=== PATIENT | male | born 1945 | race Caucasian/White ===

== ENCOUNTER 2016-11-24 20:13 | Observation (INO) | payer OTHER, MEDICARE ==
[~2016-11-24] VITALS: Ht 177.8 cm; Wt 91.5 kg
[~2016-11-24 20:13] MED LIST: ASPCH81X PO; ATOR-24 PO; DILT60TA PO; FINA5TAB4 PO; FLAX12003 PO; FOLI400T41 PO; METO50TA16 PO; MULT-506 PO; TERA5CAP PO
[2016-11-24] MEDS ORDERED: METO100T14 PO (20:26)
[2016-11-24] MEDS ORDERED: SERT-234 PO (20:27)
[2016-11-24] MEDS ORDERED: FAMO20TA11 PO (20:27)
[2016-11-24] MEDS ORDERED: MELO15TA4 PO (20:28)
[2016-11-24] MEDS ORDERED: LISI-787 PO (20:29)
[2016-11-24] MEDS ORDERED: SIMV20TA2 PO (20:30)
[2016-11-24 20:49] LABS: BASO % 0.3 %; BASO ABS # 0.02 K/uL (0-0.2); COMPLETE YES; EOS % 2.2 %; HEMATOCRIT 42.4 % (42-52); IG% 0.2 %; LYMPH % 27.9 %; LYMPH ABS # 1.78 K/uL (1.2-3.4); MEAN CELL VOLUME 92.8 fL (80-100); MEAN CORPUSCULAR HEMOGLOBIN 31.9 pg (25-34); MEAN CORPUSCULAR HGB CONC 34.4 g/dl (32-36); MEAN PLATELET VOLUME 9.2 fL (7.4-10.4); MONO % 10.3 %; NEUT % 59.1 %; PLATELET COUNT 206 K/uL (130-400); RED BLOOD COUNT 4.57 M/uL (4.7-6.1); WHITE BLOOD COUNT 6.39 K/uL (4.8-10.8)
--- NOTE | 2016-11-24 20:51 | DIAGNOSTIC IMAGING REPORT ---
CHEST ONE VIEW PORTABLE CLINICAL HISTORY: Atypical chest pain COMPARISON STUDY: 12/17/2015 FINDINGS: The heart is enlarged. There is no focal pulmonary consolidation. There is no overt failure. There are no pleural effusions. There is mild chronic interstitial thickening towards the lung bases.[ IMPRESSION: Cardiomegaly. No acute findings. Electronically signed by: George Hooker M.D. 11/24/2016 8:50 PM Dictated Date/Time: 11/24/2016 8:49 PM
[2016-11-24 21:02] LABS: INR 2.7 (0.9-1.1); PARTIAL THROMBOPLASTIN RATIO 1.5; PROTHROMBIN TIME (PATIENT) 30.2 SECONDS (9.0-12.0)
[2016-11-24 21:07] LABS: BUN/CREATININE RATIO 18.4 (10-20); CALCIUM 8.9 mg/dl (8.5-10.1); POTASSIUM 4.2 mmol/L (3.5-5.1)
[2016-11-24] MEDS ORDERED: CALC600T9 PO (21:25)
[2016-11-24] MEDS ORDERED: WARF2.5T8 PO (21:25)
--- NOTE | 2016-11-24 21:54 | History and Physical ---
History & Physical Date & Time of Service: Nov 24, 2016 at 21:35 Chief Complaint: Chest Pain Primary Care Physician: Ami Woodson D.O. History of Present Illness Source: patient, family 71yo male with history of paroxysmal a. fib on chronic coumadin, HTN, hyperlipidemia, and carotid stenosis s/p left-sided CEA who presents with chest pain. He had 3 discrete episodes throughout the day. First episode was at about 2pm earlier today. He was standing in his garage when it occurred. Described it as "sharp" and went across the whole chest. Lasted a few seconds then self-resolved. States it "stunned me" and he had to sit down. He denies discrete shortness of breath, but he then states "it took my breath away." was present and states "he didn't look well" during the episode. Denied any presyncope. Pain did not radiate to either arm or jaw or back. Denies nausea or vomiting. Denies any palpitations. He states it did not feel like heartburn (had heartburn in 2014 prompting GI work-up including EGD). He went back into his house after this first episode. He states "I didn't feel well." He checked his BP and the systolic was in the 180s. He then describes another episode of sharp chest pain while walking around the house; again self-resolved. A 3rd episode of chest pain occurred while he was laying on his cough. Again only lasted a few seconds then resolved. After the 3rd episode he decided to come to the hospital. Over the last few months he denies any limitation in activity or other cardiopulmonary symptoms. Denies any recent heavy lifting. Denies daily, severe heartburn symptoms. Has not had any chest pain since coming to the ER. Past Medical/Surgical History PMH: 1. paroxysmal a. fib 2. HTN 3. hyperlipidemia 4. BPH 5. b/l foot pain - chronic - etiology? 6. GERD 7. carotid stenosis b/l - last carotid duplex 2015 with 70% stenosis on right, <50% on left 8. prior heavy tobacco consumption no h/o MA or stroke last stress test (stress echo) - 09/2015 - negative for ischemia, but only achieved 66% of MPHR PSH: 1. CEA, left 2. left hip fracture s/p ORIF 3. inguinal hernia repair b/l 4. colonoscopy - 2015 - normal 5. 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) Immunizations History of Influenza Vaccine: Yes History of Tetanus Vaccine?: Yes History of Pneumococcal: Yes History of Hepatitis B Vaccine: No Multi-Drug Resistant Organisms History of MDRO: No Allergies Coded Allergies: Niacin (Unverified Allergy, Mild, RASH, 11/24/16) Cerivastatin (Verified Allergy, Unknown, muscle pain, 11/24/16) Piroxicam (Verified Allergy, Unknown, Rash, 11/24/16) Prednisone (Verified Allergy, Unknown, Swelling, 11/24/16) Home Medications Scheduled Aspirin (Aspirin Chewable), 81 MG PO DAILY Atorvastatin (Lipitor), 20 MG PO DAILY Calcium Carbonate-Vitamin D (Calcium + D), 1 TAB PO DAILY Diltiazem Hcl (Diltiazem Hcl), 30 MG PO BID Finasteride (Proscar), 5 MG PO DAILY Flaxseed (Linseed) (Flaxseed Oil), 1 CAP PO BID Folic Acid (Folvite), 400 MCG PO DAILY Metoprolol Tartrate (Lopressor) (Lopressor), 50 MG PO BID Multivitamin (Multivitamin), 1 TAB PO DAILY Terazosin Hcl (Hytrin), 5 MG PO HS Warfarin Sod (Jantoven), 2.5 MG PO DAILY Review of Systems Constitutional: No chills, No fatigue, No fever, No weakness, No weight loss Eyes: No worsening of vision ENT: No nasal symptoms, No sore throat, No trouble swallowing Respiratory: No cough, No dyspnea at rest Cardiovascular: + palpitations, No PND, No chest pain, No edema, No orthopnea Abdomen: No diarrhea, No nausea, No pain, No vomiting Musculoskeletal: + joint pain (chronic - knees, etc), No muscle pain Genitourinary - Male: No dysuria Neurologic: No numbness/tingling Psychiatric: No anxiety, No depression symptoms Endocrine: No fatigue Hematologic / Lymphatic: No abnormal bleeding/bruising Integumentary: No rash Physical Exam Vital Signs Date Time Temp Pulse Resp B/P Pulse Ox O2 Delivery O2 Flow Rate FiO2 11/24/16 20:34 57 11/24/16 20:20 36.7 50 18 157/76 94 Room Air General Appearance: WD/WN, no apparent distress Head: normocephalic, atraumatic Eyes: PERRL, EOMI ENT: normal ENT inspection, hearing grossly normal, TMs normal, pharynx normal Neck: supple, no adenopathy, no JVD, no carotid bruits, + thyroid abnormalities (nodule, right, about 1-2cm in size ) Respiratory/Chest: lungs clear, no respiratory distress, no accessory muscle use Cardiovascular: no gallop, normal peripheral pulses (radials 2+ bilaterally), + bradycardia, + systolic murmur (1/6 LLSB) Abdomen/GI: normal bowel sounds, non tender, soft, no organomegaly Back: normal inspection Extremities/Musculoskelatal: no pedal edema Neurologic/Psych: no motor/sensory deficits, alert, normal mood/affect, normal reflexes, oriented x 3 Skin: no rash Lymphatic: no adenopathy b/l feet, plantar aspect -- tender over multiple metatarsal heads b/l, no pain over plantar fascial insertion on heel b/l Diagnostics Laboratory Results Results Past 24 Hours Test 11/24/16 20:35 11/24/16 20:40 Range/Units White Blood Count 6.39 4.8-10.8 K/uL Red Blood Count 4.57 4.7-6.1 M/uL Hemoglobin 14.6 14.0-18.0 g/dL Hematocrit 42.4 42-52 % Mean Corpuscular Volume 92.8 80-100 fL Mean Corpuscular Hemoglobin 31.9 25-34 pg Mean Corpuscular Hemoglobin Concent 34.4 32-36 g/dl Platelet Count 206 130-400 K/uL Mean Platelet Volume 9.2 7.4-10.4 fL Neutrophils (%) (Auto) 59.1 % Lymphocytes (%) (Auto) 27.9 % Monocytes (%) (Auto) 10.3 % Eosinophils (%) (Auto) 2.2 % Basophils (%) (Auto) 0.3 % Neutrophils # (Auto) 3.78 1.4-6.5 K/uL Lymphocytes # (Auto) 1.78 1.2-3.4 K/uL Monocytes # (Auto) 0.66 0.11-0.59 K/uL Eosinophils # (Auto) 0.14 0-0.5 K/uL Basophils # (Auto) 0.02 0-0.2 K/uL RDW Standard Deviation 43.9 36.4-46.3 fL RDW Coefficient of Variation 12.9 11.5-14.5 % Immature Granulocyte % (Auto) 0.2 % Immature Granulocyte # (Auto) 0.01 0.00-0.02 K/uL Prothrombin Time 30.2 9.0-12.0 SECONDS Prothromb Time International Ratio 2.7 0.9-1.1 Activated Partial Thromboplast Time 39.7 21.0-31.0 SECONDS Partial Thromboplastin Ratio 1.5 Sodium Level 144 136-145 mmol/L Potassium Level 4.2 3.5-5.1 mmol/L Chloride Level 109 98-107 mmol/L Carbon Dioxide Level 29 21-32 mmol/L Anion Gap 6.0 3-11 mmol/L Blood Urea Nitrogen 18 7-18 mg/dl Creatinine 1.00 0.60-1.40 mg/dl Est Creatinine Clear Calc Drug Dose 74.6 ml/min Estimated GFR () 86.8 Estimated GFR (Non- 74.9 BUN/Creatinine Ratio 18.4 10-20 Random Glucose 75 70-99 mg/dl Calcium Level 8.9 8.5-10.1 mg/dl Bedside Troponin I 0.000 0-0.045 ng/ml Diagnostic Radiology chest x-ray- FINDINGS: The heart is enlarged. There is no focal pulmonary consolidation. There is no overt failure. There are no pleural effusions. There is mild chronic interstitial thickening towards the lung bases.[ IMPRESSION: Cardiomegaly. No acute findings. EKG EKG - my reading - sinus bradycardia with first degree AV block, no acute ST changes; no change from prior EKG; minor J point elevation in I, V2, V3 - unchanged from prior EKG Impression Assessment and Plan 71yo male with history of HTN, hyperlipidemia, paroxysmal a. fib, carotid stenosis s/p CEA on left, and heavy tobacco use in the past presenting with three short episodes of chest pain earlier today. All episodes were <10-20 seconds in duration and self-resolved. He has multiple CAD risk factors as noted above. 1. chest pain - * serial cardiac enzymes q6h * telemetry * CTA dissection protocol now as this could be an atypical presentation for aortic dissection * echo in AM * strongly consider stress test on Saturday (if w/u above is negative) given his numerous CAD risk factors and the fact he did not reach MPHR during his previous stress test in 2014 * check lipids in AM * continue beta susan, aspirin, statin, etc 2. a. fib, paroxysmal - symptoms today were NOT similar to past episodes of PAF. He is in sinus bradycardia at presentation today. Doubt arrhythmia as cause of presenting symptoms. Cont coumadin, BB, CCB. Telemetry. Daily INR. 3. HTN - continue BB. 4. hyperlipidemia - lipids in AM, cont statin. 5. h/o carotid stenosis, s/p CEA on left - no symptoms today to suggest TIA. Last carotid duplex with 70% stenosis on right. This needs to be followed carefully. Cont asa, statin, etc. 6. b/l plantar foot pain - metatarsalgia? plantar fascitis? Has seen podiatry in past; should return there after discharge. 7. h/o GERD - does not take PPI. In the event these episodes were GI in origin will start PPI. However, I am more suspicious about cardiac causes as noted above. 8. BPH - continue outpatient meds. 9. sinus bradycardia - follow his HRs carefully. He is on 2 AV viktoria agents. Adjust these meds if he has extreme bradycardia or symptoms referable to such. See discussion in #1 above. Level of Care Telemetry Resuscitation Status FULL RESUSCITATION VTE Prophylaxis Risk Level: Very Low Given or contraindicated: Warfarin (Coumadin) Social Service Consult None Apply Note total visit time 60 minutes patient to be placed on observation status Additional Copies To Abdon Berry M.D.; Ami Woodson D.O.
--- NOTE | 2016-11-24 22:07 | EMERGENCY ROOM VISIT NOTE ---
History Report prepared by Cm: Alisha Alvarez Under the Supervision of: Dr. Terence Dodge M.D. First contact with patient: 20:24 Chief Complaint: CHEST PAIN Stated Complaint: CHEST PAIN History of Present Illness The patient is a 71 year old male who presents to the Emergency Room with complaints of intermittent chest pain beginning 6 hours ago. The patient states that the pain was sharp and in his entire chest when it started. 2 hours later the patient reports that he felt it again but it was more of a pressure. He notes that his last chest pressure was 1 hour ago while he was laying down. The patient stats that he is on Coumadin for A-Fib and takes a baby aspirin. He notes that he has hypertension and is a former smoker. He denies any swelling or pain in the legs, immobilization or recent travel, shortness of breath, fever , and cough. Source of History: patient Onset: 6 hours ago Position: chest Quality: pressure, sharp Timing: intermittent Associated Symptoms: No SOB, No cough, No fevers Note: He denies any swelling or pain in the legs, immobilization or recent travel. Review of Systems See HPI for pertinent positives & negatives. A total of 10 systems reviewed and were otherwise negative. Past Medical & Surgical Medical Problems: (1) Benign prostatic hyperplasia (2) Hyperlipidemia (3) Hypertension Nos Family History Heart disease Hypertension Social History Smoking Status: Former Smoker Drug Use: none Marital Status: Housing Status: lives with family Occupation Status: retired Current/Historical Medications Scheduled Aspirin (Aspirin Chewable), 81 MG PO DAILY Atorvastatin (Lipitor), 20 MG PO DAILY Calcium Carbonate-Vitamin D (Calcium + D), 1 TAB PO DAILY Diltiazem Hcl (Diltiazem Hcl), 30 MG PO BID Finasteride (Proscar), 5 MG PO DAILY Flaxseed (Linseed) (Flaxseed Oil), 1 CAP PO BID Folic Acid (Folvite), 400 MCG PO DAILY Metoprolol Tartrate (Lopressor) (Lopressor), 50 MG PO BID Multivitamin (Multivitamin), 1 TAB PO DAILY Terazosin Hcl (Hytrin), 5 MG PO HS Warfarin Sod (Jantoven), 2.5 MG PO DAILY Allergies Coded Allergies: Niacin (Unverified Allergy, Mild, RASH, 11/24/16) Cerivastatin (Verified Allergy, Unknown, muscle pain, 11/24/16) Piroxicam (Verified Allergy, Unknown, Rash, 11/24/16) Prednisone (Verified Allergy, Unknown, Swelling, 11/24/16) Physical Exam Vital Signs Date Time Temp Pulse Resp B/P Pulse Ox O2 Delivery O2 Flow Rate FiO2 11/24/16 20:34 57 11/24/16 20:20 36.7 50 18 157/76 94 Room Air Physical Exam Constitutional: Vital signs reviewed. Eyes: Pupils are equal round reactive to light. Conjunctiva are noninjected. ENT: Pharynx is clear without erythema or exudate. Mucous membranes are moist. Neck supple without meningeal signs. Respiratory: Clear to auscultation bilaterally. Breath sounds are equal bilaterally. Cardiovascular: Bradycardic rate at 55 with regular rhythm. No rubs or gallops. GI: Soft, nondistended and nontender. Bowel sounds are present. Musculoskeletal: No peripheral edema. No lower extremity tenderness. Integumentary: No cyanosis. Neurological: The patient is awake and alert. No focal deficits. Psychiatric: Normal affect. Medical Decision & Procedures ER Provider Diagnostic Interpretation: X-ray results as stated below per interpretation by me and the radiologist: CHEST ONE VIEW PORTABLE FINDINGS: The heart is enlarged. There is no focal pulmonary consolidation. There is no overt failure. There are no pleural effusions. There is mild chronic interstitial thickening towards the lung bases.[ IMPRESSION: Cardiomegaly. No acute findings. Electronically signed by: George Hooker M.D. 11/24/2016 8:50 PM Dictated Date/Time: 11/24/2016 8:49 PM Laboratory Results 11/24/16 20:35 Red Blood Count 4.57, Mean Corpuscular Volume 92.8, Mean Corpuscular Hemoglobin 31.9, Mean Corpuscular Hemoglobin Concent 34.4, Mean Platelet Volume 9.2, Neutrophils (%) (Auto) 59.1, Lymphocytes (%) (Auto) 27.9, Monocytes (%) (Auto) 10.3, Eosinophils (%) (Auto) 2.2, Basophils (%) (Auto) 0.3, Neutrophils # (Auto ) 3.78, Lymphocytes # (Auto) 1.78, Monocytes # (Auto) 0.66, Eosinophils # (Auto ) 0.14, Basophils # (Auto) 0.02 11/24/16 20:35 Test 11/24/16 20:35 11/24/16 20:40 White Blood Count 6.39 K/uL (4.8-10.8) Red Blood Count 4.57 M/uL (4.7-6.1) Hemoglobin 14.6 g/dL (14.0-18.0) Hematocrit 42.4 % (42-52) Mean Corpuscular Volume 92.8 fL (80-100) Mean Corpuscular Hemoglobin 31.9 pg (25-34) Mean Corpuscular Hemoglobin Concent 34.4 g/dl (32-36) Platelet Count 206 K/uL (130-400) Mean Platelet Volume 9.2 fL (7.4-10.4) Neutrophils (%) (Auto) 59.1 % Lymphocytes (%) (Auto) 27.9 % Monocytes (%) (Auto) 10.3 % Eosinophils (%) (Auto) 2.2 % Basophils (%) (Auto) 0.3 % Neutrophils # (Auto) 3.78 K/uL (1.4-6.5) Lymphocytes # (Auto) 1.78 K/uL (1.2-3.4) Monocytes # (Auto) 0.66 K/uL (0.11-0.59) Eosinophils # (Auto) 0.14 K/uL (0-0.5) Basophils # (Auto) 0.02 K/uL (0-0.2) RDW Standard Deviation 43.9 fL (36.4-46.3) RDW Coefficient of Variation 12.9 % (11.5-14.5) Immature Granulocyte % (Auto) 0.2 % Immature Granulocyte # (Auto) 0.01 K/uL (0.00-0.02) Prothrombin Time 30.2 SECONDS (9.0-12.0) Prothromb Time International Ratio 2.7 (0.9-1.1) Activated Partial Thromboplast Time 39.7 SECONDS (21.0-31.0) Partial Thromboplastin Ratio 1.5 Anion Gap 6.0 mmol/L (3-11) Est Creatinine Clear Calc Drug Dose 74.6 ml/min Estimated GFR () 86.8 Estimated GFR (Non- 74.9 BUN/Creatinine Ratio 18.4 (10-20) Calcium Level 8.9 mg/dl (8.5-10.1) Bedside Troponin I 0.000 ng/ml (0-0.045) See HPI for pertinent positives & negatives. A total of 10 systems reviewed and were otherwise negative. ECG Indication: chest pain Rate (beats per minute): 50 Rhythm: sinus bradycardia Findings: 1st degree AV block Comparison ECG Date: november 2015 Change: no significant change ED Course 2023: The patient was evaluated in room B11B. A complete history and physical exam was performed. 2110: I reevaluated the patient and he is not having any chest discomfort. I recommended hospitalization. 2199: I spoke with Dr. Jones of [facility]. We discussed the patient and his results. The patient will be further evaluated by Dr. Jones. Medical Decision This is a 71-year-old male who presents with chest pain. Differential diagnosis includes unstable angina, OR, pulmonary embolism, pleurisy, GERD, anxiety. I did perform a limited focused review of portions of the patient's old chart on the electronic medical record. The patient has had no recent pertinent visits to this hospital. I did evaluate the patient as noted above. IV access was established. The patient was placed on a continuous property assessment monitor. I did order and personally review the patient's 12-lead EKG and chest x-ray as described above. I did order and review the patient's blood work as noted in the electronic medical record. The patient's INR is therapeutic. Troponin is negative. I did reassess the patient. He is feeling no chest pain at this time. I did discuss the test results with him. I did recommend hospitalization for repeat cardiac enzymes and further evaluation of his symptoms. I did discuss the case with the hospitalist and watch caser. Consults Time Called: 2115 Consulting Physician: Dr. Jones - [facility] Returned Call: [address] Jones of [facility]. We discussed the patient and his results. The patient will be further evaluated by Dr. Jones. Impression Primary Impression: Precordial chest pain Scribe Attestation The scribe's documentation has been prepared under my direct and personally reviewed by me in its entirety. I confirm that the note above accurately reflects all work, treatment, procedures, and medical decision making performed by me. Departure Information Dispostion Being Evaluated By Hospitalist Referrals Ami Woodson D.O. (PCP) Patient Instructions My [facility]
[2016-11-24] MEDS ORDERED: ACETAMINOPHEN 325 MG TAB PO PRN (22:15)
[2016-11-24] MEDS ORDERED: ONDANSETRON INJ 2 MG/ML 2 ML VIAL IV PRN (22:15)
[2016-11-24] MEDS ORDERED: SODIUM CHLORIDE 0.9% 1000ML 1,000 ML IV SCH (22:15)
[2016-11-24] MEDS ORDERED: OPTIRAY 320 IV PRN (22:15)
[2016-11-24] MEDS ORDERED: ALUMINUM/MAGNESIUM/SIMETH (MAALOX MAX) 30 ML UDC PO PRN (22:15)
[2016-11-24] MEDS ORDERED: NITROGLYCERIN 0.4 MG SL PER TAB CHARGE SL PRN (22:15)
[2016-11-24] MEDS ORDERED: MAGNESIUM HYDROXIDE SUSP 30 ML UDC PO PRN (22:15)
[2016-11-24] MEDS ORDERED: IV FLUIDS COMPLETED PRN (22:45)
[2016-11-24 23:10] VITALS: BP 149/67; PULSE 51; TEMP 36.5; O2SAT 94
[2016-11-25 00:23] VITALS: O2SAT 94; Ht 177.8 cm; Wt 91.5 kg
[2016-11-25 03:22] LABS: CHOLESTEROL 146 mg/dl (0-200); CHOLESTEROL/HDL RATIO 3.2; CKMB/CK RATIO 2.4 (0-3.0); HDL CHOLESTEROL 46 mg/dl; LDL CHOLESTEROL CALCULATED 80 mg/dl; TRIGLYCERIDES 98 mg/dl (0-150); VERY LOW DENSITY LIPOPROT CALC 20 mg/dl
[2016-11-25 04:14] VITALS: BP 163/85; PULSE 55; TEMP 36.5; O2SAT 96
[2016-11-25 07:26] VITALS: BP 118/58; PULSE 58; TEMP 36.9; O2SAT 95
--- NOTE | 2016-11-25 07:33 | DIAGNOSTIC IMAGING REPORT ---
CHEST CTA for AORTIC DISSECTION CT DOSE: 972.22 mGy.cm HISTORY: TECHNIQUE: Multiaxial CT images of the chest were performed both before and after the intravenous administration of contrast to evaluate the aorta. Maximal intensity projection images were also obtained. COMPARISON STUDY: Chest 11/24/2016. FINDINGS: Normal caliber thoracic aorta with no evidence for dissection. The central pulmonary arteries are patent. 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 Multinodular thyroid gland with the dominant nodule measuring 1.7 cm. A few prominent mediastinal and hilar lymph nodes. Mild thickening of the distal esophagus. The visualized liver and spleen are unremarkable. Calcifications within the left adrenal gland. No pleural or pericardial effusions. No pneumothorax. The central airways are patent. A 3 mm nodule within the left upper lobe on image 97. Calcified granuloma along the left major fissure. A 7 mm nodule within the left lower lobe abutting the major fissure on image 142. Mild bibasilar subsegmental atelectasis. A 5 mm nodule within the right upper lobe on image 146. A few additional subpleural nodules within the right lower lobe abutting the major fissure with the largest measuring 6 mm on image 170. A 4 mm nodule within the right lower lobe on image 245. IMPRESSION: 1. No evidence for an aortic dissection. 2. The central pulmonary arteries are patent. 3. A few scattered subcentimeter bilateral pulmonary nodules with the largest measuring 7 mm. Please refer to the chart below for recommended follow-up. 4. Additional findings as described above. Please refer to below summary of Fleischner criteria recommendations for follow-up of incidental CT nodules (Osvaldo Phillips, Guidelines for management of small pulmonary nodules detected on CT scans: A statement from the Fleischner Society, Radiology 237: [phone].) Low Risk Patient: Minimal or no smoking or other known risk factors for malignancy <=4 mm: No follow-up needed. >4-6 mm: Initial follow-up CT at 12 months; if unchanged, no further follow-up. >6-8 mm: Initial follow-up CT at 6-12 months then at 18-24 months if no change. >8 mm: Follow-up CT at \R\3, 9, 24 months, or PET and/or biopsy. High Risk Patient: History of smoking or other known risk factors <=4 mm: Follow-up at 12 months; if unchanged, no further follow-up. >4-6 mm: Initial follow-up CT at 6-12 months then at 18-24 months if no change. >6-8 mm: Initial follow-up CT at 3-6 months then at 9-12 and 24 months if no change. >8 mm: Same as low risk patient. Note: Nodule size measured as average of length and width. Ground glass or partly solid nodules may require longer follow-up to exclude indolent adenocarcinoma. Electronically signed by: Som Multani M.D. 11/25/2016 7:32 AM Dictated Date/Time: 11/25/2016 7:24 AM
[2016-11-25 08:00] VITALS: O2SAT 95
[2016-11-25 08:01] VITALS: PULSE 67
[2016-11-25] MEDS: ATORVASTATIN 20 MG TAB PO SCH ×2 (08:06→08:09)
--- NOTE | 2016-11-25 08:27 | Discharge Instructions ---
Discharge Instructions Admission Reason for Admission: Precordial Chest Pain Discharge Discharge Diagnosis / Problem: atypical chest pain Discharge Goals Goal(s): Increase independence, Improve disease control, Diagnostic testing, Therapeutic intervention Activity Recommendations Activity Limitations: resume your previous activity . Instructions / Follow-Up Instructions / Follow-Up follow up PCP 2 weeks, needs repeat CT chest in 6 months (pulmonary nodule 0.7 cm) Current Hospital Diet Patient's current hospital diet: AHA Diet (Heart Healthy) Discharge Diet Recommended Diet: Regular Diet Pending Studies Studies pending at discharge: no Laboratory Results Lipid Panel Test 11/25/16 02:55 Range/Units Triglycerides Level 98 0-150 mg/dl Cholesterol Level 146 0-200 mg/dl HDL Cholesterol 46 mg/dl Cholesterol/HDL Ratio 3.2 LDL Cholesterol, Calculated 80 mg/dl Medical Emergencies . Who to Call and When: Medical Emergencies: If at any time you feel your situation is an emergency, please call 911 immediately. . Non-Emergent Contact Non-Emergency issues call your: Primary Care Provider Call Non-Emergent contact if: you have a fever, your pain is not controlled . Past History Medical & Surgical History: (1) Precordial chest pain . "Provider Documentation" section prepared by Jelani Black. VTE Core Measure Inpt VTE Proph given/why not?: Warfarin (Coumadin)
--- NOTE | 2016-11-25 08:31 | Discharge Summary ---
Discharge Summary Admission Date: Nov 24, 2016 at 22:15 Discharge Date: Nov 25, 2016 Discharge Disposition: Home Principal Diagnosis: atypical chest pain, pulm nodule Immunizations: Have You Had Influenza Vaccine: Yes History of Tetanus Vaccine?: Yes History of Pneumococcal: Yes History of Hepatitis B Vaccine: No Medication Reconciliation Continued Medications: Aspirin (Aspirin Chewable) 81 Mg Chew 81 MG PO DAILY, TAB Atorvastatin (Lipitor) 40 Mg Tab 20 MG PO DAILY, TAB Calcium Carbonate-Vitamin D (Calcium + D) 1 Tab Tab 1 TAB PO DAILY Diltiazem Hcl (Diltiazem Hcl) 60 Mg Tab 30 MG PO BID Finasteride (Proscar) 5 Mg Tab 5 MG PO DAILY, TAB Flaxseed (Linseed) (Flaxseed Oil) 1 Cap Cap 1 CAP PO BID Folic Acid (Folvite) 400 Mcg Tab 400 MCG PO DAILY, TAB Metoprolol Tartrate (Lopressor) (Lopressor) 50 Mg Tab 50 MG PO BID, TAB Multivitamin (Multivitamin) Tab 1 TAB PO DAILY, TAB Terazosin Hcl (Hytrin) 5 Mg Cap 5 MG PO HS, CAP Warfarin Sod (Jantoven) 2.5 Mg Tab 2.5 MG PO DAILY, TAB Referrals At Discharge Follow up Referrals: Physician Referral - Within 2 Weeks with Juan Pablo Woodson D.O. Discharge Exam Review of Systems: Constitutional: No chills ENT: No unusual epistaxis Respiratory: No sputum Cardiovascular: No orthopnea Abdomen: No nausea Musculoskeletal: No joint pain Genitourinary - Male: No hematuria Neurologic: No memory loss, No weakness Psychiatric: No depression symptoms Endocrine: No fatigue Integumentary: No rash Physical Exam: General Appearance: WD/WN, no apparent distress Eyes: normal inspection, EOMI ENT: hearing grossly normal, pharynx normal Neck: supple, no JVD Respiratory/Chest: lungs clear, normal breath sounds Cardiovascular: no edema, no JVD Abdomen / GI: soft, no organomegaly Extremities: no calf tenderness, normal capillary refill Neurologic/Psychiatric: alert, normal mood/affect Skin: normal color, no rash Hospital Course A 71 yo male comes with sharp pain while fixing things in garage. Likely MSK vs esophageal spasm. His CP resolved now. EKG, CE are normal, he takes coumadin for afib, INR therapeutic. CT chest showed a pulm nodule follow up PCP 2 weeks, needs repeat CT chest in 6 months (pulmonary nodule 0.7 cm) Total Time Spent: Greater than 30 minutes This includes examination of the patient, discharge planning, medication reconciliation, and communication with other providers. Discharge Instructions Please refer to the electronic Patient Visit Report (Discharge Instructions) for additional information. Additional Copies To Juan Pablo Woodson D.O.
[2016-11-25 08:49] VITALS: BP 118/58; PULSE 67; TEMP 36.9; O2SAT 95
[2016-11-25] MEDS ORDERED: DILTIAZEM HCL 30 MG TAB PO SCH (09:00)
[2016-11-25] MEDS ORDERED: FoLIC ACID TAB 400 MCG TAB PO SCH (09:00)
[2016-11-25] MEDS ORDERED: MULTIVITAMIN TAB PO SCH (09:00)
[2016-11-25] MEDS ORDERED: FINASTERIDE 5 MG TAB PO SCH (09:00)
[2016-11-25] MEDS ORDERED: METOPROLOL TARTRATE 50 MG TAB PO SCH (09:00)
[2016-11-25] MEDS ORDERED: ASPIRIN 81 MG ECTAB PO SCH (09:00)
[2016-11-25] MEDS ORDERED: WARFARIN SOD 2.5 MG TAB PO SCH (16:00)
== END 2016-11-25 10:52 | disposition home or self-care (01) ==
LOC: ENRESERVDT → ENRESERVTM → C.EDB 20:14 → C.MED 22:15
PROVIDERS: ADMIT Internal Medicine; ATTEND Hospitalist
DX: R07.89 Other chest pain (principal); E78.5 Hyperlipidemia, unspecified; I10 Essential (primary) hypertension; N40.0 Benign prostatic hyperplasia without lower urinary tract symptoms; K21.9 Gastro-esophageal reflux disease without esophagitis; I48.0 Paroxysmal atrial fibrillation; I44.0 Atrioventricular block, first degree; Z79.01 Long term (current) use of anticoagulants; Z87.891 Personal history of nicotine dependence; Z82.49 Family history of ischemic heart disease and other diseases of the circulatory system; Z82.3 Family history of stroke

== ENCOUNTER → 2017-02-12 | Outpatient (CLI) | payer OTHER, MEDICARE ==
[~2017-02-12] MED LIST changes: +CALC600T9 PO; +OPTIRAY 320 IV PRN; +WARF2.5T8 PO
--- NOTE | 2017-02-12 11:42 | DIAGNOSTIC IMAGING REPORT ---
CHEST CT WITH CONTRAST CT DOSE: 488.02 mGy.cm HISTORY: Pulmonary nodule. Follow-up. TECHNIQUE: Multiaxial CT images of the chest were performed following the intravenous administration of contrast. COMPARISON: Chest CTA 11/24/2016. FINDINGS: The central airways are patent. No pleural effusions. No pneumothorax. A 3 mm nodule within the left upper lobe on image 97. Nodular thickening along the left major fissure on image 133 with the dominant nodule measuring 7 mm. This remains unchanged. Groundglass densities at the lung bases favor mild dependent change. Stable subpleural nodules along the right major fissure on images 155 and 156. The largest nodule measures 6 mm. Stable 5 mm nodule within the right upper lobe on image 142. No new bony nodules identified. The visualized liver, spleen, right adrenal gland are unremarkable. Calcifications within the left adrenal gland. Stable thyroid nodules with the largest measuring 17 mm. Mildly prominent mediastinal and hilar lymph nodes remain unchanged. The heart is mildly enlarged. Small hiatus hernia. Normal caliber thoracic aorta. The central pulmonary arteries are patent. IMPRESSION: 1. No change compared to the prior study. 2. A few scattered bilateral subcentimeter indeterminate pulmonary nodules remain stable. Dominant nodule at the left major fissure measures 7 mm. Please refer to the chart below for recommended follow-up. 3. Stable thyroid nodules measuring up to 17 mm. Please refer to below summary of Fleischner criteria recommendations for follow-up of incidental CT nodules (Osvaldo Phillips, Guidelines for management of small pulmonary nodules detected on CT scans: A statement from the Fleischner Society, Radiology 237: [phone].) SOLID NODULES Solitary nodule size: <6 mm * Low risk patients: no follow-up needed * high risk patients: optional CT at 12 months Solitary nodule size: 6-8 mm * Low risk patients: follow-up at 6-12 months, then consider further follow-up at 18-24 months * high risk patients: initial follow-up CT at 6-12 months and then at 18-24 months if no change Solitary nodule size: >8 mm * either low or high risk patients - consider follow-up CT at 3 months, and/or CT-PET, and/or biopsy Multiple nodules size: <6 mm * Low risk patients: no routine follow-up * high risk patients: optional CT at 12 months Multiple nodules size: 6-8 mm * Low risk patients: follow-up at 3-6 months, then consider further follow-up at 18-24 months * high risk patients: follow-up at 3-6 months, then at 18-24 months if no change Multiple nodules size: >8 mm * Low risk patients: follow-up at 3-6 months, then consider further follow-up at 18-24 months * high risk patients: follow-up at 3-6 months, then at 18-24 months if no change Note: newly detected indeterminate nodule in persons 35 years of age or older. * Low risk patients: minimal or absent history of smoking and/or other known risk factors * high risk patients: history of smoking or of other known risk factors (e.g. first degree relative with lung cancer, or exposure to asbestos, radon, uranium) * if a nodule up to 8 mm is partly solid or is ground glass further follow-up is required after 24 months to exclude possible slow growing adenocarcinoma (SALLIE) SUBSOLID NODULES Solitary pure ground-glass nodule * nodule size <6 mm - no CT follow-up required * nodule size >=6 mm - follow-up CT at 6-12 months, then every 2 years until 5 years Solitary part-solid nodule * nodule size <6 mm - no CT follow-up required * nodule size >=6 mm - follow-up CT at 3-6 months. If unchanged, and solid component remains <6 mm, then annual follow-up for 5 years Multiple subsolid nodules * nodule size <6 mm - follow-up CT at 3-6 months, consider further follow-up at 2 and 4 years if stable * nodule size >=6 mm - follow-up CT at 3-6 months, subsequent management based on the most suspicious nodule(s) Electronically signed by: Som Multani M.D. 02/12/2017 11:40 AM Dictated Date/Time: 02/12/2017 11:31 AM
== END | disposition home or self-care (01) ==
LOC: C.CTS 11:12
PROVIDERS: ATTEND Family Medicine
DX: R91.8 Other nonspecific abnormal finding of lung field (principal); E04.2 Nontoxic multinodular goiter

== ENCOUNTER → 2017-09-16 | Outpatient (CLI) | payer OTHER, MEDICARE ==
[~2017-09-16] MED LIST changes: -OPTIRAY 320 IV PRN
[2017-09-16 10:20] LABS: CHOLESTEROL/HDL RATIO 3.1
== END | disposition home or self-care (01) ==
LOC: C.LAB1850 08:19
PROVIDERS: ATTEND Internal Medicine Cardiovascular Disease
DX: I10 Essential (primary) hypertension (principal); E78.00 Pure hypercholesterolemia, unspecified

== ENCOUNTER 2017-10-19 09:16 | Emergency (ER) | payer OTHER, MEDICARE ==
[~2017-10-19] VITALS: Ht 177.8 cm; Wt 91.2 kg
[2017-10-19 09:18] VITALS: Ht 177.8 cm; Wt 91.2 kg
--- NOTE | 2017-10-19 09:42 | EMERGENCY ROOM VISIT NOTE ---
History Report prepared by Yanivibfernanda: Claire Green Under the Supervision of: Dr. Shraddha Serrano D.O. First contact with patient: 09:24 Chief Complaint: FLU LIKE SX Stated Complaint: FLU History of Present Illness The patient is a 72 year old male who presents to the Emergency Room with complaints of worsening flu-like symptoms since yesterday. He is accompanied by his . He complains of a sore throat and a productive cough with clear colored sputum. He has had the chills but denies any fevers. Last night he had difficulty breathing and had to sleep "sitting up". He states he "gets sick like this once a year", but was unable to get in with his doctor. He has not been taking over the counter medications as he is unsure what he can take with his history of hypertension and atrial fibrillation, for which he takes a daily blood thinner. His last INR checked at home 2 weeks ago was 2.4. The patient notes his and grandson have been sick with similar symptoms, but they have been improving, and he seems to be getting worse. He denies any recent diarrhea , pain or swelling in his legs or urinary symptoms. He admits he has had pneumonia in the past and did receive a flu shot this year. He denies any personal history of CHF. He is a former smoker, stating he smoked for 40 years, but "quit a long time ago". He does not believe he's needed treatment with steroids or inhalers in the past when he's been sick with similar symptoms. Source of History: patient Onset: yesterday Position: other (global) Timing: worsening Associated Symptoms: + chills, + sorethroat, + cough, + SOB, No fevers, No diarrhea, No urinary symptoms Review of Systems See HPI for pertinent positives & negatives. A total of 10 systems reviewed and were otherwise negative. Past Medical & Surgical Medical Problems: (1) Benign prostatic hyperplasia (2) Hyperlipidemia (3) Hypertension Nos (4) Pulmonary nodule Family History Heart disease Hypertension Social History Smoking Status: Former Smoker Alcohol Use: none Drug Use: none Marital Status: Housing Status: lives with family Occupation Status: retired Current/Historical Medications Scheduled Aspirin (Aspirin Chewable), 81 MG PO DAILY Atorvastatin (Lipitor), 20 MG PO DAILY Benzonatate (Tessalon Perles), 100 MG PO Q8 Calcium Carbonate-Vitamin D (Calcium + D), 1 TAB PO DAILY Diltiazem Hcl (Diltiazem Hcl), 30 MG PO BID Finasteride (Proscar), 5 MG PO DAILY Flaxseed (Linseed) (Flaxseed Oil), 1 CAP PO BID Folic Acid (Folvite), 400 MCG PO DAILY Levofloxacin (Levaquin), 750 MG PO DAILY Methylprednisolone (Medrol Dosepak), 1 PKT PO UD Metoprolol Tartrate (Lopressor) (Lopressor), 50 MG PO BID Multivitamin (Multivitamin), 1 TAB PO DAILY Terazosin Hcl (Hytrin), 5 MG PO HS Warfarin Sod (Jantoven), 2.5 MG PO DAILY Allergies Coded Allergies: Niacin (Unverified Allergy, Mild, RASH, 10/19/17) Cerivastatin (Verified Allergy, Unknown, muscle pain, 10/19/17) Piroxicam (Verified Allergy, Unknown, Rash, 10/19/17) Prednisone (Verified Allergy, Unknown, Swelling, 10/19/17) Physical Exam Vital Signs Date Time Temp Pulse Resp B/P (MAP) Pulse Ox O2 Delivery O2 Flow Rate FiO2 10/19/17 12:48 82 18 134/68 96 10/19/17 12:21 37.1 82 18 134/68 96 Room Air 10/19/17 10:44 86 18 155/75 92 Room Air 10/19/17 09:18 36.6 92 20 147/68 98 Room Air Physical Exam GENERAL: alert, well appearing, well nourished, no distress, non-toxic EYE EXAM: normal conjunctiva, PERRL and EOM's grossly intact OROPHARYNX: no exudate, no erythema, lips, buccal mucosa, and tongue normal and mucous membranes are moist NECK: supple, no nuchal rigidity, no adenopathy, non-tender LUNGS: Clear to auscultation. Normal chest wall mechanics HEART: no murmurs, S1 normal and S2 normal ABDOMEN: abdomen soft, non-tender, normo-active bowel sounds, no masses, no rebound or guarding. BACK: Back is symmetrical on inspection and there is no deformity, no midline tenderness, no CVA tenderness. SKIN: no rashes and no bruising UPPER EXTREMITIES: upper extremities are grossly normal. LOWER EXTREMITIES: No pitting edema. NEURO EXAM: Normal sensorium, cranial nerves II-XII grossly intact, normal speech, no gross weakness of arms, no gross weakness of legs. Medical Decision & Procedures ER Provider Diagnostic Interpretation: Radiology results have been interpreted by the radiologist and reviewed by me. CHEST 2 VIEWS ROUTINE HISTORY: Cough. Short of breath. COMPARISON: Chest CT 02/12/2017. FINDINGS: The heart is normal in size. The lungs are clear. No pleural effusions. No pneumothorax. The lungs are mildly hyperexpanded. IMPRESSION: No acute process. Electronically signed by: Som Multani M.D. 10/19/2017 9:59 AM Laboratory Results 10/19/17 10:30 Red Blood Count 4.55, Mean Corpuscular Volume 93.4, Mean Corpuscular Hemoglobin 32.5, Mean Corpuscular Hemoglobin Concent 34.8, Mean Platelet Volume 9.2, Neutrophils (%) (Auto) 81.4, Lymphocytes (%) (Auto) 11.4, Monocytes (%) (Auto) 6.4, Eosinophils (%) (Auto) 0.6, Basophils (%) (Auto) 0.1, Neutrophils # (Auto) 8.50, Lymphocytes # (Auto) 1.19, Monocytes # (Auto) 0.67, Eosinophils # (Auto) 0.06, Basophils # (Auto) 0.01 10/19/17 10:30 Test 10/19/17 09:50 10/19/17 10:30 Influenza Type A Antigen Neg for Influ A (NEG) Influenza Type B Antigen Neg for Influ B (NEG) White Blood Count 10.44 K/uL (4.8-10.8) Red Blood Count 4.55 M/uL (4.7-6.1) Hemoglobin 14.8 g/dL (14.0-18.0) Hematocrit 42.5 % (42-52) Mean Corpuscular Volume 93.4 fL (80-100) Mean Corpuscular Hemoglobin 32.5 pg (25-34) Mean Corpuscular Hemoglobin Concent 34.8 g/dl (32-36) Platelet Count 189 K/uL (130-400) Mean Platelet Volume 9.2 fL (7.4-10.4) Neutrophils (%) (Auto) 81.4 % Lymphocytes (%) (Auto) 11.4 % Monocytes (%) (Auto) 6.4 % Eosinophils (%) (Auto) 0.6 % Basophils (%) (Auto) 0.1 % Neutrophils # (Auto) 8.50 K/uL (1.4-6.5) Lymphocytes # (Auto) 1.19 K/uL (1.2-3.4) Monocytes # (Auto) 0.67 K/uL (0.11-0.59) Eosinophils # (Auto) 0.06 K/uL (0-0.5) Basophils # (Auto) 0.01 K/uL (0-0.2) RDW Standard Deviation 43.2 fL (36.4-46.3) RDW Coefficient of Variation 12.7 % (11.5-14.5) Immature Granulocyte % (Auto) 0.1 % Immature Granulocyte # (Auto) 0.01 K/uL (0.00-0.02) Prothrombin Time 24.8 SECONDS (9.0-12.0) Prothromb Time International Ratio 2.4 (0.9-1.1) Anion Gap 4.0 mmol/L (3-11) Est Creatinine Clear Calc Drug Dose 77.0 ml/min Estimated GFR () 89.4 Estimated GFR (Non- 77.1 BUN/Creatinine Ratio 15.0 (10-20) Calcium Level 8.5 mg/dl (8.5-10.1) Total Bilirubin 0.7 mg/dl (0.2-1) Aspartate Amino Transf (AST/SGOT) 15 U/L (15-37) Alanine Aminotransferase (ALT/SGPT) 33 U/L (12-78) Alkaline Phosphatase 71 U/L (45-117) Troponin I < 0.015 ng/ml (0-0.045) Pro-B-Type Natriuretic Peptide 285 pg/ml (0-900) Total Protein 7.2 gm/dl (6.4-8.2) Albumin 3.6 gm/dl (3.4-5.0) Globulin 3.6 gm/dl (2.5-4.0) Albumin/Globulin Ratio 1.0 (0.9-2) Laboratory results per my review. Medications Administered Medications (Trade) Dose Ordered Sig/Max Route Start Time Stop Time Status Last Admin Dose Admin Albuterol (Ventolin Hfa Inhaler) 2 puffs NOW ONCE INH 10/19/17 09:45 10/19/17 09:46 DC 10/19/17 09:48 2 PUFFS Benzonatate (Tessalon Perles Cap) 100 mg NOW ONCE PO 10/19/17 09:45 10/19/17 09:46 DC 10/19/17 09:48 100 MG Methylprednisolone Sodium Succinate 60 mg/Syringe 0.96 ml @ 1.5 mls/min NOW STAT IV 10/19/17 11:10 10/19/17 11:11 DC 10/19/17 11:44 1.5 MLS/MIN ED Course 0927: The patient was evaluated in room B2. A complete history and physical exam was performed. 0945: Tessalon Perles Cap 100 mg PO, Albuterol 2 puffs INH. 1025: I reevaluated the patient. I updated him on his chest X-ray results. He complains of the chills, so we will recheck blood work. 1105: I reevaluated the patient. He is asleep and his vital signs are stable. 1110: Methylprednisolone Sodium Succinate 60 mg/Syringe 0.96 ml @ 1.5 mls/min IV. 1130: I reevaluated the patient. He is still asleep. 1140: I reevaluated the patient. He is feeling well and is ready to go home. I discussed his results and discharge instructions and he verbalized complete understanding and agreement. Medical Decision Differential diagnoses includes but is not limited to pneumonia, bronchitis, COPD/Asthma exacerbation, pneumothorax, pulmonary embolism, congestive heart failure, acute coronary syndrome On initial interview pt very insistent he needed antibiotics bc that's what his PCP always gives him. We discussed at length his med hx, prior similar episodes , tobacco hx, exposures, and risks. Pt with stable VS here, negative evaluation. Doubt pe given therapeutic INR. Discussed MDI's and steroids which pt doesn't have and hasn't used, discussed appropriate use of antibiotics. DIscussed f/u with PCP next week, sx to watch/return for, he and verbalized understanding and were agreeable with plan. All questions answered at bedside and pt well appearing at dc. Doubt vascular etiology, doubt bacteremia/sepsis, doubt chf or acs. Doubt deep space infection or meningitis. Medication Reconcilliation Current Medication List: was personally reviewed by me Blood Pressure Screening Patient's blood pressure: Elevated blood pressure Blood pressure disposition: Elevated BP felt to be situational Impression Primary Impression: Upper respiratory infection Additional Impressions: Acute bronchitis COPD (chronic obstructive pulmonary disease) Scribe Attestation The scribe's documentation has been prepared under my direction and personally reviewed by me in its entirety. I confirm that the note above accurately reflects all work, treatment, procedures, and medical decision making performed by me. Departure Information Dispostion Home / Self-Care Prescriptions Benzonatate (Tessalon Perles) 100 Mg Cap 100 MG PO Q8 for Cough, #30 CAP Prov: Shraddha Serrano, DO 10/19/17 Methylprednisolone (MEDROL DOSEPAK) 4 Mg Cali 1 PKT PO UD for 6 Days, #1 PKT Prov: Shraddha Serrano, DO 10/19/17 Levofloxacin (Levaquin) 500 Mg Tab 750 MG PO DAILY for 5 Days, #8 TAB Prov: Shraddha Serrano, DO 10/19/17 Referrals Ami Woodson D.O. (PCP) Patient Instructions My [facility] Additional Instructions You may use the inhaler and spacer up to every 4 hours as needed for chest tightness or wheezing. You may use the cough medication as directed. If your symptoms do not improve in 24 hours, you may then start the antibiotic. If you develop worsening cough or trouble breathing, noticed blood in your sputum, develop fevers or worsening chills, chest pain, vomiting, rash or sores, leg swelling, or you've any other new concerns, please return the emergency room. Your INR today was 2.4. You may use coricidin HBP and over the counter cough syrup as directed on the bottle. Do not take sudafed. You may use tylenol for fevers/pain. Problem Qualifiers Primary Impression: Upper respiratory infection URI type: unspecified URI Qualified Codes: J06.9 - Acute upper respiratory infection, unspecified Additional Impressions: Acute bronchitis Bronchitis organism: unspecified organism Qualified Codes: J20.9 - Acute bronchitis, unspecified COPD (chronic obstructive pulmonary disease) COPD type: unspecified COPD Qualified Codes: J44.9 - Chronic obstructive pulmonary disease, unspecified
[2017-10-19] MEDS ORDERED: BENZONATATE 100MG CAP PO ONE (09:45)
[2017-10-19] MEDS ORDERED: ALBUTEROL HFA 8 GM INHALER INH ONE (09:45)
--- NOTE | 2017-10-19 10:00 | DIAGNOSTIC IMAGING REPORT ---
CHEST 2 VIEWS ROUTINE HISTORY: Cough. Short of breath. COMPARISON: Chest CT 02/12/2017. FINDINGS: The heart is normal in size. The lungs are clear. No pleural effusions. No pneumothorax. The lungs are mildly hyperexpanded. IMPRESSION: No acute process. Electronically signed by: Som Multani M.D. 10/19/2017 9:59 AM Dictated Date/Time: 10/19/2017 9:58 AM
[2017-10-19 10:41] LABS: BASO % 0.1 %; BASO ABS # 0.01 K/uL (0-0.2); COMPLETE YES; EOS % 0.6 %; HEMATOCRIT 42.5 % (42-52); IG% 0.1 %; LYMPH % 11.4 %; LYMPH ABS # 1.19 K/uL (1.2-3.4); MEAN CELL VOLUME 93.4 fL (80-100); MEAN CORPUSCULAR HEMOGLOBIN 32.5 pg (25-34); MEAN CORPUSCULAR HGB CONC 34.8 g/dl (32-36); MEAN PLATELET VOLUME 9.2 fL (7.4-10.4); MONO % 6.4 %; NEUT % 81.4 %; PLATELET COUNT 189 K/uL (130-400); RED BLOOD COUNT 4.55 M/uL (4.7-6.1); WHITE BLOOD COUNT 10.44 K/uL (4.8-10.8)
[2017-10-19 10:53] LABS: INR 2.4 (0.9-1.1); PROTHROMBIN TIME (PATIENT) 24.8 SECONDS (9.0-12.0)
[2017-10-19 10:54] LABS: ALT/SGPT 33 U/L (12-78); AST/SGOT 15 U/L (15-37); BLOOD UREA NITROGEN 15 mg/dl (7-18); CALCIUM 8.5 mg/dl (8.5-10.1); CARBON DIOXIDE 28 mmol/L (21-32); CHLORIDE 107 mmol/L (98-107); CREATININE 0.97 mg/dl (0.60-1.40); GLUCOSE 95 mg/dl (70-99); POTASSIUM 3.9 mmol/L (3.5-5.1); SODIUM 139 mmol/L (136-145)
[2017-10-19 10:59] LABS: ALKALINE PHOSPHATASE 71 U/L (45-117)
[2017-10-19] MEDS ORDERED: METHYLPREDNISOLONE IV 60 MG in SYRINGE 0 ML IV STA (11:10)
[2017-10-19 12:21] VITALS: TEMP 37.1
[2017-10-19] MEDS ORDERED: BENZ100C84 PO (12:33)
[2017-10-19] MEDS ORDERED: METH4PAK PO (12:33)
[2017-10-19] MEDS ORDERED: LEVO-366 PO (12:33)
[2017-10-19 12:48] VITALS: BP 134/68; PULSE 82; O2SAT 96
== END 2017-10-19 12:49 | disposition home or self-care (01) ==
LOC: C.EDB 09:18
DX: J06.9 Acute upper respiratory infection, unspecified (principal); J20.9 Acute bronchitis, unspecified; J44.0 Chronic obstructive pulmonary disease with (acute) lower respiratory infection; I10 Essential (primary) hypertension; E78.5 Hyperlipidemia, unspecified; N40.0 Benign prostatic hyperplasia without lower urinary tract symptoms; Z87.891 Personal history of nicotine dependence; Z79.82 Long term (current) use of aspirin; Z79.01 Long term (current) use of anticoagulants; Z79.899 Other long term (current) drug therapy; Z82.49 Family history of ischemic heart disease and other diseases of the circulatory system; Z88.8 Allergy status to other drugs, medicaments and biological substances

== ENCOUNTER 2017-12-19 10:39 | Emergency (ER) | payer OTHER, MEDICARE ==
[~2017-12-19] VITALS: Ht 177.8 cm; Wt 91.2 kg
[~2017-12-19 10:39] MED LIST changes: +BENZ100C84 PO
[2017-12-19 10:56] VITALS: TEMP 36.9; Ht 177.8 cm; Wt 91.2 kg
[2017-12-19] MEDS ORDERED: ALBUT/IPRATROP 3MG/0.5MG NEB 3 ML VIAL INH STA (11:18)
[2017-12-19] MEDS ORDERED: OSEL75CA23 PO (11:20)
[2017-12-19 11:49] LABS: BASO % 0.2 %; BASO ABS # 0.01 K/uL (0-0.2); EOS % 1.8 %; HEMATOCRIT 39.9 % (42-52); HEMOGLOBIN 13.6 g/dL (14.0-18.0); LYMPH % 18.1 %; LYMPH ABS # 1.03 K/uL (1.2-3.4); MEAN CELL VOLUME 93.4 fL (80-100); MEAN CORPUSCULAR HEMOGLOBIN 31.9 pg (25-34); MEAN CORPUSCULAR HGB CONC 34.1 g/dl (32-36); MEAN PLATELET VOLUME 9.1 fL (7.4-10.4); MONO % 12.1 %; MONO ABS # 0.69 K/uL (0.11-0.59); NEUT % 67.8 %; NEUT ABS # 3.87 K/uL (1.4-6.5); PLATELET COUNT 174 K/uL (130-400)
--- NOTE | 2017-12-19 11:51 | DIAGNOSTIC IMAGING REPORT ---
SINGLE VIEW CHEST CLINICAL HISTORY: Cough and wheezing. FINDINGS: An AP, portable, upright chest radiograph is compared to study dated 10/19/2017 and correlated with chest CT dated 02/12/2017. The examination is degraded by portable technique and patient rotation. The heart is enlarged and there is atherosclerotic calcification of the thoracic aorta. The pulmonary vasculature is noncongested. Chronic interstitial thickening is similar to previous. Patchy airspace opacities are suggested in the right midlung. There is mild left basilar atelectasis. No large pleural effusion or pneumothorax is seen. The skeletal structures are osteopenic. Degenerative change is seen throughout the thoracic spine. IMPRESSION: 1. Cardiomegaly without radiographic evidence of congestive failure. 2. Patchy airspace opacities are identified in the right midlung. This likely represents an infectious/inflammatory pneumonitis. Radiographic follow-up to resolution is recommended. Electronically signed by: Blaze Monroy M.D. 12/19/2017 11:50 AM Dictated Date/Time: 12/19/2017 11:36 AM
[2017-12-19 12:07] LABS: ALBUMIN 3.3 gm/dl (3.4-5.0); ALT/SGPT 26 U/L (12-78); BLOOD UREA NITROGEN 13 mg/dl (7-18); CALCIUM 8.6 mg/dl (8.5-10.1); CARBON DIOXIDE 27 mmol/L (21-32); CREATININE 1.09 mg/dl (0.60-1.40); GLUCOSE 88 mg/dl (70-99); SODIUM 139 mmol/L (136-145)
[2017-12-19 12:11] LABS: ALKALINE PHOSPHATASE 61 U/L (45-117); AST/SGOT 16 U/L (15-37)
[2017-12-19 12:48] LABS: INR 1.4 (0.9-1.1)
[2017-12-19 13:00] LABS: INFLUENZA B ANTIGEN Neg for Influ B (NEG)
[2017-12-19] MEDS ORDERED: LEVOFLOXACIN 750 MG TAB PO STA (13:43)
--- NOTE | 2017-12-19 13:44 | EMERGENCY ROOM VISIT NOTE ---
ED Visit Note First contact with patient: 11:03 Staff note: I have reviewed the Patients chart and have discussed this case with my PA. I generally agree with the ED note and findings.
[2017-12-19] MEDS ORDERED: LEVO750T23 PO ×2 (13:47→13:49)
[2017-12-19] MEDS ORDERED: BENZ1CAP90 PO (13:47)
[2017-12-19] MEDS ORDERED: HYDR5SYP11 PO ×2 (13:47→20:47)
--- NOTE | 2017-12-19 13:52 | EMERGENCY ROOM VISIT NOTE ---
History First contact with patient: 11:03 Chief Complaint: FLU LIKE SX Stated Complaint: FLU History of Present Illness The patient is a 72 year old male who presents to the Emergency Room with complaints of flulike symptoms. The patient reports that he has had symptoms for the past 5 days. He saw his primary care provider Saturday and was prescribed Tamiflu but states that his symptoms have not been improving. He reports body aches, cough, and wheezing. His cough has been worse at night. He reports that he has been eating okay and has tried to increase his fluid intake. He has been taking Robitussin without relief. He denies shortness of breath or chest pain. He rates his discomfort an 8/10. Review of Systems A complete 10 point review of systems was reviewed with the patient with pertinent positives and negatives as per history of present illness. All else were negative. Past Medical/Surgical History Medical Problems: (1) Benign prostatic hyperplasia (2) Hyperlipidemia (3) Hypertension Nos (4) Pulmonary nodule Family History Heart disease Hypertension Social History Smoking Status: Never Smoker Alcohol Use: none Drug Use: none Marital Status: Housing Status: lives with family Occupation Status: retired Current/Historical Medications Scheduled Aspirin (Aspirin Chewable), 81 MG PO DAILY Atorvastatin (Lipitor), 20 MG PO DAILY Calcium Carbonate-Vitamin D (Calcium + D), 1 TAB PO DAILY Diltiazem Hcl (Diltiazem Hcl), 30 MG PO BID Finasteride (Proscar), 5 MG PO DAILY Flaxseed (Linseed) (Flaxseed Oil), 1 CAP PO BID Folic Acid (Folvite), 400 MCG PO DAILY Hydrocodone W/ Homatropine (Hycodan 5/1.5MG 5 Ml), 5 ML PO Q4H Levofloxacin (Levaquin), 1 TAB PO DAILY Metoprolol Tartrate (Lopressor) (Lopressor), 50 MG PO BID Multivitamin (Multivitamin), 1 TAB PO DAILY Oseltamivir Phosphate (Tamiflu), 75 MG PO BID Terazosin Hcl (Hytrin), 5 MG PO HS Warfarin Sod (Jantoven), 2.5 MG PO DAILY Scheduled PRN Benzonatate (Tessalon Perles), 200 MG PO TID PRN for Cough Hydrocodone W/ Homatropine (Hycodan 5/1.5MG 5 Ml), 5 ML PO Q4H PRN for Cough Physical Exam Vital Signs Date Time Temp Pulse Resp B/P (MAP) Pulse Ox O2 Delivery O2 Flow Rate FiO2 12/19/17 14:16 71 18 121/78 92 12/19/17 13:31 128/68 12/19/17 13:30 73 20 91 Room Air 12/19/17 13:01 135/71 12/19/17 13:00 72 17 91 Room Air 12/19/17 12:31 106/55 12/19/17 12:30 66 25 98 12/19/17 12:24 63 26 131/66 97 Room Air 12/19/17 12:01 65 12/19/17 10:56 36.9 71 20 98/60 96 Room Air Physical Exam VITALS: Vitals are noted on the nurse's note and reviewed by myself. Vital signs stable. GENERAL: This is a 72-year-old male, in no acute distress, nondiaphoretic, well- developed well-nourished. SKIN: The skin was without rashes. EARS: External auditory canals clear, tympanic membranes pearly michelle without erythema or effusion bilaterally. EYES: Pupils equal round and reactive to light and accommodation. MOUTH: Mucous membranes moist. Tonsils are not enlarged. Pharynx without erythema or exudate. NECK: Supple without nuchal rigidity. No lymphadenopathy. HEART: Regular rate and rhythm without murmurs gallops or rubs. LUNGS: End expiratory wheezes heard throughout. No retractions or accessory muscle use. ABDOMEN: Soft, nontender to palpation. NEURO: Patient was alert and oriented to person place and time. Medical Decision & Procedures ER Provider Diagnostic Interpretation: SINGLE VIEW CHEST CLINICAL HISTORY: Cough and wheezing. FINDINGS: An AP, portable, upright chest radiograph is compared to study dated 10/19/2017 and correlated with chest CT dated 02/12/2017. The examination is degraded by portable technique and patient rotation. The heart is enlarged and there is atherosclerotic calcification of the thoracic aorta. The pulmonary vasculature is noncongested. Chronic interstitial thickening is similar to previous. Patchy airspace opacities are suggested in the right midlung. There is mild left basilar atelectasis. No large pleural effusion or pneumothorax is seen. The skeletal structures are osteopenic. Degenerative change is seen throughout the thoracic spine. IMPRESSION: 1. Cardiomegaly without radiographic evidence of congestive failure. 2. Patchy airspace opacities are identified in the right midlung. This likely represents an infectious/inflammatory pneumonitis. Radiographic follow-up to resolution is recommended. Laboratory Results 12/19/17 11:31 Red Blood Count 4.27, Mean Corpuscular Volume 93.4, Mean Corpuscular Hemoglobin 31.9, Mean Corpuscular Hemoglobin Concent 34.1, Mean Platelet Volume 9.1, Neutrophils (%) (Auto) 67.8, Lymphocytes (%) (Auto) 18.1, Monocytes (%) (Auto) 12.1, Eosinophils (%) (Auto) 1.8, Basophils (%) (Auto) 0.2, Neutrophils # (Auto ) 3.87, Lymphocytes # (Auto) 1.03, Monocytes # (Auto) 0.69, Eosinophils # (Auto ) 0.10, Basophils # (Auto) 0.01 12/19/17 11:31 Test 12/19/17 11:31 12/19/17 12:21 White Blood Count 5.70 K/uL (4.8-10.8) Red Blood Count 4.27 M/uL (4.7-6.1) Hemoglobin 13.6 g/dL (14.0-18.0) Hematocrit 39.9 % (42-52) Mean Corpuscular Volume 93.4 fL (80-100) Mean Corpuscular Hemoglobin 31.9 pg (25-34) Mean Corpuscular Hemoglobin Concent 34.1 g/dl (32-36) Platelet Count 174 K/uL (130-400) Mean Platelet Volume 9.1 fL (7.4-10.4) Neutrophils (%) (Auto) 67.8 % Lymphocytes (%) (Auto) 18.1 % Monocytes (%) (Auto) 12.1 % Eosinophils (%) (Auto) 1.8 % Basophils (%) (Auto) 0.2 % Neutrophils # (Auto) 3.87 K/uL (1.4-6.5) Lymphocytes # (Auto) 1.03 K/uL (1.2-3.4) Monocytes # (Auto) 0.69 K/uL (0.11-0.59) Eosinophils # (Auto) 0.10 K/uL (0-0.5) Basophils # (Auto) 0.01 K/uL (0-0.2) RDW Standard Deviation 44.0 fL (36.4-46.3) RDW Coefficient of Variation 13.0 % (11.5-14.5) Immature Granulocyte % (Auto) 0.0 % Immature Granulocyte # (Auto) 0.00 K/uL (0.00-0.02) Prothrombin Time 14.9 SECONDS (9.0-12.0) Prothromb Time International Ratio 1.4 (0.9-1.1) Anion Gap 8.0 mmol/L (3-11) Est Creatinine Clear Calc Drug Dose 68.5 ml/min Estimated GFR () 77.6 Estimated GFR (Non- 67.0 BUN/Creatinine Ratio 12.0 (10-20) Calcium Level 8.6 mg/dl (8.5-10.1) Total Bilirubin 0.4 mg/dl (0.2-1) Aspartate Amino Transf (AST/SGOT) 16 U/L (15-37) Alanine Aminotransferase (ALT/SGPT) 26 U/L (12-78) Alkaline Phosphatase 61 U/L (45-117) Troponin I < 0.015 ng/ml (0-0.045) Total Protein 7.0 gm/dl (6.4-8.2) Albumin 3.3 gm/dl (3.4-5.0) Globulin 3.7 gm/dl (2.5-4.0) Albumin/Globulin Ratio 0.9 (0.9-2) Influenza Type A Antigen Neg for Influ A (NEG) Influenza Type B Antigen Neg for Influ B (NEG) Medications Administered Medications (Trade) Dose Ordered Sig/Max Route Start Time Stop Time Status Last Admin Dose Admin Albuterol/ Ipratropium (Duoneb) 3 ml NOW STAT INH 12/19/17 11:18 12/19/17 11:22 DC 12/19/17 12:24 3 ML Levofloxacin (Levaquin Tab) 750 mg NOW STAT PO 12/19/17 13:43 12/19/17 13:44 DC 12/19/17 14:02 750 MG Albuterol (Ventolin Hfa Inhaler) 2 puffs NOW ONCE INH 12/19/17 14:00 12/19/17 14:01 DC 12/19/17 14:03 2 PUFFS ECG Per My Interpretation Rate (beats per minute): 62 Rhythm: normal sinus Findings: 1st degree AV block, no acute ischemic change, no ectopy Change: no significant change Medical Decision Differential diagnosis includes influenza, pneumonia, upper respiratory infection, among others. The patient is a 72-year-old male who presents today complaining of cough. Chest x-ray shows infectious pneumonitis of the right mid lung. Labs revealed no leukocytosis, anemia or concerning electrolyte abnormalities. Troponin was not elevated. INR slightly subtherapeutic. EKG was interpreted by myself as above, unchanged from previous. He was treated with a DuoNeb and Hycodan cough syrup. He felt better after this treatment and vital signs were within normal limits. I do not feel he will require inpatient treatment at this time. He will be placed on Levaquin and was given a prescription for this cough syrup. He will follow-up with his primary care provider for recheck. The patient was independently evaluated by Dr. Corona, ED attending physician, who agreed with my assessment and treatment plan. Based on the patient's presentation and work up, I feel the patient is stable for outpatient treatment. The patient was educated to return to the emergency department for any worsening of their current condition or new/concerning symptoms. He will follow up with his PCP. Medication Reconcilliation Current Medication List: was personally reviewed by me Blood Pressure Screening Patient's blood pressure: Normal blood pressure Impression Primary Impression: Pneumonitis Departure Information Dispostion Home / Self-Care Condition GOOD Prescriptions Hydrocodone W/ Homatropine (HYCODAN 5/1.5MG 5 ML) 1 Syp Syp 5 ML PO Q4H, #100 ML Prov: Yesenia Hernandez PA-C 12/19/17 Levofloxacin (LEVAQUIN) 750 Mg Tab 1 TAB PO DAILY for 6 Days, #6 TAB Prov: Yesenia Hernandez PA-C 12/19/17 Benzonatate (Tessalon Perles) 200 Mg Cap 200 MG PO TID Y for Cough, #30 CAP Prov: Yesenia Hernandez PA-C 12/19/17 Hydrocodone W/ Homatropine (HYCODAN 5/1.5MG 5 ML) 1 Syp Syp 5 ML PO Q4H Y for Cough, #100 ML Prov: Yesenia Hernandez PA-C 12/19/17 Referrals Ami Woodson D.O. (PCP) Patient Instructions My [facility] Additional Instructions You were prescribed Levaquin to be taken daily as prescribed. This is an antibiotic. All antibiotics have the potential to cause diarrhea. Stop this medication and contact a medical provider if you were to develop any significant adverse side effects including: wheezing, shortness of breath, passing out, vomiting, or a diffuse rash. Always take antibiotics as directed and COMPLETE the ENTIRE course regardless of the improvement of your symptoms. For pain/fever control, you can use the following [id number] medicines ( if >12 yo): - Regular strength (325mg/tab) Tylenol (acetaminophen) 2 tabs every 4-6 hours as needed. Do not exceed 12 tablets in a 24 hour period. Avoid taking more than 4 grams (4000 mg) of Tylenol per day. This includes any other sources of acetaminophen you may take on a regular basis. - Regular strength (200 mg/tab) Advil (ibuprofen) 2-3 tabs every 4-6 hours as needed. Do not exceed a dose of 3200 mg per day. Rest and drink plenty of fluids. Use the Ventolin inhaler every 6 hours for the next 3-4 days until your cough has improved. You may take the Hycodan cough syrup as needed for severe cough. This is a narcotic medication and will make you drowsy. Make sure not to drink alcohol or drive while taking this medication. Follow-up with your primary care provider within 1 week for a recheck. Return to the ED with worsening symptoms, shortness of breath, or any other new/ concerning symptoms.
[2017-12-19] MEDS ORDERED: ALBUTEROL HFA 8 GM INHALER INH ONE (14:00)
[2017-12-19 14:16] VITALS: BP 121/78; PULSE 71; O2SAT 92
== END 2017-12-19 14:08 | disposition home or self-care (01) ==
LOC: C.EDB 10:40 → C.EDC 14:08
DX: J18.9 Pneumonia, unspecified organism (principal); R79.1 Abnormal coagulation profile; I10 Essential (primary) hypertension; R91.1 Solitary pulmonary nodule; E78.5 Hyperlipidemia, unspecified; Z79.82 Long term (current) use of aspirin; Z79.01 Long term (current) use of anticoagulants

== ENCOUNTER 2017-12-21 09:40 | Inpatient (IN) | payer OTHER, MEDICARE ==
[~2017-12-21] VITALS: Ht 177.8 cm; Wt 63.6 kg
[~2017-12-21 09:40] MED LIST changes: -BENZ100C84 PO; +BENZ1CAP90 PO; +HYDR5SYP11 PO; +LEVO750T23 PO; +OSEL75CA23 PO
--- NOTE | 2017-12-21 10:09 | EMERGENCY ROOM VISIT NOTE ---
History Report prepared by Cm: Gigi Younger Under the Supervision of: Dr. Abdon Pearson D.O. First contact with patient: 09:52 Chief Complaint: HYPOTENSION Stated Complaint: BLOW BLOOD PRESSURE, PNEUMONIA History of Present Illness The patient is a 72 year old male who presents to the Emergency Room with complaints of worsening shortness of breath that began six days ago. He has a past medical history of hypertension, hyperlipidemia, prostate disease, and atrial fibrillation. At this time, the patient began exhibiting influenza-like symptoms including fever, cough, some shortness of breath, and congestion. He went to his PCP the next day and was diagnosed with a viral infection and was started on Tamiflu. His symptoms then worsened, so he presented to the ER two days ago. He was diagnosed with pneumonia and was started on Levaquin. However, his symptoms have seemed to worsen over these past two days, especially his shortness of breath and chest congestion. He is now exhibiting some generalized weakness. He denies any chest pain, nausea, or vomiting. He denies any history of heart attacks or heart catheterizations. Source of History: patient Onset: six days ago Position: other (Respiratory System) Symptom Intensity: moderate Quality: other (Shortness of breath) Timing: worsening Associated Symptoms: + fevers, + cough, + weakness, No chest pain, No nausea , No vomiting Note: He is experiencing congestion. Review of Systems See HPI for pertinent positives & negatives. A total of 10 systems reviewed and were otherwise negative. Past Medical & Surgical Medical Problems: (1) Benign prostatic hyperplasia (2) Hyperlipidemia (3) Hypertension Nos (4) Pulmonary nodule Family History Heart disease Hypertension Social History Smoking Status: Former Smoker Alcohol Use: none Drug Use: none Marital Status: Housing Status: lives with family Occupation Status: retired Current/Historical Medications Scheduled Aspirin (Aspirin Chewable), 81 MG PO DAILY Atorvastatin (Lipitor), 20 MG PO HS Calcium Carbonate-Vitamin D (Calcium + D), 1 TAB PO BID Diltiazem Hcl (Cardizem), 30 MG PO BID Finasteride (Proscar), 5 MG PO DAILY Flaxseed (Linseed) (Flaxseed Oil), 1 CAP PO BID Folic Acid (Folvite), 400 MCG PO DAILY Levofloxacin (Levaquin), 1 TAB PO DAILY Metoprolol Tartrate (Lopressor) (Lopressor), 50 MG PO BID Multivitamin (Multivitamin), 1 TAB PO DAILY Terazosin Hcl (Hytrin), 5 MG PO HS Warfarin Sod (Jantoven), 2.5 MG PO DAILY Allergies Coded Allergies: Niacin (Unverified Allergy, Mild, RASH, 12/21/17) Cerivastatin (Verified Allergy, Unknown, muscle pain, 12/21/17) Piroxicam (Verified Allergy, Unknown, Rash, 12/21/17) Prednisone (Verified Allergy, Unknown, Swelling, 12/21/17) Methylprednisolone (Unverified Adverse Reaction, Intermediate, RAPID HEARTBEAT, 12/21/17) Physical Exam Vital Signs Date Time Temp Pulse Resp B/P (MAP) Pulse Ox O2 Delivery O2 Flow Rate FiO2 12/21/17 14:03 68 12/21/17 12:45 36.6 76 22 119/94 96 Room Air 12/21/17 12:01 67 23 168/87 94 Nasal Cannula 2.0 12/21/17 11:05 68 18 113/57 95 Nasal Cannula 3.0 12/21/17 10:29 67 12/21/17 10:10 95 Nasal Cannula 3.0 12/21/17 10:10 99 Nasal Cannula 3.0 12/21/17 10:04 67 18 149/78 91 Room Air 12/21/17 09:49 36.3 78 18 111/72 91 Room Air Physical Exam GENERAL: Patient is awake, listless, and in no acute distress. Patient is resting comfortably and showing no signs of anxiety. Does not appear to be in pain. EYES: The conjunctivae are clear. The pupils are round and reactive. EARS, NOSE, MOUTH AND THROAT: The nose is without any evidence of any deformity. Mucous membranes are moist tongue is midline NECK: The neck is nontender and supple. RESPIRATORY: Lung sounds are diminished to the right lung field. There are rales noted to both bases. Shallow respirations. CARDIOVASCULAR: Regular rate and rhythm noted there no murmurs rubs or gallops normal S1 normal S2 GASTROINTESTINAL: The abdomen is soft. Bowel sounds are present in all quadrants. Abdomen is nontender MUSCULOSKELETAL/EXTREMITIES: There is no evidence of gross deformity full range of motion is noted in the hips and shoulders SKIN: There is no obvious evidence of any rash. There are no petechiae, pallor or cyanosis noted. NEUROLOGIC: Patient is oriented x3. Gait was slow but steady. Medical Decision & Procedures ER Provider Diagnostic Interpretation: Radiology results as stated below per my review and radiologist interpretation: CHEST ONE VIEW PORTABLE CLINICAL HISTORY: Sepsis. COMPARISON STUDY: Chest CT November 24, 2017 and chest radiograph December 19, 2017. FINDINGS: Lung volumes are mildly diminished. There is no pneumothorax or pleural effusion. Suspected right midlung opacity has slightly increased. There is pulmonary vascular congestion without overt pulmonary edema. Mild cardiomegaly is unchanged. IMPRESSION: 1. Slight increase in suspected right midlung opacity which favors pneumonia. 2. Pulmonary vascular congestion without overt pulmonary edema. Electronically signed by: Jarek Kennedy M.D. 12/21/2017 10:44 AM Dictated Date/Time: 12/21/2017 10:42 AM Laboratory Results Test 12/21/17 10:15 12/21/17 10:31 12/21/17 10:35 12/21/17 12:10 Immature Granulocyte % (Auto) 0.2 % White Blood Count 5.93 K/uL (4.8-10.8) Red Blood Count 4.56 M/uL (4.7-6.1) Hemoglobin 14.3 g/dL (14.0-18.0) Hematocrit 42.0 % (42-52) Mean Corpuscular Volume 92.1 fL (80-100) Mean Corpuscular Hemoglobin 31.4 pg (25-34) Mean Corpuscular Hemoglobin Concent 34.0 g/dl (32-36) Platelet Count 201 K/uL (130-400) Mean Platelet Volume 9.1 fL (7.4-10.4) Neutrophils (%) (Auto) 65.5 % Lymphocytes (%) (Auto) 20.6 % Monocytes (%) (Auto) 11.6 % Eosinophils (%) (Auto) 1.9 % Basophils (%) (Auto) 0.2 % Neutrophils # (Auto) 3.89 K/uL (1.4-6.5) Lymphocytes # (Auto) 1.22 K/uL (1.2-3.4) Monocytes # (Auto) 0.69 K/uL (0.11-0.59) Eosinophils # (Auto) 0.11 K/uL (0-0.5) Basophils # (Auto) 0.01 K/uL (0-0.2) Immature Granulocyte # (Auto) 0.01 K/uL (0.00-0.02) Erythrocyte Sedimentation Rate 45 mm/hr (0-14) Activated Partial Thromboplast Time 37.8 SECONDS (21.0-31.0) Partial Thromboplastin Ratio 1.5 D-Dimer 220 ug/L FEU (0-500) Magnesium Level 2.1 mg/dl (1.8-2.4) Total Bilirubin 0.6 mg/dl (0.2-1) Aspartate Amino Transf (AST/SGOT) 17 U/L (15-37) Alanine Aminotransferase (ALT/SGPT) 24 U/L (12-78) Alkaline Phosphatase 62 U/L (45-117) Total Creatine Kinase 111 U/L (39-308) Creatine Kinase MB 2.7 ng/ml (0.5-3.6) Creatine Kinase MB Ratio 2.4 (0-3.0) Troponin I < 0.015 ng/ml (0-0.045) C-Reactive Protein 1.51 mg/dl (0-0.29) Pro-B-Type Natriuretic Peptide 201 pg/ml (0-900) Total Protein 7.4 gm/dl (6.4-8.2) Albumin 3.5 gm/dl (3.4-5.0) Globulin 3.9 gm/dl (2.5-4.0) Albumin/Globulin Ratio 0.9 (0.9-2) Lipase 141 U/L (73-393) Venous Blood pH 7.50 (7.36-7.41) Venous Blood Partial Pressure CO2 31 mmHg (38.0-50.0) Venous Blood Partial Pressure O2 34 mmHg Venous Blood HCO3 24 mmol/L Venous Blood Oxygen Saturation 67.4 % Venous Blood Base Excess 1.1 mEq/L Bedside Lactic Acid Venous 1.24 mmol/L (0.90-1.70) Urine Color YELLOW Urine Appearance CLEAR (CLEAR) Urine pH 5.0 (4.5-7.5) Urine Specific [place] 1.013 (1.000-1.030) Urine Protein NEG (NEG) Urine Glucose (UA) NEG (NEG) Urine Ketones NEG (NEG) Urine Occult Blood NEG (NEG) Urine Nitrite NEG (NEG) Urine Bilirubin NEG (NEG) Urine Urobilinogen NEG (NEG) Urine Leukocyte Esterase NEG (NEG) Urine WBC (Auto) 1-5 /hpf (0-5) Urine RBC (Auto) 0-4 /hpf (0-4) Urine Hyaline Casts (Auto) 1-5 /lpf (0-5) Urine Epithelial Cells (Auto) 0-5 /lpf (0-5) Urine Bacteria (Auto) NEG (NEG) Laboratory results per my review. Medications Administered Medications (Trade) Dose Ordered Sig/Max Route Start Time Stop Time Status Last Admin Dose Admin Levofloxacin (Levaquin / D5W) 750 mg NOW STAT IV 12/21/17 11:29 12/21/17 11:30 DC 12/21/17 12:02 750 MG Sodium Chloride 1,000 ml @ 999 mls/hr Q1H1M STAT IV 12/21/17 11:29 12/21/17 12:29 DC 12/21/17 12:02 999 MLS/HR Ceftriaxone Sodium (Rocephin Inj) 1 gm NOW STAT IV 12/21/17 13:41 12/21/17 13:42 DC 12/21/17 14:45 1 GM ECG Per My Interpretation Indication: SOB/dyspnea Rate (beats per minute): 68 Rhythm: normal sinus Findings: other (No PVC, no ST segments) Comparison ECG Date: 12/19/17 Change: no significant change ED Course 0952: The patient was evaluated in room B3B. A complete history and physical examination were performed. 1129: Ordered NSS 1,000 ml @ 999 mls/hr IV, Levofloxacin 750 mg IV 1341: Ordered Rocephin Inj 1 gm IV 1344: Upon reevaluation, the patient is resting. I discussed results and treatment plan with him. He verbalizes agreement and understanding. [place] [facility] [place] The patient will be evaluated for further management and care. Medical Decision Differential diagnosis: Etiologies such as infections, reactive airway disease, pneumonia, pneumothorax , COPD, CHF, cardiac ischemia, pulmonary embolism, musculoskeletal, gastrointestinal, as well as others were entertained. Nursing notes reviewed. Patient's previous electronic medical records were reviewed. The patient is a 72-year-old male who was seen recently and started on Levaquin for a pneumonia. The patient has increasing symptoms such as dizziness and his blood pressure was noted to be low by his family member today. He also had a mild drop in his blood pressure in the emergency department. He was treated with IV fluids and IV antibiotics. I discussed patient's laboratory and radiographic studies with him. Overall he appears as though he is managing this pneumonia quite well with his episodes of hypotension he had a second antibiotic added. I discussed this case with the on-call [facility] hospitalist group. They have agreed to evaluate the patient in the emergency department for further management and disposition. Medication Reconcilliation Current Medication List: was personally reviewed by me Blood Pressure Screening Patient's blood pressure: Normal blood pressure Blood pressure disposition: Did not require urgent referral Consults Time Called: 1340 Consulting Physician: Dr. Cisco BROWN Returned Call: 1342 I discussed the patient's case with her. The patient will be evaluated for further management. Impression Primary Impression: PNA (pneumonia) Additional Impressions: SOB (shortness of breath) Failure of outpatient treatment Scribe Attestation The scribe's documentation has been prepared under my direction and personally reviewed by me in its entirety. I confirm that the note above accurately reflects all work, treatment, procedures, and medical decision making performed by me. Departure Information Dispostion Being Evaluated By Hospitalist Referrals Ami Woodson D.O. (PCP) Patient Instructions My [facility] Health Problem Qualifiers Primary Impression: PNA (pneumonia) Pneumonia type: due to unspecified organism Laterality: right Lung location : unspecified part of lung Qualified Codes: J18.9 - Pneumonia, unspecified organism
[2017-12-21 10:34] LABS: BASO % 0.2 %; BASO ABS # 0.01 K/uL (0-0.2); EOS % 1.9 %; EOS ABS # 0.11 K/uL (0-0.5); HEMOGLOBIN 14.3 g/dL (14.0-18.0); IG# 0.01 K/uL (0.00-0.02); LYMPH % 20.6 %; LYMPH ABS # 1.22 K/uL (1.2-3.4); MEAN CELL VOLUME 92.1 fL (80-100); MEAN CORPUSCULAR HEMOGLOBIN 31.4 pg (25-34); MEAN PLATELET VOLUME 9.1 fL (7.4-10.4); MONO % 11.6 %; MONO ABS # 0.69 K/uL (0.11-0.59); NEUT % 65.5 %; NEUT ABS # 3.89 K/uL (1.4-6.5); PLATELET COUNT 201 K/uL (130-400); RED CELL DISTRIBUTION WIDTH CV 12.8 % (11.5-14.5); WHITE BLOOD COUNT 5.93 K/uL (4.8-10.8)
--- NOTE | 2017-12-21 10:45 | DIAGNOSTIC IMAGING REPORT ---
CHEST ONE VIEW PORTABLE CLINICAL HISTORY: Sepsis. COMPARISON STUDY: Chest CT November 24, 2017 and chest radiograph December 19, 2017. FINDINGS: Lung volumes are mildly diminished. There is no pneumothorax or pleural effusion. Suspected right midlung opacity has slightly increased. There is pulmonary vascular congestion without overt pulmonary edema. Mild cardiomegaly is unchanged. IMPRESSION: 1. Slight increase in suspected right midlung opacity which favors pneumonia. 2. Pulmonary vascular congestion without overt pulmonary edema. Electronically signed by: Jarek Kennedy M.D. 12/21/2017 10:44 AM Dictated Date/Time: 12/21/2017 10:42 AM
[2017-12-21 10:51] LABS: INR 1.6 (0.9-1.1); PTT PATIENT 37.8 SECONDS (21.0-31.0)
[2017-12-21 10:53] LABS: ALBUMIN 3.5 gm/dl (3.4-5.0); ALT/SGPT 24 U/L (12-78); BLOOD UREA NITROGEN 18 mg/dl (7-18); CALCIUM 8.9 mg/dl (8.5-10.1); CARBON DIOXIDE 26 mmol/L (21-32); CREATININE 1.16 mg/dl (0.60-1.40); GLUCOSE 90 mg/dl (70-99); LIPASE 141 U/L (73-393); POTASSIUM 4.1 mmol/L (3.5-5.1); SODIUM 137 mmol/L (136-145)
[2017-12-21] MEDS ORDERED: DILT30TA PO (10:53)
[2017-12-21 10:57] LABS: ALKALINE PHOSPHATASE 62 U/L (45-117); AST/SGOT 17 U/L (15-37); CKMB 2.7 ng/ml (0.5-3.6); PHOSPHORUS 1.9 mg/dl (2.5-4.9); TOTAL PROTEIN 7.4 gm/dl (6.4-8.2)
[2017-12-21] MEDS ORDERED: SODIUM CHLORIDE 0.9% 1000ML 1,000 ML IV STA (11:29)
[2017-12-21] MEDS ORDERED: LEVAQUIN 750MG / 150ML D5W IV STA (11:29)
[2017-12-21] MEDS ORDERED: CEFTRIAXONE SOD INJ 1 GM ADDVIAL IV STA (13:41)
[2017-12-21] MEDS ORDERED: ACETAMINOPHEN 325 MG TAB PO PRN (14:30)
[2017-12-21] MEDS ORDERED: POLYETHYLENE (MIRALAX) 17 GM PACK PO PRN (14:30)
[2017-12-21] MEDS ORDERED: MAGNESIUM HYDROXIDE SUSP 30 ML UDC PO PRN (14:30)
[2017-12-21] MEDS ORDERED: ONDANSETRON INJ 2 MG/ML 2 ML VIAL IV PRN (14:30)
[2017-12-21] MEDS ORDERED: ALUMINUM/MAGNESIUM/SIMETH (MAALOX MAX) 30 ML UDC PO PRN (14:30)
--- NOTE | 2017-12-21 14:40 | History and Physical ---
History & Physical Date & Time of Service: Dec 21, 2017 at 14:27 Chief Complaint: Blow Blood Pressure, Pneumonia Primary Care Physician: Ami Woodson D.O. History of Present Illness Source: patient, spouse, clinic records, hospital records Patient is a pleasant 72 y/o male, with PMHx of paroxysmal a.fib, HTN, HLD, BPH , and carotid stenosis s/p L CEA, who presented to the ED because of continued PNA symptoms. Patient was seen in [facility] ED on 12/19- diagnosed with PNA and discharged on Levaquin (today is day #3). Patient notes he continues to feel extremely congested and is unable to cough anything up. He notes SOB- currently on RA w/ sats at 96%. +body aches, fever, chills, and decreased appetite. He was flu negative on 12/19. CXR today shows R mid lobe PNA- slightly increased. + wheezing. Patient denies any sweats, lightheadedness, dizziness, vision changes , CP, palpitations, edema, abdominal pain, nausea, vomiting, diarrhea, urinary symptoms, melena, numbness/tingling, weakness, anxiety/depression, active bleeding, or new skin discoloration/changes. Past Medical/Surgical History paroxysmal a.fib HTN HLD BPH carotid stenosis s/p L CEA and 50-69% stenosis of R Family History Heart disease Hypertension Social History Smoking Status: Former Smoker Drug Use: none Marital Status: Housing status: lives with family Occupational Status: retired Immunizations History of Influenza Vaccine: Yes History of Tetanus Vaccine?: Yes History of Pneumococcal: Yes History of Hepatitis B Vaccine: No Multi-Drug Resistant Organisms History of MDRO: No Allergies Coded Allergies: Niacin (Unverified Allergy, Mild, RASH, 12/21/17) Cerivastatin (Verified Allergy, Unknown, muscle pain, 12/21/17) Piroxicam (Verified Allergy, Unknown, Rash, 12/21/17) Prednisone (Verified Allergy, Unknown, Swelling, 12/21/17) Methylprednisolone (Unverified Adverse Reaction, Intermediate, RAPID HEARTBEAT, 12/21/17) Home Medications Scheduled Aspirin (Aspirin Chewable), 81 MG PO DAILY Atorvastatin (Lipitor), 20 MG PO HS Calcium Carbonate-Vitamin D (Calcium + D), 1 TAB PO BID Diltiazem Hcl (Cardizem), 30 MG PO BID Finasteride (Proscar), 5 MG PO DAILY Flaxseed (Linseed) (Flaxseed Oil), 1 CAP PO BID Folic Acid (Folvite), 400 MCG PO DAILY Levofloxacin (Levaquin), 1 TAB PO DAILY Metoprolol Tartrate (Lopressor) (Lopressor), 50 MG PO BID Multivitamin (Multivitamin), 1 TAB PO DAILY Terazosin Hcl (Hytrin), 5 MG PO HS Warfarin Sod (Jantoven), 2.5 MG PO DAILY Physical Exam Vital Signs Date Time Temp Pulse Resp B/P (MAP) Pulse Ox O2 Delivery O2 Flow Rate FiO2 12/21/17 14:03 68 12/21/17 12:45 36.6 76 22 119/94 96 Room Air 12/21/17 12:01 67 23 168/87 94 Nasal Cannula 2.0 12/21/17 11:05 68 18 113/57 95 Nasal Cannula 3.0 12/21/17 10:29 67 12/21/17 10:10 95 Nasal Cannula 3.0 12/21/17 10:10 99 Nasal Cannula 3.0 12/21/17 10:04 67 18 149/78 91 Room Air 12/21/17 09:49 36.3 78 18 111/72 91 Room Air General Appearance: no apparent distress Head: normocephalic, atraumatic Eyes: normal inspection, PERRL ENT: hearing grossly normal Neck: supple Respiratory/Chest: no respiratory distress, no accessory muscle use, + pertinent finding (coarse breath sounds throughout ) Cardiovascular: regular rate, rhythm Abdomen/GI: normal bowel sounds, non tender, soft Back: normal inspection Extremities/Musculoskelatal: no calf tenderness, no pedal edema Neurologic/Psych: alert, normal mood/affect, oriented x 3 Skin: normal color, warm/dry, no rash Diagnostics Laboratory Results Results Past 24 Hours Test 12/21/17 10:15 12/21/17 10:31 12/21/17 10:35 12/21/17 12:10 Range/Units White Blood Count 5.93 4.8-10.8 K/uL Red Blood Count 4.56 4.7-6.1 M/uL Hemoglobin 14.3 14.0-18.0 g/dL Hematocrit 42.0 42-52 % Mean Corpuscular Volume 92.1 80-100 fL Mean Corpuscular Hemoglobin 31.4 25-34 pg Mean Corpuscular Hemoglobin Concent 34.0 32-36 g/dl Platelet Count 201 130-400 K/uL Mean Platelet Volume 9.1 7.4-10.4 fL Neutrophils (%) (Auto) 65.5 % Lymphocytes (%) (Auto) 20.6 % Monocytes (%) (Auto) 11.6 % Eosinophils (%) (Auto) 1.9 % Basophils (%) (Auto) 0.2 % Neutrophils # (Auto) 3.89 1.4-6.5 K/uL Lymphocytes # (Auto) 1.22 1.2-3.4 K/uL Monocytes # (Auto) 0.69 0.11-0.59 K/uL Eosinophils # (Auto) 0.11 0-0.5 K/uL Basophils # (Auto) 0.01 0-0.2 K/uL RDW Standard Deviation 43.0 36.4-46.3 fL RDW Coefficient of Variation 12.8 11.5-14.5 % Immature Granulocyte % (Auto) 0.2 % Immature Granulocyte # (Auto) 0.01 0.00-0.02 K/uL Erythrocyte Sedimentation Rate 45 0-14 mm/hr Prothrombin Time 16.2 9.0-12.0 SECONDS Prothromb Time International Ratio 1.6 0.9-1.1 Activated Partial Thromboplast Time 37.8 21.0-31.0 SECONDS Partial Thromboplastin Ratio 1.5 D-Dimer 220 0-500 ug/L FEU Sodium Level 137 136-145 mmol/L Potassium Level 4.1 3.5-5.1 mmol/L Chloride Level 105 98-107 mmol/L Carbon Dioxide Level 26 21-32 mmol/L Anion Gap 7.0 3-11 mmol/L Blood Urea Nitrogen 18 7-18 mg/dl Creatinine 1.16 0.60-1.40 mg/dl Estimated GFR () 72.0 Estimated GFR (Non- 62.1 BUN/Creatinine Ratio 15.2 10-20 Random Glucose 90 70-99 mg/dl Calcium Level 8.9 8.5-10.1 mg/dl Phosphorus Level 1.9 2.5-4.9 mg/dl Magnesium Level 2.1 1.8-2.4 mg/dl Total Bilirubin 0.6 0.2-1 mg/dl Aspartate Amino Transf (AST/SGOT) 17 15-37 U/L Alanine Aminotransferase (ALT/SGPT) 24 12-78 U/L Alkaline Phosphatase 62 45-117 U/L Total Creatine Kinase 111 39-308 U/L Creatine Kinase MB 2.7 0.5-3.6 ng/ml Creatine Kinase MB Ratio 2.4 0-3.0 Troponin I < 0.015 0-0.045 ng/ml C-Reactive Protein 1.51 0-0.29 mg/dl Pro-B-Type Natriuretic Peptide 201 0-900 pg/ml Total Protein 7.4 6.4-8.2 gm/dl Albumin 3.5 3.4-5.0 gm/dl Globulin 3.9 2.5-4.0 gm/dl Albumin/Globulin Ratio 0.9 0.9-2 Lipase 141 73-393 U/L Venous Blood pH 7.50 7.36-7.41 Venous Blood Partial Pressure CO2 31 38.0-50.0 mmHg Venous Blood Partial Pressure O2 34 mmHg Venous Blood HCO3 24 mmol/L Venous Blood Oxygen Saturation 67.4 % Venous Blood Base Excess 1.1 mEq/L Bedside Lactic Acid Venous 1.24 0.90-1.70 mmol/L Urine Color YELLOW Urine Appearance CLEAR CLEAR Urine pH 5.0 4.5-7.5 Urine Specific [place] 1.013 1.000-1.030 Urine Protein NEG NEG Urine Glucose (UA) NEG NEG Urine Ketones NEG NEG Urine Occult Blood NEG NEG Urine Nitrite NEG NEG Urine Bilirubin NEG NEG Urine Urobilinogen NEG NEG Urine Leukocyte Esterase NEG NEG Urine WBC (Auto) 1-5 0-5 /hpf Urine RBC (Auto) 0-4 0-4 /hpf Urine Hyaline Casts (Auto) 1-5 0-5 /lpf Urine Epithelial Cells (Auto) 0-5 0-5 /lpf Urine Bacteria (Auto) NEG NEG Microbiology Results 12/21/17 Blood Culture, Received Pending 12/21/17 Blood Culture, Received Pending Diagnostic Radiology CHEST ONE VIEW PORTABLE CLINICAL HISTORY: Sepsis. COMPARISON STUDY: Chest CT November 24, 2017 and chest radiograph December 19, 2017. FINDINGS: Lung volumes are mildly diminished. There is no pneumothorax or pleural effusion. Suspected right midlung opacity has slightly increased. There is pulmonary vascular congestion without overt pulmonary edema. Mild cardiomegaly is unchanged. IMPRESSION: 1. Slight increase in suspected right midlung opacity which favors pneumonia. 2. Pulmonary vascular congestion without overt pulmonary edema. Electronically signed by: Jarek Kennedy M.D. 12/21/2017 10:44 AM Dictated Date/Time: 12/21/2017 10:42 AM The status of this report is Signed. Draft = Not yet reviewed or approved by Radiologist. Signed = Reviewed and approved by Radiologist. EKG KEVIN GANDARA ID:[id number] 21-DEC-2017 10:16:31 [facility] Normal sinus rhythm Normal ECG When compared with ECG of 19-DEC-2017 11:55, No significant change was found 25mm/s 10mm/mV 150Hz 8.0 SP2 12SL 241 VANIA: 10 Referred by: Referred Self Unconfirmed Vent. rate 68 BPM HI interval 200 ms QRS duration 80 ms QT/QTc 422/448 ms P-R-T axes 54 -6 36 1945 (72 yr) Male 1lb Room:B Loc:15 Sewer Hand:Leeroy Spann Test ind: Impression Assessment and Plan Patient is a pleasant 72 y/o male, with PMHx of paroxysmal a.fib, HTN, HLD, BPH , and carotid stenosis s/p L CEA, who presented to the ED because of continued PNA symptoms. R mid lung PNA: - Admit to med/surg - O2 protocol, wean as tolerated - DuoNebs QID and PRN for SOB/wheezing - Incentive spirometer and flutter valve - IV NSS 1L in ED; appears euvolemic, kidney function is stable, no hypotension - will hold on additional IVF at this time - IV Levaquin + Rocephin x1 dose in ED; continue IV Levaquin 750 mg daily - Mucinex 600 mg BID - Sputum culture and BCx pending; UA negative - Influenza swab negative on 12/19 - D-dimer negative Hypophosphatemia: Replace w/ PO phosphate supplement, follow phosphorus level Paroxysmal a.fib, HTN: - Continue Cardizem 30 mg BID. Lopressor 50 mg BID - Coumadin 2.5 mg daily- follow PT/INR and adjust dose PRN for INR goal 2-3 -- Subtherapeutic at 1.6 today- give additional 2 mg to total 4.5 mg HLD, carotid stenosis: Continue ASA, Lipitor 20 mg HS BPH: Continue Hytrin and Proscar DVT prophylaxis: Coumadin Code status: LEVEL I, FULL Dispo: From home, lives w/ - PT/OT and CM consulted Level of Care Med/Surg Resuscitation Status FULL RESUSCITATION VTE Prophylaxis VTE Risk Assessment Done? Y/N: Yes Risk Level: Moderate Given or contraindicated: Warfarin (Coumadin) Reviewed: Pt Seen/Exam by Me History Pt states it is not so much that he feels worse, he is just not getting any better. Ongoing cough and congestion. No chest pain. Had been tolerating PO the last few days, but had not eaten yet today due to being in the ED. He did not take his morning meds either. Agree with HPI/ROS as noted. General Appearance: WD/WN, no apparent distress Eye Exam: bilateral eye normal inspection, bilateral eye other (normal sclera) Respiratory: no respiratory distress, decreased breath sounds Cardiovascular: normal peripheral pulses, regular rate, rhythm Gastrointestinal: non tender, soft Extremities: non-tender, no pedal edema Neurologic/Psychiatric: alert, oriented x 3 Skin Characteristics: normal color, warm/dry Assessment/Plan Agree with plan as outlined above PNA noted on CXR, worse from prior CXR Change PO to IV, IVF Blood cx
[2017-12-21 15:40] VITALS: BP 136/77; PULSE 72; TEMP 36.5; O2SAT 92; Ht 177.8 cm; Wt 63.6 kg
[2017-12-21] MEDS: ALBUT/IPRATROP 3MG/0.5MG NEB 3 ML VIAL INH SCH ×2 (16:00→20:06)
[2017-12-21] MEDS ORDERED: WARFARIN TAB 4 MG, WARFARIN TAB 0.5 MG PO SCH ×2 (16:00)
[2017-12-21] MEDS ORDERED: WARFARIN SOD 2 MG TAB PO ONE (16:00)
[2017-12-21] MEDS: POT PHOSPHATE MONOBASIC W/ SOD TAB PO SCH ×2 (17:56→20:00)
[2017-12-21] MEDS: GUAIFENESIN 600 MG TABCR PO SCH (19:58)
[2017-12-21] MEDS: METOPROLOL TARTRATE 50 MG TAB PO SCH (19:59)
[2017-12-21] MEDS: ATORVASTATIN 20 MG TAB PO SCH (19:59)
[2017-12-21] MEDS: DILTIAZEM HCL 30 MG TAB PO SCH (20:00)
[2017-12-21 20:01] VITALS: BP 168/77; PULSE 87; O2SAT 97
[2017-12-21 20:06] VITALS: PULSE 72; O2SAT 93
[2017-12-22] VITALS (9 sets, daily range): BP systolic 103–153; BP diastolic 61–76; PULSE 55–83; TEMP 36.3–36.8; O2SAT 91–95
[2017-12-22 06:11] LABS: HEMATOCRIT 40.2 % (42-52); HEMOGLOBIN 13.9 g/dL (14.0-18.0); MEAN CELL VOLUME 92.2 fL (80-100); MEAN CORPUSCULAR HEMOGLOBIN 31.9 pg (25-34); MEAN CORPUSCULAR HGB CONC 34.6 g/dl (32-36); MEAN PLATELET VOLUME 8.9 fL (7.4-10.4); PLATELET COUNT 208 K/uL (130-400); RED CELL DISTRIBUTION WIDTH CV 12.7 % (11.5-14.5); RED CELL DISTRIBUTION WIDTH SD 43.3 fL (36.4-46.3); WHITE BLOOD COUNT 5.84 K/uL (4.8-10.8)
[2017-12-22 06:33] LABS: INR 1.9 (0.9-1.1)
[2017-12-22 06:48] LABS: CALCIUM 8.3 mg/dl (8.5-10.1); CREATININE 1.16 mg/dl (0.60-1.40); POTASSIUM 3.7 mmol/L (3.5-5.1)
[2017-12-22] MEDS: ALBUT/IPRATROP 3MG/0.5MG NEB 3 ML VIAL INH SCH (07:04)
[2017-12-22] MEDS: METOPROLOL TARTRATE 50 MG TAB PO SCH ×2 (07:52→20:18)
[2017-12-22] MEDS: GUAIFENESIN 600 MG TABCR PO SCH ×2 (07:52→20:20)
[2017-12-22] MEDS: FINASTERIDE 5 MG TAB PO SCH (07:53)
[2017-12-22] MEDS: DILTIAZEM HCL 30 MG TAB PO SCH ×2 (07:53→20:20)
[2017-12-22] MEDS: ASPIRIN 81 MG CHEW PO SCH (07:53)
[2017-12-22] MEDS: FoLIC ACID TAB 400 MCG TAB PO SCH (07:54)
[2017-12-22] MEDS: POT PHOSPHATE MONOBASIC W/ SOD TAB PO SCH (07:54)
[2017-12-22] MEDS ORDERED: LEVALBUTEROL 1.25MG/3ML NEB INH PRN (10:15)
--- NOTE | 2017-12-22 10:20 | Hospitalist Progress Note ---
Hospitalist Progress Note Date of Service Dec 22, 2017. (Susie Lomas ., PA-C) Subjective Pt evaluation today including: conversation w/ patient, conversation w/ family ( at bedside ), physical exam, lab review, review of inpatient medication list Voiding: no voiding problems Patient sitting at edge of bed. Feeling improved since admission. Biggest complaint is congestion.+Cough, feels he needs to cough up stuff but cannot. Eating and drinking OK. +palpitations after nebulizer treatments- will change to Xopenex. Patient denies any fever, chills, sweats, lightheadedness, dizziness, vision changes, CP, edema, SOB, wheezing, abdominal pain, nausea, vomiting, diarrhea, urinary symptoms, melena, numbness/tingling, weakness, muscle/joint pain, anxiety/depression, active bleeding, or new skin discoloration/changes. (Susie Lomas ., LEE-C) Medications Current Inpatient Medications Medications (Trade) Dose Ordered Sig/Max Route Start Time Stop Time Status Last Admin Dose Admin Acetaminophen (Tylenol Tab) 650 mg Q4H PRN PO 12/21/17 14:30 01/20/18 14:29 Al Hydrox/Mg Hydrox/Simethicone (Maalox Max Susp) 15 ml Q4H PRN PO 12/21/17 14:30 01/20/18 14:29 Magnesium Hydroxide (Milk Of Magnesia Susp) 30 ml Q6H PRN PO 12/21/17 14:30 01/20/18 14:29 Polyethylene (Miralax Powder Packet) 17 gm DAILY PRN PO 12/21/17 14:30 01/20/18 14:29 Ondansetron HCl (Zofran Inj) 4 mg Q6H PRN IV 12/21/17 14:30 01/20/18 14:29 Potassium/ Phosphorus/Sodium (Phospha 250 Neutral 155-852-130 Mg) 1 tab QID PO 12/21/17 17:00 01/20/18 16:59 12/22/17 07:54 1 TAB Albuterol/ Ipratropium (Duoneb) 3 ml QIDR INH 12/21/17 16:00 01/20/18 15:59 12/22/17 07:04 3 ML Levofloxacin 750 mg/Prmx 150 ml @ 100 mls/hr Q24H IV 12/22/17 12:00 12/28/17 11:59 Aspirin (Aspirin Chew) 81 mg DAILY PO 12/22/17 09:00 01/21/18 08:59 12/22/17 07:53 81 MG Atorvastatin Calcium (Lipitor Tab) 20 mg HS PO 12/21/17 21:00 01/20/18 20:59 12/21/17 19:59 20 MG Diltiazem HCl (Cardizem Tab) 30 mg BID PO 12/21/17 21:00 01/20/18 20:59 12/22/17 07:53 30 MG Finasteride (Proscar Tab) 5 mg DAILY PO 12/22/17 09:00 01/21/18 08:59 12/22/17 07:53 5 MG Folic Acid (Folvite Tab) 400 mcg DAILY PO 12/22/17 09:00 01/21/18 08:59 12/22/17 07:54 400 MCG Metoprolol Tartrate (Lopressor Tab) 50 mg BID PO 12/21/17 21:00 01/20/18 20:59 12/22/17 07:52 50 MG Terazosin HCl (Hytrin Cap) 5 mg HS PO 12/21/17 21:00 01/20/18 20:59 12/21/17 19:59 5 MG Warfarin Sodium (Coumadin Tab) 2.5 mg DAILY@1600 PO 12/22/17 16:00 01/21/18 15:59 Guaifenesin (Mucinex Contr Rel Tab) 600 mg Q12 PO 12/21/17 21:00 01/20/18 20:59 12/22/17 07:52 600 MG (Susie Lomas, PA-C) Objective Vital Signs Date Time Temp Pulse Resp B/P (MAP) Pulse Ox O2 Delivery O2 Flow Rate FiO2 12/22/17 08:00 Room Air 12/22/17 07:45 36.7 63 16 126/68 (87) 91 12/22/17 07:06 78 18 93 Room Air 12/22/17 00:06 36.8 55 16 148/65 (92) 95 Room Air 12/22/17 00:01 Room Air 12/21/17 20:06 72 18 93 Room Air 12/21/17 20:01 87 20 168/77 (107) 97 Room Air 12/21/17 20:01 Room Air 12/21/17 15:40 36.5 72 18 136/77 92 Room Air 12/21/17 14:40 67 22 166/88 92 Room Air 12/21/17 14:03 68 12/21/17 12:45 36.6 76 22 119/94 96 Room Air 12/21/17 12:01 67 23 168/87 94 Nasal Cannula 2.0 12/21/17 11:05 68 18 113/57 95 Nasal Cannula 3.0 12/21/17 10:29 67 12/21/17 10:10 95 Nasal Cannula 3.0 12/21/17 10:10 99 Nasal Cannula 3.0 (Susie Lomas, PA-C) Physical Exam General Appearance: no apparent distress Eyes: normal inspection, PERRL ENT: hearing grossly normal Neck: supple Respiratory/Chest: no respiratory distress, no accessory muscle use, + pertinent finding (coarse breath sounds throughout ) Cardiovascular: regular rate, rhythm Abdomen: normal bowel sounds, non tender, soft Extremities: no pedal edema, no calf tenderness Neurologic/Psychiatric: alert, normal mood/affect, oriented x 3 Skin: normal color, warm/dry, no rash (Susie Lomas ., PA-C) Laboratory Results Last 24 Hours Test 12/21/17 10:15 12/21/17 10:31 12/21/17 10:35 12/21/17 12:10 White Blood Count 5.93 K/uL Red Blood Count 4.56 M/uL Hemoglobin 14.3 g/dL Hematocrit 42.0 % Mean Corpuscular Volume 92.1 fL Mean Corpuscular Hemoglobin 31.4 pg Mean Corpuscular Hemoglobin Concent 34.0 g/dl Platelet Count 201 K/uL Mean Platelet Volume 9.1 fL Neutrophils (%) (Auto) 65.5 % Lymphocytes (%) (Auto) 20.6 % Monocytes (%) (Auto) 11.6 % Eosinophils (%) (Auto) 1.9 % Basophils (%) (Auto) 0.2 % Neutrophils # (Auto) 3.89 K/uL Lymphocytes # (Auto) 1.22 K/uL Monocytes # (Auto) 0.69 K/uL Eosinophils # (Auto) 0.11 K/uL Basophils # (Auto) 0.01 K/uL RDW Standard Deviation 43.0 fL RDW Coefficient of Variation 12.8 % Immature Granulocyte % (Auto) 0.2 % Immature Granulocyte # (Auto) 0.01 K/uL Erythrocyte Sedimentation Rate 45 mm/hr Prothrombin Time 16.2 SECONDS Prothromb Time International Ratio 1.6 Activated Partial Thromboplast Time 37.8 SECONDS Partial Thromboplastin Ratio 1.5 D-Dimer 220 ug/L FEU Sodium Level 137 mmol/L Potassium Level 4.1 mmol/L Chloride Level 105 mmol/L Carbon Dioxide Level 26 mmol/L Anion Gap 7.0 mmol/L Blood Urea Nitrogen 18 mg/dl Creatinine 1.16 mg/dl Estimated GFR () 72.0 Estimated GFR (Non- 62.1 BUN/Creatinine Ratio 15.2 Random Glucose 90 mg/dl Calcium Level 8.9 mg/dl Phosphorus Level 1.9 mg/dl Magnesium Level 2.1 mg/dl Total Bilirubin 0.6 mg/dl Aspartate Amino Transf (AST/SGOT) 17 U/L Alanine Aminotransferase (ALT/SGPT) 24 U/L Alkaline Phosphatase 62 U/L Total Creatine Kinase 111 U/L Creatine Kinase MB 2.7 ng/ml Creatine Kinase MB Ratio 2.4 Troponin I < 0.015 ng/ml C-Reactive Protein 1.51 mg/dl Pro-B-Type Natriuretic Peptide 201 pg/ml Total Protein 7.4 gm/dl Albumin 3.5 gm/dl Globulin 3.9 gm/dl Albumin/Globulin Ratio 0.9 Lipase 141 U/L Venous Blood pH 7.50 Venous Blood Partial Pressure CO2 31 mmHg Venous Blood Partial Pressure O2 34 mmHg Venous Blood HCO3 24 mmol/L Venous Blood Oxygen Saturation 67.4 % Venous Blood Base Excess 1.1 mEq/L Bedside Lactic Acid Venous 1.24 mmol/L Urine Color YELLOW Urine Appearance CLEAR Urine pH 5.0 Urine Specific [place] 1.013 Urine Protein NEG Urine Glucose (UA) NEG Urine Ketones NEG Urine Occult Blood NEG Urine Nitrite NEG Urine Bilirubin NEG Urine Urobilinogen NEG Urine Leukocyte Esterase NEG Urine WBC (Auto) 1-5 /hpf Urine RBC (Auto) 0-4 /hpf Urine Hyaline Casts (Auto) 1-5 /lpf Urine Epithelial Cells (Auto) 0-5 /lpf Urine Bacteria (Auto) NEG Test 12/22/17 06:00 White Blood Count 5.84 K/uL Red Blood Count 4.36 M/uL Hemoglobin 13.9 g/dL Hematocrit 40.2 % Mean Corpuscular Volume 92.2 fL Mean Corpuscular Hemoglobin 31.9 pg Mean Corpuscular Hemoglobin Concent 34.6 g/dl RDW Standard Deviation 43.3 fL RDW Coefficient of Variation 12.7 % Platelet Count 208 K/uL Mean Platelet Volume 8.9 fL Prothrombin Time 19.6 SECONDS Prothromb Time International Ratio 1.9 Sodium Level 139 mmol/L Potassium Level 3.7 mmol/L Chloride Level 107 mmol/L Carbon Dioxide Level 27 mmol/L Anion Gap 5.0 mmol/L Blood Urea Nitrogen 16 mg/dl Creatinine 1.16 mg/dl Est Creatinine Clear Calc Drug Dose 63.4 ml/min Estimated GFR () 72.0 Estimated GFR (Non- 62.1 BUN/Creatinine Ratio 13.8 Random Glucose 93 mg/dl Calcium Level 8.3 mg/dl Phosphorus Level 3.0 mg/dl (Susie Lomas, PA-C) Assessment and Plan Patient is a pleasant 72 y/o male, with PMHx of paroxysmal a.fib, HTN, HLD, BPH , and carotid stenosis s/p L CEA, who presented to the ED because of continued PNA symptoms. R mid lung PNA: - Admit to med/surg - O2 protocol, wean as tolerated - DuoNebs QID and PRN for SOB/wheezing- change nebs to Xopenex due to palpitations w/ treatment - Incentive spirometer and flutter valve - IV NSS 1L in ED; appears euvolemic, kidney function is stable, no hypotension - will hold on additional IVF at this time - IV Levaquin + Rocephin x1 dose in ED; continue IV Levaquin 750 mg daily - Mucinex 600 mg BID - Sputum culture and BCx pending; UA negative - Influenza swab negative on 12/19 - D-dimer negative Hypophosphatemia- RESOLVED: Replaced w/ PO phosphate supplement Paroxysmal a.fib, HTN- STABLE: - Continue Cardizem 30 mg BID. Lopressor 50 mg BID - Coumadin 2.5 mg daily- follow PT/INR and adjust dose PRN for INR goal 2-3 -- Subtherapeutic at 1.9 today- give additional 0.5 mg to total 3 mg tonight HLD, carotid stenosis: Continue ASA, Lipitor 20 mg HS BPH: Continue Hytrin and Proscar DVT prophylaxis: Coumadin Code status: LEVEL I, FULL Dispo: From home, lives w/ - PT/OT and CM consulted- hopeful discharge to home tomorrow (Susie Lomas ., PA-C) PA Physician Supervision Note: I interviewed and examined the patient. Discussed with Susie Lomas PAC and agree with findings and plan as documented in the note. Any exceptions or clarifications are listed here: None Patient is slightly concerned over still having some difficulty breathing and coughing told him this is par for the course of his pneumonia is using a flutter valve at the bedside otherwise has no complaints or problems Vital signs are stable Cardiac exam is regular lungs especially on the right has rhonchi and some end expiratory wheezes Patient is right middle lobe pneumonia is on pulmonary dose levofloxacin he is encouraged to expectorated sputum with flutter valve and Mucinex Documented By: Terence Ryan (Terence Ryan M.D.)
[2017-12-22] MEDS ORDERED: LEVOFLOXACIN / D5W 750 MG in PREMIXED IN D5W 150 ML IV SCH (12:00)
[2017-12-22] MEDS: LEVALBUTEROL 1.25MG/3ML NEB INH SCH ×2 (13:53→19:35)
[2017-12-22] MEDS ORDERED: WARFARIN SOD 3 MG TAB PO ONE (16:00)
[2017-12-22] MEDS ORDERED: WARFARIN SOD 2.5 MG TAB PO SCH (16:00)
[2017-12-22] MEDS: ATORVASTATIN 20 MG TAB PO SCH (20:19)
[2017-12-23] MEDS: LEVALBUTEROL 1.25MG/3ML NEB INH SCH ×4 (02:10→14:12)
[2017-12-23 06:38] LABS: HEMATOCRIT 37.4 % (42-52); HEMOGLOBIN 12.8 g/dL (14.0-18.0); MEAN CELL VOLUME 91.2 fL (80-100); MEAN CORPUSCULAR HEMOGLOBIN 31.2 pg (25-34); MEAN CORPUSCULAR HGB CONC 34.2 g/dl (32-36); MEAN PLATELET VOLUME 9.2 fL (7.4-10.4); PLATELET COUNT 209 K/uL (130-400); RED CELL DISTRIBUTION WIDTH CV 12.7 % (11.5-14.5); RED CELL DISTRIBUTION WIDTH SD 42.2 fL (36.4-46.3); WHITE BLOOD COUNT 5.03 K/uL (4.8-10.8)
[2017-12-23 06:47] LABS: INR 2.2 (0.9-1.1)
[2017-12-23 07:09] LABS: CALCIUM 8.2 mg/dl (8.5-10.1); CREATININE 1.03 mg/dl (0.60-1.40); POTASSIUM 3.3 mmol/L (3.5-5.1)
[2017-12-23 07:22] VITALS: BP 162/76; PULSE 69; TEMP 36.4; O2SAT 91
[2017-12-23] MEDS: METOPROLOL TARTRATE 50 MG TAB PO SCH ×2 (07:30→20:41)
[2017-12-23] MEDS: FoLIC ACID TAB 400 MCG TAB PO SCH (07:31)
[2017-12-23] MEDS: DILTIAZEM HCL 30 MG TAB PO SCH ×2 (07:31→20:41)
[2017-12-23] MEDS: FINASTERIDE 5 MG TAB PO SCH (07:32)
[2017-12-23] MEDS ORDERED: POTASSIUM CHLORIDE 20 MEQ TABCR PO ONE (08:15)
[2017-12-23] MEDS: GUAIFENESIN 600 MG TABCR PO SCH ×2 (08:38→20:42)
[2017-12-23] MEDS: ASPIRIN 81 MG CHEW PO SCH (08:38)
--- NOTE | 2017-12-23 11:15 | Hospitalist Progress Note ---
Hospitalist Progress Note Date of Service Dec 23, 2017. Subjective Pt evaluation today including: conversation w/ patient, physical exam, lab review, review of inpatient medication list Voiding: no voiding problems Patient sitting in bedside chair. Continues to feel improved, but not well enough to go home today. +non-productive cough. +wheezing this AM- improved after Neb treatment. Notes still feels palpitations w/ Nebulizer treatment despite changing to Xopenex. Eating and drinking OK. Patient denies any fever, chills, sweats, lightheadedness, dizziness, vision changes, CP, edema, SOB, abdominal pain, nausea, vomiting, diarrhea, urinary symptoms, melena, numbness/tingling, weakness, muscle/joint pain, anxiety/ depression, active bleeding, or new skin discoloration/changes. Medications Current Inpatient Medications Medications (Trade) Dose Ordered Sig/Max Route Start Time Stop Time Status Last Admin Dose Admin Acetaminophen (Tylenol Tab) 650 mg Q4H PRN PO 12/21/17 14:30 01/20/18 14:29 Al Hydrox/Mg Hydrox/Simethicone (Maalox Max Susp) 15 ml Q4H PRN PO 12/21/17 14:30 01/20/18 14:29 Magnesium Hydroxide (Milk Of Magnesia Susp) 30 ml Q6H PRN PO 12/21/17 14:30 01/20/18 14:29 Polyethylene (Miralax Powder Packet) 17 gm DAILY PRN PO 12/21/17 14:30 01/20/18 14:29 12/22/17 20:31 17 GM Ondansetron HCl (Zofran Inj) 4 mg Q6H PRN IV 12/21/17 14:30 01/20/18 14:29 Levofloxacin 750 mg/Prmx 150 ml @ 100 mls/hr Q24H IV 12/22/17 12:00 12/28/17 11:59 12/22/17 11:32 100 MLS/HR Aspirin (Aspirin Chew) 81 mg DAILY PO 12/22/17 09:00 01/21/18 08:59 12/23/17 08:38 81 MG Atorvastatin Calcium (Lipitor Tab) 20 mg HS PO 12/21/17 21:00 01/20/18 20:59 12/22/17 20:19 20 MG Diltiazem HCl (Cardizem Tab) 30 mg BID PO 12/21/17 21:00 01/20/18 20:59 12/23/17 07:31 30 MG Finasteride (Proscar Tab) 5 mg DAILY PO 12/22/17 09:00 01/21/18 08:59 12/23/17 07:32 5 MG Folic Acid (Folvite Tab) 400 mcg DAILY PO 12/22/17 09:00 01/21/18 08:59 12/23/17 07:31 400 MCG Metoprolol Tartrate (Lopressor Tab) 50 mg BID PO 12/21/17 21:00 01/20/18 20:59 12/23/17 07:30 50 MG Terazosin HCl (Hytrin Cap) 5 mg HS PO 12/21/17 21:00 01/20/18 20:59 12/22/17 20:20 5 MG Warfarin Sodium (Coumadin Tab) 2.5 mg DAILY@1600 PO 12/23/17 16:00 01/21/18 15:59 Levalbuterol (Xopenex 1.25MG/ 3ML Neb) 1.25 mg Q6R INH 12/22/17 15:00 01/21/18 14:59 12/22/17 19:35 1.25 MG Levalbuterol (Xopenex 1.25MG/ 3ML Neb) 1.25 mg Q2H PRN INH 12/22/17 10:15 01/21/18 10:14 Guaifenesin (Mucinex Contr Rel Tab) 1,200 mg Q12 PO 12/22/17 21:00 01/20/18 20:59 12/23/17 08:38 1,200 MG Objective Vital Signs Date Time Temp Pulse Resp B/P (MAP) Pulse Ox O2 Delivery O2 Flow Rate FiO2 12/23/17 08:00 Room Air 12/23/17 07:22 36.4 69 18 162/76 (104) 91 Room Air 12/22/17 23:30 Room Air 12/22/17 22:56 36.3 64 18 144/76 (98) 95 Room Air 12/22/17 20:22 77 18 95 Room Air 12/22/17 20:16 83 153/74 (100) 94 Room Air 12/22/17 16:00 91 Room Air 12/22/17 15:29 36.7 78 16 103/61 (75) 91 Room Air 12/22/17 13:55 70 18 94 Room Air Physical Exam General Appearance: no apparent distress Eyes: normal inspection, PERRL ENT: hearing grossly normal Neck: supple Respiratory/Chest: no respiratory distress, no accessory muscle use, + wheezing (mild expiratory wheeze in lower lung treviño ), + pertinent finding (coarse breath sounds throughout ) Cardiovascular: regular rate, rhythm Abdomen: normal bowel sounds, non tender, soft Extremities: no pedal edema, no calf tenderness Neurologic/Psychiatric: alert, normal mood/affect, oriented x 3 Skin: normal color, warm/dry, no rash Laboratory Results Last 24 Hours Test 12/23/17 05:53 White Blood Count 5.03 K/uL Red Blood Count 4.10 M/uL Hemoglobin 12.8 g/dL Hematocrit 37.4 % Mean Corpuscular Volume 91.2 fL Mean Corpuscular Hemoglobin 31.2 pg Mean Corpuscular Hemoglobin Concent 34.2 g/dl RDW Standard Deviation 42.2 fL RDW Coefficient of Variation 12.7 % Platelet Count 209 K/uL Mean Platelet Volume 9.2 fL Prothrombin Time 23.0 SECONDS Prothromb Time International Ratio 2.2 Sodium Level 141 mmol/L Potassium Level 3.3 mmol/L Chloride Level 108 mmol/L Carbon Dioxide Level 27 mmol/L Anion Gap 6.0 mmol/L Blood Urea Nitrogen 13 mg/dl Creatinine 1.03 mg/dl Est Creatinine Clear Calc Drug Dose 71.4 ml/min Estimated GFR () 83.1 Estimated GFR (Non- 71.7 BUN/Creatinine Ratio 12.6 Random Glucose 85 mg/dl Calcium Level 8.2 mg/dl Assessment and Plan Patient is a pleasant 72 y/o male, with PMHx of paroxysmal a.fib, HTN, HLD, BPH , and carotid stenosis s/p L CEA, who presented to the ED because of continued PNA symptoms. R mid lung PNA- IMPROVING: - Admit to med/surg - O2 protocol, wean as tolerated- currently on RA - DuoNebs QID and PRN for SOB/wheezing- change nebs to Xopenex due to palpitations w/ Albuterol treatment - Incentive spirometer and flutter valve - IV NSS 1L in ED - IV Levaquin + Rocephin x1 dose in ED; continue IV Levaquin 750 mg daily- treatment started on 12/19 - Mucinex 1200 mg BID - Sputum culture w/ normal gilberto; BCx NGTD; UA negative - Influenza swab negative on 12/19 - D-dimer negative Hypophosphatemia- RESOLVED: Replaced w/ PO phosphate supplement Hypokalemia: Replace w/ PO KCL supplement, follow and replace PRN Paroxysmal a.fib, HTN- STABLE: - Continue Cardizem 30 mg BID. Lopressor 50 mg BID - Coumadin 2.5 mg daily- follow PT/INR and adjust dose PRN for INR goal 2-3 Subtherapeutic INR- RESOLVED HLD, carotid stenosis: Continue ASA, Lipitor 20 mg HS BPH: Continue Hytrin and Proscar DVT prophylaxis: Coumadin Code status: LEVEL I, FULL Dispo: From home, lives w/ - PT/OT and CM consulted- hopeful discharge to home tomorrow
[2017-12-23] MEDS: LEVOFLOXACIN 750 MG TAB PO SCH (12:29)
[2017-12-23 15:09] VITALS: BP 107/64; PULSE 70; TEMP 36.8; O2SAT 95
[2017-12-23 16:00] VITALS: O2SAT 95
[2017-12-23] MEDS ORDERED: WARFARIN SOD 2.5 MG TAB PO SCH (16:00)
[2017-12-23 20:37] VITALS: BP 141/75; PULSE 67; O2SAT 93
[2017-12-23] MEDS: ATORVASTATIN 20 MG TAB PO SCH (20:41)
[2017-12-23 23:35] VITALS: BP 134/74; PULSE 60; TEMP 36.9; O2SAT 96
[2017-12-24] MEDS: LEVALBUTEROL 1.25MG/3ML NEB INH SCH ×2 (02:16→07:01)
[2017-12-24 04:28] VITALS: BP 106/66; PULSE 88; TEMP 36.5; O2SAT 95
[2017-12-24 06:18] LABS: HEMATOCRIT 37.8 % (42-52); HEMOGLOBIN 12.8 g/dL (14.0-18.0); MEAN CELL VOLUME 91.5 fL (80-100); MEAN CORPUSCULAR HGB CONC 33.9 g/dl (32-36); MEAN PLATELET VOLUME 8.9 fL (7.4-10.4); PLATELET COUNT 224 K/uL (130-400); RED CELL DISTRIBUTION WIDTH CV 12.7 % (11.5-14.5); RED CELL DISTRIBUTION WIDTH SD 42.8 fL (36.4-46.3)
[2017-12-24 06:37] LABS: INR 2.6 (0.9-1.1)
[2017-12-24 06:51] LABS: CALCIUM 8.2 mg/dl (8.5-10.1); CREATININE 1.13 mg/dl (0.60-1.40); POTASSIUM 3.7 mmol/L (3.5-5.1)
[2017-12-24 07:22] VITALS: BP 115/72; PULSE 70; TEMP 36.7; O2SAT 92
[2017-12-24 07:27] VITALS: O2SAT 95
[2017-12-24] MEDS: FoLIC ACID TAB 400 MCG TAB PO SCH (07:35)
[2017-12-24] MEDS: DILTIAZEM HCL 30 MG TAB PO SCH (07:35)
[2017-12-24] MEDS: FINASTERIDE 5 MG TAB PO SCH (07:35)
[2017-12-24] MEDS: GUAIFENESIN 600 MG TABCR PO SCH (07:35)
[2017-12-24] MEDS: METOPROLOL TARTRATE 50 MG TAB PO SCH (07:35)
[2017-12-24] MEDS: ASPIRIN 81 MG CHEW PO SCH (07:37)
[2017-12-24] MEDS ORDERED: IPRA1AER2 INH (10:44)
--- NOTE | 2017-12-24 10:45 | Discharge Instructions ---
Discharge Instructions Date of Service Dec 24, 2017. Admission Reason for Admission: Failure Of Outpatient Treatment,Pna Discharge Discharge Diagnosis / Problem: pneumonia Discharge Goals Goal(s): Decrease discomfort, Improve function, Increase independence, Improve disease control, Improve nutritional status, Learn about illness, Diagnostic testing, Therapeutic intervention, Prevent Disease Progression, Specific goals Activity Recommendations Activity Limitations: resume your previous activity Exercise/Sports Limitations: as tolerated . Instructions / Follow-Up Instructions / Follow-Up you have right mid lung pneumonia, you need to continue 5 days oral Levaquin to complete total 10 days oral antibiotics treatment I ordered Combivent inhaler, please use as directed hx of Paroxysmal a.fib, your INR is 2.7 today you need to check your INR as instructed as prior to this admission - you need to follow up with your primary care physician in 1 week, you need to have labs of PT/INR , mag, phos, potassium checked with pcp in the follow up visit. - take medication as instructed, never overdose or any misuse, or take with alcohol, because misuse of medicine may cause organ damage or , call your primary care physician if have questions of medicaitons. - call your primary care physician OR go to local emergency room if has any fever/chill, chest pain, shortness of breathing, nausea/vomiting/abdominal pain , facial droop/slurry speech/local weakness, or if has any questions. - fall precaution - diet as instructed Current Hospital Diet Patient's current hospital diet: AHA Diet (Heart Healthy) Discharge Diet Recommended Diet: AHA Diet (Heart Healthy) Pending Studies Studies pending at discharge: no Medical Emergencies . Who to Call and When: Medical Emergencies: If at any time you feel your situation is an emergency, please call 911 immediately. . Non-Emergent Contact Non-Emergency issues call your: Primary Care Provider . . "Provider Documentation" section prepared by Cedrick Castillo. . VTE Core Measure Inpt VTE Proph given/why not?: Warfarin (Coumadin)
[2017-12-24] MEDS: LEVOFLOXACIN 750 MG TAB PO SCH (10:52)
[2017-12-24 10:56] VITALS: BP 115/72; PULSE 70; TEMP 36.7; O2SAT 95
--- NOTE | 2017-12-24 15:18 | Discharge Summary ---
Discharge Summary Date of Service Dec 24, 2017. Discharge Summary Admission Date: Dec 21, 2017 at 14:25 Discharge Date: Dec 24, 2017 Discharge Disposition: Home Principal Diagnosis: right mid lung pneumonia, Problems/Secondary Diagnoses: hx of Paroxysmal a.fib, your INR is 2.7 today Immunizations: Have You Had Influenza Vaccine: Yes History of Tetanus Vaccine?: Yes History of Pneumococcal: Yes History of Hepatitis B Vaccine: No Procedures: No Consultations: No Medication Reconciliation New Medications: Ipratropium-Albuterol (Combivent Respimat) 1 Aer Aer 1 PUFFS INH QID for 7 Days, INH Continued Medications: Aspirin (Aspirin Chewable) 81 Mg Chew 81 MG PO DAILY, TAB Atorvastatin (Lipitor) 40 Mg Tab 20 MG PO HS, TAB Calcium Carbonate-Vitamin D (Calcium + D) 1 Tab Tab 1 TAB PO BID Diltiazem Hcl (Cardizem) 30 Mg Tab 30 MG PO BID, TAB Finasteride (Proscar) 5 Mg Tab 5 MG PO DAILY, TAB Flaxseed (Linseed) (Flaxseed Oil) 1 Cap Cap 1 CAP PO BID Folic Acid (Folvite) 400 Mcg Tab 400 MCG PO DAILY, TAB Levofloxacin (Levaquin) 750 Mg Tab 1 TAB PO DAILY for 6 Days, #6 TAB Metoprolol Tartrate (Lopressor) (Lopressor) 50 Mg Tab 50 MG PO BID, TAB Multivitamin (Multivitamin) Tab 1 TAB PO DAILY, TAB Terazosin Hcl (Hytrin) 5 Mg Cap 5 MG PO HS, CAP Warfarin Sod (Jantoven) 2.5 Mg Tab 2.5 MG PO DAILY, TAB Discharge Exam occasional cough, no shortness of breath, do not need any oxygen, has been up and walk in the hallway Review of Systems: Constitutional: No fever, No chills, No sweats, No weight loss, No weakness , No fatigue, No problem reported Eyes: No worsening of vision, No eye pain, No redness, No discharge, No diplopia, No problem reported ENT: No hearing loss, No unusual epistaxis, No nasal symptoms, No sore throat, No tinnitus, No dental problems, No trouble swallowing, No problem reported Respiratory: + cough, No sputum, No wheezing, No shortness of breath, No dyspnea on exertion, No dyspnea at rest, No hemoptysis, No problem reported Cardiovascular: No chest pain, No orthopnea, No PND, No edema, No claudication, No palpitations, No problem reported Abdomen: No pain, No nausea, No vomiting, No diarrhea, No constipation, No GI bleeding, No problem reported Musculoskeletal: No joint pain, No muscle pain, No swelling, No calf pain, No problem reported Neurologic: No memory loss, No paralysis, No weakness, No numbness/tingling , No vertigo, No balance problems, No problem reported Psychiatric: No depression symptoms, No anhedonism, No anxiety, No insomnia , No substance abuse, No problem reported Endocrine: No fatigue, No excessive thirst, No excessive urination, No problem reported Hematologic / Lymphatic: No abnormal bleeding/bruising, No clotting problems , No swollen lymph nodes, No night sweats, No problem reported Integumentary: No rash, No itch, No new/changing skin lesions, No color change, No bleeding, No problem reported Physical Exam: General Appearance: WD/WN, no apparent distress Eyes: normal inspection, PERRL ENT: normal ENT inspection, hearing grossly normal Neck: supple, no adenopathy, thyroid normal Respiratory/Chest: chest non-tender, + decreased breath sounds Cardiovascular: regular rate, rhythm, no edema, no gallop Abdomen / GI: normal bowel sounds, non tender, soft Extremities: normal inspection, no calf tenderness, normal capillary refill 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, no motor/sensory deficits , alert, normal mood/affect, normal reflexes, oriented x 3 Skin: normal color, warm/dry Hospital Course 72 y/o male admitted because of pneumonia, which is supported by x-ray and clinical symptoms Right mid lung PNA, stable improving Remote history of tobacco abuse, no more smoking Hypophosphatemia, resolved Hypokalemia, resolved hx of Paroxysmal a.fib, on Coumadin and INR is 2.7 today Stable improving, continue O2 protocol, wean as tolerated- currently on RA, continue DuoNebs QID and PRN for SOB/wheezing- change nebs to Xopenex due to palpitations w/ Albuterol treatment, continue current Levaquin 750 mg daily, which was started on 12/19 , Patient continued to be stable, discussed with patient and family about Sheron, Is to discharge today Instructions / Follow-Up you have right mid lung pneumonia, you need to continue 5 days oral Levaquin to complete total 10 days oral antibiotics treatment I ordered Combivent inhaler, please use as directed hx of Paroxysmal a.fib, your INR is 2.7 today you need to check your INR as instructed as prior to this admission - you need to follow up with your primary care physician in 1 week, you need to have labs of PT/INR , mag, phos, potassium checked with pcp in the follow up visit. - take medication as instructed, never overdose or any misuse, or take with alcohol, because misuse of medicine may cause organ damage or , call your primary care physician if have questions of medicaitons. - call your primary care physician OR go to local emergency room if has any fever/chill, chest pain, shortness of breathing, nausea/vomiting/abdominal pain , facial droop/slurry speech/local weakness, or if has any questions. - fall precaution - diet as instructed Total Time Spent: Greater than 30 minutes This includes examination of the patient, discharge planning, medication reconciliation, and communication with other providers. Discharge Instructions Please refer to the electronic Patient Visit Report (Discharge Instructions) for additional information. Additional Copies To Ami Woodson D.O.
== END 2017-12-24 11:20 | disposition home or self-care (01) | DRG 195 ==
LOC: C.EDB 09:41 → C.MED 14:25 → ENRESERV 14:59
PROVIDERS: ADMIT Family Medicine; ATTEND Hospitalist
DX: J18.9 Pneumonia, unspecified organism (principal); I48.0 Paroxysmal atrial fibrillation; E78.5 Hyperlipidemia, unspecified; E83.39 Other disorders of phosphorus metabolism; E87.6 Hypokalemia; I10 Essential (primary) hypertension; N40.0 Benign prostatic hyperplasia without lower urinary tract symptoms; Z79.01 Long term (current) use of anticoagulants; Z79.82 Long term (current) use of aspirin; Z79.899 Other long term (current) drug therapy; Z88.8 Allergy status to other drugs, medicaments and biological substances; Z87.891 Personal history of nicotine dependence; R79.1 Abnormal coagulation profile; R91.1 Solitary pulmonary nodule

== ENCOUNTER → 2018-01-28 | Outpatient (CLI) | payer OTHER, MEDICARE ==
[~2018-01-28] MED LIST changes: -BENZ1CAP90 PO; +DILT30TA PO; -DILT60TA PO; -HYDR5SYP11 PO; +OPTIRAY 320 IV PRN; -OSEL75CA23 PO
--- NOTE | 2018-01-28 11:22 | DIAGNOSTIC IMAGING REPORT ---
CT (CHEST) THORAX WITH CLINICAL HISTORY: 73 years-old Male presenting with R91.8 pulmonary nodules. TECHNIQUE: Multidetector CT imaging of the chest was performed without the use of intravenous contrast. IV contrast: None. A dose lowering technique was used consistent with the principles of ALARA (as low as reasonably achievable). COMPARISON: None. CT DOSE (mGy.cm): The estimated cumulative dose is 676.20 mGycm. FINDINGS: [facility] Specialist topogram: Unremarkable. On soft tissue windows, multinodular thyroid. No axillary, supraclavicular, hilar, or mediastinal lymphadenopathy. Atherosclerosis of the aorta. Multichamber enlargement of the heart. Coronary artery calcification. No pericardial or pleural effusion. Calcified left adrenal gland possibly implying prior hemorrhage. On lung windows, multiple solid bilateral pulmonary nodules are stable from prior exam. These are primarily polygonal and fissural or peripheral. Nodule in the posterior segment of the right upper lobe measures 5 mm (series 4 image 151) disease. 2 adjacent fissural right lower lobe nodules measure 5 mm and 7 mm (series 4 images 163 and 166). Left lower lobe nodule measures 7 mm (series 4 image 133). Solid triangular peripheral 3 mm nodule in the left upper lobe (series 4 image 94), unchanged. No new nodule. Minimal dependent changes likely atelectasis. Mild bronchial wall thickening. Pulmonary cyst noted in the lingula. Central airways patent. On bone windows, degenerative changes of the spine. IMPRESSION: 1. Multiple solid bilateral pulmonary nodules measuring up to 7 mm, which are stable since the prior exam one year ago. Follow-up per [employer] 2017 recommendations below. The morphology and distribution suggests unencapsulated pulmonary lymphoid tissue. 2. Mild bronchial wall thickening could relate to smoking related lung injury or bronchitis/bronchiolitis. This was present on the prior exam. Please refer to below summary of Fleischner Society 2017 recommendations for follow-up of incidental CT nodules (H Alan et al. Guidelines for management of incidental pulmonary nodules detected on CT images: From the Fleischner Society 2017. Radiology 2017; 284: 228-243.) SOLID NODULES Single nodule; size < 6 mm * Low risk patients: No routine follow-up * High risk patients: Optional CT at 12 months Single nodule; size 6-8 mm * Low risk patients: CT at 6-12 months, then consider CT at 18-24 months * High risk patients: CT at 6-12 months, then at 18-24 months Single nodule; size > 8 mm * Either low or high risk patients: Considered CT at 3 months, PET/CT, or tissue sampling Multiple nodules; size < 6 mm * Low risk patients: No routine follow up * High risk patients: Optional CT at 12 months Multiple nodules; size 6-8 mm * Low risk patients: CT at 3-6 months, then consider CT at 18-24 months * High risk patients: CT at 3-6 months, then at 18-24 months Multiple nodules; size > 8 mm * Low risk patients: CT at 3-6 months, then consider at 18-24 months * High risk patients: CT at 3-6 months, then at 18-24 months SUBSOLID NODULES Single ground-glass nodule * Nodule size < 6 mm: No routine follow-up * Nodule size > or = 6 mm: CT at 6-12 months to confirm persistence, then CT every 2 years until 5 years Single part-solid nodule * Nodule size < 6 mm: No routine follow-up * Nodules size > or = 6 mm: CT at 3-6 months to confirm persistence. If unchanged and solid component remains < 6 mm, annual CT should be performed for 5 years Multiple nodules * Nodule size < 6 mm: CT at 3-6 months. If stable, consider CT at 2 and 4 years. * Nodules size > or = 6 mm: CT at 3-6 months. Subsequent management based on the most suspicious nodule(s) NOTE: These guidelines apply to incidental nodules. These guidelines do not apply to patients younger than 35 years, immunocompromised patients, or patients with cancer. * Low risk patients: Minimal or absent history of smoking and/or other known risk factors * High risk patients: History of smoking, exposure to other carcinogens, emphysema, fibrosis, upper lobe location, family history of lung cancer, etc. If a nodule up to 8 mm is partly solid or is ground glass, further follow-up is required after 24 months to exclude possible slow growing adenocarcinoma. Electronically signed by: Delvsi Oleary M.D. 01/28/2018 11:21 AM Dictated Date/Time: 01/28/2018 11:13 AM
== END | disposition home or self-care (01) ==
LOC: C.CTS 10:46
PROVIDERS: ATTEND Family Medicine
DX: R91.8 Other nonspecific abnormal finding of lung field (principal)

== ENCOUNTER 2018-06-21 22:52 | Emergency (ER) | payer OTHER, MEDICARE ==
[~2018-06-21] VITALS: Ht 177.8 cm; Wt 93.3 kg
[~2018-06-21 22:52] MED LIST changes: -OPTIRAY 320 IV PRN
[2018-06-21 22:54] VITALS: TEMP 36.4; Ht 177.8 cm; Wt 93.3 kg
--- NOTE | 2018-06-21 23:21 | EMERGENCY ROOM VISIT NOTE ---
History Report prepared by Cm: Tremayne Petit Under the Supervision of: Dr. Anika Al D.O. First contact with patient: 22:58 Chief Complaint: ELBOW PAIN/INJURY Stated Complaint: LEFT ELBOW SWELLING,FLUID History of Present Illness The patient is a 73 year old male who presents to the Emergency Room with complaints of worsening swelling to his left elbow beginning at 5PM today. The patient states he was painting a fence with his right hand for 5-6 hours today. He reports he was supporting himself with his outstretched left arm. He notes the swelling has started to move its way down his arm. The patient denies bumping it, getting bit by an insect, a history of diabetes, chest pain, shortness of breath, and abdominal pain. He also denies blood in his urine and blood when brushing his teeth. He notes he takes Coumadin for a-fib, and his last INR was 2.3. The patient states he also takes medication for HTN. Source of History: patient Onset: 5PM today Position: elbow (left) Quality: other (swelling) Timing: worsening Associated Symptoms: No chest pain, No SOB, No abdominal pain Note: Denies: bumping it, getting bit by an insect Review of Systems See HPI for pertinent positives & negatives. A total of 10 systems reviewed and were otherwise negative. Past Medical & Surgical Medical Problems: (1) Benign prostatic hyperplasia (2) Hyperlipidemia (3) Hypertension Nos (4) Pulmonary nodule Family History Heart disease Hypertension Social History Smoking Status: Former Smoker Alcohol Use: none Drug Use: none Marital Status: Housing Status: lives with family Occupation Status: retired Current/Historical Medications Scheduled Aspirin (Aspirin Chewable), 81 MG PO DAILY Atorvastatin (Lipitor), 20 MG PO HS Calcium Carbonate-Vitamin D (Calcium + D), 1 TAB PO BID Diltiazem Hcl (Cardizem), 30 MG PO BID Finasteride (Proscar), 5 MG PO DAILY Flaxseed (Linseed) (Flaxseed Oil), 1 CAP PO BID Folic Acid (Folvite), 400 MCG PO DAILY Levofloxacin (Levaquin), 1 TAB PO DAILY Metoprolol Tartrate (Lopressor) (Lopressor), 50 MG PO BID Multivitamin (Multivitamin), 1 TAB PO DAILY Terazosin Hcl (Hytrin), 5 MG PO HS Warfarin Sod (Jantoven), 2.5 MG PO DAILY Allergies Coded Allergies: Niacin (Unverified Allergy, Mild, RASH, 12/21/17) Cerivastatin (Verified Allergy, Unknown, muscle pain, 12/21/17) Piroxicam (Verified Allergy, Unknown, Rash, 12/21/17) Prednisone (Verified Allergy, Unknown, Swelling, 12/21/17) Methylprednisolone (Unverified Adverse Reaction, Intermediate, RAPID HEARTBEAT, 12/21/17) Physical Exam Vital Signs Date Time Temp Pulse Resp B/P (MAP) Pulse Ox O2 Delivery O2 Flow Rate FiO2 06/22/18 00:50 70 16 135/70 96 06/21/18 22:54 36.4 66 16 145/73 95 Room Air Physical Exam HEENT: Head - normocephalic and atraumatic Pupils are equal, round, and reactive to light. Extraocular eye muscles are intact, and sclera are anicteric. Nose - moist nasal mucosa without discharge. Mouth - moist buccal mucosa. Oropharynx is nonerythematous and there is no tonsillar exudate or edema noted. Neck: Supple; no JVD, nuchal rigidity, cervical lymphadenopathy. Heart: Regular rate and rhythm. There is a normal S1 and S2 with no murmurs, clicks, or gallops appreciated. Lungs: Clear to auscultation bilaterally with no wheezes, rales, or rhonchi. Abdomen: Soft, completely nontender, nondistended, with good bowel sounds. There are no palpable pulsatile masses or hepatosplenomegaly. There is no guarding, rigidity, or rebound noted. Extremities: There are easily palpable peripheral pulses. The left elbow has a large hematoma with some blood tracking down the dorsal aspect of the left forearm. Skin: warm and dry with good turgor and no rashes. Medical Decision & Procedures Laboratory Results Test 06/21/18 23:23 Prothrombin Time 21.3 SECONDS (9.0-12.0) Prothromb Time International Ratio 2.1 (0.9-1.1) Laboratory results per my review. ED Course 2313: Past medical records reviewed. The patient was evaluated in room C08. A complete history and physical exam was performed. Labs were drawn as above. 0021: Upon reevaluation, the yousuf wrap was placed. I discussed findings and results with him. He verbalized agreement of the treatment plan. The patient was discharged home. Medical Decision The patient is a 73 year old male who presents to the Emergency Department with swelling to the left elbow. Differential diagnosis includes: bursitis, septic arthritis, traumatic hematoma, contusion. Lab results show: INR of 2.1. This is a 73-year-old male patient who noticed a sudden onset of a hematoma to the left elbow. The patient does take Coumadin. His INR is 2.1. He has been painting a fence with his right upper extremity throughout the day today and has been leaning on his left arm. This is most likely a traumatic hematoma. I do not believe that it represents a bursitis or septic arthritis. There is black/blue discoloration consistent with a hematoma. An Yousuf bandage was placed and I encouraged him to continue wearing this compression bandage. He can continue to take his usual dose of Coumadin. I suggested that he follow-up with his PCP if the hematoma does not resolve. He should return here to the emergency department if he develops a fever or worsening pain. Medication Reconcilliation Current Medication List: was personally reviewed by me Blood Pressure Screening Patient's blood pressure: Elevated blood pressure Blood pressure disposition: Elevated BP felt to be situational Impression Primary Impression: Traumatic hematoma of elbow Scribe Attestation The scribe's documentation has been prepared under my direction and personally reviewed by me in its entirety. I confirm that the note above accurately reflects all work, treatment, procedures, and medical decision making performed by me. Departure Information Dispostion Home / Self-Care Referrals Ami Woodson D.O. (PCP) Forms HOME CARE DOCUMENTATION FORM, IMPORTANT VISIT INFORMATION Patient Instructions ED Hematoma, My [facility] Additional Instructions Rest with your elbow elevated. Keep the yousuf wrap on for compression while you are awake. Follow up with PCP if elbow mot improving. Return to the ER if you develop increased pain or fever Problem Qualifiers Primary Impression: Traumatic hematoma of elbow Encounter type: initial encounter Laterality: left Qualified Codes: S50.02XA - Contusion of left elbow, initial encounter
[2018-06-21 23:44] LABS: INR 2.1 (0.9-1.1)
[2018-06-22 00:50] VITALS: BP 135/70; PULSE 70; O2SAT 96
== END 2018-06-22 00:50 | disposition home or self-care (01) ==
LOC: C.EDB 22:53 → C.EDC 06-22 00:50
DX: S50.02XA Contusion of left elbow, initial encounter (principal); W22.8XXA Striking against or struck by other objects, initial encounter; Y92.89 Other specified places as the place of occurrence of the external cause; I48.91 Unspecified atrial fibrillation; I10 Essential (primary) hypertension; E78.5 Hyperlipidemia, unspecified; Z87.891 Personal history of nicotine dependence; Z79.01 Long term (current) use of anticoagulants; Z79.82 Long term (current) use of aspirin; Z79.899 Other long term (current) drug therapy; Z88.8 Allergy status to other drugs, medicaments and biological substances

== ENCOUNTER 2019-03-28 22:58 | Observation (INO) ==
--- NOTE | 2019-03-28 23:04 | Emergency Department Note ---
Entered by Claire Green acting as a scribe for Cedrick Good MD ED Provider Note Name: Sony Gauthier Age: 74 M Arrives Via: EMS Informant: Patient CC: Cardiac Assessment HPI: 74 year old male arrives for evaluation of weakness. He admits to a history of atrial fibrillation and states he started to feel like he was in a-fib last night. It had been a while since his previous episode of atrial fibrillation before last night. He admits to feeling "wiped out" and "run down". He denies any recent fevers, cough, chills, diarrhea, dysuria or leg swelling. He states he is normally active and feeling this wiped out is unusual. He does take daily Warfarin. He has never needed to be shocked back into a-fib in the past. Sitting up has caused him to feel light headed earlier today. He denies any unusual strenuous activity today. He admits he did have a tick bite recently and had it tested. He denies any nausea, hemathochezia or abdominal pain. He states he has been eating normally for the past few days. ROS: See above HPI for pertinent positives & negatives. A total of 10 systems reviewed and were otherwise negative. Past Medical History: Atrial fibrillation, hypertension. Past Surgical History: No significant surgical history. Family History: No significant family history. Social History: . Retired. Lives with . Home Medications: None Allergies Niacin, Cerivastatin, Piroxicam, Prednisone, Methylprednisolone, Albuterol, Ipratropium. Physical: Vitals: BP is 87/56. Pulse 84. Resp 18. Temp 97.3. O2 Sat 97 on RA. Exam: GENERAL: Patient is tired appearing and in no acute distress. EYES: No scleral icterus, unremarkable pupils. ENT: Mucous membranes moist, no nasal congestion. NECK: No masses appreciated, no meningismus, trachea is midline. RESPIRATORY: No dyspnea. Clear to auscultation and equal bilaterally. No wheeze, no rhonchi. CARDIOVASCULAR: Regular rate and rhythm. No murmurs, rubs, gallops appreciated. GASTROINTESTINAL: Abdomen soft, non-tender, no peritonitis. Bowel sounds positive. No masses appreciated. BACK: No midline tenderness, no CVA tenderness EXTREMITIES: Normal motion all extremities, no cyanosis, no edema. NEUROLOGIC: Alert and oriented, no acute motor or sensory deficits, no focal weakness, cranial nerves grossly intact. SKIN: No rash, no jaundice, no diaphoresis. ED Course: Prior Medical Record, Triage/Nursing Notes, Medications, Allergies reviewed by Me Vital Signs: reviewed and remarkable for hypotension Labs: Reviewed and unremarkable Interventions: Saline Lock, NSS bolus 1.5 L IV, NSS infusion Imaging: X ray results are stated below per my interpretation: Chest: 1 view: No infiltrate, no effusion, normal cardiac border. EKG: Indication is palpitations. Atrial fibrillation rate of 70, no ischemia. Consults: 0030: I discussed the patients [facility] The patient will be further evaluated. Reassessments/Times: 2315: First evaluation of the patient. 0020: I reevaluated the patient. He states he feels well right now. He is mildly hypertensive and fluids have been ordered. 0030: I discussed the patients case with Dr[facility] The patient will be further evaluated. Blood pressure: Normal. No Referral necessary Disposition: Hospitalization Differentials: Differential Diagnosis includes but is not limited to dehydration, stroke, anemia, hypoglycemia, hyponatremia, hypernatremia, urinary tract infection, pneumonia, bronchitis, sepsis, gastroenteritis, additional abdominal pathology, metabolic abnormalities and infections. Medical Decision Makin yr old male with hisory paroxysmal Afib arrives with symptomatic afib and modest hypotension. BP improved with fluids. Afib in 60s 70s without ischemia. Trop currently OK. Stable and feeling well while sitting in bed. No evidence dissection, PE, acs currently. Labs looking OK. He was hydrated and looking well though still in afib. INR 1.9. Reviewed with hospitalists who will bring in for further management. Impression: Atrial fibrillation. Hypotension. Critical Care Time: [] Cedrick Good MD The scribe's documentation has been prepared under my direction and personally reviewed by me in its entirety. I confirm that the note above accurately reflects all work, treatment, procedures, and medical decision making performed by me. Impression & Plan Atrial fibrillation, Hypotension Past Med/Surg History Medical History Afib follows with Dr. Berry Allergic reaction caused by a drug (Resolved) Benign prostatic hyperplasia (Chronic 01/05/12) High blood pressure (Chronic) GERD (gastroesophageal reflux disease) Hearing deficit Hyperlipidemia On anticoagulant therapy on warfarin daily Osteoarthritis Surgical History History of colonoscopy History of esophagogastroduodenoscopy (EGD) History of left inguinal hernia repair History of open reduction and internal fixation (ORIF) procedure left hip--hardware removed History of right inguinal hernia repair History of tooth extraction upper teeth Family History Other No family history of adverse response to anesthesia Social History Preferred Language: Beninese Communication Ability: Effective Incident Response Engineer Required: No Beliefs That Will Affect Care: None Current Living Situation: Spouse Feels Safe at Home: Yes Safety Concerns: Feels Safe At This Time Smoking Status: Former smoker Cigarettes Per Day: 20 Second Hand Exposure: No Hx Alcohol Use: No Hx Substance Use: No Results & Data Vital Signs Vital Signs - 24 hr 03/28/19 23:04 03/28/19 23:19 03/28/19 23:22 Temperature 36.3 C L Temperature Source Oral Sepsis Recent Fever Within 48 Hours No Sepsis Action Taken by Nursing No Action Required Pulse Rate 84 Pulse Rate [Bilateral Apical] 86 Respiratory Rate 18 18 Respiratory Effort / Characteristics Respiratory Depth Normal Blood Pressure 87/56 L Blood Pressure [Left Arm] 120/63 Blood Pressure Mean 66 Blood Pressure Mean [Left Arm] 82 Pulse Oximetry 97 95 98 Oxygen Delivery Method Room Air Room Air Room Air 03/29/19 00:10 03/29/19 00:36 03/29/19 01:12 Temperature Temperature Source Sepsis Recent Fever Within 48 Hours Sepsis Action Taken by Nursing Pulse Rate Pulse Rate [Bilateral Apical] 68 70 64 Respiratory Rate 20 20 20 Respiratory Effort / Characteristics Non-Labored Respiratory Depth Normal Blood Pressure Blood Pressure [Left Arm] 93/58 L 99/63 L 115/62 Blood Pressure Mean Blood Pressure Mean [Left Arm] 69 75 79 Pulse Oximetry 97 96 96 Oxygen Delivery Method Room Air Room Air Room Air Home Medications Current Medication List: was personally reviewed by me Laboratory Data Attestation: I reviewed the patient's lab results. Result diagrams: 03/28/19 23:20 03/28/19 23:20 Lab Results 03/28/19 03/28/19 03/28/19 Range/Units 23:20 23:20 23:20 WBC 7.10 (4.8-10.8) K/uL RBC 4.28 L (4.7-6.1) M/uL Hgb 13.7 L (14.0-18.0) g/dL Hct 40.3 L (42-52) % MCV 94.2 (80-100) fL MCH 32.0 (25-34) pg MCHC 34.0 (32-36) g/dL RDW Std Deviation 45.4 (36.4-46.3) fL RDW Coeff of Billy 13.3 (11.5-14.5) % Plt Count 213 (130-400) K/uL MPV 9.6 (7.4-10.4) fL Immature Gran % (Auto) 0.0 % Neut % (Auto) 63.3 % Lymph % (Auto) 25.6 % [place] % (Auto) 9.7 % Eos % (Auto) 1.1 % Baso % (Auto) 0.3 % Immature Gran # (Auto) 0.00 (0.00-0.02) K/uL Neut # (Auto) 4.49 (1.4-6.5) K/uL Lymph # (Auto) 1.82 (1.2-3.4) K/uL [place] # (Auto) 0.69 H (0.11-0.59) K/uL Eos # (Auto) 0.08 (0-0.5) K/uL Baso # (Auto) 0.02 (0-0.2) K/uL PT 19.0 H (9.0-12.0) Seconds INR 1.9 H (0.9-1.1) APTT 33.3 H (21.0-31.0) Seconds PTT Ratio 1.2 Sodium 141 (136-145) mmol/L Potassium 3.8 (3.5-5.1) mmol/L Chloride 110 H (98-107) mmol/L Carbon Dioxide 28 (21-32) mmol/L Anion Gap 3.0 (3-11) BUN 23 H (7-18) mg/dl Creatinine 1.13 (0.6-1.4) mg/dl Est Cr Clr Drug Dosing 58.3 ml/min Est GFR ( Amer) 73.3 Est GFR (Non-Af Amer) 63.2 BUN/Creatinine Ratio 20.2 H (10-20) Glucose 111 H (70-99) mg/dl Calcium 8.2 L (8.5-10.1) mg/dl Magnesium 2.1 (1.8-2.4) mg/dl Total Bilirubin 0.3 (0.2-1) mg/dl Direct Bilirubin < 0.1 (0-0.2) mg/dl AST 13 L (15-37) U/L ALT 25 (12-78) U/L Alkaline Phosphatase 67 (45-117) U/L Total Creatine Kinase 80 (39-308) U/L Troponin I < 0.015 (0-0.045) ng/ml Total Protein 6.5 (6.4-8.2) gm/dl Albumin 3.3 L (3.4-5.0) gm/dl TSH 2.870 (0.300-4.500) uIu/ml Administered Medications Sodium Chloride (Nss 1000ml) 1,000 mls @ 100 mls/hr IV .Q10H AGUSTIN Stop: 04/28/19 00:29 Last Admin: 03/29/19 00:36 Dose: 100 mls/hr Documented by: [id number] Albumin Human (Albumin 25%) 50 mls @ 50 mls/hr IV ONE ONE Stop: 03/29/19 03:46 Last Admin: 03/29/19 03:13 Dose: 50 mls/hr Documented by: [id number] Discontinued Medications Sodium Chloride (Nss 1000ml) 1,000 mls @ 999 mls/hr IV .Q1H1M ONE Stop: 03/29/19 00:20 Last Infusion: 03/29/19 00:30 Dose: 0 mls/hr Documented by: [id number] Admin: 03/28/19 23:30 Dose: 999 mls/hr Documented by: [id number] Sodium Chloride (Nss 1000ml) 500 mls @ 999 mls/hr IV .Q31M ONE Stop: 03/29/19 00:53 Last Infusion: 03/29/19 01:16 Dose: 0 mls/hr Documented by: [id number] Admin: 03/29/19 00:36 Dose: 999 mls/hr Documented by: [id number] ECG Data Attestation: I personally reviewed and interpreted this ECG as follows: Indication: palpitations Rate (beats per minute): 70 Rhythm: atrial fibrillation Findings: no acute ischemic change Blood Pressure Blood Pressure Findings: Low blood pressure Discharge Plan Visit Data *Final* Discharge Date/Time: 03/29/19 02:39 Chief Complaint: Cardiac Assessment Stated Complaint: chest pain, afib ED Provider: Cedrick Good Discharge Problem: Atrial fibrillation, Hypotension Patient Disposition: Admitted As Inpatient Discharge Instructions Interventions: ED Discharge Assessment Last Done: 03/29/19 02:39 The scribe's documentation has been prepared under my direction and personally reviewed by me in its entirety. I confirm that the note above accurately reflects all work, treatment, procedures, and medical decision making performed by me.
[2019-03-28] MEDS ORDERED: SODIUM CHLORIDE 0.9% 1000ML 1,000 ML IV ONE (23:20)
[2019-03-28 23:39] LABS: Basophils # (auto) 0.02 K/uL (0-0.2); Basophils % (auto) 0.3 %; Eosinophils # (auto) 0.08 K/uL (0-0.5); Eosinophils % (auto) 1.1 %; Hematocrit (blood only) 40.3 % (42-52); Hemoglobin 13.7 g/dL (14.0-18.0); Lymphocytes # (auto) 1.82 K/uL (1.2-3.4); Lymphocytes % (auto) 25.6 %; Mean Corpuscular Volume 94.2 fL (80-100); Mean Platelet Volume 9.6 fL (7.4-10.4); Monocytes # (auto) 0.69 K/uL (0.11-0.59); Monocytes % (auto) 9.7 %; Neutrophils # (auto) 4.49 K/uL (1.4-6.5); Neutrophils % (auto) 63.3 %; Platelet Count 213 K/uL (130-400); RDW Coefficient of Variation 13.3 % (11.5-14.5); RDW Standard Deviation 45.4 fL (36.4-46.3); Red Blood Count 4.28 M/uL (4.7-6.1)
[2019-03-28 23:51] LABS: INR 1.9 (0.9-1.1); Partial Thromboplastin Ratio 1.2; Partial Thromboplastin Time 33.3 Seconds (21.0-31.0)
[2019-03-29] LABS: Alanine Aminotransferase 25 U/L (12-78); Albumin Level 3.3 gm/dl (3.4-5.0); Aspartate Aminotransferase 13 U/L (15-37); BUN Creatinine Ratio 20.2 (10-20); Bilirubin Direct < 0.1 mg/dl (0-0.2); Blood Urea Nitrogen 23 mg/dl (7-18); Calcium 8.2 mg/dl (8.5-10.1); Carbon Dioxide 28 mmol/L (21-32); Chloride 110 mmol/L (98-107); Creatinine Clr Calc Pharmacy 58.3 ml/min; Est GFR (African American) 73.3; Est GFR (Non-African American) 63.2; Glucose 111 mg/dl (70-99); Magnesium 2.1 mg/dl (1.8-2.4); Potassium 3.8 mmol/L (3.5-5.1); Sodium 141 mmol/L (136-145)
[2019-03-29 00:11] LABS: Alkaline Phosphatase 67 U/L (45-117); Bilirubin,Total 0.3 mg/dl (0.2-1); Creatine Kinase 80 U/L (39-308); Total Protein 6.5 gm/dl (6.4-8.2); Troponin I < 0.015 ng/ml (0-0.045)
[2019-03-29] MEDS ORDERED: SODIUM CHLORIDE 0.9% 1000ML 500 ML IV ONE (00:23)
[2019-03-29] MEDS: SODIUM CHLORIDE 0.9% 1000ML 1,000 ML IV SCH ×2 (00:36→12:09)
[2019-03-29 02:01] LABS: Appearance Urine Clear (Clear); Bilirubin Urine Negative (Negative); Blood Urine Negative (Negative); Color Urine Yellow; Glucose Urine UA Negative (Negative); Ketones Urine Negative (Negative); Leukocyte Esterase Urine Negative (Negative); Nitrite Urine Negative (Negative); Protein Urine Negative (Negative); Specific Gravity Urine 1.015 (1.000-1.030); Urobilinogen Urine Negative (Negative)
--- NOTE | 2019-03-29 02:42 | History & Physical Report ---
Date of Service March 29, 2019 Assessment & Plan (1) Atrial fibrillation: Afib, symptomatic -Cards consulted -Prev discussion of cardioversion; unlikely in setting of normal rate -Metop with HR and BP holds, changed from 50ER to 25 BID tartrate -Continue w coumadin -echo 2018 EF 55% Acute hypotension in setting of chronic HTN -Holding most home meds -Switched metoprolol to short acting as above, with holds -Seems to be resolving with fluids in ER -Cont w nss @100. Given 25 % albumin x 1 BPH -Holding home meds in setting of hypotension HLD -Cont home meds PUD -Cont home meds Code: full Dispo: tele, obs DVTP: coumadin (2) Hypotension: (3) Peptic ulcer disease: (4) High blood pressure: (5) Benign prostatic hyperplasia: (6) Carotid artery disease: History of Present Illness Chief Complaint: lightheadedness, afib Primary Care Provider: Ami Woodson, DO 74yoM PMH pAfib, HTN, HLD, BPH, Carotid art disease s/p L CEA, H/O GI bleed presents with 24 hr h/o lightheadedness, dyspnea on exertion, generally feeling unwell. Seems a/w positional changes. Found to be in afib with regular rate. Pt denies palpitations but notes he sim sn't been in Afib for "3 years". Pt notes home BPs run 110-115/50-70s. Here noted to be in 90s/60s, was given 2+ liters NSS in ER. Trop neg. Pt follows with Dr. Berry, cardiology. Recent GI bleed/ulcer (last few months, now off meds). Subtheratpeutic INR, just in last week changed coumadin dosing. INR here 1.9 Allergies Allergy/AdvReac Type Severity Reaction Status Date / Time niacin Allergy Mild RASH Verified 03/09/19 03:57 cerivastatin Allergy Unknown muscle pain Verified 03/09/19 03:57 piroxicam Allergy Unknown Rash Verified 03/09/19 03:57 prednisone Allergy Unknown Swelling Verified 03/09/19 03:57 methylprednisolone AdvReac Intermediate RAPID Verified 03/09/19 03:57 HEARTBEAT albuterol [From DuoNeb] AdvReac RAPID Verified 03/09/19 03:57 HEARTBEAT ipratropium [From DuoNeb] AdvReac RAPID Verified 03/09/19 03:57 HEARTBEAT Home Medications Home Medications Medication Instructions Recorded Confirmed Type Calcium 600 + D(3) 1 tab PO BID 11/14/18 03/29/19 History aspirin 81 mg PO QAM 11/14/18 03/29/19 History atorvastatin [Lipitor] 20 mg PO HS 11/14/18 03/29/19 History finasteride [Proscar] 5 mg PO QAM 11/14/18 03/29/19 History flaxseed oil 1,000 mg PO BID 11/14/18 03/29/19 History folic acid 1 tab PO QAM 11/14/18 03/29/19 History multivitamin 1 tab PO QAM 11/14/18 03/29/19 History terazosin 5 mg PO HS 11/14/18 03/29/19 History warfarin 2.5 mg PO DAILY 01/16/19 03/29/19 History metoprolol succinate 50 mg PO BID 03/29/19 03/29/19 History rabeprazole 20 mg PO BID 03/29/19 03/29/19 History Past Med/Surg History Medical History Afib follows with Dr. Berry Allergic reaction caused by a drug (Resolved) Benign prostatic hyperplasia (Chronic 01/05/12) High blood pressure (Chronic) GERD (gastroesophageal reflux disease) Hearing deficit Hyperlipidemia On anticoagulant therapy on warfarin daily Osteoarthritis Surgical History History of colonoscopy History of esophagogastroduodenoscopy (EGD) History of left inguinal hernia repair History of open reduction and internal fixation (ORIF) procedure left hip--hardware removed History of right inguinal hernia repair History of tooth extraction upper teeth Family History Other No family history of adverse response to anesthesia Social History Preferred Language: Slovenian Communication Ability: Effective 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 Beliefs That Will Affect Care: None Current Living Situation: Spouse Feels Safe at Home: Yes Safety Concerns: Feels Safe At This Time Smoking Status: Former smoker Cigarettes Per Day: 20 Second Hand Exposure: No Hx Alcohol Use: No Hx Substance Use: No Review of Systems Review of Systems: All systems reviewed & are unremarkable except as noted in HPI & below Constitutional: + fatigue, + malaise and + weakness Respiratory: + dyspnea on exertion Cardiovascular: + dyspnea on exertion and + lightheadedness; no chest pain, no radiating jaw, neck or arm pain, no orthopnea, no palpitations and no edema Gastrointestinal: no abdominal pain Genitourinary: + difficulty urinating, + urinary hesitancy, + post-void dribbling and + nocturia Physical Exam Constitutional: WD/WN, vitals as above average body habitus Eyes: PERRL, conjunctivae normal, anicteric sclerae ENMT: external ear and nose normal, oropharynx normal Neck: normal visual inspection Respiratory: normal respiratory effort, lungs clear to auscultation Cardiovascular: Rate/Rhythm: regular rate and + irregularly irregular Heart Sounds: no murmur Gastrointestinal (Abdomen): normal bowel sounds, soft, nontender, no hepatosplenomegaly Skin: no rashes, warm and dry Neurologic: PERRL, EOMI, accommodation nl, no face palsy, no dysarthria Psychiatric: A+Ox3, euthymic affect Results & Data Vital Signs (Past 12 Hours) Vital Signs Temp Pulse Pulse Resp BP BP Pulse Ox 03/29/19 01:53 75 20 116/69 97 03/29/19 01:12 64 20 115/62 96 03/29/19 00:36 70 20 99/63 L 96 03/29/19 00:10 68 20 93/58 L 97 03/28/19 23:22 98 03/28/19 23:19 86 18 120/63 95 03/28/19 23:04 36.3 C L 84 18 87/56 L 97 Laboratory Results 03/29/19 03/28/19 03/28/19 Range/Units 01:50 23:20 23:20 WBC 7.10 (4.8-10.8) K/uL RBC 4.28 L (4.7-6.1) M/uL Hgb 13.7 L (14.0-18.0) g/dL Hct 40.3 L (42-52) % MCV 94.2 (80-100) fL MCH 32.0 (25-34) pg MCHC 34.0 (32-36) g/dL RDW Std Deviation 45.4 (36.4-46.3) fL RDW Coeff of Billy 13.3 (11.5-14.5) % Plt Count 213 (130-400) K/uL MPV 9.6 (7.4-10.4) fL Immature Gran % (Auto) 0.0 % Neut % (Auto) 63.3 % Lymph % (Auto) 25.6 % [place] % (Auto) 9.7 % Eos % (Auto) 1.1 % Baso % (Auto) 0.3 % Immature Gran # (Auto) 0.00 (0.00-0.02) K/uL Neut # (Auto) 4.49 (1.4-6.5) K/uL Lymph # (Auto) 1.82 (1.2-3.4) K/uL [place] # (Auto) 0.69 H (0.11-0.59) K/uL Eos # (Auto) 0.08 (0-0.5) K/uL Baso # (Auto) 0.02 (0-0.2) K/uL PT 19.0 H (9.0-12.0) Seconds INR 1.9 H (0.9-1.1) APTT 33.3 H (21.0-31.0) Seconds PTT Ratio 1.2 Sodium (136-145) mmol/L Potassium (3.5-5.1) mmol/L Chloride (98-107) mmol/L Carbon Dioxide (21-32) mmol/L Anion Gap (3-11) BUN (7-18) mg/dl Creatinine (0.6-1.4) mg/dl Est Cr Clr Drug Dosing ml/min Est GFR ( Amer) Est GFR (Non-Af Amer) BUN/Creatinine Ratio (10-20) Glucose (70-99) mg/dl Calcium (8.5-10.1) mg/dl Magnesium (1.8-2.4) mg/dl Total Bilirubin (0.2-1) mg/dl Direct Bilirubin (0-0.2) mg/dl AST (15-37) U/L ALT (12-78) U/L Alkaline Phosphatase (45-117) U/L Total Creatine Kinase (39-308) U/L Troponin I (0-0.045) ng/ml Total Protein (6.4-8.2) gm/dl Albumin (3.4-5.0) gm/dl TSH (0.300-4.500) uIu/ml Urine Color Yellow Urine Appearance Clear (Clear) Urine pH 5.0 (4.5-7.5) Ur Specific [place] 1.015 (1.000-1.030) Urine Protein Negative (Negative) Urine Glucose (UA) Negative (Negative) Urine Ketones Negative (Negative) Urine Blood Negative (Negative) Urine Nitrite Negative (Negative) Urine Bilirubin Negative (Negative) Urine Urobilinogen Negative (Negative) Ur Leukocyte Esterase Negative (Negative) 03/28/19 Range/Units 23:20 WBC (4.8-10.8) K/uL RBC (4.7-6.1) M/uL Hgb (14.0-18.0) g/dL Hct (42-52) % MCV (80-100) fL MCH (25-34) pg MCHC (32-36) g/dL RDW Std Deviation (36.4-46.3) fL RDW Coeff of Billy (11.5-14.5) % Plt Count (130-400) K/uL MPV (7.4-10.4) fL Immature Gran % (Auto) % Neut % (Auto) % Lymph % (Auto) % [place] % (Auto) % Eos % (Auto) % Baso % (Auto) % Immature Gran # (Auto) (0.00-0.02) K/uL Neut # (Auto) (1.4-6.5) K/uL Lymph # (Auto) (1.2-3.4) K/uL [place] # (Auto) (0.11-0.59) K/uL Eos # (Auto) (0-0.5) K/uL Baso # (Auto) (0-0.2) K/uL PT (9.0-12.0) Seconds INR (0.9-1.1) APTT (21.0-31.0) Seconds PTT Ratio Sodium 141 (136-145) mmol/L Potassium 3.8 (3.5-5.1) mmol/L Chloride 110 H (98-107) mmol/L Carbon Dioxide 28 (21-32) mmol/L Anion Gap 3.0 (3-11) BUN 23 H (7-18) mg/dl Creatinine 1.13 (0.6-1.4) mg/dl Est Cr Clr Drug Dosing 58.3 ml/min Est GFR ( Amer) 73.3 Est GFR (Non-Af Amer) 63.2 BUN/Creatinine Ratio 20.2 H (10-20) Glucose 111 H (70-99) mg/dl Calcium 8.2 L (8.5-10.1) mg/dl Magnesium 2.1 (1.8-2.4) mg/dl Total Bilirubin 0.3 (0.2-1) mg/dl Direct Bilirubin < 0.1 (0-0.2) mg/dl AST 13 L (15-37) U/L ALT 25 (12-78) U/L Alkaline Phosphatase 67 (45-117) U/L Total Creatine Kinase 80 (39-308) U/L Troponin I < 0.015 (0-0.045) ng/ml Total Protein 6.5 (6.4-8.2) gm/dl Albumin 3.3 L (3.4-5.0) gm/dl TSH 2.870 (0.300-4.500) uIu/ml Urine Color Urine Appearance (Clear) Urine pH (4.5-7.5) Ur Specific [place] (1.000-1.030) Urine Protein (Negative) Urine Glucose (UA) (Negative) Urine Ketones (Negative) Urine Blood (Negative) Urine Nitrite (Negative) Urine Bilirubin (Negative) Urine Urobilinogen (Negative) Ur Leukocyte Esterase (Negative) Medications Administered Current Inpatient Medications Aspirin (Aspirin Chew) 81 mg PO QAM AGUSTIN Stop: 04/28/19 08:59 Atorvastatin Calcium (Lipitor) 20 mg PO HS AGUSTIN Stop: 04/28/19 20:59 Sodium Chloride (Nss 1000ml) 1,000 mls @ 100 mls/hr IV .Q10H AGUSTIN Stop: 04/28/19 00:29 Last Admin: 03/29/19 00:36 Dose: 100 mls/hr Documented by: Metoprolol Succinate (Toprol Xl) 50 mg PO BID AGUSTIN Stop: 04/28/19 08:59 Metoprolol Tartrate (Lopressor) 25 mg PO BID AGUSTIN Stop: 04/28/19 08:59 Multivitamins (Multivitamin Tab) 1 tab PO QAM [facility] Stop: 04/28/19 08:59 Warfarin Sodium (Coumadin) 2.5 mg PO DAILY [facility] Stop: 04/28/19 08:59 Code Status & VTE Plan Code Status full VTE Prophylaxis Plan VTE Prophylaxis will be ordered: Yes Supervising Physician Co-Signing Physician Notes Attending addendum: I have physically seen this patient, have supervised the medical residents activities, and agree with the H&P unless as otherwise noted. Assessment and Plan: Symptomatic atrial fibrillation- The patient will be admitted to telemetry for serial cardiac enzymes, serial EKG's, cardiac rhythm monitoring and a 2-D echocardiogram with Dopplers. Rate controlled. Adjust metoprolol to twice daily to prevent hypotension. Continue warfarin, with present INR 1.9. Briefly hypotensive, did respond to 3 L normal saline. We will also give 25 g of albumin IV to support pressure. Consult cardiology. Remainder of orders and notations as noted. Resident Activity Tracking Resident Involvement: Resident Care Provided Care Provided: Adult Hospital Medicine
[2019-03-29] MEDS ORDERED: ACETAMINOPHEN 325 MG TAB PO PRN (02:47)
[2019-03-29] MEDS ORDERED: POLYETHYLENE (MIRALAX) 17 GM PACK PO PRN (02:47)
[2019-03-29] MEDS ORDERED: ALUMINUM/MAGNESIUM SUSP 30 ML UDC PO PRN (02:47)
[2019-03-29] MEDS ORDERED: ALBUMIN 25% 50 ML IV ONE (02:47)
[2019-03-29] MEDS ORDERED: ONDANSETRON INJ 2 MG/ML 2 ML VIAL IV PRN (02:47)
[2019-03-29] MEDS ORDERED: MAGNESIUM HYDROXIDE SUSP 30 ML UDC PO PRN (02:47)
[2019-03-29] MEDS ORDERED: METOPROLOL TARTRATE 25 MG TAB PO SCH (09:00)
[2019-03-29] MEDS ORDERED: METOPROLOL SUCC 50MG EXT REL TAB PO SCH ×2 (09:00→21:00)
[2019-03-29] MEDS ORDERED: NON-FORMULARY MEDICATION (Flaxseed Oil 1,000 MG) PO SCH (09:00)
[2019-03-29] MEDS: MULTIVITAMIN TAB PO SCH (11:33)
--- NOTE | 2019-03-29 11:34 | XRay Report ---
SINGLE VIEW CHEST CLINICAL HISTORY: Generalized weakness. FINDINGS: An AP, portable, upright chest radiograph is compared to study dated 03/09/2019 and correlat ed with chest CT dated 03/02/2019. The heart is top normal for projection, noting atherosclerotic calci fication of the thoracic aorta. There is mild bibasilar scarring/atelectasis. No airspace consolidati on or large pleural effusion is identified. No pneumothorax is seen. The bony thorax is grossly intac t. Degenerative change is noted in the thoracic spine. IMPRESSION: No active disease in the chest. Electronically signed by: Blaze Monroy M.D. 03/29/2019 11:33 AM
--- NOTE | 2019-03-29 12:14 | Anesthesiology Consultation ---
Date of Service March 29, 2019 [facility] & Cardioversion 03/30/19 Assessment & Plan Chart Review Chart Review: Acceptable Risk for Surgery and Patient NOT seen in Pre Admission Testing Consults Requested none Proposed Anesthesia Anesthesia Type: MAC History Height/Weight Height: 1.78 m Weight: 82.1 kg Allergies Allergy/AdvReac Type Severity Reaction Status Date / Time niacin Allergy Mild RASH Verified 03/09/19 03:57 cerivastatin Allergy Unknown muscle pain Verified 03/09/19 03:57 piroxicam Allergy Unknown Rash Verified 03/09/19 03:57 prednisone Allergy Unknown Swelling Verified 03/09/19 03:57 methylprednisolone AdvReac Intermediate RAPID Verified 03/09/19 03:57 HEARTBEAT albuterol [From DuoNeb] AdvReac RAPID Verified 03/09/19 03:57 HEARTBEAT ipratropium [From DuoNeb] AdvReac RAPID Verified 03/09/19 03:57 HEARTBEAT Medications Home Medications Medication Instructions Recorded Confirmed Last Taken Calcium 600 + D(3) 1 tab PO BID 11/14/18 03/29/19 03/08/19 aspirin 81 mg PO QAM 11/14/18 03/29/19 03/08/19 atorvastatin [Lipitor] 20 mg PO HS 11/14/18 03/29/19 03/08/19 finasteride [Proscar] 5 mg PO QAM 11/14/18 03/29/19 03/08/19 flaxseed oil 1,000 mg PO BID 11/14/18 03/29/19 03/08/19 folic acid 1 tab PO QAM 11/14/18 03/29/19 03/08/19 multivitamin 1 tab PO QAM 11/14/18 03/29/19 03/08/19 terazosin 5 mg PO HS 11/14/18 03/29/19 03/08/19 warfarin 2.5 mg PO DAILY 01/16/19 03/29/19 03/08/19 metoprolol succinate 50 mg PO BID 03/29/19 03/29/19 Unknown rabeprazole 20 mg PO BID 03/29/19 03/29/19 Unknown Active Medications Generic Name Dose Route Start Last Admin Trade Name Freq PRN Reason Stop Dose Admin Multivitamins 1 tab 03/29/19 09:00 03/29/19 11:33 Multivitamin Tab PO 04/28/19 08:59 Not Given QAM [facility] Past Medical History Medical History Afib follows with Dr. Berry Allergic reaction caused by a drug (Resolved) Benign prostatic hyperplasia (Chronic 01/05/12) High blood pressure (Chronic) GERD (gastroesophageal reflux disease) Hearing deficit Hyperlipidemia On anticoagulant therapy on warfarin daily Osteoarthritis Past Family History Family History Other No family history of adverse response to anesthesia Past Surgical History Surgical History History of colonoscopy History of esophagogastroduodenoscopy (EGD) History of left inguinal hernia repair History of open reduction and internal fixation (ORIF) procedure left hip--hardware removed History of right inguinal hernia repair History of tooth extraction upper teeth Past Anesthesia History No Family Hx of Anesthesia Complications Social History Smoking Status: Former smoker Smoking cigarettes per day: 20 Hx Alcohol Use: No Alcohol type: beer alcohol intake frequency: 0-2 drinks per day Hx Substance Use: No substance use type: does not use Physical Exam Vital Signs Last Vital Signs Temp 36.7 C 03/29/19 10:38 Pulse 63 03/29/19 10:38 Resp 19 03/29/19 10:38 BP 101/62 03/29/19 10:38 Pulse Ox 96 03/29/19 10:38 Testing Laboratory Results 03/28/19 23:20 03/28/19 23:20 03/28/19 03/29/19 23:20 01:50 PT 19.0 H INR 1.9 H APTT 33.3 H Urine Color Yellow Urine Appearance Clear Urine pH 5.0 Ur Specific [place] 1.015 Urine Protein Negative Urine Glucose (UA) Negative Urine Ketones Negative Urine Nitrite Negative Ur Leukocyte Esterase Negative Electrocardiogram Date: 03/28/19 Findings: + AFIB @ (70 bpm) When compared with ECG of 03/09/2019 Atrial Fibrillation has replaced sinus rhythm Chest X-Ray Date: 03/28/19 Findings: + NAD
--- NOTE | 2019-03-29 12:18 | Hospitalist Progress Note ---
Date of Service March 29, 2019 Assessment & Plan (1) Hypotension: Acute hypotension in setting of chronic HTN. Also with Afib again-question if from being in Afib despite normal rates? No signs of dehydration. Did recently have metoprolol changed to XL as outpt With lightheadedness on admission now resolved -Seems to be resolved with fluids -dc IVFs follow BPs -Cardio changed to Toprol XL 25mg po qhs-with hold parameters (2) Atrial fibrillation: symptomatic, with hypotension possibly related as above -Cards consulted-appreciate -plan for MONICA and DCCV tomorrow -echo 2018 EF 55% -INR has been subtherapeutic--> plan to change to Eliquis 5mg po bid tonight--> will cost check on Saturday -decreasing Toprol to 25 as above (3) Carotid artery disease: s/p LEFT CEA -stable -continue statin, ASA (4) HTN (hypertension), benign: low BPs as above -lowering Toprol (5) Peptic ulcer disease: PUD with h/o ulcers now resolved reportedly on most recent EGD -Cont home (6) Benign prostatic hyperplasia: BPH -Holding home terazosin in setting of hypotension -ok to restart finasteride (7) Hyperlipidemia: HLD -Cont home statin (8) DVT prophylaxis: Eliquis to start Subjective Pt feeling better, no further lightheadedness. Denies CP or SOB. Eager to get up and walk around. Denies abd pain, no difficulty getting urine out. Tele with Afib with rates in the 50s--70s with a brief dip in to the 40s Discussed case with Dr. Romero of Cardiology Review of Systems Review of Systems: All systems reviewed & are unremarkable except as noted in HPI & below Physical Exam Constitutional: WD/WN, vitals as above Neck: trachea midline, no thyromegaly (with left sided anterior neck scar from CEA) Respiratory: normal respiratory effort, lungs clear to auscultation Cardiovascular: Rate/Rhythm: regular rate and + irregularly irregular Extremities: no edema Gastrointestinal (Abdomen): normal bowel sounds, soft, nontender, no hepatosplenomegaly Musculoskeletal: Extremities: extremities normal to inspection; no cyanosis and no clubbing Skin: no rashes, warm and dry Neurologic: moves all extremities and awake; no focal motor deficits Psychiatric: A+Ox3, euthymic affect Results & Data Vital Signs (Past 12 Hours) Vital Signs Temp Pulse Pulse Resp BP Pulse Ox 03/29/19 10:38 36.7 C 63 19 101/62 96 03/29/19 07:42 36.9 C 64 19 96/56 L 96 03/29/19 02:47 36.7 C 70 18 103/63 99 03/29/19 02:36 74 20 109/68 97 03/29/19 01:53 75 20 116/69 97 03/29/19 01:12 64 20 115/62 96 03/29/19 00:36 70 20 99/63 L 96 Laboratory Results 03/29/19 03/28/19 03/28/19 Range/Units 01:50 23:20 23:20 WBC 7.10 (4.8-10.8) K/uL RBC 4.28 L (4.7-6.1) M/uL Hgb 13.7 L (14.0-18.0) g/dL Hct 40.3 L (42-52) % MCV 94.2 (80-100) fL MCH 32.0 (25-34) pg MCHC 34.0 (32-36) g/dL RDW Std Deviation 45.4 (36.4-46.3) fL RDW Coeff of Billy 13.3 (11.5-14.5) % Plt Count 213 (130-400) K/uL MPV 9.6 (7.4-10.4) fL Immature Gran % (Auto) 0.0 % Neut % (Auto) 63.3 % Lymph % (Auto) 25.6 % [place] % (Auto) 9.7 % Eos % (Auto) 1.1 % Baso % (Auto) 0.3 % Immature Gran # (Auto) 0.00 (0.00-0.02) K/uL Neut # (Auto) 4.49 (1.4-6.5) K/uL Lymph # (Auto) 1.82 (1.2-3.4) K/uL [place] # (Auto) 0.69 H (0.11-0.59) K/uL Eos # (Auto) 0.08 (0-0.5) K/uL Baso # (Auto) 0.02 (0-0.2) K/uL PT 19.0 H (9.0-12.0) Seconds INR 1.9 H (0.9-1.1) APTT 33.3 H (21.0-31.0) Seconds PTT Ratio 1.2 Sodium (136-145) mmol/L Potassium (3.5-5.1) mmol/L Chloride (98-107) mmol/L Carbon Dioxide (21-32) mmol/L Anion Gap (3-11) BUN (7-18) mg/dl Creatinine (0.6-1.4) mg/dl Est Cr Clr Drug Dosing ml/min Est GFR ( Amer) Est GFR (Non-Af Amer) BUN/Creatinine Ratio (10-20) Glucose (70-99) mg/dl Calcium (8.5-10.1) mg/dl Magnesium (1.8-2.4) mg/dl Total Bilirubin (0.2-1) mg/dl Direct Bilirubin (0-0.2) mg/dl AST (15-37) U/L ALT (12-78) U/L Alkaline Phosphatase (45-117) U/L Total Creatine Kinase (39-308) U/L Troponin I (0-0.045) ng/ml Total Protein (6.4-8.2) gm/dl Albumin (3.4-5.0) gm/dl TSH (0.300-4.500) uIu/ml Urine Color Yellow Urine Appearance Clear (Clear) Urine pH 5.0 (4.5-7.5) Ur Specific [place] 1.015 (1.000-1.030) Urine Protein Negative (Negative) Urine Glucose (UA) Negative (Negative) Urine Ketones Negative (Negative) Urine Blood Negative (Negative) Urine Nitrite Negative (Negative) Urine Bilirubin Negative (Negative) Urine Urobilinogen Negative (Negative) Ur Leukocyte Esterase Negative (Negative) 03/28/19 Range/Units 23:20 WBC (4.8-10.8) K/uL RBC (4.7-6.1) M/uL Hgb (14.0-18.0) g/dL Hct (42-52) % MCV (80-100) fL MCH (25-34) pg MCHC (32-36) g/dL RDW Std Deviation (36.4-46.3) fL RDW Coeff of Billy (11.5-14.5) % Plt Count (130-400) K/uL MPV (7.4-10.4) fL Immature Gran % (Auto) % Neut % (Auto) % Lymph % (Auto) % [place] % (Auto) % Eos % (Auto) % Baso % (Auto) % Immature Gran # (Auto) (0.00-0.02) K/uL Neut # (Auto) (1.4-6.5) K/uL Lymph # (Auto) (1.2-3.4) K/uL [place] # (Auto) (0.11-0.59) K/uL Eos # (Auto) (0-0.5) K/uL Baso # (Auto) (0-0.2) K/uL PT (9.0-12.0) Seconds INR (0.9-1.1) APTT (21.0-31.0) Seconds PTT Ratio Sodium 141 (136-145) mmol/L Potassium 3.8 (3.5-5.1) mmol/L Chloride 110 H (98-107) mmol/L Carbon Dioxide 28 (21-32) mmol/L Anion Gap 3.0 (3-11) BUN 23 H (7-18) mg/dl Creatinine 1.13 (0.6-1.4) mg/dl Est Cr Clr Drug Dosing 58.3 ml/min Est GFR ( Amer) 73.3 Est GFR (Non-Af Amer) 63.2 BUN/Creatinine Ratio 20.2 H (10-20) Glucose 111 H (70-99) mg/dl Calcium 8.2 L (8.5-10.1) mg/dl Magnesium 2.1 (1.8-2.4) mg/dl Total Bilirubin 0.3 (0.2-1) mg/dl Direct Bilirubin < 0.1 (0-0.2) mg/dl AST 13 L (15-37) U/L ALT 25 (12-78) U/L Alkaline Phosphatase 67 (45-117) U/L Total Creatine Kinase 80 (39-308) U/L Troponin I < 0.015 (0-0.045) ng/ml Total Protein 6.5 (6.4-8.2) gm/dl Albumin 3.3 L (3.4-5.0) gm/dl TSH 2.870 (0.300-4.500) uIu/ml Urine Color Urine Appearance (Clear) Urine pH (4.5-7.5) Ur Specific [place] (1.000-1.030) Urine Protein (Negative) Urine Glucose (UA) (Negative) Urine Ketones (Negative) Urine Blood (Negative) Urine Nitrite (Negative) Urine Bilirubin (Negative) Urine Urobilinogen (Negative) Ur Leukocyte Esterase (Negative)
[2019-03-29] MEDS: APIXABAN 5 MG TABLET PO SCH ×2 (13:29→20:46)
[2019-03-29] MEDS: ASPIRIN 81 MG CHEW PO SCH (13:29)
[2019-03-29] MEDS: PANTOprazole 40 MG TAB PO SCH ×2 (13:30→20:45)
[2019-03-29] MEDS: FOLIC ACID 400 MCG TAB PO SCH (13:30)
[2019-03-29] MEDS: FINASTERIDE 5 MG TAB PO SCH (13:30)
[2019-03-29] MEDS ORDERED: WARFARIN SOD 2.5 MG TAB PO SCH (16:00)
[2019-03-29] MEDS ORDERED: ATORVASTATIN 20 MG TAB PO SCH (21:00)
--- NOTE | 2019-03-29 21:33 | Consultation Report ---
DATE OF CONSULTATION: 03/29/2019 DATE OF CONSULTATION: 03/29/2019 REQUESTING: Virgilio Jones MD. DECORATOR CONSULTANT: Jeffery Romero DO, [facility] Cardiology for Dr. Abdon Berry who is the patient's primary pharmacoepidemiologist. REASON FOR CONSULTATION: Symptomatic atrial fibrillation. Dear Dr. Jones, It was a pleasure to see Sony today in consultation for Dr. Berry. As you know, he was admitted with symptomatic atrial fibrillation. He went into AFib at some point Saturday evening, it sounds like he may have been in AFib before he went to bed. It lasted all night. He was symptomatic with regards to feeling palpitations. He also had lightheadedness and dizziness and he notes that his blood pressures at home are on the low side. He thinks his last episode of AFib was approximately 6 months to a year ago. He has had recent issues of GI ulcers diagnosed in November of 2018. He had a repeat EGD January 2019 and the previous ulcerations had resolved. His most recent INRs have been subtherapeutic. He was 1.9 on admission and prior to that he was 1.6 on 03/09/2019. He does check his INRs at home and notes he was subtherapeutic most recently at home as well. This morning, he does not feels heart racing. His heart rate is well controlled, although he remains in atrial fibrillation. He has not had any pauses. He has had heart rates in the 30s and the 40s though. He denies any lightheadedness or dizziness this morning. Denies any chest pain, chest pressure, chest heaviness or shortness of breath this morning. Denies any presyncope or syncope. Denies any lower extremity edema. Since November, he has changed his diet dramatically. He has lost 20 pounds. He has given up alcohol where he previously was having 1-2 beers a night. The rest of a complete review of systems is negative. PAST MEDICAL HISTORY: 1. Symptomatic paroxysmal atrial fibrillation with a CHADS2-VASc score of 4, that being his age, hypertension, and peripheral arterial disease. 2. Status post left carotid endarterectomy. 3. Hypertension. 4. BPH. 5. Hyperlipidemia. 6. Peptic ulcer disease. SOCIAL HISTORY: As noted, he stopped drinking in November, previously drinking 1-2 beverages a day. He is a former smoker, having stopped. He lives with his and is . ALLERGIES: NIACIN, CERIVASTATIN, PIROXICAM, PREDNISONE, METHYLPREDNISOLONE, ALBUTEROL AND IPRATROPIUM. OUTPATIENT MEDICATIONS: Reviewed in detail. PHYSICAL EXAMINATION: GENERAL: He is awake, alert, oriented x3. He is in no acute distress, although he does appear very anxious. VITAL SIGNS: His heart rate 63, blood pressure 101/62, respirations 19 and sats 96%. HEENT: 2+ carotid upstrokes, no evidence of carotid bruits. Jugular venous pressure appeared normal. Sclerae is anicteric. Hearing is normal. LUNGS: Clear to auscultation bilaterally. No rales, rhonchi, wheezing. HEART: Irregular rate and rhythm. No appreciable murmurs, rubs or gallops. ABDOMEN: Soft, nontender, nondistended. Positive bowel sounds. EXTREMITIES: No clubbing, cyanosis or edema. PSYCHIATRIC: He appeared anxious. DIAGNOSTIC STUDIES: As discussed above. In addition, sodium 141, potassium 3.8, BUN 23, creatinine 1.13, hemoglobin 13.7 with a platelet count of 213. Chest x-ray, no active disease. IMPRESSION: 1. Symptomatic atrial fibrillation with a CHADS2-VASc score of 4. 2. History of peptic ulcer disease, which has resolved. 3. Previous anticoagulation with Coumadin with subtherapeutic INRs over the last month. 4. Hypotension with a history of hypertension. It would appear with atrial fibrillation and the loss of his atrial kick he is having shortness of breath and low blood pressures as well. He thinks this episode started Saturday night before he went to bed, in light of the fact that he has had subtherapeutic INRs, I believe he needs a MONICA and cardioversion to safely get him back into sinus rhythm. I discussed with him switching from Coumadin to apixaban as we would not have to worry about him monitoring his INR and he can eat whatever he would like and the number of drug interactions with apixaban are very small. Given the fact that his INR is already less than 2, we will start apixaban 5 mg b.i.d. he will be n.p.o. after midnight for planned MONICA and cardioversion tomorrow. We will reduce his Toprol to 25 mg at night which can be held based on his heart rate and blood pressure. I discussed the risks and benefits of MONICA and cardioversion in detail. I also discussed and explained the procedure with both Sony and his . Dr. Berry will return tomorrow and the [facility], can plan for his cardioversion. This was all discussed with Dr. Smith of the hospitalist service as well. GRABIEL
[2019-03-30] MEDS: FOLIC ACID 400 MCG TAB PO SCH (08:02)
[2019-03-30] MEDS: APIXABAN 5 MG TABLET PO SCH (08:02)
[2019-03-30] MEDS: ASPIRIN 81 MG CHEW PO SCH (08:02)
[2019-03-30] MEDS: PANTOprazole 40 MG TAB PO SCH (08:02)
[2019-03-30] MEDS: MULTIVITAMIN TAB PO SCH (08:02)
[2019-03-30] MEDS: FINASTERIDE 5 MG TAB PO SCH (08:02)
[2019-03-30 08:09] LABS: INR 1.8 (0.9-1.1)
[2019-03-30 08:31] LABS: BUN Creatinine Ratio 16.4 (10-20); Calcium 8.3 mg/dl (8.5-10.1); Creatinine Clr Calc Pharmacy 70.1 ml/min; Est GFR (African American) 91.6; Potassium 3.8 mmol/L (3.5-5.1)
--- NOTE | 2019-03-30 09:47 | Cardiology Progress Note ---
Date of Service March 30, 2019 Assessment & Plan (1) Atrial fibrillation: Fortunately, the patient has converted to sinus rhythm. No need to proceed with a transesophageal echocardiogram. He has been converted from warfarin to Eliquis as his INR is often subtherapeutic. Metoprolol succinate change from 50 mg to 25 mg q.h.s. due to relative hypotension. (2) High blood pressure: As above, patient on low-dose metoprolol succinate. Blood pressure a dequately controlled. (3) Hypercholesterolemia: Stable on atorvastatin. (4) Carotid artery disease: Status post left carotid endarterectomy in 1998. Carotid ultrasound in August 2018 noted a 70% right, and less than 30% left internal carotid artery stenoses. This study is unchanged from 1 done in August 2017. Subjective Mr. Gauthier is resting comfortably in the bedside chair without complaints of chest pain, dyspnea, or palpitations. We have discussed his conversion to sinus rhythm yesterday. We have also discussed his medication changes and the possibility of using flecainide as an antiarrhythmic. His is present for this discussion. Physical Exam Physical Exam: In general this is a well-developed well-nourished white male in no acute distress. HEENT exam is negative. Neck is supple with full carotid upstrokes. There are no carotid bruits. Jugular venous pressure is flat at 90. There is no thyromegaly. Well-healed scar seen on the left neck. Cardiovascular exam reveals a regular rhythm with a normal S1 and S2. No S3, S4, or murmurs are noted. Lungs are clear without rales, rhonchi, or wheezes. Abdomen is soft and nontender without bruits. Extremities reveal intact radial artery and posterior tibial pulses bilaterally. There is no peripheral edema. Results & Data Vital Signs (Past 12 Hours) Vital Signs Temp Pulse Resp BP Pulse Ox 03/30/19 06:59 36.5 C 55 L 18 148/71 H 95 03/30/19 03:34 37.0 C 61 16 119/61 97 03/29/19 23:20 36.8 C 60 16 122/66 98 Diagnostic Findings electronic device monitor noted conversion sinus rhythm last evening at approximately 5 p.m.. An occasional PVC has been seen since that time.
--- NOTE | 2019-03-30 13:12 | Discharge Summary ---
Date of Service March 30, 2019 Admission HPI Per Admitting Provider 74yoM PMH pAfib, HTN, HLD, BPH, Carotid art disease s/p L CEA, H/O GI bleed presents with 24 hr h/o lightheadedness, dyspnea on exertion, generally feeling unwell. Seems a/w positional changes. Found to be in afib with regular rate. Pt denies palpitations but notes he hasn't been in Afib for "3 years". Pt notes home BPs run 110-115/50-70s. Here noted to be in 90s/60s, was given 2+ liters NSS in ER. Trop neg. Pt follows with Dr. Berry, cardiology. Recent GI bleed/ulcer (last few months, now off meds). Subtheratpeutic INR, just in last week changed coumadin dosing. INR here 1.9 Principal Diagnosis Atrial fibrillation, Hypotension Discharge Exam Constitutional WD/WN, vitals as above Eyes + anicteric sclerae Neck trachea midline, no thyromegaly (with left sided anterior neck scar from CEA) Respiratory normal respiratory effort, lungs clear to auscultation Cardiovascular RRR, no murmur, no edema Gastrointestinal (Abdomen) normal bowel sounds, soft, nontender, no hepatosplenomegaly Musculoskeletal Extremities: extremities normal to inspection; no cyanosis and no clubbing Skin no rashes, warm and dry Neurologic moves all extremities and awake; no focal motor deficits Psychiatric A+Ox3, euthymic affect Discharge Data Allergies Allergy/AdvReac Type Severity Reaction Status Date / Time niacin Allergy Mild RASH Verified 03/09/19 03:57 cerivastatin Allergy Unknown muscle pain Verified 03/09/19 03:57 piroxicam Allergy Unknown Rash Verified 03/09/19 03:57 prednisone Allergy Unknown Swelling Verified 03/09/19 03:57 methylprednisolone AdvReac Intermediate RAPID Verified 03/09/19 03:57 HEARTBEAT albuterol [From DuoNeb] AdvReac RAPID Verified 03/09/19 03:57 HEARTBEAT ipratropium [From DuoNeb] AdvReac RAPID Verified 03/09/19 03:57 HEARTBEAT Consultations Cardiology Procedures Performed Operation Date: 03/30/19 13:40 <No data on this case meets the specified criteria> Hospital Course (1) Atrial fibrillation: symptomatic, with hypotension possibly related despite having normal rates the whole time SPontaneously converted to NSR by the evening after admission and felt better -Cards consulted-appreciated -echo 2017 EF 55% -INR has been subtherapeuticlately--> changed to Eliquis 5mg po bid and will discontinue coumadin -decreased Toprol to 25 as below (2) Hypotension: Acute hypotension in setting of chronic HTN. Also with Afib again-question if from being in Afib despite normal rates? No signs of dehydration. Did recently have metoprolol changed to XL as outpt With lightheadedness on admission now resolved with lowering dose of Toprol XL to 25mg and resolution of Afib Received IVFs also BPs excellent at time of discharge -Cardio changed to Toprol XL 25mg po qhs-will continue on discharge (3) Peptic ulcer disease: PUD with h/o ulcers now resolved reportedly on most recent EGD -Cont home PPI (4) High blood pressure: with low BPs on admission now improved with lowered dose of Toprol (5) Benign prostatic hyperplasia: BPH -held home terazosin in setting of hypotension-ok to restart on discharge -cont finasteride (6) Carotid artery disease: s/p LEFT CEA -stable -continue statin, ASA Dispo-stable for dc to home Total Time Total Time Spent Total Time Spent (In Minutes): >30 min Total Time Includes: Examination of the Patient, Discharge Planning and Medication Reconciliation Discharge Plan Discharge Items Patient Disposition: Home - Self-Care Reason For Visit: SYMPTOMATIC AFIB Discharge Diagnosis: Symptomatic atrial fibrillation,hypotension Condition: Good Discharge Goals: Diagnostic testing, Improve disease control, Learn about illness and Therapeutic intervention Activity: Resume your previous activity Lifting: Gradually increase as tolerated Bathing: No limitations Exercise/Sports: Gradually increase as tolerated Driving/Machine Use: No limitations Non-emergency contact: Primary Care Provider and Php Developer Call non-emergency contact if: you have any medication questions Follow-up/Referrals: Abdon Berry MD [Physician] - (-Cardiology office with Shante Mercado PA-C on April 03 at 1:00pm) Ami Woodson DO [Primary Care Provider] - 04/06/19 11:20 am (The following appt was made on your behalf: -PCP office with Dr. Casey on April 06 at 11:20am ) Diet: Heart Healthy Addtl Provider Instructions: You were admitted with lightheadedness from low blood pressure and atrial fibrillation. You were changed to a different blood thinner called Eliquis and you will STOP TAKING THE COUMADIN(WARFARIN). Your dose of metoprolol was lowered to 25mg once daily. Please follow up with Dr. Berry as scheduled and your PCP as scheduled Prescriptions: New metoprolol succinate 50 mg Tablet Extended Release 24 Hr 25 mg PO HS Qty: 30 RF: 0 Eliquis 5 mg Tablet 5 mg PO BID Qty: 60 RF: 0 Continued multivitamin Tablet 1 tab PO QAM RF: 0 terazosin 5 mg Capsule 5 mg PO HS RF: 0 atorvastatin [Lipitor] 20 mg Tablet 20 mg PO HS RF: 0 folic acid 400 mcg Tablet 1 tab PO QAM RF: 0 flaxseed oil 1,000 mg Capsule 1,000 mg PO BID RF: 0 aspirin 81 mg Tablet,Chewable 81 mg PO QAM RF: 0 finasteride [Proscar] 5 mg Tablet 5 mg PO QAM RF: 0 Calcium 600 + D(3) 600 mg calcium- 200 unit Capsule 1 tab PO BID RF: 0 rabeprazole 20 mg tablet,delayed release (DR/EC) 20 mg PO BID RF: 0 Discontinued warfarin 2.5 mg Tablet 2.5 mg PO DAILY RF: 0 metoprolol succinate 50 mg tablet extended release 24 hr 50 mg PO BID RF: 0 Stand-Alone Forms: [facility] Discharge Orders: Discharge Order (Routine); Ordered 03/30/19 Ordered By: Cris Smith Admission Data Admit Date/Time: 03/29/19 01:48 Attending Provider: Cris Smith Admit Provider: Josiane Page Primary Care Provider: Ami Woodson Other Providers: Virgilio Jones ; Jeffery Romero Service: Telemetry Other Pending Studies at Discharge: No
== END 2019-03-30 13:35 | disposition home or self-care (01) ==
LOC: ED 22:58 → 2S 22:58 → SUATTDRO 03-29 01:48 → 2S 03-29 02:39

== ENCOUNTER 2019-06-25 02:25 | Inpatient (IN) ==
[2019-06-25] MEDS ORDERED: ONDANSETRON INJ 2 MG/ML 2 ML VIAL IV STA (02:44)
[2019-06-25] MEDS ORDERED: SODIUM CHLORIDE 0.9% 1000ML 1,000 ML IV SCH (02:45)
[2019-06-25] MEDS: fentaNYL citrate 100 MCG/2 ML VIAL IV PRN ×2 (03:15→04:46)
[2019-06-25 03:17] LABS: Basophils # (auto) 0.01 K/uL (0-0.2); Basophils % (auto) 0.1 %; Eosinophils # (auto) 0.03 K/uL (0-0.5); Eosinophils % (auto) 0.3 %; Hematocrit (blood only) 38.8 % (42-52); Hemoglobin 13.6 g/dL (14.0-18.0); Immature Granulocytes # (auto) 0.01 K/uL (0.00-0.02); Immature Granulocytes % (auto) 0.1 %; Lymphocytes # (auto) 0.78 K/uL (1.2-3.4); Lymphocytes % (auto) 7.6 %; Mean Corpuscular Hemoglobin 32.4 pg (25-34); Mean Corpuscular Hgb Conc 35.1 g/dL (32-36); Mean Corpuscular Volume 92.4 fL (80-100); Mean Platelet Volume 9.8 fL (7.4-10.4); Monocytes # (auto) 0.44 K/uL (0.11-0.59); Monocytes % (auto) 4.3 %; Neutrophils # (auto) 9.03 K/uL (1.4-6.5); Neutrophils % (auto) 87.6 %; Platelet Count 184 K/uL (130-400); RDW Coefficient of Variation 12.8 % (11.5-14.5); RDW Standard Deviation 43.1 fL (36.4-46.3)
[2019-06-25 03:34] LABS: Alanine Aminotransferase 29 U/L (12-78); Albumin Level 3.9 gm/dl (3.4-5.0); Aspartate Aminotransferase 18 U/L (15-37); Blood Urea Nitrogen 20 mg/dl (7-18); Calcium 8.3 mg/dl (8.5-10.1); Carbon Dioxide 27 mmol/L (21-32); Chloride 104 mmol/L (98-107); Creatinine Clr Calc Pharmacy 55.4 ml/min; Est GFR (African American) 68.8; Est GFR (Non-African American) 59.4; Glucose 110 mg/dl (70-99); Lipase 158 U/L (73-393); Potassium 3.5 mmol/L (3.5-5.1); Sodium 138 mmol/L (136-145)
[2019-06-25 03:39] LABS: Albumin Globulin Ratio 1.3 (0.9-2); Alkaline Phosphatase 74 U/L (45-117); Bilirubin,Total 0.5 mg/dl (0.2-1); Globulin 3.1 gm/dl (2.5-4.0); Troponin I < 0.015 ng/ml (0-0.045)
[2019-06-25] MEDS ORDERED: PIPERACILL/TAZOBAC CONSULT ACTIVE PRN ×2 (03:49→06:33)
[2019-06-25] MEDS ORDERED: PIPERACILLIN/TAZOBACTAM 4.5 GM/120 ML BAG IV ONE (03:49)
[2019-06-25] MEDS ORDERED: IOVERSOL 100ml IV PRN (04:16)
[2019-06-25 04:25] LABS: Appearance Urine Clear (Clear); Bilirubin Urine Negative (Negative); Blood Urine Negative (Negative); Color Urine Yellow; Glucose Urine UA Negative (Negative); Ketones Urine 1+ (Negative); Leukocyte Esterase Urine Negative (Negative); Nitrite Urine Negative (Negative); Protein Urine Negative (Negative); Specific Gravity Urine 1.038 (1.000-1.030); Urobilinogen Urine Negative (Negative)
--- NOTE | 2019-06-25 05:50 | History & Physical Report ---
Date of Service June 25, 2019 Assessment & Plan (1) Acute appendicitis: Patient presenting with acute appendicitis. Presently afebrile, hemodynamically stable. Abdomen is soft, tender with rebound and guarding. Per RCRI criteria, patient is class II risk associate with 30-day risk of , [place] or cardiac arrest of 6%. Patient with no significant cardiac disease, heart failure, diabetes or renal disease. He is able to participate in 4 METS of activity without difficulty. -Admit to medical floor with telemetry monitoring -Pain control with morphine 1 mg IV every 2 hours as needed -Nausea control Zofran 4 mg IV every 6 hours as needed -IV fluids with lactated Ringer's at 100 mL/h x 2 L -Antibiotic coverage with Zosyn 3.375 mg IV q. 8 -Consult general surgery -Keep patient n.p.o. Present on Admission?: Yes (2) Peptic ulcer disease: Patient with history of peptic ulcer disease noted on prior EGD. Gastritis present on EGD from yesterday -Protonix 40 mg p.o. daily Present on Admission?: Yes (3) Atrial fibrillation: Patient with atrial fibrillation. Rate controlled, anticoagulated on Eliquis. His last dose was 06/24/2019 around 20:00. Patient had been holding the Eliquis for 3 days prior to yesterday in preparation for his EGD and colonoscopy. He took 1 dose last evening, otherwise has only had 1 dose of Eliquis in the past 3 days. -Continue metoprolol -Hold Eliquis for possible surgery Present on Admission?: Yes (4) HTN (hypertension), benign: Blood pressure mildly elevated at present, 167/75 -Pain control as above -Continue metoprolol -Continue to monitor Present on Admission?: Yes (5) Abdominal bruit: Patient with comment of renal artery stenosis on prior imaging which is most likely cause of bruit. He also has a very pronounced aortic pulse. -Check aortic ultrasound Present on Admission?: Yes (6) Hyperlipidemia: Chronic. Stable. -Continue Lipitor (7) Benign prostatic hyperplasia: Chronic. Stable. -Continue Proscar and terra Zosyn -Monitor urine output -Straight cath if needed Present on Admission?: Yes (8) Carotid artery disease: Status post left carotid endarterectomy -Continue aspirin and Lipitor -Last dose of aspirin yesterday, 06/24/2019 around 1900 FEN -LR 100 mL/h x 2 L, monitor electrolytes and replete as needed, n.p.o. for now Prophylaxis-SCDs Code-full Disposition-admit to medical floor with telemetry monitoring History of Present Illness Chief Complaint: Acute appendicitis Primary Care Provider: Ami Woodson DO Mr. olmstead is a 74-year-old male with history of BPH, hyperlipidemia, atrial fibrillation on anticoagulation with Eliquis, presenting today with acute appendicitis. Patient has had long-standing history of abdominal pain, bloating and gas. For this he has had several EGD and colon oscopies. Last one performed yesterday by Dr. Torres which revealed a small hiatal hernia and gastritis; colonoscopy with a 3 mm polyp in the a sending colon and a 5 mm polyp in the sigmoid colon both of which were removed. The patient returned home in stable condition. He ate dinner then around 1500 he developed severe lower abdominal pain as well as nausea and chills which prompted him to come to the ER. On arrival he was afebrile, hemodynamically stable, labs without leukocytosis. CT of the abdomen revealed appendicoliths with evidence of acute appendicitis. Surgery contacted. Patient will be admitted to the medical service with surgical consultation ER course: Fentanyl, Zofran, Zosyn, normal saline Allergies Allergy/AdvReac Type Severity Reaction Status Date / Time prednisone Allergy Intermediate Swelling Verified 06/25/19 02:49 cerivastatin Allergy Mild muscle pain Verified 06/25/19 02:49 niacin Allergy Mild RASH Verified 06/25/19 02:49 piroxicam Allergy Mild Rash Verified 06/25/19 02:49 albuterol [From DuoNeb] AdvReac Intermediate RAPID Verified 06/25/19 02:49 HEARTBEAT ipratropium [From DuoNeb] AdvReac Intermediate RAPID Verified 06/25/19 02:49 HEARTBEAT methylprednisolone AdvReac Intermediate RAPID Verified 06/25/19 02:49 HEARTBEAT simvastatin AdvReac Mild rash Verified 06/25/19 02:49 Home Medications Home Medications Medication Instructions Recorded Confirmed Type aspirin 81 mg PO QAM 11/14/18 06/25/19 History atorvastatin [Lipitor] 20 mg PO HS 11/14/18 06/25/19 History finasteride [Proscar] 5 mg PO QAM 11/14/18 06/25/19 History flaxseed oil 1,000 mg PO BID 11/14/18 06/25/19 History folic acid 1 tab PO QAM 11/14/18 06/25/19 History multivitamin 1 tab PO QAM 11/14/18 06/25/19 History terazosin 5 mg PO HS 11/14/18 06/25/19 History Eliquis 5 mg PO BID #60 tab 03/30/19 06/25/19 Rx metoprolol succinate 25 mg PO HS #30 tab 03/30/19 06/25/19 Rx calcium carbonate-vitamin D3 600 1 cap PO BID cap 05/19/19 06/25/19 History mg calcium-200 unit capsule Past Med/Surg History Medical History Benign prostatic hyperplasia (Chronic 01/05/12) Abdominal bloating Atrial fibrillation follows with Dr. Berry reason for eliquis GERD (gastroesophageal reflux disease) Hearing deficit Hyperlipidemia On anticoagulant therapy on eliquis daily Osteoarthritis Surgical History History of colonoscopy History of esophagogastroduodenoscopy (EGD) History of left inguinal hernia repair History of open reduction and internal fixation (ORIF) procedure left hip--hardware removed History of right inguinal hernia repair History of tooth extraction upper teeth Family History Other No family history of adverse response to anesthesia Social History Preferred Language: Luxembourgish Communication Ability: Effective Supplier Specialist Required: No Beliefs That Will Affect Care: None Current Living Situation: Spouse Feels Safe at Home: Yes Smoking Status: Former smoker Cigarettes Per Day: 20 ; Second Hand Exposure: No ; Hx Alcohol Use: Yes Alcohol type: beer Hx Substance Use: No Review of Systems Review of Systems: All systems reviewed & are unremarkable except as noted in HPI & below + Nausea, + abdominal pain, + constipation, + chills +35 pound weight loss since November. Physical Exam Physical Exam: General: patient resting comfortably, in mild pain lying still in bed, NAD, non-toxic in appearance, AA&O x 4 Skin: warm, dry, intact, no rashes or lesions HEENT: NC/AT, PERRL, EOMI, anicteric sclera, conjunctiva without injection, external ear normal to inspection and nontender, nares patent, moist mucus membranes, dentition intact, no oropharyngeal lesions, neck supple, trachea midline, no LAD, no thyromegaly, no JVD Heart: +S1/S2, regular, 2 out of 6 systolic ejection murmur at left sternal border Lungs: equal air entry bilaterally, no rales/rhonchi/wheezes Abd: +BS, soft, ND, tenderness with palpation of the right lower quadrant with guarding, + rebound tenderness, no masses/organomegaly/ascites, abdominal bruit present, aortic pulse well-defined Ext: warm, 2+ pulses in UE/LE bilaterally, no clubbing/cyanosis or edema Neuro: nonfocal, patient AA&O x 4, speech intact, no facial droop, moving all extremities on command with equal strength 5/5 Results & Data Vital Signs (Past 12 Hours) Vital Signs Temp Pulse Pulse Resp BP BP Pulse Ox 06/25/19 05:09 72 18 143/61 H 95 06/25/19 04:21 70 20 167/75 H 96 06/25/19 04:13 67 16 153/71 H 93 06/25/19 02:28 36.9 C 67 16 191/64 H 98 Laboratory Results Lab Results 06/25/19 06/25/19 06/25/19 Range/Units 03:01 03:01 03:01 WBC 10.30 (4.8-10.8) K/uL RBC 4.20 L (4.7-6.1) M/uL Hgb 13.6 L (14.0-18.0) g/dL Hct 38.8 L (42-52) % MCV 92.4 (80-100) fL MCH 32.4 (25-34) pg MCHC 35.1 (32-36) g/dL RDW Std Deviation 43.1 (36.4-46.3) fL RDW Coeff of Billy 12.8 (11.5-14.5) % Plt Count 184 (130-400) K/uL MPV 9.8 (7.4-10.4) fL Immature Gran % (Auto) 0.1 % Neut % (Auto) 87.6 % Lymph % (Auto) 7.6 % [place] % (Auto) 4.3 % Eos % (Auto) 0.3 % Baso % (Auto) 0.1 % Immature Gran # (Auto) 0.01 (0.00-0.02) K/uL Neut # (Auto) 9.03 H (1.4-6.5) K/uL Lymph # (Auto) 0.78 L (1.2-3.4) K/uL [place] # (Auto) 0.44 (0.11-0.59) K/uL Eos # (Auto) 0.03 (0-0.5) K/uL Baso # (Auto) 0.01 (0-0.2) K/uL Sodium 138 (136-145) mmol/L Potassium 3.5 (3.5-5.1) mmol/L Chloride 104 (98-107) mmol/L Carbon Dioxide 27 (21-32) mmol/L Anion Gap 7.0 (3-11) BUN 20 H (7-18) mg/dl Creatinine 1.19 (0.6-1.4) mg/dl Est Cr Clr Drug Dosing 55.4 ml/min Est GFR ( Amer) 68.8 Est GFR (Non-Af Amer) 59.4 BUN/Creatinine Ratio 17.0 (10-20) Glucose 110 H (70-99) mg/dl POC Lactic Acid Kho[place] (0.90-1.70) mmol/L Calcium 8.3 L (8.5-10.1) mg/dl Total Bilirubin 0.5 (0.2-1) mg/dl AST 18 (15-37) U/L ALT 29 (12-78) U/L Alkaline Phosphatase 74 (45-117) U/L Troponin I < 0.015 (0-0.045) ng/ml Total Protein 7.0 (6.4-8.2) gm/dl Albumin 3.9 (3.4-5.0) gm/dl Globulin 3.1 (2.5-4.0) gm/dl Albumin/Globulin Ratio 1.3 (0.9-2) Lipase 158 (73-393) U/L Procalcitonin < 0.05 (0-0.5) ng/ml Urine Color Urine Appearance (Clear) Urine pH (4.5-7.5) Ur Specific [place] (1.000-1.030) Urine Protein (Negative) Urine Glucose (UA) (Negative) Urine Ketones (Negative) Urine Blood (Negative) Urine Nitrite (Negative) Urine Bilirubin (Negative) Urine Urobilinogen (Negative) Ur Leukocyte Esterase (Negative) 06/25/19 06/25/19 Range/Units 03:07 04:17 WBC (4.8-10.8) K/uL RBC (4.7-6.1) M/uL Hgb (14.0-18.0) g/dL Hct (42-52) % MCV (80-100) fL MCH (25-34) pg MCHC (32-36) g/dL RDW Std Deviation (36.4-46.3) fL RDW Coeff of Billy (11.5-14.5) % Plt Count (130-400) K/uL MPV (7.4-10.4) fL Immature Gran % (Auto) % Neut % (Auto) % Lymph % (Auto) % [place] % (Auto) % Eos % (Auto) % Baso % (Auto) % Immature Gran # (Auto) (0.00-0.02) K/uL Neut # (Auto) (1.4-6.5) K/uL Lymph # (Auto) (1.2-3.4) K/uL [place] # (Auto) (0.11-0.59) K/uL Eos # (Auto) (0-0.5) K/uL Baso # (Auto) (0-0.2) K/uL Sodium (136-145) mmol/L Potassium (3.5-5.1) mmol/L Chloride (98-107) mmol/L Carbon Dioxide (21-32) mmol/L Anion Gap (3-11) BUN (7-18) mg/dl Creatinine (0.6-1.4) mg/dl Est Cr Clr Drug Dosing ml/min Est GFR ( Amer) Est GFR (Non-Af Amer) BUN/Creatinine Ratio (10-20) Glucose (70-99) mg/dl POC Lactic Acid Kho[place] 1.22 (0.90-1.70) mmol/L Calcium (8.5-10.1) mg/dl Total Bilirubin (0.2-1) mg/dl AST (15-37) U/L ALT (12-78) U/L Alkaline Phosphatase (45-117) U/L Troponin I (0-0.045) ng/ml Total Protein (6.4-8.2) gm/dl Albumin (3.4-5.0) gm/dl Globulin (2.5-4.0) gm/dl Albumin/Globulin Ratio (0.9-2) Lipase (73-393) U/L Procalcitonin (0-0.5) ng/ml Urine Color Yellow Urine Appearance Clear (Clear) Urine pH 5.0 (4.5-7.5) Ur Specific [place] 1.038 H (1.000-1.030) Urine Protein Negative (Negative) Urine Glucose (UA) Negative (Negative) Urine Ketones 1+ H (Negative) Urine Blood Negative (Negative) Urine Nitrite Negative (Negative) Urine Bilirubin Negative (Negative) Urine Urobilinogen Negative (Negative) Ur Leukocyte Esterase Negative (Negative) Diagnostic Findings CT abdomen and pelvis with contrast: Per stat read report shows calcified appendicoliths with a fluid containing dilated appendix. Consistent with acute appendicitis Code Status & VTE Plan Code Status Full code VTE Prophylaxis Plan VTE Prophylaxis will be ordered: Yes PG Care Time/CCT Total # of Minutes Spent Total Time Spent with Patient: Total time spent is greater than 50% in coordination of care (as documented) at patient's floor/unit and/or counseling patient: (1) Acute appendicitis Acute appendicitis type: unspecified acute appendicitis type Qualified Code(s): K35.80 - Unspecified acute appendicitis (2) Atrial fibrillation Atrial fibrillation type: persistent Qualified Code(s): I48.1 - Persistent atrial fibrillation (3) Hyperlipidemia Hyperlipidemia type: unspecified Qualified Code(s): E78.5 - Hyperlipidemia, unspecified (4) Benign prostatic hyperplasia Lower urinary tract symptom presence: symptoms absent Qualified Code(s): N40.0 - Benign prostatic hyperplasia without lower urinary tract symptoms (5) Carotid artery disease Carotid artery disease type: unspecified
[2019-06-25] MEDS ORDERED: ACETAMINOPHEN 325 MG TAB PO PRN (06:33)
[2019-06-25] MEDS ORDERED: MoRPHine SULFATE 2 MG/ML CARP IV PRN (06:33)
[2019-06-25] MEDS ORDERED: ONDANSETRON INJ 2 MG/ML 2 ML VIAL IV PRN ×2 (06:33→12:11)
--- NOTE | 2019-06-25 06:41 | CT Scan Report ---
ABDOMEN AND PELVIS CT WITH IV CONTRAST CT DOSE: 388.61 mGy.cm HISTORY: Acute generalized abdominal pain abd pain s/p egd/colo TECHNIQUE: Multiaxial CT images of the abdomen and pelvis were performed following the use of intrave nous contrast. A dose lowering technique was utilized adhering to the principles of ALARA. COMPARISON STUDY: CT abdomen pelvis 04/29/2019. FINDINGS: Minimal dependent subsegmental bibasilar atelectasis. The lung bases are otherwise clear. No pneumato sis or pneumoperitoneum. Imaged inferior cardiac chambers are upper limits of normal in size. Coronar y arterial calcifications are noted. The liver, spleen, gallbladder, pancreas and right adrenal gland are unremarkable. Coarse calcifications of the left adrenal gland redemonstrated suggestive of prior hemorrhage or infection. Kidneys, and ureters appear unremarkable. Mild nonspecific urinary bladder wall thickening with prostamegaly. Trace free fluid about the dependent pelvis. Advanced calcified pl aque the abdominal aorta with mild infrarenal fusiform ectasia, 2.6 x 2.6 cm. Focal high-grade stenos is at the proximal right common iliac artery is redemonstrated. Probable additional stenosis at the o rigin of the right renal artery secondary to calcified plaque. There is no adenopathy. Small hiatal hernia with mild wall thickening of the distal esophagus. No bowel obstruction. Multiple appendicoliths are noted within a dilated appendix which measures up to 10 mm transversely. The appe ndix is also fluid-filled and demonstrates mild periappendiceal stranding. No evidence of perforation or drainable fluid collection. Tiny fat filled periumbilical hernia. Soft tissues are within normal limits. Degenerative changes of the spine, pelvis and hips. No acute fracture identified. There is ev idence of prior hardware removal about the left femoral neck. IMPRESSION: 1. Dilated fluid-filled appendix with multiple intraluminal appendicoliths. Findings are compatible w ith acute uncomplicated appendicitis. No evidence of perforation or drainable fluid collection. 2. No bowel obstruction. 3. Small hiatal hernia with mild distal esophageal wall thickening. 4. Prostamegaly with mild urinary bladder wall thickening. 5. Additional findings as above. Electronically signed by: David Tyson M.D. 06/25/2019 6:39 AM
--- NOTE | 2019-06-25 06:44 | Emergency Department Note ---
Entered by Tremayne Petit acting as a scribe for History of Present Illness General Chief complaint: Abdominal Pain Stated complaint: STOMACH PAIN Time Seen by Provider: 06/25/19 02:35 Source: patient History of Present Illness Onset (ago): hour(s) (6.5) Location: abdomen (lower) Severity: severe Pain Consistency: + constant Maximum Pain Intensity: 9 Exacerbated By: + eating Associated symptoms: + denies other symptoms (fever, difficulty urinating, and bloating in his abdomen, back pain) and + other (chills); no cough and no shortness of breath The patient is a 74 y/o male who presents to the ED w/ CC of constant, severe, abdominal pain beginning 6.5 hours ago. The patient states he was diagnosed with an ulcer in November. He reports it resolved, but he was still having pain and inflammation in his abdomen so he had a scope performed today. Patient states he felt fine following the procedure, went home, and was able to eat and drink normally. The patient notes he went home and ate supper 6.5 hours ago. He states his abdominal pain is in the lower abdomen and flares up the side. The patient reports his symptoms do not radiate into his back and changing position does not change his pain intensity. He notes he started to drink water and then vomited for 1.5 hours. The patient states he is currently lightheaded. He reports a history of an endoscopy/colonoscopy before without issues. The patient note she has not had a BM since his colo, but he has been passing some gas. He states he takes Eliquis and has been off it for 3 days and took his first dose this evening. The patient denies pain prior to the scope, cough, shortness of breath, fevers, chills, difficulty urinating, and bloating in his abdomen. Patient denies any additional trauma, no sick contacts. No prior similar episodes of pain. Home Medications Home Medications Medication Instructions Recorded Confirmed Type aspirin 81 mg PO QAM 11/14/18 06/25/19 History atorvastatin [Lipitor] 20 mg PO HS 11/14/18 06/25/19 History finasteride [Proscar] 5 mg PO QAM 11/14/18 06/25/19 History flaxseed oil 1,000 mg PO BID 11/14/18 06/25/19 History folic acid 1 tab PO QAM 11/14/18 06/25/19 History multivitamin 1 tab PO QAM 11/14/18 06/25/19 History terazosin 5 mg PO HS 11/14/18 06/25/19 History Eliquis 5 mg PO BID #60 tab 03/30/19 06/25/19 Rx metoprolol succinate 25 mg PO HS #30 tab 03/30/19 06/25/19 Rx calcium carbonate-vitamin D3 600 1 cap PO BID cap 05/19/19 06/25/19 History mg calcium-200 unit capsule Allergies Allergy/AdvReac Type Severity Reaction Status Date / Time prednisone Allergy Intermediate Swelling Verified 06/25/19 02:49 cerivastatin Allergy Mild muscle pain Verified 06/25/19 02:49 niacin Allergy Mild RASH Verified 06/25/19 02:49 piroxicam Allergy Mild Rash Verified 06/25/19 02:49 albuterol [From DuoNeb] AdvReac Intermediate RAPID Verified 06/25/19 02:49 HEARTBEAT ipratropium [From DuoNeb] AdvReac Intermediate RAPID Verified 06/25/19 02:49 HEARTBEAT methylprednisolone AdvReac Intermediate RAPID Verified 06/25/19 02:49 HEARTBEAT simvastatin AdvReac Mild rash Verified 06/25/19 02:49 Past Med/Surg History Medical History Benign prostatic hyperplasia (Chronic 01/05/12) Abdominal bloating Atrial fibrillation follows with Dr. Berry reason for eliquis GERD (gastroesophageal reflux disease) Hearing deficit Hyperlipidemia On anticoagulant therapy on eliquis daily Osteoarthritis Surgical History History of colonoscopy History of esophagogastroduodenoscopy (EGD) History of left inguinal hernia repair History of open reduction and internal fixation (ORIF) procedure left hip--hardware removed History of right inguinal hernia repair History of tooth extraction upper teeth Family History Other No family history of adverse response to anesthesia Social History Preferred Language: Azeri Communication Ability: Effective Legal Aide Required: No Beliefs That Will Affect Care: None Current Living Situation: Spouse Feels Safe at Home: Yes Smoking Status: Former smoker Cigarettes Per Day: 20 ; Second Hand Exposure: No ; Hx Alcohol Use: Yes Alcohol type: beer Hx Substance Use: No Review of Systems See HPI for pertinent positives & negatives. and A total of 10 systems reviewed and were otherwise negative Physical Exam Vital Signs Vital Signs - 24 hr 06/25/19 02:28 06/25/19 04:13 06/25/19 04:21 Temperature 36.9 C Temperature Source Oral Sepsis Recent Fever Within 48 Hours No Sepsis New/Unexplained Change in Mental Status No Sepsis Action Taken by Nursing No Action Required Pulse Rate 67 Pulse Rate [Apical] 67 70 Respiratory Rate 16 16 20 Respiratory Effort / Characteristics Non-Labored Spontaneous Respiratory Depth Normal Blood Pressure 191/64 H Blood Pressure [Left Arm] 153/71 H 167/75 H Blood Pressure Mean 106 Blood Pressure Mean [Left Arm] 98 105 Pulse Oximetry 98 93 96 Oxygen Delivery Method Room Air Room Air 06/25/19 05:09 Temperature Temperature Source Sepsis Recent Fever Within 48 Hours Sepsis New/Unexplained Change in Mental Status Sepsis Action Taken by Nursing Pulse Rate Pulse Rate [Apical] 72 Respiratory Rate 18 Respiratory Effort / Characteristics Non-Labored Spontaneous Respiratory Depth Normal Blood Pressure Blood Pressure [Left Arm] 143/61 H Blood Pressure Mean Blood Pressure Mean [Left Arm] 88 Pulse Oximetry 95 Oxygen Delivery Method Room Air GENERAL: alert, ill-appearing, well nourished, no distress, non-toxic. Tremulous. EYE EXAM: normal conjunctiva, PERRL and EOM's grossly intact OROPHARYNX: no exudate, no erythema, lips, buccal mucosa, and tongue normal and mucous membranes are moist NECK: supple, no nuchal rigidity, no adenopathy, non-tender LUNGS: Clear to auscultation. Normal chest wall mechanics, no w/r/r HEART: no murmurs, S1 normal and S2 normal ABDOMEN: abdomen soft, tenderness to palpation of the lower abdomen. dull to percussion, decreased bowel sounds, no masses, no rebound or guarding. BACK: Back is symmetrical on inspection and there is no deformity, no midline tenderness, no CVA tenderness. SKIN: no rashes and no bruising UPPER EXTREMITIES: upper extremities are grossly normal. FROM, nml pulses b/l. LOWER EXTREMITIES: No pitting edema. FROM, nml pulses b/l. NEURO EXAM: Normal sensorium, cranial nerves II-XII grossly intact, normal speech, no gross weakness of arms, no gross weakness of legs. Course 0237: Past medical records reviewed. The patient was evaluated in room B12B. A complete history and physical exam was performed. 0437: Upon reevaluation, the patient is resting comfortably. I discussed laboratory and radiographic results with the patient and his . They verbalized agreement of the treatment plan. The patient will be evaluated for further management and care. 0446: I discussed the patient's case with Dr. Pineda, General Surgery. He prefers a hospitalist evaluation and then they will see the patient in consult. 0452: I reviewed the patient's case with Dr. Dillard, [facility] Hospitalist. She will evaluate the patient for further management. Administered Medications Ioversol (Optiray 320 100ml) 100 ml IV ONCE PRN PRN Reason: Interaction Checking Stop: 06/29/19 04:15 Last Admin: 06/25/19 04:16 Dose: 93 ml Documented by: [id number] Discontinued Medications Fentanyl Citrate (Fentanyl Citrate) 50 mcg IV Q15M PRN PRN Reason: Pain Stop: 07/09/19 02:43 Last Admin: 06/25/19 04:46 Dose: 50 mcg Documented by: [id number] Admin: 06/25/19 03:15 Dose: 50 mcg Documented by: [id number] Sodium Chloride (Nss 1000ml) 1,000 mls @ 125 mls/hr IV .Q8H AGUSTIN Stop: 07/25/19 02:44 Last Admin: 06/25/19 03:15 Dose: 125 mls/hr Documented by: [id number] Piperacillin Sod/Tazobactam Sod (Zosyn) 4.5 gm in 120 mls @ 240 mls/hr IV NOW ONE Stop: 06/25/19 04:18 Last Infusion: 06/25/19 04:38 Dose: 0 mls/hr Documented by: [id number] Admin: 06/25/19 04:00 Dose: 240 mls/hr Documented by: [id number] Ondansetron HCl (Zofran) 4 mg IV NOW STA Stop: 06/25/19 02:45 Last Admin: 06/25/19 03:15 Dose: 4 mg Documented by: [id number] Medical Decision Making Differential Diagnosis Differential diagnoses includes but is not limited to gastritis, peptic ulcer disease, GERD, gallbladder disease, pancreatitis, small bowel obstruction, acute coronary syndrome, pericarditis, ischemic bowel, irritable bowel disease, irritable bowel syndrome, appendicitis, diverticulitis, malignancy, hernia, urinary tract infection, torsion, perforation, trauma, infectious. Medical Records Attestation: I reviewed the patient's medical records. Home Medications Current Medication List: was personally reviewed by me Laboratory Data Attestation: I reviewed the patient's lab results. Result diagrams: 06/25/19 03:01 06/25/19 03:01 Lab Results 06/25/19 06/25/19 06/25/19 Range/Units 03:01 03:01 03:01 WBC 10.30 (4.8-10.8) K/uL RBC 4.20 L (4.7-6.1) M/uL Hgb 13.6 L (14.0-18.0) g/dL Hct 38.8 L (42-52) % MCV 92.4 (80-100) fL MCH 32.4 (25-34) pg MCHC 35.1 (32-36) g/dL RDW Std Deviation 43.1 (36.4-46.3) fL RDW Coeff of Billy 12.8 (11.5-14.5) % Plt Count 184 (130-400) K/uL MPV 9.8 (7.4-10.4) fL Immature Gran % (Auto) 0.1 % Neut % (Auto) 87.6 % Lymph % (Auto) 7.6 % Dooly % (Auto) 4.3 % Eos % (Auto) 0.3 % Baso % (Auto) 0.1 % Immature Gran # (Auto) 0.01 (0.00-0.02) K/uL Neut # (Auto) 9.03 H (1.4-6.5) K/uL Lymph # (Auto) 0.78 L (1.2-3.4) K/uL Dooly # (Auto) 0.44 (0.11-0.59) K/uL Eos # (Auto) 0.03 (0-0.5) K/uL Baso # (Auto) 0.01 (0-0.2) K/uL Sodium 138 (136-145) mmol/L Potassium 3.5 (3.5-5.1) mmol/L Chloride 104 (98-107) mmol/L Carbon Dioxide 27 (21-32) mmol/L Anion Gap 7.0 (3-11) BUN 20 H (7-18) mg/dl Creatinine 1.19 (0.6-1.4) mg/dl Est Cr Clr Drug Dosing 55.4 ml/min Est GFR ( Amer) 68.8 Est GFR (Non-Af Amer) 59.4 BUN/Creatinine Ratio 17.0 (10-20) Glucose 110 H (70-99) mg/dl POC Lactic Acid Khoa (0.90-1.70) mmol/L Calcium 8.3 L (8.5-10.1) mg/dl Total Bilirubin 0.5 (0.2-1) mg/dl AST 18 (15-37) U/L ALT 29 (12-78) U/L Alkaline Phosphatase 74 (45-117) U/L Troponin I < 0.015 (0-0.045) ng/ml Total Protein 7.0 (6.4-8.2) gm/dl Albumin 3.9 (3.4-5.0) gm/dl Globulin 3.1 (2.5-4.0) gm/dl Albumin/Globulin Ratio 1.3 (0.9-2) Lipase 158 (73-393) U/L Procalcitonin < 0.05 (0-0.5) ng/ml Urine Color Urine Appearance (Clear) Urine pH (4.5-7.5) Ur Specific Lester (1.000-1.030) Urine Protein (Negative) Urine Glucose (UA) (Negative) Urine Ketones (Negative) Urine Blood (Negative) Urine Nitrite (Negative) Urine Bilirubin (Negative) Urine Urobilinogen (Negative) Ur Leukocyte Esterase (Negative) 06/25/19 06/25/19 Range/Units 03:07 04:17 WBC (4.8-10.8) K/uL RBC (4.7-6.1) M/uL Hgb (14.0-18.0) g/dL Hct (42-52) % MCV (80-100) fL MCH (25-34) pg MCHC (32-36) g/dL RDW Std Deviation (36.4-46.3) fL RDW Coeff of Billy (11.5-14.5) % Plt Count (130-400) K/uL MPV (7.4-10.4) fL Immature Gran % (Auto) % Neut % (Auto) % Lymph % (Auto) % Dooly % (Auto) % Eos % (Auto) % Baso % (Auto) % Immature Gran # (Auto) (0.00-0.02) K/uL Neut # (Auto) (1.4-6.5) K/uL Lymph # (Auto) (1.2-3.4) K/uL Dooly # (Auto) (0.11-0.59) K/uL Eos # (Auto) (0-0.5) K/uL Baso # (Auto) (0-0.2) K/uL Sodium (136-145) mmol/L Potassium (3.5-5.1) mmol/L Chloride (98-107) mmol/L Carbon Dioxide (21-32) mmol/L Anion Gap (3-11) BUN (7-18) mg/dl Creatinine (0.6-1.4) mg/dl Est Cr Clr Drug Dosing ml/min Est GFR ( Amer) Est GFR (Non-Af Amer) BUN/Creatinine Ratio (10-20) Glucose (70-99) mg/dl POC Lactic Acid Khoa 1.22 (0.90-1.70) mmol/L Calcium (8.5-10.1) mg/dl Total Bilirubin (0.2-1) mg/dl AST (15-37) U/L ALT (12-78) U/L Alkaline Phosphatase (45-117) U/L Troponin I (0-0.045) ng/ml Total Protein (6.4-8.2) gm/dl Albumin (3.4-5.0) gm/dl Globulin (2.5-4.0) gm/dl Albumin/Globulin Ratio (0.9-2) Lipase (73-393) U/L Procalcitonin (0-0.5) ng/ml Urine Color Yellow Urine Appearance Clear (Clear) Urine pH 5.0 (4.5-7.5) Ur Specific Lester 1.038 H (1.000-1.030) Urine Protein Negative (Negative) Urine Glucose (UA) Negative (Negative) Urine Ketones 1+ H (Negative) Urine Blood Negative (Negative) Urine Nitrite Negative (Negative) Urine Bilirubin Negative (Negative) Urine Urobilinogen Negative (Negative) Ur Leukocyte Esterase Negative (Negative) Imaging Data Radiologist's Impression: Radiology results as stated below per my review and the radiologist's interpretation: CT ABDOMEN & PELVIS With Contrast: Calcified appendicoliths within a fluid-containing, dilated appendix. Consistent with acute appendicitis. Radiologist: Dipesh Cloud MD Study ready at 04:23 and initial results transmitted at 04:27 ECG Data Attestation: I personally reviewed and interpreted this ECG as follows: Indication: abdominal pain Rate (beats per minute): 64 Rhythm: sinus rhythm Findings: + other (Normal axis. Normal QRS and QTc.) and + 1st degree AV block; no ST depression, no ST elevation and no acute ischemic change Blood Pressure Blood Pressure Findings: Elevated blood pressure Blood Pressure Disposition: further management by hospitalist MDM Narrative Patient here ill-appearing on arrival with significant lower back no acute surgical abdomen. Given recent procedures, labs drawn and sent, IV started, patient sent for CT imaging. Patient given pain medication. Patient afebrile here despite tremors and sense of chills. Unclear if this is due to pain or evolving rigors. Cultures drawn as a precaution given concerning presentation and concern for rigors which is more suspicious of bacteremia. Patient was given a dose of IV Zosyn as a precaution due to concern for possible perforation or translocation of bacteria leading to bacteremia secondary to procedure. Patient CT revealed acute appendicitis. Patient's other labs were reassuring. No leukocytosis, no significant elevated lactic acid or procalcitonin. Case discussed with general surgeon who would prefer the hospitalist service to admit the patient given his age and other comorbidities. Case was discussed with Dr. Dillard for additional inpatient management and evaluation. Patient was made aware of all results and was in agreement with plan. Patient was kept n.p.o. here, given IV fluids and IV pain medication. Patient remained hemodynamically stable in the emergency room. Impression & Plan Acute appendicitis, Abdominal pain Discharge Plan Visit Data *Final* Discharge Date/Time: 06/25/19 06:19 Chief Complaint: Abdominal Pain Stated Complaint: STOMACH PAIN ED Provider: Shraddha Serrano Discharge Problem: Acute appendicitis, Abdominal pain Patient Disposition: Admitted As Inpatient Discharge Instructions Interventions: ED Discharge Assessment Last Done: 08/29/19 06:19 Discharge Problem: Acute appendicitis Qualifiers: Acute appendicitis type: unspecified acute appendicitis type Qualified Code(s): K35.80 - Unspecified acute appendicitis Abdominal pain Qualifiers: Abdominal location: lower abdomen, unspecified Qualified Code(s): R10.30 - Lower abdominal pain, unspecified The scribe's documentation has been prepared under my direction and personally reviewed by me in its entirety. I confirm that the note above accurately reflects all work, treatment, procedures, and medical decision making performed by me.
[2019-06-25 07:21] LABS: Prothrombin Time 10.7 Seconds (9.0-12.0)
[2019-06-25] MEDS: PANTOprazole 40 MG TAB PO SCH (07:43)
[2019-06-25] MEDS: FINASTERIDE 5 MG TAB PO SCH (07:43)
[2019-06-25] MEDS: LACTATED RINGER'S 1,000 ML IV SCH ×2 (08:49→19:08)
--- NOTE | 2019-06-25 10:02 | Ultrasound Report ---
US duplex aorta/iliacs CLINICAL HISTORY: abdominal bruit COMPARISON STUDY: Abdomen and pelvis CT 06/25/2019. FINDINGS: The proximal abdominal aorta is not visualized due to overlying bowel gas. The mid abdomina l aorta measures 2.0 x 1.8 cm and the distal abdominal aorta measures 2.2 x 2.3 cm. The right common iliac artery measures 8 mm and the left common iliac artery measures 9 mm. No aneurysm identified. Ex tensive calcified plaque seen throughout the aortoiliac system. No elevated velocities within the aor ta to suggest significant stenosis. IMPRESSION: Mildly ectatic abdominal aorta without evidence for aneurysm. Electronically signed by: Som Multani M.D. 06/25/2019 10:00 AM
--- NOTE | 2019-06-25 10:31 | Surgery Consultation ---
Date of Consultation June 25, 2019 Assessment & Plan (1) Acute appendicitis: pt is a 74 year-old male who was admitted to hospital for acute appendicitis, IMP: Acute appendicitis: Patient presenting with acute appendicitis. Presently afebrile, hemodynamically stable. Abdomen is soft, tender with rebound and guarding. Per RCRI criteria, patient is class II risk associate with 30-day risk of , [place] or cardiac arrest of 6%. Patient with no significant cardiac disease, heart failure, diabetes or renal disease. He is able to participate in 4 METS of activity without difficulty. I recommend to do laparoscopic appendectomy, possible open, D/W benefits, risks and alternatives of the surgery, the risks - infection, bleeding, injury bowel, abscess, [place], DVT, stroke, , pt and his understood, they agree with the surgery, I answered all questions, pt will do out-pt work up for possible chronic mesenteric ischemia, (2) Abdominal pain: History of Present Illness Attending Physician: Cris Smith MD Chief Complaint: acute abdominal pain, Acute appendicitis Primary Care Provider: Ami Woodson DO Mr. olmstead is a 74-year-old male with history of BPH, hyperlipidemia , atrial fibrillation on anticoagulation with Eliquis, presenting today with acute appendicitis. Patient has had long-standing history of abdominal pain, bloating and gas. For this he has had several EGD and colonoscopies. Last one performed yesterday by Dr. Torres which revealed a small hiatal hernia and gastritis; colonoscopy with a 3 mm polyp in the a sending colon and a 5 mm polyp in the sigmoid colon both of which were removed. The patient returned home in stable condition. He ate dinner then around 1500 he developed severe lower abdominal pain as well as nausea and chills which prompted him to come to the ER. On arrival he was afebrile, hemodynamically stable, labs without leukocytosis. CT of the abdomen revealed appendicoliths with evidence of acute appendicitis. Surgery contacted. Patient will be admitted to the medical service with surgical consultation. I got a call for consult acute appendicitis at &:20AM today. I reviewed pt's H/P with pt and his , pt is still have RLQ pain, no nausea, no vomiting, pt started have postprandial abdominal pain since 11/2018, weight loss about 35 LBS since then. most likely chronic mesenteric ischemia. I reviewed CT scan, Allergies Allergy/AdvReac Type Severity Reaction Status Date / Time prednisone Allergy Intermediate Swelling Verified 06/25/19 02:49 cerivastatin Allergy Mild muscle pain Verified 06/25/19 02:49 niacin Allergy Mild RASH Verified 06/25/19 02:49 piroxicam Allergy Mild Rash Verified 06/25/19 02:49 albuterol [From DuoNeb] AdvReac Intermediate RAPID Verified 06/25/19 02:49 HEARTBEAT ipratropium [From DuoNeb] AdvReac Intermediate RAPID Verified 06/25/19 02:49 HEARTBEAT methylprednisolone AdvReac Intermediate RAPID Verified 06/25/19 02:49 HEARTBEAT simvastatin AdvReac Mild rash Verified 06/25/19 02:49 Home Medications Home Medications Medication Instructions Recorded Confirmed Type aspirin 81 mg PO QAM 11/14/18 06/25/19 History atorvastatin [Lipitor] 20 mg PO HS 11/14/18 06/25/19 History finasteride [Proscar] 5 mg PO QAM 11/14/18 06/25/19 History flaxseed oil 1,000 mg PO BID 11/14/18 06/25/19 History folic acid 1 tab PO QAM 11/14/18 06/25/19 History multivitamin 1 tab PO QAM 11/14/18 06/25/19 History terazosin 5 mg PO HS 11/14/18 06/25/19 History Eliquis 5 mg PO BID #60 tab 03/30/19 06/25/19 Rx metoprolol succinate 25 mg PO HS #30 tab 03/30/19 06/25/19 Rx calcium carbonate-vitamin D3 600 1 cap PO BID cap 05/19/19 06/25/19 History mg calcium-200 unit capsule Patient History Medical History Benign prostatic hyperplasia (Chronic 01/05/12) Abdominal bloating Atrial fibrillation follows with Dr. Berry reason for eliquis GERD (gastroesophageal reflux disease) Hearing deficit Hyperlipidemia On anticoagulant therapy on eliquis daily Osteoarthritis Surgical History History of colonoscopy History of esophagogastroduodenoscopy (EGD) History of left inguinal hernia repair History of open reduction and internal fixation (ORIF) procedure left hip--hardware removed History of right inguinal hernia repair History of tooth extraction upper teeth Family History Other No family history of adverse response to anesthesia Social History Preferred Language: Turkmen Communication Ability: Effective Fire Official Required: No Beliefs That Will Affect Care: None Current Living Situation: Spouse Feels Safe at Home: Yes Safety Concerns: Feels Safe At This Time Smoking Status: Former smoker Cigarettes Per Day: 20 ; Do You Dip or Chew Tobacco: No ; Second Hand Exposure: No ; Hx Alcohol Use: Yes Alcohol type: beer Hx Substance Use: No Review of Systems Review of Systems: All systems reviewed & are unremarkable except as noted in HPI & below Physical Exam Constitutional: WD/WN, vitals as above well developed and well nourished ENMT: external ear and nose normal, oropharynx normal Neck: trachea midline, no thyromegaly Respiratory: normal respiratory effort, lungs clear to auscultation Cardiovascular: RRR, no murmur, no edema Heart Sounds: normal S1 and normal S2 Gastrointestinal (Abdomen): normal bowel sounds, soft, nontender, no hepatosplenomegaly Percussion/Palpation: abdomen soft tenderness at RLQ, no rebound pain, BS + Musculoskeletal: no cyanosis or clubbing, extremities motor strength 5/5 Neurologic: patellar DTR's 2+ bilat, sensation intact Psychiatric: A+Ox3, euthymic affect Orientation: alert and oriented x 3 Results & Data Vital Signs (Past 12 Hours) Vital Signs Temp Pulse Pulse Resp BP BP Pulse Ox 06/25/19 06:30 36.7 C 70 20 146/62 H 97 06/25/19 06:19 67 18 162/69 H 97 06/25/19 05:09 72 18 143/61 H 95 06/25/19 04:21 70 20 167/75 H 96 06/25/19 04:13 67 16 153/71 H 93 06/25/19 02:28 36.9 C 67 16 191/64 H 98 Laboratory Results Abnormal lab results 06/25/19 06/25/19 06/25/19 Range/Units 03:01 03:01 04:17 RBC 4.20 L (4.7-6.1) M/uL Hgb 13.6 L (14.0-18.0) g/dL Hct 38.8 L (42-52) % Neut # (Auto) 9.03 H (1.4-6.5) K/uL Lymph # (Auto) 0.78 L (1.2-3.4) K/uL BUN 20 H (7-18) mg/dl Glucose 110 H (70-99) mg/dl Calcium 8.3 L (8.5-10.1) mg/dl Ur Specific [place] 1.038 H (1.000-1.030) Urine Ketones 1+ H (Negative) Diagnostic Findings ABDOMEN AND PELVIS CT WITH IV CONTRAST CT DOSE: 388.61 mGy.cm HISTORY: Acute generalized abdominal pain abd pain s/p egd/colo TECHNIQUE: Multiaxial CT images of the abdomen and pelvis were performed following the use of intravenous contrast. A dose lowering technique was utilized adhering to the principles of ALARA. COMPARISON STUDY: CT abdomen pelvis 04/29/2019. FINDINGS: Minimal dependent subsegmental bibasilar atelectasis. The lung bases are otherwise clear. No pneumatosis or pneumoperitoneum. Imaged inferior cardiac chambers are upper limits of normal in size. Coronary arterial calcifications are noted. The liver, spleen, gallbladder, pancreas and right adrenal gland are unremarkable. Coarse calcifications of the left adrenal gland redemonstrated suggestive of prior hemorrhage or infection. Kidneys, and ureters appear unremarkable. Mild nonspecific urinary bladder wall thickening with prostamegaly. Trace free fluid about the dependent pelvis. Advanced calcified plaque the abdominal aorta with mild infrarenal fusiform ectasia, 2.6 x 2.6 cm. Focal high-grade stenosis at the proximal right common iliac artery is redemonstrated. Probable additional stenosis at the origin of the right renal artery secondary to calcified plaque. There is no adenopathy. Small hiatal hernia with mild wall thickening of the distal esophagus. No bowel obstruction. Multiple appendicoliths are noted within a dilated appendix which measures up to 10 mm transversely. The appendix is also fluid-filled and demonstrates mild periappendiceal stranding. No evidence of perforation or drai nable fluid collection. Tiny fat filled periumbilical hernia. Soft tissues are within normal limits. Degenerative changes of the spine, pelvis and hips. No acute fracture identified. There is evidence of prior hardware removal about the left femoral neck. IMPRESSION: 1. Dilated fluid-filled appendix with multiple intraluminal appendicoliths. Findings are compatible with acute uncomplicated appendicitis. No evidence of perforation or drainable fluid collection. 2. No bowel obstruction. 3. Small hiatal hernia with mild distal esophageal wall thickening. 4. Prostamegaly with mild urinary bladder wall thickening. 5. Additional findings as above. (1) Acute appendicitis Acute appendicitis type: unspecified acute appendicitis type Qualified Code(s): K35.80 - Unspecified acute appendicitis (2) Abdominal pain Abdominal location: lower abdomen, unspecified Qualified Code(s): R10.30 - Lower abdominal pain, unspecified
[2019-06-25] MEDS: PIPERACILLIN/TAZOBACTAM 3.375 GM in DEXTROSE 5% 100 ML IV SCH ×2 (10:34→18:29)
--- NOTE | 2019-06-25 11:00 | Gastrointestinal Consultation ---
Date of Consultation June 25, 2019 Assessment & Plan (1) Acute appendicitis: Cross coverage for [facility] [place] Dr. Torres 74 year old male with history of chronic abdominal pain undergoing outpatient work up by [facility] Katie Restrepo PA-C and Dr. Torres w/ recent outpatient EGD/Colonoscopy notable for small HH, gastritis, internal hemorrhoids and polypectomy x 2 who presented through the ED w/ severe RLQ pain w/ later generalized lower abdominal pain. CT obtained through the ED w/ dilated fluid-filled appendix with multiple intraluminal appendicoliths compatible with acute uncomplicated appendicitis. He was evaluated by general surgery w/ plan to take to the OR. GI consult was requested by pt to make Dr. Torres aware of his admission and to review EGD/Colonoscopy reports. I did review EGD/Colon report with him. I did discuss with pt that I would contact [facility] to make aware of current admission. He will continue to follow up with [facility] at discharge. He will continue to be followed by surgery, primary team while admitted. Pt and family agreeable to plan. Thank you for allowing us to participate in the care of this patient. Please call with any acute changes, questions or concerns. Please see addendum below with additional recommendation from my supervising physician. Present on Admission?: Yes Supervising Physician Co-Signing Physician Notes I have personally seen and examined the patient with YAJAIRA Roberto. Her note reflects my exam and findings. I agree with her impression and plan. CT scan c/w appendiceal pathology/appendicitis. Follow surgical recs. Vaughn Marte M.D. History of Present Illness Attending Physician: Cris Smith MD Allergies Allergy/AdvReac Type Severity Reaction Status Date / Time prednisone Allergy Intermediate Swelling Verified 06/25/19 12:50 cerivastatin Allergy Mild muscle pain Verified 06/25/19 12:50 niacin Allergy Mild RASH Verified 06/25/19 12:50 piroxicam Allergy Mild Rash Verified 06/25/19 12:50 albuterol [From DuoNeb] AdvReac Intermediate RAPID Verified 06/25/19 12:50 HEARTBEAT ipratropium [From DuoNeb] AdvReac Intermediate RAPID Verified 06/25/19 12:50 HEARTBEAT methylprednisolone AdvReac Intermediate RAPID Verified 06/25/19 12:50 HEARTBEAT simvastatin AdvReac Mild rash Verified 06/25/19 12:50 Home Medications Home Medications Medication Instructions Recorded Confirmed Type aspirin 81 mg PO QAM 11/14/18 06/25/19 History atorvastatin [Lipitor] 20 mg PO HS 11/14/18 06/25/19 History finasteride [Proscar] 5 mg PO QAM 11/14/18 06/25/19 History flaxseed oil 1,000 mg PO BID 11/14/18 06/25/19 History folic acid 1 tab PO QAM 11/14/18 06/25/19 History multivitamin 1 tab PO QAM 11/14/18 06/25/19 History terazosin 5 mg PO HS 11/14/18 06/25/19 History Eliquis 5 mg PO BID #60 tab 03/30/19 06/25/19 Rx metoprolol succinate 25 mg PO HS #30 tab 03/30/19 06/25/19 Rx calcium carbonate-vitamin D3 600 1 cap PO BID cap 05/19/19 06/25/19 History mg calcium-200 unit capsule Patient History Medical History Acute appendicitis (Acute) Abdominal pain (Acute) Benign prostatic hyperplasia (Chronic 01/05/12) Abdominal bloating Atrial fibrillation follows with Dr. Berry reason for eliquis GERD (gastroesophageal reflux disease) Hearing deficit Hyperlipidemia On anticoagulant therapy on eliquis daily Osteoarthritis Surgical History History of colonoscopy History of esophagogastroduodenoscopy (EGD) History of left inguinal hernia repair History of open reduction and internal fixation (ORIF) procedure left hip--hardware removed History of right inguinal hernia repair History of tooth extraction upper teeth Family History Other No family history of adverse response to anesthesia Social History Preferred Language: Marshallese Communication Ability: Effective Construction Driller Required: No Beliefs That Will Affect Care: None Current Living Situation: Spouse Feels Safe at Home: Yes Safety Concerns: Feels Safe At This Time Smoking Status: Former smoker Cigarettes Per Day: 20 ; Do You Dip or Chew Tobacco: No ; Second Hand Exposure: No ; Hx Alcohol Use: Yes Alcohol type: beer Hx Substance Use: No Results & Data Vital Signs (Past 12 Hours) Vital Signs Temp Pulse Pulse Resp BP BP Pulse Ox 06/25/19 06:30 36.7 C 70 20 146/62 H 97 06/25/19 06:19 67 18 162/69 H 97 06/25/19 05:09 72 18 143/61 H 95 06/25/19 04:21 70 20 167/75 H 96 06/25/19 04:13 67 16 153/71 H 93 06/25/19 02:28 36.9 C 67 16 191/64 H 98 (1) Acute appendicitis Acute appendicitis type: unspecified acute appendicitis type Qualified Code(s): K35.80 - Unspecified acute appendicitis
--- NOTE | 2019-06-25 12:03 | Anesthesiology Consultation ---
Date of Service June 25, 2019 Assessment & Plan (1) Encounter for pre-operative examination: Chart Review Chart Review: Acceptable Risk for Surgery Consults Requested none ASA ASA3 Proposed Anesthesia Anesthesia Type: General Risk / Benefits Reviewed With: PT / POA / Parent / Guardian, Accepts Plan and Informed Consent Obtained History Surgery Operation Date: 06/25/19 10:10 Proposed Procedures p Laparoscopic Appendectomy - Sundeep Wilde MD Height/Weight Height: 5 ft 10 in Weight: 78.9 kg Allergies Allergy/AdvReac Type Severity Reaction Status Date / Time prednisone Allergy Intermediate Swelling Verified 06/25/19 12:50 cerivastatin Allergy Mild muscle pain Verified 06/25/19 12:50 niacin Allergy Mild RASH Verified 06/25/19 12:50 piroxicam Allergy Mild Rash Verified 06/25/19 12:50 albuterol [From DuoNeb] AdvReac Intermediate RAPID Verified 06/25/19 12:50 HEARTBEAT ipratropium [From DuoNeb] AdvReac Intermediate RAPID Verified 06/25/19 12:50 HEARTBEAT methylprednisolone AdvReac Intermediate RAPID Verified 06/25/19 12:50 HEARTBEAT simvastatin AdvReac Mild rash Verified 06/25/19 12:50 Medications Home Medications Medication Instructions Recorded Confirmed Last Taken aspirin 81 mg PO QAM 11/14/18 06/25/19 06/24/19 atorvastatin [Lipitor] 20 mg PO HS 11/14/18 06/25/19 06/24/19 finasteride [Proscar] 5 mg PO QAM 11/14/18 06/25/19 06/24/19 flaxseed oil 1,000 mg PO BID 11/14/18 06/25/19 06/24/19 folic acid 1 tab PO QAM 11/14/18 06/25/19 06/24/19 multivitamin 1 tab PO QAM 11/14/18 06/25/19 06/24/19 terazosin 5 mg PO HS 11/14/18 06/25/19 06/24/19 Eliquis 5 mg PO BID #60 tab 03/30/19 06/25/19 06/24/19 metoprolol succinate 25 mg PO HS #30 tab 03/30/19 06/25/19 06/24/19 calcium carbonate-vitamin D3 600 1 cap PO BID cap 0706/25/19 06/24/19 mg calcium-200 unit capsule Active Medications Generic Name Dose Route Start Last Admin Trade Name Freq PRN Reason Stop Dose Admin Finasteride 5 mg 06/25/19 09:00 06/25/19 07:43 Proscar PO 07/25/19 08:59 Not Given QAM AGUSTIN Lactated Ringer's 1,000 mls @ 100 mls/hr 06/25/19 06:45 06/25/19 08:49 Lr IV 06/26/19 02:44 100 mls/hr .Q10H AGUSTIN Administration Piperacillin Sod/Tazobactam 115 mls @ 28.75 mls/hr 06/25/19 10:00 06/25/19 10:34 Sod 3.375 gm/ Dextrose IV 07/05/19 09:59 28.8 mls/hr Q8H AGUSTIN Administration Protocol Ioversol 100 ml 06/25/19 04:16 06/25/19 04:16 Optiray 320 100ml IV 06/29/19 04:15 93 ml ONCE PRN Administration Interaction Checking Morphine Sulfate 1 mg 06/25/19 06:33 06/25/19 08:48 Morphine Sulfate IV 07/09/19 06:32 1 mg Q2H PRN Administration Pain Pantoprazole Sodium 40 mg 06/25/19 09:00 06/25/19 07:43 Protonix PO 07/25/19 08:59 Not Given DAILY AGUSTIN NPO Date Last Intake of Fluids: 06/24/19 Time Last Intake of Fluids: 23:00 Last Intake of Fluids Comment: sips of water Date Last Intake of Solids: 06/24/19 Time Last Intake of Solids: 20:00 Past Medical History Medical History Acute appendicitis (Acute) Abdominal pain (Acute) Benign prostatic hyperplasia (Chronic 01/05/12) Abdominal bloating Atrial fibrillation follows with Dr. Berry reason for eliquis GERD (gastroesophageal reflux disease) Hearing deficit Hyperlipidemia On anticoagulant therapy on eliquis daily Osteoarthritis Exercise / Class Metabolic Activity II 4-5 Yardwork/Stairs/Walk up hill Past Family History Family History Other No family history of adverse response to anesthesia Past Surgical History Surgical History History of colonoscopy History of esophagogastroduodenoscopy (EGD) History of left inguinal hernia repair History of open reduction and internal fixation (ORIF) procedure left hip--hardware removed History of right inguinal hernia repair History of tooth extraction upper teeth Past Anesthesia History No Hx of Anesthesia Complications and No Family Hx of Anesthesia Complications History of PONV No Hx of PONV and No Hx of Motion Sickness Social History Smoking Status: Former smoker Smoking cigarettes per day: 20 Do You Dip or Chew Tobacco: No Hx Alcohol Use: Yes Alcohol type: beer alcohol intake frequency: 0-2 drinks per day Hx Substance Use: No substance use type: does not use Physical Exam Vital Signs Last Vital Signs Temp 98.8 F 06/25/19 12:49 Pulse 63 06/25/19 12:49 Resp 20 06/25/19 12:49 BP 125/59 L 06/25/19 12:49 Pulse Ox 94 06/25/19 12:49 ENMT Mouth: no dentition abnormality Thyromental Distance: > or= 3.5 Finger Breadths Mallampati Class: II Neck normal visual inspection Respiratory normal respiratory effort Auscultation: lungs clear to auscultation bilaterally Cardiovascular Rate/Rhythm: regular rate and regular rhythm Heart Sounds: + murmur Vessels: no carotid bruit Testing Laboratory Results 06/25/19 03:01 06/25/19 03:01 PT 10.7 Seconds (9.0-12.0) 06/25/19 06:57 INR 1.0 (0.9-1.1) 06/25/19 06:57 Urine Color Yellow 06/25/19 04:17 Urine Appearance Clear (Clear) 06/25/19 04:17 Urine pH 5.0 (4.5-7.5) 06/25/19 04:17 Ur Specific [place] 1.038 (1.000-1.030) H 06/25/19 04:17 Urine Protein Negative (Negative) 06/25/19 04:17 Urine Glucose (UA) Negative (Negative) 06/25/19 04:17 Urine Ketones 1+ (Negative) H 06/25/19 04:17 Urine Nitrite Negative (Negative) 06/25/19 04:17 Ur Leukocyte Esterase Negative (Negative) 06/25/19 04:17 Electrocardiogram Date: 06/25/19 Normal sinus rhythm, rate 64 bpm Normal ECG When compared with ECG of 29-MAR-2019 23:09, NH interval has decreased Chest X-Ray Date: 05/27/19 IMPRESSION: 1. No acute processes of the chest. 2. Nonobstructive bowel gas pattern. 3. Moderate formed stool about the ascending and proximal transverse colon.
[2019-06-25] MEDS ORDERED: ATROPINE SULFATE 0.1 MG/ML 10ML SYR IV PRN (12:11)
[2019-06-25] MEDS ORDERED: ePHEDrine sulfate 50 MG/ML AMP IV PRN (12:11)
[2019-06-25] MEDS ORDERED: fentaNYL citrate 100 MCG/2 ML VIAL IV PRN (12:11)
[2019-06-25] MEDS ORDERED: fentaNYL citrate 100 MCG/2 ML VIAL ONE (12:12)
[2019-06-25] MEDS ORDERED: BACITRACIN OINT 15 GM TUBE ONE (12:21)
[2019-06-25] MEDS ORDERED: BUPIVACAINE 0.5 % 5 MG/1 ML MPF 30ML VIAL ONE (12:21)
[2019-06-25] MEDS ORDERED: LIDOCAINE HCL 1% 20 ML VIAL ONE (12:22)
--- NOTE | 2019-06-25 12:47 | History & Physical Bridge Note ---
Date of Service June 25, 2019 History & Physical Bridge Note I have examined the patient, reviewed the History & Physical and in the interval since the performance of the History & Physical I have noted the following changes of clinical significance: no changes noted
[2019-06-25] MEDS ORDERED: CEFAZOLIN 2,000 MG/15 ML IV PUSH IV ONE (12:49)
[2019-06-25] MEDS ORDERED: cefOXitin 2,000 MG/60 ML BAG IV STA (12:56)
[2019-06-25] MEDS ORDERED: NEOSTIGMINE METHYLSULFATE 5 MG/5 ML SYR ONE (13:48)
[2019-06-25] MEDS ORDERED: LIDOCAINE HCL 2% 2 ML VIAL/AMP(20MG/ML) INFIL ONE (13:48)
[2019-06-25] MEDS ORDERED: DEXAMETHASONE SOD INJ 4 MG/ML VIAL ONE (13:48)
[2019-06-25] MEDS ORDERED: ROCURONIUM BROMIDE 10 MG/ML 5 ML VIAL ONE (13:48)
[2019-06-25] MEDS ORDERED: GLYCOPYRROLATE 0.2 MG/ML VIAL ONE (13:48)
[2019-06-25] MEDS ORDERED: PROPOFOL IV EMULSION 10 MG/ML 20 ML VIAL IV ONE (13:48)
[2019-06-25] MEDS ORDERED: ONDANSETRON INJ 2 MG/ML 2 ML VIAL ONE (13:48)
--- NOTE | 2019-06-25 14:00 | Post Operative Brief Note ---
Immediate Post Op Note v1 Date of Surgery June 25, 2019 Pre & Post Diagnosis Operation Date: 06/25/19 10:10 Pre-Op Diagnosis: ACUTE APPENDICITIS Post-Op Diagnosis: ACUTE APPENDICITIS Procedure Operation Date: 06/25/19 10:10 Actual Procedures p Laparoscopic Appendectomy(Not Applicable) - Sundeep Wilde MD Surgeon Sundeep Wilde MD Supervisor Cell Operation LEE Samano Estimated Blood Loss 10 Findings Consistent with Post-Op Diagnosis acute appendicitis Fluids 800ml Specimens appendix Drains Hawthorne Catheter (16 persian 10ml balloon) Anesthesia Type General Complications none Disposition Accompanied Patient To Recovery: Yes Disposition: Recovery Room Overlapping Procedure I was immediately available: during the entire case.
--- NOTE | 2019-06-25 15:01 | Anesthesiology Progress Note ---
Date of Service June 25, 2019 Anesthesia Post Procedure Vital Signs Vital Signs: Temp Pulse Pulse Pulse Resp BP BP 06/25/19 14:55 99.5 F 73 18 136/62 06/25/19 14:45 79 18 138/62 06/25/19 14:35 78 21 133/63 06/25/19 14:25 81 17 140/73 06/25/19 14:15 98.8 F 77 15 132/63 06/25/19 12:49 98.8 F 63 20 125/59 L 06/25/19 06:30 98.1 F 70 20 146/62 H 06/25/19 06:19 67 18 162/69 H 06/25/19 05:09 72 18 143/61 H 06/25/19 04:21 70 20 167/75 H 06/25/19 04:13 67 16 153/71 H 06/25/19 02:28 98.4 F 67 16 191/64 H Pulse Ox 06/25/19 14:55 96 06/25/19 14:45 93 06/25/19 14:35 99 06/25/19 14:25 99 06/25/19 14:15 95 06/25/19 12:49 94 06/25/19 06:30 97 06/25/19 06:19 97 06/25/19 05:09 95 06/25/19 04:21 96 06/25/19 04:13 93 06/25/19 02:28 98 Pain Intensity Abdomen: Pain Intensity: 5 Transfer of Care Handoff Completed per policy Notes Mental Status: alert / awake / arousable and participated in evaluation Patient Amnestic to Procedure: Yes Nausea / Vomiting: adequately controlled Pain: adequately controlled Airway Patency, RR, SpO2: stable & adequate BP & HR: stable & adequate Hydration State: stable & adequate Anesthetic Complications: no major complications apparent and Pt Satisfied with anesthetic care
--- NOTE | 2019-06-25 15:44 | History & Physical Bridge Note ---
Date of Service June 25, 2019 History & Physical Bridge Note I have examined the patient, reviewed the History & Physical and in the interval since the performance of the History & Physical I have noted the following changes of clinical significance: - Pt. complains of pharyngitis following procedure, otherwise doing well. Denies chest pain, SOB, increased abd pain, N/V. Plan for potential discharge tomorrow if doing well. Supervising Physician Co-Signing Physician Notes PA Supervision Note: I did not personally see or examine the patient today, but I verified all aleman points of LEE Collins's assessment and plan with the following exceptions/additions: None
[2019-06-25] MEDS: OXYCODONE/ACETAMINOPHEN 5mg/325mg TAB PO PRN (18:21)
[2019-06-25] MEDS ORDERED: COUGH DROP (SUGAR FREE) LOZ 24 LOZ/1 BOX BUCCAL PRN (19:54)
[2019-06-25] MEDS: CALCIUM 600MG + VIT D 400 IU TAB PO SCH (20:53)
[2019-06-25] MEDS: APIXABAN 5 MG TABLET PO SCH (20:53)
[2019-06-25] MEDS ORDERED: ATORVASTATIN 20 MG TAB PO SCH (21:00)
[2019-06-25] MEDS ORDERED: METOPROLOL SUCC 50MG EXT REL TAB PO SCH (21:00)
[2019-06-25] MEDS ORDERED: TERAZOSIN HCL 5 MG CAP PO SCH (21:00)
[2019-06-25] MEDS ORDERED: NON-FORMULARY MEDICATION (Flaxseed Oil 1,000 MG) PO SCH (21:00)
--- NOTE | 2019-06-25 22:41 | Operative Report ---
DATE OF OPERATION: 06/25/2019 PREOPERATIVE DIAGNOSIS: Acute appendicitis. POSTOPERATIVE DIAGNOSIS: Acute appendicitis. OPERATION: Laparoscopic appendectomy. SURGEON: Sundeep Wilde M.D. CERTIFIED NURSING ATTENDANT: Carmenza Brink PA-C ANESTHESIA: General. ESTIMATED BLOOD LOSS: About 10 mL. FINDINGS: Acute appendicitis, significant inflammation with pus around the appendix with the enlarged appendix, conformed diagnosis of acute appendicitis. COMPLICATIONS: None. INDICATIONS FOR THE PROCEDURE: This is a 74-year-old gentleman who is admitted to hospital for acute appendicitis and I recommend to do laparoscopic appendectomy, possible open. I did talk to the patient and patient's about the benefit, risk, alternate procedure. I indicated the risks may include, but not limited such as bleeding, infection, injury to the bowel, abscess, sepsis, DVT, myocardial infarction, stroke, even . The patient understands. He signed informed consent and I answered all questions. DETAILS OF PROCEDURE: We brought the patient to the OR, put the patient in the supine position. The patient received SCD on bilateral legs to prevent DVT. Also, patient received 2 g cefoxitin IV for prophylactic antibiotic. The patient received general anesthesia without difficulty. Also, patient received Hawthorne catheter insertion. The abdomen was appropriately draped in routine sterile fashion. After time-out, I injected local anesthesia by using 1% lidocaine mixed with 0.5% Marcaine just above umbilicus. We then made a small incision just above umbilicus, opened fascia, opened peritoneum under direct vision. Put a Leeroy trocar in, connected to CO2 to create pneumoperitoneum. Flow rate at 6 liter per minute. Pressure not more than 14 mmHg. Once we got a nice pneumoperitoneum, we put a camera in, looked around the abdomen. There was a trace free fluid on the pelvic area. The appendix showed significant inflammation, some pus on the surface of appendix. Appendix significantly enlarged, confirmed diagnosis of acute appendicitis, and we looked around the small bowel, large bowel. I did not find any abnormality on the small bowel, large bowel. At this moment, we put another two 5-mm trocar on the left lower quadrant area under direct vision. Once all trocars in, we used a grasper to hold the appendix, used the harmonic to take down the appendiceal, rechecked, no active bleeding. Then, I used a 45-mm Endo-JAMIE staple on the base of the appendix, rechecked, the staple line intact. No active bleeding. Then, we removed the appendix through the catch bag. Then, we reinserted Leeroy trocar and connected to CO2 to create pneumoperitoneum, again looked around the abdomen, no active bleeding, no leak on staple line. Then, we removed all trocars under direct vision. No active bleeding from the trocar sites. Pneumoperitoneum was released. I closed the umbilical incision in fascial layer by using #1 Vicryl [id number] x2, closed subcutaneous layer by using 2-0 Vicryl interrupted and closed skin by using 4-0 Vicryl continuous running, closed another two 5-mm trocar site skin only by using 4-0 Vicryl. Then, we put the dressing on. We removed the Hawthorne catheter and we put the dressing on. The patient tolerated the procedure well. All the instrument, needle and sponge count were correct x2 at the end of the case. The patient transferred to recovery room in stable condition. After procedure, I did talk to the patient and family member, patient's and the patient's daughter about the OR finding, procedure we did, they understand. I attest to the content of the Intraoperative Record and any orders documented therein. Any exceptions are noted below. GRABIEL
[2019-06-26] MEDS: PIPERACILLIN/TAZOBACTAM 3.375 GM in DEXTROSE 5% 100 ML IV SCH ×2 (02:01→11:39)
[2019-06-26 07:05] LABS: Hematocrit (blood only) 35.5 % (42-52); Immature Granulocytes # (auto) 0.02 K/uL (0.00-0.02); Immature Granulocytes % (auto) 0.2 %; Lymphocytes # (auto) 0.84 K/uL (1.2-3.4); Lymphocytes % (auto) 8.3 %; Mean Corpuscular Hemoglobin 31.7 pg (25-34); Mean Corpuscular Hgb Conc 33.8 g/dL (32-36); Mean Corpuscular Volume 93.7 fL (80-100); Mean Platelet Volume 9.7 fL (7.4-10.4); Monocytes # (auto) 0.74 K/uL (0.11-0.59); Monocytes % (auto) 7.3 %; Neutrophils # (auto) 8.56 K/uL (1.4-6.5); Neutrophils % (auto) 84.2 %; Platelet Count 160 K/uL (130-400); RDW Coefficient of Variation 13.5 % (11.5-14.5); Red Blood Count 3.79 M/uL (4.7-6.1); White Blood Count 10.16 K/uL (4.8-10.8)
[2019-06-26 07:49] LABS: Calcium 8.4 mg/dl (8.5-10.1); Creatinine Clr Calc Pharmacy 65.9 ml/min; Est GFR (Non-African American) 73.3; Potassium 3.8 mmol/L (3.5-5.1)
--- NOTE | 2019-06-26 08:17 | Anesthesiology Progress Note ---
Date of Service June 26, 2019 Anesthesia Post Procedure Vital Signs Vital Signs: Temp Pulse Pulse Pulse Resp BP Pulse Ox 06/26/19 06:59 36.8 C 53 L 18 125/55 L 94 06/26/19 03:00 36.9 C 59 L 20 119/46 L 94 06/26/19 02:08 72 06/25/19 23:16 37 C 76 20 127/56 L 94 06/25/19 19:00 36.5 C 63 20 137/63 96 06/25/19 14:55 37.5 C 73 18 136/62 96 06/25/19 14:45 79 18 138/62 93 06/25/19 14:35 78 21 133/63 99 06/25/19 14:25 81 17 140/73 99 06/25/19 14:15 37.1 C 77 15 132/63 95 06/25/19 12:49 37.1 C 63 20 125/59 L 94 Pain Intensity Abdomen: Pain Intensity: 5 Notes Mental Status: alert / awake / arousable and participated in evaluation Patient Amnestic to Procedure: Yes Nausea / Vomiting: adequately controlled Pain: adequately controlled Airway Patency, RR, SpO2: stable & adequate BP & HR: stable & adequate Hydration State: stable & adequate Anesthetic Complications: no major complications apparent and Pt Satisfied with anesthetic care
[2019-06-26] MEDS: PANTOprazole 40 MG TAB PO SCH (08:32)
[2019-06-26] MEDS: FINASTERIDE 5 MG TAB PO SCH (08:33)
[2019-06-26] MEDS: CALCIUM 600MG + VIT D 400 IU TAB PO SCH (08:33)
[2019-06-26] MEDS: APIXABAN 5 MG TABLET PO SCH (08:34)
[2019-06-26] MEDS ORDERED: TRAMADOL HCL 50 MG TABLET PO PRN (08:54)
[2019-06-26] MEDS ORDERED: MULTIVITAMIN TAB PO SCH (09:00)
[2019-06-26] MEDS ORDERED: FOLIC ACID 400 MCG TAB PO SCH (09:00)
[2019-06-26] MEDS ORDERED: ASPIRIN 81 MG CHEW PO SCH (09:00)
--- NOTE | 2019-06-26 09:07 | Surgery Progress Note ---
Date of Service June 26, 2019 Assessment & Plan (1) Acute appendicitis: POD # 1 s/p laparoscopic appendectomy -vitals stable, afebrile - post op pain at incision and RLQ, controlled. Preop pain improved - no n/v, tolerated clears - dysuria and some blood upon urination (had some blood when Alcala removed post procedure by myself yesterday, Alcala placed without any difficulty) Plan: advance to regular diet for lunch continue Percocet and Tylenol prn pain, add Tramadol prn pain if Percocet not working encouraged ambulation incentive spirometry ordered but not in room will order again SCDs for DVT prophylaxis dysuria is likely secondary to alcala catheter, UA in ER unremarkable Continue IV Zosyn until discharge If does well with advancement of diet, okay from surgical standpoint for discharge this afternoon. Would recommend outpatient follow-up with vascular surgeon to evaluate for possible chronic mesenteric ischemia as cause of patients chronic abdominal pain and weight loss since November. Dr. Wilde has seen patient, agrees with above. Subjective feeling better this am, pain that brought him to ER has improved tenderness in RLQ and at incision sites passing flatus urinary burning and some blood noted, no blood throughout urine stream tolerated clear liquids no n/v Physical Exam Constitutional: WD/WN, vitals as above no acute distress Gastrointestinal (Abdomen): Inspection/Auscultation: abdomen normal to inspection; abdomen not distended Percussion/Palpation: + abdomen tender (RLQ on deep palpation and incision sites), + guarding (RLQ on deep palpation) and abdomen soft; abdomen not rigid Skin: no rashes, warm and dry + incision (Covered with dry dressings) Psychiatric: A+Ox3, euthymic affect Results & Data Vital Signs (Past 12 Hours) Vital Signs Temp Pulse Pulse Pulse Resp BP Pulse Ox 06/26/19 06:59 36.8 C 53 L 18 125/55 L 94 06/26/19 03:00 36.9 C 59 L 20 119/46 L 94 06/26/19 02:08 72 06/25/19 23:16 37 C 76 20 127/56 L 94 Laboratory Results 06/26/19 06/26/19 Range/Units 06:41 06:41 WBC 10.16 (4.8-10.8) K/uL RBC 3.79 L (4.7-6.1) M/uL Hgb 12.0 L (14.0-18.0) g/dL Hct 35.5 L (42-52) % MCV 93.7 (80-100) fL MCH 31.7 (25-34) pg MCHC 33.8 (32-36) g/dL RDW Std Deviation 46.0 (36.4-46.3) fL RDW Coeff of Billy 13.5 (11.5-14.5) % Plt Count 160 (130-400) K/uL MPV 9.7 (7.4-10.4) fL Immature Gran % (Auto) 0.2 % Neut % (Auto) 84.2 % Lymph % (Auto) 8.3 % [place] % (Auto) 7.3 % Eos % (Auto) 0.0 % Baso % (Auto) 0.0 % Immature Gran # (Auto) 0.02 (0.00-0.02) K/uL Neut # (Auto) 8.56 H (1.4-6.5) K/uL Lymph # (Auto) 0.84 L (1.2-3.4) K/uL [place] # (Auto) 0.74 H (0.11-0.59) K/uL Eos # (Auto) 0.00 (0-0.5) K/uL Baso # (Auto) 0.00 (0-0.2) K/uL Sodium 140 (136-145) mmol/L Potassium 3.8 (3.5-5.1) mmol/L Chloride 107 (98-107) mmol/L Carbon Dioxide 29 (21-32) mmol/L Anion Gap 4.0 (3-11) BUN 12 (7-18) mg/dl Creatinine 1.00 (0.6-1.4) mg/dl Est Cr Clr Drug Dosing 65.9 ml/min Est GFR ( Amer) 85.0 Est GFR (Non-Af Amer) 73.3 BUN/Creatinine Ratio 12.0 (10-20) Glucose 115 H (70-99) mg/dl Calcium 8.4 L (8.5-10.1) mg/dl (1) Acute appendicitis Acute appendicitis type: unspecified acute appendicitis type Qualified Code(s): K35.80 - Unspecified acute appendicitis
[2019-06-26] MEDS: OXYCODONE/ACETAMINOPHEN 5mg/325mg TAB PO PRN (11:20)
[2019-06-26 12:33] LABS: Appearance Urine Clear (Clear); Bilirubin Urine Negative (Negative); Blood Urine Negative (Negative); Color Urine Yellow; Glucose Urine UA Negative (Negative); Ketones Urine Negative (Negative); Leukocyte Esterase Urine Negative (Negative); Nitrite Urine Negative (Negative); Protein Urine Negative (Negative); Specific Gravity Urine 1.015 (1.000-1.030); Urobilinogen Urine Negative (Negative); pH Urine 5.5 (4.5-7.5)
--- NOTE | 2019-06-26 17:18 | Discharge Summary ---
Date of Service June 26, 2019 Admission HPI Per Admitting Provider Mr. olmstead is a 74-year-old male with history of BPH, hyperlipidemia, atrial fibrillation on anticoagulation with Eliquis, presenting today with acute appendicitis. Patient has had long-standing history of abdominal pain, bloating and gas. For this he has had several EGD and colonoscopies. Last one performed yesterday by Dr. Torres which revealed a small hiatal hernia and gastritis; colonoscopy with a 3 mm polyp in the a sending colon and a 5 mm polyp in the sigmoid colon both of which were removed. The patient returned home in stable condition. He ate dinner then around 1500 he developed severe lower abdominal pain as well as nausea and chills which prompted him to come to the ER. On arrival he was afebrile, hemodynamically stable, labs without leukocytosis. CT of the abdomen revealed appendicoliths with evidence of acute appendicitis. Surgery contacted. Patient will be admitted to the medical service with surgical consultation ER course: Fentanyl, Zofran, Zosyn, normal saline Admission Exam Per Admitting Provider General: patient resting comfortably, in mild pain lying still in bed, NAD, non-toxic in appearance, AA&O x 4 Skin: warm, dry, intact, no rashes or lesions HEENT: NC/AT, PERRL, EOMI, anicteric sclera, conjunctiva without injection, external ear normal to inspection and nontender, nares patent, moist mucus membranes, dentition intact, no oropharyngeal lesions, neck supple, trachea midline, no LAD, no thyromegaly, no JVD Heart: +S1/S2, regular, 2 out of 6 systolic ejection murmur at left sternal border Lungs: equal air entry bilaterally, no rales/rhonchi/wheezes Abd: +BS, soft, ND, tenderness with palpation of the right lower quadrant with guarding, + rebound tenderness, no masses/organomegaly/ascites, abdominal bruit present, aortic pulse well-defined Ext: warm, 2+ pulses in UE/LE bilaterally, no clubbing/cyanosis or edema Neuro: nonfocal, patient AA&O x 4, speech intact, no facial droop, moving all extremities on command with equal strength 5/5 Principal Diagnosis Acute Appendicitis Discharge Exam General: Resting comfortably HEENT: NC/AT; PERRLA with EOMI; [place] conjunctiva, MMM. No erythema of posterior pharynx Neck: Supple and nontender Cardiac: RRR Lungs: CTA bilaterally Abdomen: Bowel normoactive X 4; Nontender to palpation Extremities: Warm. No edema present Neuro: No focal weakness Skin: No rash Discharge Data Allergies Allergy/AdvReac Type Severity Reaction Status Date / Time prednisone Allergy Intermediate Swelling Verified 06/25/19 12:50 cerivastatin Allergy Mild muscle pain Verified 06/25/19 12:50 niacin Allergy Mild RASH Verified 06/25/19 12:50 piroxicam Allergy Mild Rash Verified 06/25/19 12:50 albuterol [From DuoNeb] AdvReac Intermediate RAPID Verified 06/25/19 12:50 HEARTBEAT ipratropium [From DuoNeb] AdvReac Intermediate RAPID Verified 06/25/19 12:50 HEARTBEAT methylprednisolone AdvReac Intermediate RAPID Verified 06/25/19 12:50 HEARTBEAT simvastatin AdvReac Mild rash Verified 06/25/19 12:50 Consultations 06/25/19 04:49 Consult General Surgery Stat ED Decision to Admit Stat 06/25/19 06:33 Consult General Surgery Routine 06/25/19 10:10 Consult Gastroenterology Routine Procedures Performed Operation Date: 06/25/19 10:10 Actual Procedures p Laparoscopic Appendectomy(Not Applicable) - Sundeep Wilde MD Ordered Studies 06/25/19 02:44 CT abd pelvis IV con only Urgent 06/25/19 06:33 US duplex aorta/iliacs Routine Hospital Course (1) Acute appendicitis: Patient presenting with acute appendicitis. Was afebrile, hemodynamically stable. Morphine 1 mg IV every 2 hours as needed for pain. Zofran 4 mg IV every 6 hours as needed for nausea. Received LR. Zosyn IV as inpt. but no further abx needed after dc Consulted gen surg, s/p appendectomy on 06/25/19. Doing very well, advanced diet and tolerating, stable for dc to home as per Surgery (2) Peptic ulcer disease: Patient with history of peptic ulcer disease noted on prior EGD. Gastritis and duodenitis present on EGD biopsies. Protonix daily. Advised f/u with GI (3) Atrial fibrillation: Patient with atrial fibrillation. Rate controlled, anticoagulated on Eliquis. Last dose was on 06/24 in the evening. Resumed Eliquis post op. Continued Metoprolol. (4) HTN (hypertension), benign: Continued Metoprolol. (5) Abdominal bruit: Patient with comment of renal artery stenosis on prior imaging which is most likely cause of bruit. He also has a very pronounced aortic pulse. Scheduled to follow up with Dr. Garrison as outpatient. (6) Hyperlipidemia: Continued statin. (7) Benign prostatic hyperplasia: Continued Proscar and Terazosin. (8) Carotid artery disease: Status post left carotid endarterectomy Continued aspirin and lipitor. 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 Will schedule follow up with Dr. Lorenzo. Will also see Dr. Garrison as outpatient. Stable for discharge to home on 06/26/19. Total Time Total Time Spent Total Time Spent (In Minutes): >30 minutes Total Time Includes: Examination of the Patient, Discharge Planning, Medication Reconciliation, Communication With Other Providers and Other Discharge Plan Discharge Items Patient Disposition: Home - Self-Care Reason For Visit: ACUTE APPENDICITIS Discharge Diagnosis: Acute Appendicitis Condition: Good Discharge Goals: Decrease discomfort, Improve disease control, Improve function, Increase independence, Improve nutritional status and Prevent disease Activity: As commented below Exercise/Sports: Wait until after follow-up appointment Non-emergency contact: Primary Care Provider, Surgeon and Olive Pitter Call non-emergency contact if: you have any medication questions, your symptoms worsen, your pain is not controlled, your pain is worsening, your pain is unusual for you, your pain is concerning for you, you have a fever, your wound has increased redness, your wound has increased drainage and your wound pain has increased Follow-up/Referrals: Roman Lorenzo MD [Physician] - (Please, follow up at the [facility] Vascular Surgery Office with Dr. Roman Lorenzo. *The office is located at [address] [place] [address] in [place]. This is next to [place] and [facility]. If you have any questions or don't hear from someone within 1 week, call the office at [phone].) Sundeep Wilde MD [Physician] - 07/08/19 1:30 pm (Please, follow up at the [facility] with Dr. Wilde on SaturdayJuly 08 at 1:30 pm. *The address is located at [address] [place] [address] in [place]. If you need to change this appointment, call the office at [phone].) Ami Woodson, [Primary Care Provider] - 07/02/19 10:00 am (Please, follow up with Dr. Woodson on July 02 at 10:00 am. *If you need to change this appointment, call the office at [phone].) Diet: Heart Healthy Addtl Provider Instructions: Surgical discharge instructions: - No heavy lifting over 20 pounds for 3-4 weeks - No strenuous activity until cleared by surgeon - No submerging incisions underwater for 2 weeks (no bathing, swimming, or hot tubs) however you may shower. Take outer dressings off and shower. Keep steri strips on incisions for 7 days from your surgery and then remove. They may fall off on their own that is okay. - Walking and light activity is encouraged daily to prevent blood clots from forming in your legs - No dietary restrictions however increase diet as tolerated in next few days to a week. Do not over eat. Smaller frequent meals advised. - You may take extra strength Tylenol as needed for mild pain. -650 mg of Tylenol every 4 hours as needed. - Follow-up in surgical office in 1-2 weeks, please call office at [phone] to make an appointment. Prescriptions: New acetaminophen [Mapap (acetaminophen)] 325 mg Tablet 650 mg PO Q4H PRN (Reason: pain (scale score 1-3)) 1 Days Qty: 1 RF: 0 pantoprazole [Protonix] 40 mg tablet,delayed release (DR/EC) 40 mg PO DAILY Qty: 30 RF: 2 Continued multivitamin Tablet 1 tab PO QAM RF: 0 terazosin 5 mg Capsule 5 mg PO HS RF: 0 atorvastatin [Lipitor] 20 mg Tablet 20 mg PO HS RF: 0 folic acid 400 mcg Tablet 1 tab PO QAM RF: 0 flaxseed oil 1,000 mg Capsule 1,000 mg PO BID RF: 0 aspirin 81 mg Tablet,Chewable 81 mg PO QAM RF: 0 finasteride [Proscar] 5 mg Tablet 5 mg PO QAM RF: 0 Calcium 600 + D(3) 600 mg calcium- 200 unit capsule 1 cap PO BID RF: 0 metoprolol succinate 50 mg Tablet Extended Release 24 Hr 25 mg PO HS Qty: 30 RF: 0 Eliquis 5 mg Tablet 5 mg PO BID Qty: 60 RF: 0 Stand-Alone Forms: Call Back Authorization, [facility] Discharge Orders: Discharge Order (Routine); Ordered 06/26/19 Ordered By: Cris Smith Admission Data Admit Date/Time: 06/25/19 06:00 Attending Provider: Cris Smith Admit Provider: Norma Dillard Primary Care Provider: Ami Woodson Other Providers: Sundeep Wilde ; Norma Dillard ; Abdirashid Torres Service: Telemetry Medical Other Interventions: Discharge Summary Assessment (RN) Last Done: 06/26/19 16:38 Pending Studies at Discharge: Yes (appendix pathology, will be reviewed at follow-up visit) Studies:: Blood cultures pending. DC Date/Time DO NOT enter until pt leaves facility: 06/26/19 17:20 Supervising Physician Co-Signing Physician Notes PA Supervision Note: I personally saw and examined the patient. I verified all aleman points and agree with LEE Collins with the following exceptions and/or additions: Doing very well, no pain in abdomen, eating. No CP or SOB Vitals reviewed irreg irreg, normal rate, no mgr CTAB no wcr Abd dressings in place, soft NT ND Ext no edema Plan as above, stable for dc to home
== END 2019-06-26 17:20 | disposition home or self-care (01) | DRG 343 ==
LOC: ED 02:25 → SUATTDRO 06:00 → 2W 06:00

== ENCOUNTER 2023-11-02 10:00 | Inpatient (IN) ==
[2023-11-02] MEDS ORDERED: SODIUM CHLORIDE 0.9% 1,000 ML IV ONE (10:08)
[2023-11-02] MEDS ORDERED: METOPROLOL TARTRATE 1 MG/ML VIAL IV STA ×2 (10:08→12:22)
--- NOTE | 2023-11-02 10:11 | Emergency Department Note ---
Impression & Plan Atrial fibrillation with rapid ventricular response, Paroxysmal A-fib, Generalized weakness ED Provider Note Name: KEVIN GANDARA Age: 78 Sex: Male Arrives Via: Ambulance Informant: Patient, EMS ED Provider: Cedrick Good MD Chief Complaint: Weakness Impression: As per impression above Medical Decision Makin-year-old male arrives for evaluation of generalized weakness. Patient has a history of paroxysmal A-fib but has been in fib for some time. Is still on Eliquis and has been taking it regularly. Patient states he noticed going into A-fib last evening and is feeling quite weak and fatigued since then. He has been unable to really ambulate around the house due to so fatigue. Mild hypotension noted thus given 1 L normal saline along with 5 mg IV Lopressor to slow down his heart rate. Tolerated this well though did require a second dose of Lopressor. Laboratory workup is unremarkable. I did discuss the case with Dr. Vazquez who came and evaluated patient. After further discussion with patient myself I think it is reasonable to admit patient for further monitoring. Hopefully will be able to spontaneous cardioverted overnight but if not cardiology will be available to help with further management. Patient did not have his morning Eliquis thus I did give him a dose of this. Patient is without significant shortness of breath or chest pain. There is no indication for heart alert and given he is already on Eliquis I do not feel that PE is very likely. No indication for CT angiography or PE of the chest at this time. Furthermore patient is not septic at this time. Of note patient had been on Augmentin for the last few days for an upper respiratory type infection. Viral respiratory panels are negative. He is not have any evidence of pneumonia and he is not septic. Will hold off on antibiotics and defer if to continue them to hospitals. Triage/Nursing Notes reviewed by Me Differential:Premature contractions, electrolyte abnormality, cardiac dysrhythmia, thyroid dysfunction, pulmonary embolism, infection, gastrointestinal, as well as other pathologies. Vital Signs: reviewed and remarkable for tachy Interventions: Normal Saline bolus 1 L IV, Lopressor 5 mg IV, Eliquis 5 mg p.o. Labs:ED labs Reviewed by me and remarkable for no significant abnormalities Imagin view chest x-ray as per my informal interpretation there is no infiltrate or effusion. Questionable congestion but no overt pulmonary edema appreciated EKG:As per my interpretation. Indication palpitation. Atrial fibrillation at 100 bpm no ischemia. QTc 454. When compared to EKG of November 28, 2022 he is no longer in normal sinus rhythm. Cardiac/Tele Monitoring: Cardiac Monitoring: An Order was placed for continuous cardiac monitoring. The monitor shows a rate of 110 with a afib rvr rhythm. Consults:Dr Taylor Strickland Cardiology. Will hold off on electocardioversion and suggest hospitalization overnight. Dr Josemanuel Strickland hospitalist will bring in for further management Plan: Disposition:Hospitalization. Condition: Good History of Present Illness: 78-year-old male arrives for evaluation of weakness. Patient states onset of A-fib last evening. Patient has a history of paroxysmal A-fib though has not been in A-fib in quite some time. He does still take Eliquis for anticoagulation. States he had been ill for the last week or so. A few days ago started on Augmentin and stated he started feeling much better. Since last evening though he feels weak tired fatigue. Notes severe exhaustion with any exertion. Periodically fast heart rate. Blood pressure he states was 40 this morning when he checked it at home and thus called 911. EMS report blood pressure in the 120s with heart rate in the 1 teens. No medications prior to arrival. Patient denies any missed doses of his Eliquis recently. Denies any current chest pain, shortness of breath, nausea, vomiting or other concerning signs or symptoms. Past Medical History:See Below Home Medications:See Below Allergies:See Below Vitals:Blood Pressure: 96/76, Pulse 91, RR 18, T 36.5C, O2 96% on RA Physical Exam: GENERAL: Patient is tired appearing and in moderate distress. RESPIRATORY: No dyspnea. Clear to auscultation and equal bilaterally. CARDIOVASCULAR: Irregular, tach.No murmur appreciated. GASTROINTESTINAL: Abdomen soft, non-tender, no peritonitis. EXTREMITIES: Normal motion all extremities, no cyanosis, no edema. NEUROLOGIC: Alert and oriented. No focal neurologic deficits appreciated SKIN: No rash, no jaundice, no diaphoresis. PSYCH: Appropriate GCS: 15 ED Course: Times/Reassessments: Patient is feeling much better after IV fluids. Blood pressures remained in the low 100s but no further significant symptoms. Heart rate has come down from the 120s down to the 90s. Continues to be irregular. Agreeable to hospitalization. Critical Care: I have personally spent 40 minutes of critical care time in the direct management of this patient. Afib RVR requiring multiple rounds IV lopressor. This was a life/limb threatening event. This 40 minutes is in excess of all separately billable procedures. Cedrick Good MD Past Med/Surg History Medical History Pulmonary hypertension PASP 40 mmHg Mild pulmonary hypertension Tricuspid regurgitation moderate Hypertension History of COVID-19 11/10/22>RESOLVED Lumbar spondylosis Chronic left hip pain PVD (peripheral vascular disease) s/p bilat common iliac stenting 08/2019 Atrial fibrillation FOLLOWS WITH KOPINSKI Carotid artery disease s/p left CEA, < 50% stenosis ICAs bilat on most recent carotid doppler GERD (gastroesophageal reflux disease) Hearing deficit On anticoagulant therapy on eliquis daily Hyperlipidemia Benign prostatic hyperplasia (01/05/12) Surgical History History of left-sided carotid endarterectomy History of tonsillectomy History of appendectomy 06/25/1919 Grade 1 view, [place] 2, ETT 7.5. History of tooth extraction upper teeth History of open reduction and internal fixation (ORIF) procedure LEFT HIP History of right inguinal hernia repair History of left inguinal hernia repair History of esophagogastroduodenoscopy (EGD) History of colonoscopy Family History Other No family history of adverse response to anesthesia Social History Smoking Status: Former smoker Tobacco Type: Cigarettes Cigarettes Per Day: 20; Second Hand Exposure: No; Do You Dip or Chew Tobacco: No; Tobacco Cessation Education Requested by Patient: No Hx Alcohol Use: Yes Alcohol type: beer Hx Substance Use: No Preferred Language: Togolese Communication Ability: Effective Family Dinner Service Specialist Required: No Beliefs That Will Affect Care: None marital status: Current Living Situation: Spouse Other Information That Helps Us Care for You: No Feels Safe at Home: Yes Safety Concerns: Feels Safe At This Time Assistive Devices: Denture - Upper Allergies Allergies Allergy/AdvReac Type Severity Reaction Status Date / Time prednisone Allergy Intermediate Swelling Verified 12/24/22 07:03 cerivastatin Allergy Mild muscle pain Verified 12/24/22 07:03 niacin Allergy Mild RASH Verified 12/24/22 07:03 piroxicam Allergy Mild Rash Verified 12/24/22 07:03 simvastatin Allergy Mild rash Verified 12/24/22 07:03 albuterol [From DuoNeb] AdvReac Intermediate RAPID Verified 12/24/22 07:03 HEARTBEAT ipratropium [From DuoNeb] AdvReac Intermediate RAPID Verified 12/24/22 07:03 HEARTBEAT methylprednisolone AdvReac Intermediate RAPID Verified 12/24/22 07:03 HEARTBEAT pantoprazole AdvReac Unknown can't Verified 12/24/22 07:03 remember rabeprazole AdvReac Unknown Unknown Verified 12/24/22 07:03 Home Meds Home Medications Medication Instructions Recorded Confirmed aspirin 81 mg chewable tablet 81 mg PO [facility] 11/14/18 11/02/23 multivitamin 1 tab PO [facility] 11/14/18 11/02/23 terazosin 5 mg capsule 5 mg PO 11/14/18 11/02/23 calcium carbonate 600 mg-vitamin 1 cap PO QA 05/19/19 11/02/23 D3 5 mcg (200 unit) capsule (Calcium 600 + D(3)) flaxseed oil 1,000 mg capsule 1,200 mg PO DAILY 04/11/21 11/02/23 atorvastatin 40 mg tablet 40 mg PO QPM 10/16/21 11/02/23 metoprolol succinate 50 mg 25 mg PO 11/28/22 11/02/23 tablet,extended release 24 hr metoprolol succinate 50 mg 50 mg PO [facility] 11/28/22 11/02/23 tablet,extended release 24 hr cholecalciferol (vitamin D3) 25 25 mcg PO DAILY 12/18/22 11/02/23 mcg (1,000 unit) capsule (Vitamin D3) finasteride 5 mg tablet (Proscar) 5 mg PO [facility] 12/18/22 11/02/23 folic acid 1 mg tablet 1 mg PO DAILY 12/18/22 11/02/23 amoxicillin 875 mg-potassium 1 tab PO BID 11/02/23 11/02/23 clavulanate 125 mg tablet Previous Rx's Medication Instructions Recorded apixaban 5 mg tablet (Eliquis) 5 mg PO BID #180 tabs 10/30/21 Results & Data (ED) Vital Signs Vital Signs - 24 hr 11/02/23 10:08 11/02/23 10:20 11/02/23 10:40 Temperature 36.6 C Temperature Source Temporal Artery Scan Pulse Rate 96 H 88 Pulse Rate [Apical] Pulse Rhythm [Apical] Pulse Strength [Apical] Respiratory Rate 18 Respiratory Effort / Characteristics Non-Labored Spontaneous Respiratory Depth Normal Respiratory Pattern Regular Blood Pressure 121/75 Blood Pressure [Right Arm] Blood Pressure Mean 90 Blood Pressure Mean [Right Arm] Blood Pressure Position Sitting Blood Pressure Position [Right Arm] Pulse Oximetry 93 98 Oxygen Delivery Method Room Air Room Air Sepsis Recent Fever Within 48 Hours Yes Sepsis New/Unexplained Change in Mental Status N/A Sepsis Action Taken by Nursing No Action Required 11/02/23 10:40 11/02/23 10:46 11/02/23 12:00 Temperature Temperature Source Pulse Rate 98 H Pulse Rate [Apical] 107 H 84 Pulse Rhythm [Apical] Regular Pulse Strength [Apical] Normal Respiratory Rate 18 17 Respiratory Effort / Characteristics Non-Labored Spontaneous Non-Labored Spontaneous Respiratory Depth Normal Normal Respiratory Pattern Blood Pressure 100/77 Blood Pressure [Right Arm] 100/77 96/66 L Blood Pressure Mean Blood Pressure Mean [Right Arm] 84 76 Blood Pressure Position Blood Pressure Position [Right Arm] Sitting Sitting Pulse Oximetry 95 94 Oxygen Delivery Method Room Air Room Air Sepsis Recent Fever Within 48 Hours Sepsis New/Unexplained Change in Mental Status Sepsis Action Taken by Nursing 11/02/23 12:52 11/02/23 13:46 11/02/23 14:19 Temperature 36.5 C Temperature Source Oral Pulse Rate 93 H Pulse Rate [Apical] 104 H 91 H Pulse Rhythm [Apical] Regular Irregular Pulse Strength [Apical] Normal Normal Respiratory Rate 18 18 Respiratory Effort / Characteristics Non-Labored Spontaneous Non-Labored Spontaneous Respiratory Depth Normal Normal Respiratory Pattern Regular Regular Blood Pressure 103/69 Blood Pressure [Right Arm] 96/76 L Blood Pressure Mean Blood Pressure Mean [Right Arm] 82 Blood Pressure Position Blood Pressure Position [Right Arm] Pulse Oximetry 97 96 Oxygen Delivery Method Room Air Room Air Sepsis Recent Fever Within 48 Hours Sepsis New/Unexplained Change in Mental Status Sepsis Action Taken by Nursing Laboratory Data 11/02/23 10:08 11/02/23 10:08 Lab Results 11/02/23 11/02/23 Range/Units 10:08 11:02 WBC 6.41 (4.8-10.8) K/ul RBC 4.23 L (4.70-6.10) M/uL Hgb 13.5 L (14.0-18.0) g/dl Hct 40.8 L (42.0-52.0) % MCV 96.5 (80.0-100.0) fL MCH 31.9 (25.0-34.0) pg MCHC 33.1 (32.0-36.0) g/dL RDW Std Deviation 42.7 (36.4-46.3) fL RDW Coeff of Billy 12.1 (11.5-14.5) % Plt Count 271 (130-400) K/uL MPV 9.1 L (9.4-12.4) fL Immature Gran % (Auto) 0.5 % Neut % (Auto) 71.5 % Lymph % (Auto) 17.9 % Mccone % (Auto) 8.9 % Eos % (Auto) 0.9 % Baso % (Auto) 0.3 % Neut # (Auto) 4.58 (1.40-6.50) K/uL Lymph # (Auto) 1.15 L (1.20-3.40) K/uL Mccone # (Auto) 0.57 (0.11-0.59) K/uL Eos # (Auto) 0.06 (0.00-0.50) K/uL Baso # (Auto) 0.02 (0.00-0.20) K/uL Immature Gran # (Auto) 0.03 (0.01-0.20) K/uL PT 10.9 (9.0-12.0) Seconds INR 1.0 (0.9-1.1) Sodium 137 (136-145) mmol/L Potassium 4.4 (3.5-5.1) mmol/L Chloride 104 (98-107) mmol/L Carbon Dioxide 27 (21-32) mmol/L Anion Gap 6 (3-11) BUN 13 (6-23) mg/dl Creatinine 1.02 (0.6-1.4) mg/dl Est Cr Clr Drug Dosing Not Reportable Est GFR ( Amer) 80.6 ml/min Est GFR (Non-Af Amer) 69.6 ml/min BUN/Creatinine Ratio 12.7 (10-20) Glucose 94 (70-99(Fasting)) mg/dl Lactate 1.6 (0.4-2.0) mmol/L Calcium 9.0 (8.6-10.3) mg/dl Magnesium 1.9 (1.7-2.4) mg/dl Total Bilirubin 0.4 (0.2-1.0) mg/dl Direct Bilirubin 0.1 (0-0.2) mg/dl AST 17 (13-39) U/L ALT 19 (7-52) U/L Alkaline Phosphatase 63 (34-104) U/L Troponin I High Sens 9.5 (0-20) pg/ml Total Protein 6.8 (6.0-8.3) gm/dl Albumin 3.8 (3.4-5.0) gm/dl Lipase 20 (11-82) U/L TSH 2.832 (0.300-4.500) uIu/ml Urine Color Yellow Urine Appearance Clear (Clear) Urine pH 7.5 (4.5-7.5) Ur Specific [place] 1.005 (1.000-1.030) Urine Protein Negative (Negative) Urine Glucose (UA) Negative (Negative) Urine Ketones Negative (Negative) Urine Blood Negative (Negative) Urine Nitrite Negative (Negative) Urine Bilirubin Negative (Negative) Urine Urobilinogen Negative (Negative) Ur Leukocyte Esterase Negative (Negative) Adenovirus (PCR) Not Detected (NotDetected) B. pertussis DNA (PCR) Not Detected (NotDetected) B.parapertussis DNA PCR Not Detected (NotDetected) C. pneumoniae DNA (PCR) Not Detected (NotDetected) Coronavirus OC43 (PCR) Not Detected (NotDetected) Coronavirus HKU1 (PCR) Not Detected (NotDetected) Coronavirus 229E (PCR) Not Detected (NotDetected) SARS-CoV-2 (PCR) Not Detected (NotDetected) Coronavirus NL63 (PCR) Not Detected (NotDetected) Human Metapneumovir PCR Not Detected (NotDetected) Influenza Type A (PCR) Not Detected (NotDetected) Influenza Type B (PCR) Not Detected (NotDetected) M. pneumoniae (PCR) Not Detected (NotDetected) Parainfluenza 1 (PCR) Not Detected (NotDetected) Parainfluenza 2 (PCR) Not Detected (NotDetected) Parainfluenza 3 (PCR) Not Detected (NotDetected) Parainfluenza 4 (PCR) Not Detected (NotDetected) RSV (PCR) Not Detected (NotDetected) Entero/Rhino (PCR) Not Detected (NotDetected) Administered Medications Apixaban (Apixaban 5 Mg Tablet) 5 mg PO BID AGUSTIN Stop: 12/02/23 11:29 Last Admin: 11/02/23 11:51 Dose: 5 mg Documented By: JENNY Discontinued Medications Sodium Chloride (Nss) 1,000 mls @ 999 mls/hr IV .Q1H1M ONE Stop: 11/02/23 11:08 Last Infusion: 11/02/23 12:15 Dose: Infused Documented By: Admin: 11/02/23 10:29 Dose: 999 mls/hr Documented By: JENNY Metoprolol Tartrate (Metoprolol Tartrate 1 Mg/Ml Vial) 5 mg IV NOW STA Stop: 11/02/23 10:09 Last Admin: 11/02/23 10:46 Dose: 5 mg Documented By: JENNY Metoprolol Tartrate (Metoprolol Tartrate 1 Mg/Ml Vial) 5 mg IV NOW STA Stop: 11/02/23 12:23 Last Admin: 11/02/23 12:52 Dose: 5 mg Documented By: JENNY Imaging Data Radiologist's Impression: Chest X-Ray 11/02/23 10:09 XR chest 1V portable CLINICAL HISTORY: Atrial fibrillation. Shortness of breath. COMPARISON STUDY: Chest CT March 10, 2021. Chest radiograph November 10, 2022. FINDINGS: Lung volumes are normal. Lungs are clear. There is no pneumothorax or pleural effusion. Mild cardiomegaly is unchanged. Mediastinal contours are normal. There is pulmonary vascular congestion without evidence for pulmonary edema. IMPRESSION: Cardiomegaly with pulmonary vascular congestion. ACT 112: Negative or not required by law. Electronically signed by: Jarek Kennedy M.D. 11/02/2023 10:44 AM Discharge Plan Visit Data Chief Complaint: Cardiac Assessment Stated Complaint: TACHYCARIA, HYPOTENSION, NEAR SYNCOPE, ED Provider: Cedrick Good Discharge Problem: Atrial fibrillation with rapid ventricular response, Paroxysmal A-fib, Generalized weakness Forms Stand Alone Forms: My [facility] Prescriptions Prescriptions: No Action Eliquis 5 mg tablet 5 mg PO BID Qty: 180 3RF atorvastatin 40 mg tablet 40 mg PO QPM multivitamin Tablet 1 tab PO QAM terazosin 5 mg Capsule 5 mg PO HS aspirin 81 mg Tablet,Chewable 81 mg PO QAM Calcium 600 + D(3) 600 mg calcium- 200 unit capsule 1 cap PO QAM Patient Comments: 1 tab PO DAILY; flaxseed oil 1,000 mg capsule 1,200 mg PO DAILY metoprolol succinate 50 mg tablet extended release 24 hr 50 mg PO QAM metoprolol succinate 50 mg tablet extended release 24 hr 25 mg PO HS amoxicillin-pot clavulanate 875-125 mg tablet 1 tab PO BID Rx Instructions: started on 10/30/23 folic acid 1 mg Tablet 1 mg PO DAILY finasteride [Proscar] 5 mg Tablet 5 mg PO QAM cholecalciferol (vitamin D3) [Vitamin D3] 25 mcg (1,000 unit) Capsule 25 mcg PO DAILY Referrals Referrals: Ami Woodson DO [Primary Care Provider] -
[2023-11-02 10:34] LABS: Basophils # (auto) 0.02 K/uL (0.00-0.20); Basophils % (auto) 0.3 %; Eosinophils # (auto) 0.06 K/uL (0.00-0.50); Eosinophils % (auto) 0.9 %; Hematocrit (blood only) 40.8 % (42.0-52.0); Hemoglobin 13.5 g/dl (14.0-18.0); Immature Granulocytes # (auto) 0.03 K/uL (0.01-0.20); Immature Granulocytes % (auto) 0.5 %; Lymphocytes # (auto) 1.15 K/uL (1.20-3.40); Lymphocytes % (auto) 17.9 %; Mean Corpuscular Hemoglobin 31.9 pg (25.0-34.0); Mean Corpuscular Hgb Conc 33.1 g/dL (32.0-36.0); Mean Corpuscular Volume 96.5 fL (80.0-100.0); Mean Platelet Volume 9.1 fL (9.4-12.4); Monocytes # (auto) 0.57 K/uL (0.11-0.59); Monocytes % (auto) 8.9 %; Neutrophils # (auto) 4.58 K/uL (1.40-6.50); Neutrophils % (auto) 71.5 %; Platelet Count 271 K/uL (130-400); RDW Coefficient of Variation 12.1 % (11.5-14.5); RDW Standard Deviation 42.7 fL (36.4-46.3); Red Blood Count 4.23 M/uL (4.70-6.10); White Blood Count 6.41 K/ul (4.8-10.8)
[2023-11-02 10:46] LABS: Alanine Aminotransferase 19 U/L (7-52); Albumin Level 3.8 gm/dl (3.4-5.0); Alkaline Phosphatase 63 U/L (34-104); Anion Gap 6 (3-11); Aspartate Aminotransferase 17 U/L (13-39); BUN Creatinine Ratio 12.7 (10-20); Bilirubin Direct 0.1 mg/dl (0-0.2); Bilirubin,Total 0.4 mg/dl (0.2-1.0); Blood Urea Nitrogen 13 mg/dl (6-23); Carbon Dioxide 27 mmol/L (21-32); Chloride 104 mmol/L (98-107); Est GFR (African American) 80.6 ml/min; Est GFR (Non-African American) 69.6 ml/min; Glucose 94 mg/dl (70-99(Fasting)); Lipase 20 U/L (11-82); Magnesium 1.9 mg/dl (1.7-2.4); Potassium 4.4 mmol/L (3.5-5.1); Sodium 137 mmol/L (136-145); Total Protein 6.8 gm/dl (6.0-8.3)
--- NOTE | 2023-11-02 10:47 | XRay Report ---
XR chest 1V portable CLINICAL HISTORY: Atrial fibrillation. Shortness of breath. COMPARISON STUDY: Chest CT March 10, 2021. Chest radiograph November 10, 2022. FINDINGS: Lung volumes are normal. Lungs are clear. There is no pneumothorax or pleural effusion. Mil d cardiomegaly is unchanged. Mediastinal contours are normal. There is pulmonary vascular congestion without evidence for pulmonary edema. IMPRESSION: Cardiomegaly with pulmonary vascular congestion. ACT 112: Negative or not required by law. Electronically signed by: Jarek Kennedy M.D. 11/02/2023 10:44 AM
[2023-11-02 10:52] LABS: Troponin I High Sensitivity 9.5 pg/ml (0-20)
[2023-11-02 11:01] LABS: Thyroid Stimulating Hormone 2.832 uIu/ml (0.300-4.500)
[2023-11-02 11:13] LABS: Prothrombin Time 10.9 Seconds (9.0-12.0)
[2023-11-02 11:23] LABS: Appearance Urine Clear (Clear); Bilirubin Urine Negative (Negative); Blood Urine Negative (Negative); Color Urine Yellow; Glucose Urine UA Negative (Negative); Ketones Urine Negative (Negative); Leukocyte Esterase Urine Negative (Negative); Nitrite Urine Negative (Negative); Protein Urine Negative (Negative); Specific Gravity Urine 1.005 (1.000-1.030); Urobilinogen Urine Negative (Negative); pH Urine 7.5 (4.5-7.5)
[2023-11-02 11:37] LABS: Adenovirus PCR Not Detected (NotDetected); Bordetella parapertussis PCR Not Detected (NotDetected); Bordetella pertussis PCR Not Detected (NotDetected); Chlamydia pneumoniae PCR Not Detected (NotDetected); Coronavirus 229E PCR Not Detected (NotDetected); Coronavirus CoV-2 (COVID19)PCR Not Detected (NotDetected); Coronavirus HKU1 PCR Not Detected (NotDetected); Coronavirus NL63 PCR Not Detected (NotDetected); Coronavirus OC43PCR Not Detected (NotDetected); Human Metapneumovirus PCR Not Detected (NotDetected); Influenza A PCR Not Detected (NotDetected); Influenza B PCR Not Detected (NotDetected); Mycoplasma pneumoniae PCR Not Detected (NotDetected); Parainfluenza Virus 1 PCR Not Detected (NotDetected); Parainfluenza Virus 2 PCR Not Detected (NotDetected); Parainfluenza Virus 3 PCR Not Detected (NotDetected); Parainfluenza Virus 4 PCR Not Detected (NotDetected); Respiratory Syncytial VirusPCR Not Detected (NotDetected); Rhinovirus/Enterovirus PCR Not Detected (NotDetected)
[2023-11-02] MEDS: APIXABAN 5 MG TABLET PO SCH ×2 (11:51→20:14)
--- NOTE | 2023-11-02 11:58 | Cardiology Consultation ---
Date of Consultation November 02, 2023 Assessment & Plan (1) Atrial fibrillation: Patient has a known history of paroxysmal atrial fibrillation presents with prolonged episode onset of symptoms yesterday, 11/01/2023 at around 12 noon. Patient notes symptoms of recent upper respiratory tract illness. His viral panel however is negative. I discussed the option of proceeding with direct-current cardioversion in the emergency department. Patient however prefers to continue medication and ongoing observation. He lives in [place] with his spouse, and I have concerns that he does not have any close family or friends that would be able to drive him home in the snow with acute onset of a winter weather event. Given this and his clinical findings , recommend admission to telemetry for observation. Ongoing treatment with Eliquis. At the time of my assessment his blood pressure had improved to 152/92, and his ventricular rate was in the 90s to 110 range. Will plan on a second dose of metoprolol 5 mg IV x 1. I would recommend continuing his outpatient medication including Eliquis, aspirin, atorvastatin, and metoprolol succinate. An echocardiogram has been ordered. Case discussed with Dr Good for the purpose of coordinating care. History of Present Illness History of Present Illness Mr Gauthier is a 78-year-old male seen in cardiology consultation per the request of Dr. Good for the evaluation of symptomatic atrial fibrillation with rapid ventricular response. Patient presents with symptoms of generalized weakness. He believes he went into atrial fibrillation last evening. Initial EKG revealed atrial fibrillation at 100 bpm. He is on chronic treatment with Eliquis with most recent dose last evening at home and he has not missed any recent doses. He has been feeling generalized illness for about the last week or so. He has he started feeling symptoms of cough and congestion on around 10/23/2023. He ultimately saw his primary care provider in [place] on 10/30/2022 and started a course of Augmentin. He notes that he still feels like he has a bit of a virus, but his symptoms have improved to some degree from that regard. He was concerned that his blood pressure was low at home. When EMS arrived, his systolic blood pressures in the 120s, and atrial fibrillation with ventricular rates in the 110's noted. After receiving 5 mg IV metoprolol his rates are improved. He was seen in the outpatient clinic by electrophysiology in July, with noted sinus bradycardia time on exam. He has a history of paroxysmal atrial fibrillation, peripheral vascular disease with bilateral common iliac stenting August [address] Lorenzo, carotid vascular disease status post left CEA, symptomatic PACs and PVCs. He notes that at baseline he may have a brief momentary sensation of feeling an irregular heartbeat that typically resolves on its own. His most recent prolonged atrial fibrillation episode dates back to around July, and had resolved spontaneously. Past Medical History: 1. Paroxysmal atrial fibrillation 2. Peripheral vascular disease 3. Carotid vascular disease 4. Dyslipidemia 5. PVCs 6. PACs Allergies Allergy/AdvReac Type Severity Reaction Status Date / Time prednisone Allergy Intermediate Swelling Verified 12/24/22 07:03 cerivastatin Allergy Mild muscle pain Verified 12/24/22 07:03 niacin Allergy Mild RASH Verified 12/24/22 07:03 piroxicam Allergy Mild Rash Verified 12/24/22 07:03 simvastatin Allergy Mild rash Verified 12/24/22 07:03 albuterol [From DuoNeb] AdvReac Intermediate RAPID Verified 12/24/22 07:03 HEARTBEAT ipratropium [From DuoNeb] AdvReac Intermediate RAPID Verified 12/24/22 07:03 HEARTBEAT methylprednisolone AdvReac Intermediate RAPID Verified 12/24/22 07:03 HEARTBEAT pantoprazole AdvReac Unknown can't Verified 12/24/22 07:03 remember rabeprazole AdvReac Unknown Unknown Verified 12/24/22 07:03 Home Medications Medication Instructions Recorded Confirmed Type aspirin 81 mg chewable tablet 81 mg PO QAM 11/14/18 12/24/22 History multivitamin 1 tab PO QAM 11/14/18 12/24/22 History terazosin 5 mg capsule 5 mg PO HS 11/14/18 12/24/22 History calcium carbonate 600 mg-vitamin 1 cap PO QAM 05/19/19 12/24/22 History D3 5 mcg (200 unit) capsule (Calcium 600 + D(3)) flaxseed oil 1,000 mg capsule 1,200 mg PO DAILY 04/11/21 12/24/22 History atorvastatin 40 mg tablet 40 mg PO QPM 10/16/21 12/24/22 History apixaban 5 mg tablet (Eliquis) 5 mg PO BID #180 tabs 01/03/22 02/27/23 Rx metoprolol succinate 50 mg 25 mg PO HS 11/28/22 12/24/22 History tablet,extended release 24 hr metoprolol succinate 50 mg 50 mg PO QAM 11/28/22 12/24/22 History tablet,extended release 24 hr cholecalciferol (vitamin D3) 25 25 mcg PO DAILY 12/18/22 12/24/22 History mcg (1,000 unit) capsule (Vitamin D3) finasteride 5 mg tablet (Proscar) 5 mg PO QAM 12/18/22 12/24/22 History folic acid 1 mg tablet 1 mg PO DAILY 12/18/22 12/24/22 History oxycodone-acetaminophen 5 mg-325 1 tab PO Q6H PRN pain #20 tabs 12/24/22 Rx mg tablet (Percocet) oxycodone-acetaminophen 5 mg-325 1 tab PO Q8H PRN pain #14 tabs 07/19/23 Rx mg tablet (Percocet) oxycodone-acetaminophen 5 mg-325 1 tab PO Q8H PRN pain #14 tabs 07/19/23 Rx mg tablet (Percocet) Patient History Medical History Pulmonary hypertension PASP 40 mmHg Mild pulmonary hypertension Tricuspid regurgitation moderate Hypertension History of COVID-19 11/10/22>RESOLVED Lumbar spondylosis Chronic left hip pain PVD (peripheral vascular disease) s/p bilat common iliac stenting 08/2019 Atrial fibrillation FOLLOWS WITH KOPINSKI Carotid artery disease s/p left CEA, < 50% stenosis ICAs bilat on most recent carotid doppler GERD (gastroesophageal reflux disease) Hearing deficit On anticoagulant therapy on eliquis daily Hyperlipidemia Benign prostatic hyperplasia (01/05/12) Surgical History History of left-sided carotid endarterectomy History of tonsillectomy History of appendectomy 06/25/1919 Grade 1 view, Villa 2, ETT 7.5. History of tooth extraction upper teeth History of open reduction and internal fixation (ORIF) procedure LEFT HIP History of right inguinal hernia repair History of left inguinal hernia repair History of esophagogastroduodenoscopy (EGD) History of colonoscopy Family History Other No family history of adverse response to anesthesia Social History Smoking Status: Never smoker Tobacco Type: Cigarettes Cigarettes Per Day: 20; Second Hand Exposure: No; Do You Dip or Chew Tobacco: No; Hx Alcohol Use: Yes Alcohol type: beer Hx Substance Use: No Preferred Language: Djiboutian Communication Ability: Effective Office Worker Required: No Beliefs That Will Affect Care: None marital status: Current Living Situation: Spouse Feels Safe at Home: Yes Assistive Devices: Denture - Upper and Glasses Review of Systems Review of Systems: All systems reviewed & are unremarkable except as noted in HPI & below Physical Exam Constitutional: WD/WN, vitals as above Eyes: PERRL, conjunctivae normal, anicteric sclerae Respiratory: normal respiratory effort, lungs clear to auscultation Cardiovascular: Rate/Rhythm: + irregularly irregular Heart Sounds: no murmur Extremities: no edema Gastrointestinal (Abdomen): normal bowel sounds, soft, nontender, no hepatosplenomegaly Skin: no rashes, warm and dry Neurologic: PERRL, EOMI, accommodation nl, no face palsy, no dysarthria Results & Data Vital Signs (Past 12 Hours) Vital Signs Temp Pulse Pulse Resp BP BP Pulse Ox 11/02/23 10:46 98 H 100/77 11/02/23 10:40 107 H 18 100/77 95 11/02/23 10:40 98 11/02/23 10:20 88 11/02/23 10:08 36.6 C 96 H 18 121/75 93 O2 Del Method 11/02/23 10:46 11/02/23 10:40 Room Air 11/02/23 10:40 Room Air 11/02/23 10:20 11/02/23 10:08 Room Air Laboratory Results Cardiac Enzymes 11/02/23 Range/Units 10:08 AST 17 (13-39) U/L Troponin I High Sens 9.5 (0-20) pg/ml Coagulation 11/02/23 Range/Units 10:08 PT 10.9 (9.0-12.0) Seconds CBC 11/02/23 Range/Units 10:08 WBC 6.41 (4.8-10.8) K/ul RBC 4.23 L (4.70-6.10) M/uL Hgb 13.5 L (14.0-18.0) g/dl Hct 40.8 L (42.0-52.0) % Plt Count 271 (130-400) K/uL Neut # (Auto) 4.58 (1.40-6.50) K/uL Lymph # (Auto) 1.15 L (1.20-3.40) K/uL Fleming # (Auto) 0.57 (0.11-0.59) K/uL Eos # (Auto) 0.06 (0.00-0.50) K/uL Baso # (Auto) 0.02 (0.00-0.20) K/uL Comprehensive Metabolic Panel 11/02/23 Range/Units 10:08 Sodium 137 (136-145) mmol/L Potassium 4.4 (3.5-5.1) mmol/L Chloride 104 (98-107) mmol/L Carbon Dioxide 27 (21-32) mmol/L BUN 13 (6-23) mg/dl Creatinine 1.02 (0.6-1.4) mg/dl Glucose 94 (70-99(Fasting)) mg/dl Calcium 9.0 (8.6-10.3) mg/dl Direct Bilirubin 0.1 (0-0.2) mg/dl AST 17 (13-39) U/L ALT 19 (7-52) U/L Alkaline Phosphatase 63 (34-104) U/L Total Protein 6.8 (6.0-8.3) gm/dl Albumin 3.8 (3.4-5.0) gm/dl Intake and Output 11/01/23 11/02/23 11/02/23 22:59 06:59 14:59 Other: Weight 89.4 kg Weight Measurement Method Built in [facility] Patient Weight 11/03/23 06:59 Weight 89.4 kg Viral respiratory panel was negative TSH within normal limits. Diagnostic Findings Outpateint Echocardiogram 08/22/22 The examination is adequate to evaluate the referral indication. The qualitative LV ejection fraction is 60-64% (normal). The LV wall thickness is mildly increased (concentric). The left ventricular wall motion is normal. The left atrium is moderately enlarged (42-48 ml/m^2). The left ventricular diastolic function is mildly abnormal (grade I). There is aortic valve sclerosis without stenosis. Mild mitral regurgitation is present. Moderate tricuspid regurgitation is present. The estimated pulmonary artery systolic pressure is 40mm Hg. Mild pulmonary hypertension is present. o 08/07/22 CONCLUSIONS: Preliminary Findings Patient had a min HR of 51 bpm, max HR of 133 bpm, and avg HR of 67 bpm. Predominant underlying rhythm was Sinus Rhythm. First Degree AV Block was present. 22 Supraventricular Tachycardia runs occurred, the run with the fastest interval lasting 8 beats with a max rate of 133 bpm, the longest lasting 20 beats with an avg rate of 106 bpm. Isolated SVEs were occasional (2.5%, 14239), SVE Couplets were rare (<1.0%, 277), and SVE Triplets were rare (<1.0%, 52). Isolated VEs were rare (<1.0%), VE Couplets were rare (<1.0%), and no VE Triplets were present. The patient's triggered events seem to be sensed PACs (1) Atrial fibrillation Atrial fibrillation type: persistent Qualified Code(s): I48.1 - Persistent atrial fibrillation
--- NOTE | 2023-11-02 12:49 | History & Physical Report ---
Date of Service November 02, 2023 Assessment & Plan (1) Atrial fibrillation: Plan: Patient is 78-year-old male with PMH paroxysmal atrial fibrillation anticoagulated on Eliquis, dyslipidemia, carotid stenosis, BPH presented to ER with c/o palpitations, dizziness started yesterday. History Echo 08/22/2022: EF: 60-64%, normal LV wall motion, grade 1 diastolic dysfunction, mild MR, moderate TR, mild pulmonary hypertension In ER patient afebrile, P: 96, R: 18, BP 121/75, 93% on room air. Heart rate up to low 100s and BP dropped to 96/66 during ER course. Patient was given 2 doses of Lopressor 5 mg IV with current P: 93 and BP 103/69. Also given 1L NSS No significant electrolyte abnormality, TSH WNL, troponin negative EKG: Atrial fibrillation, rate 100 per my interpretation CXR: Cardiomegaly with pulmonary vascular congestion per radiology read Monitor on telemetry Echo pending Continue Eliquis Continue home metoprolol succinate dosing Cardiology consult. Recommends continuing home metoprolol succinate, Eliquis NPO midnight in case of needing cardioversion CBC, BMP, magnesium labs in am (2) Dark stools: Plan: Reported dark-colored stool today H&H stable Hemoccult stool. If positive, plan on starting PPI and consider further workup Monitor H&H. Monitor for further symptoms (3) Carotid artery disease: (4) PVD (peripheral vascular disease): Plan: S/P left carotid endarterectomy. S/P bilateral iliac stenting 201808/14/2022 carotid Doppler: Right carotid duplex: Less than 50% stenosis internal carotid artery. Left carotid duplex: Less than 50% stenosis of internal carotid artery Continue atorvastatin, aspirin (5) Hyperlipidemia: Plan: Continue atorvastatin (6) Benign prostatic hyperplasia: Plan: Continue finasteride, terazosin DVT Prophylaxis On Eliquis Full Code as per discussion with pt Follows with Dr Ami Woodson in [place] for routine care Pt was seen and care coordinated with Dr Abernathy. See addendum History of Present Illness Chief Complaint: palpitations Primary Care Provider: Ami Woodson DO Patient is 78-year-old male with PMH paroxysmal atrial fibrillation anticoagulated on Eliquis, dyslipidemia, carotid stenosis, BPH presented to ER with c/o palpitations started yesterday. History obtained from patient as well as inpatient and outpatient chart review. Patient states approximately 10 days ago started with nasal congestion, rhinorrhea, cough. Symptoms progressed and patient was seen by PCPs office 3 days ago and was started on Augmentin. Patient reports his congestion and a cough has decreased. States last night started having palpitations that continued throughout the night. Also reports dizziness and lightheadedness with standing. Feeling generally weak last night and today. Patient states this morning felt like he was going to pass out when he stood up so he took his blood pressures and were low on home monitor. Denies any chest pain or shortness of breath. Patient states for the past couple days has had loose stools. Patient states this morning stool was very dark in coloration. Reports taking his metoprolol this morning. Did not have other medications today. Otherwise reports no missed doses of Eliquis. Follows with [facility] cardiology. Denies fever/chills, diaphoresis, nausea, vomiting, constipation, FINNEGAN, vision changes, neck pain, hemoptysis, choking, abdominal pain, paresthesias, extremity edema, rashes, urinary symptoms. Allergies Allergy/AdvReac Type Severity Reaction Status Date / Time prednisone Allergy Intermediate Swelling Verified 12/24/22 07:03 cerivastatin Allergy Mild muscle pain Verified 12/24/22 07:03 niacin Allergy Mild RASH Verified 12/24/22 07:03 piroxicam Allergy Mild Rash Verified 12/24/22 07:03 simvastatin Allergy Mild rash Verified 12/24/22 07:03 albuterol [From DuoNeb] AdvReac Intermediate RAPID Verified 12/24/22 07:03 HEARTBEAT ipratropium [From DuoNeb] AdvReac Intermediate RAPID Verified 12/24/22 07:03 HEARTBEAT methylprednisolone AdvReac Intermediate RAPID Verified 12/24/22 07:03 HEARTBEAT pantoprazole AdvReac Unknown can't Verified 12/24/22 07:03 remember rabeprazole AdvReac Unknown Unknown Verified 12/24/22 07:03 Home Medications Medication Instructions Recorded Confirmed Type aspirin 81 mg chewable tablet 81 mg PO QAM 11/14/18 11/02/23 History multivitamin 1 tab PO QAM 11/14/18 11/02/23 History terazosin 5 mg capsule 5 mg PO 11/14/18 11/02/23 History calcium carbonate 600 mg-vitamin 1 cap PO QAM 05/19/19 11/02/23 History D3 5 mcg (200 unit) capsule (Calcium 600 + D(3)) flaxseed oil 1,000 mg capsule 1,200 mg PO DAILY 04/11/21 11/02/23 History atorvastatin 40 mg tablet 40 mg PO QPM 10/16/21 11/02/23 History apixaban 5 mg tablet (Eliquis) 5 mg PO BID #180 tabs 10/30/21 11/02/23 Rx metoprolol succinate 50 mg 25 mg PO HS 11/28/22 11/02/23 History tablet,extended release 24 hr metoprolol succinate 50 mg 50 mg PO QAM 11/28/22 11/02/23 History tablet,extended release 24 hr cholecalciferol (vitamin D3) 25 25 mcg PO DAILY 12/18/22 11/02/23 History mcg (1,000 unit) capsule (Vitamin D3) finasteride 5 mg tablet (Proscar) 5 mg PO QAM 12/18/22 11/02/23 History folic acid 1 mg tablet 1 mg PO DAILY 12/18/22 11/02/23 History amoxicillin 875 mg-potassium 1 tab PO BID 11/02/23 11/02/23 History clavulanate 125 mg tablet Past Med/Surg History Medical History Pulmonary hypertension PASP 40 mmHg Mild pulmonary hypertension Tricuspid regurgitation moderate Hypertension History of COVID-19 11/10/22>RESOLVED Lumbar spondylosis Chronic left hip pain PVD (peripheral vascular disease) s/p bilat common iliac stenting 08/2019 Atrial fibrillation FOLLOWS WITH KOPINSKI Carotid artery disease s/p left CEA, < 50% stenosis ICAs bilat on most recent carotid doppler GERD (gastroesophageal reflux disease) Hearing deficit On anticoagulant therapy on eliquis daily Hyperlipidemia Benign prostatic hyperplasia (01/05/12) Surgical History History of left-sided carotid endarterectomy History of tonsillectomy History of appendectomy 06/25/1919 Grade 1 view, Villa 2, ETT 7.5. History of tooth extraction upper teeth History of open reduction and internal fixation (ORIF) procedure LEFT HIP History of right inguinal hernia repair History of left inguinal hernia repair History of esophagogastroduodenoscopy (EGD) History of colonoscopy Family History Other No family history of adverse response to anesthesia Social History Smoking Status: Former smoker Tobacco Type: Cigarettes Cigarettes Per Day: 20; Second Hand Exposure: No; Do You Dip or Chew Tobacco: No; Tobacco Cessation Education Requested by Patient: No Hx Alcohol Use: Yes Alcohol type: beer Hx Substance Use: No Preferred Language: Kuwaiti Communication Ability: Effective Religious Education Teacher Required: No Beliefs That Will Affect Care: None marital status: Current Living Situation: Spouse Other Information That Helps Us Care for You: No Feels Safe at Home: Yes Safety Concerns: Feels Safe At This Time Assistive Devices: Denture - Upper Review of Systems Review of Systems: All systems reviewed & are unremarkable except as noted in HPI & below Physical Exam Physical Exam: General: no acute distress, WDWN Head: normocephalic, atraumatic Eyes: conjunctiva non-injected, anicteric ENT: normal inspection external ears, nose, mucous membranes moist Neck: supple, trachea midline Lungs: clear, no respiratory distress, no wheezing/rhonchi/rales CV: Irregularly irregular, rate 92, no pretibial edema Abd: normal BS, soft, non-tender Ext: no cyanosis, no calf tenderness Neuro: A&O x 3, no focal deficits noted, normal affect Skin: warm, dry Results & Data Results & Data Vital Signs (Past 12 Hours) Vital Signs Temp Pulse Pulse Resp BP BP Pulse Ox 11/02/23 12:00 84 17 96/66 L 94 11/02/23 10:46 98 H 100/77 11/02/23 10:40 107 H 18 100/77 95 11/02/23 10:40 98 11/02/23 10:20 88 11/02/23 10:08 36.6 C 96 H 18 121/75 93 O2 Del Method 11/02/23 12:00 Room Air 11/02/23 10:46 11/02/23 10:40 Room Air 11/02/23 10:40 Room Air 11/02/23 10:20 11/02/23 10:08 Room Air Laboratory Results Short CBC 11/02/23 Range/Units 10:08 WBC 6.41 (4.8-10.8) K/ul Hgb 13.5 L (14.0-18.0) g/dl Hct 40.8 L (42.0-52.0) % Plt Count 271 (130-400) K/uL BMP 11/02/23 10:08 Sodium 137 Potassium 4.4 Chloride 104 Carbon Dioxide 27 BUN 13 Creatinine 1.02 Glucose 94 Calcium 9.0 Liver Function 11/02/23 Range/Units 10:08 Total Bilirubin 0.4 (0.2-1.0) mg/dl Direct Bilirubin 0.1 (0-0.2) mg/dl AST 17 (13-39) U/L ALT 19 (7-52) U/L Alkaline Phosphatase 63 (34-104) U/L Albumin 3.8 (3.4-5.0) gm/dl Urine 11/02/23 Range/Units 11:02 Urine Color Yellow Urine Appearance Clear (Clear) Urine pH 7.5 (4.5-7.5) Ur Specific Lenore 1.005 (1.000-1.030) Urine Protein Negative (Negative) Urine Glucose (UA) Negative (Negative) Diagnostic Findings Chest X-Ray 11/02/23 10:09 XR chest 1V portable CLINICAL HISTORY: Atrial fibrillation. Shortness of breath. COMPARISON STUDY: Chest CT March 10, 2021. Chest radiograph November 10, 2022. FINDINGS: Lung volumes are normal. Lungs are clear. There is no pneumothorax or pleural effusion. Mild cardiomegaly is unchanged. Mediastinal contours are normal. There is pulmonary vascular congestion without evidence for pulmonary edema. IMPRESSION: Cardiomegaly with pulmonary vascular congestion. ACT 112: Negative or not required by law. Electronically signed by: Jarek Kennedy M.D. 11/02/2023 10:44 AM Supervising Physician Co-Signing Physician Notes Pt seen and examined by myself, Estrellita Abernathy MD on the day of service. Care was coordinated with Lamar Victor PA-C. 78yoM with PMHx significant for atrial fibrillation admitted with symptomatic atrial fibrillation with RVR. Pt states that he took his metoprolol this morning after starting with symptoms of dizziness last night. States he could feel his HR was irregular with palpitations. Noted low BP at home. Notes he also had an episode of black stools today, takes Eliquis. Notes recent start of Augmentin for URI related symptoms. On exam, resting comfortably after receiving 2 doses of IV Lopressor 5mg. BP systolic 118, HR 80s-90s. Irregular rate and rhythm, breath sounds clear bilaterally. No noted swelling in the extremities. Cardiology consulted- will defer on cardioversion at this time opting for observation overnight as pt currently stable, continuing with pt's home meds and IV Lopressor. NPO after midnight in case cardioversion needed. FOBT pending. Continue Augmentin at this time. Otherwise as above. (1) Atrial fibrillation Atrial fibrillation type: persistent Qualified Code(s): I48.1 - Persistent atrial fibrillation (3) Carotid artery disease Carotid artery disease type: unspecified (5) Hyperlipidemia Hyperlipidemia type: unspecified Qualified Code(s): E78.5 - Hyperlipidemia, unspecified (6) Benign prostatic hyperplasia Lower urinary tract symptom presence: symptoms absent Qualified Code(s): N40.0 - Benign prostatic hyperplasia without lower urinary tract symptoms
[2023-11-02] MEDS ORDERED: METOPROLOL TARTRATE 1 MG/ML VIAL IV PRN (15:21)
[2023-11-02] MEDS ORDERED: ACETAMINOPHEN 325 MG TAB PO PRN (15:21)
[2023-11-02] MEDS ORDERED: POLYETHYLENE (MIRALAX) 17 GM PACK PO PRN (15:21)
[2023-11-02] MEDS ORDERED: ONDANSETRON INJ 2 MG/ML 2 ML VIAL IV PRN (15:21)
[2023-11-02] MEDS: ADVANCED PROBIOTIC 1250 MG CAPSULE PO SCH (18:37)
[2023-11-02] MEDS: ATORVASTATIN 40 MG TAB PO SCH (20:15)
[2023-11-02] MEDS: TERAZOSIN HCL 5 MG CAP PO SCH (20:15)
[2023-11-02] MEDS: METOPROLOL SUCC 25MG EXT REL TAB PO SCH (20:15)
[2023-11-02] MEDS: AMOXICILLIN/CLAVULANATE 875 MG TAB PO SCH (20:15)
[2023-11-03 06:00] LABS: Hemoglobin 12.8 g/dl (14.0-18.0); Mean Corpuscular Hemoglobin 32.2 pg (25.0-34.0); Mean Corpuscular Hgb Conc 33.7 g/dL (32.0-36.0); Mean Corpuscular Volume 95.5 fL (80.0-100.0); Mean Platelet Volume 9.2 fL (9.4-12.4); Platelet Count 263 K/uL (130-400); RDW Standard Deviation 42.5 fL (36.4-46.3); Red Blood Count 3.98 M/uL (4.70-6.10); White Blood Count 7.57 K/ul (4.8-10.8)
[2023-11-03 06:16] LABS: BUN Creatinine Ratio 12.9 (10-20); Calcium 8.6 mg/dl (8.6-10.3); Creatinine Clr Calc Pharmacy 66.2 ml/min; Est GFR (African American) 81.6 ml/min; Est GFR (Non-African American) 70.4 ml/min
[2023-11-03] MEDS: FOLIC ACID 1 MG TAB PO SCH (08:30)
[2023-11-03] MEDS: FINASTERIDE 5 MG TAB PO SCH (08:30)
[2023-11-03] MEDS: ADVANCED PROBIOTIC 1250 MG CAPSULE PO SCH (08:30)
[2023-11-03] MEDS: METOPROLOL SUCC 50MG EXT REL TAB PO SCH (08:30)
[2023-11-03] MEDS: ASPIRIN 81 MG CHEW PO SCH (08:30)
[2023-11-03] MEDS: APIXABAN 5 MG TABLET PO SCH ×2 (08:31→20:31)
[2023-11-03] MEDS: AMOXICILLIN/CLAVULANATE 875 MG TAB PO SCH (08:31)
[2023-11-03] MEDS ORDERED: 0.2 MICRON FILTER SET 1 EACH IV STA (11:13)
[2023-11-03] MEDS ORDERED: AMIODARONE / D5W 150 MG/100 ML BAG IV STA (11:13)
[2023-11-03] MEDS ORDERED: STAT IV Infusion **Titration per Protocol STA (11:13)
[2023-11-03] MEDS ORDERED: AMIODARONE IV BOLUS & DRIP IV STA (11:13)
--- NOTE | 2023-11-03 11:19 | Cardiology Progress Note ---
Date of Service November 03, 2023 Assessment & Plan (1) Atrial fibrillation: Plan: Continue Eliquis 5 mg 2 times per day. Continue metoprolol succinate 50 mg daily in the morning, 25 mg at bedtime. Patient is completing his course of Augmentin. Continue atorvastatin 40 mg daily. Proceed with trial of IV amiodarone. Will advance diet for now, and make patient n.p.o. for after midnight. If he remains in atrial fibrillation despite trial of IV amiodarone, we will proceed with direct-current cardioversion on 11/04/2023. Anesthesia consult placed. Admission and Anticipated Discharge Date Admission Date: November 02, 2023 Subjective Patient seen in cardiology follow-up. Overall feels somewhat subjectively improved, and has done several short walks in the hallway last night with the assistance of the nursing team. Telemetry reveals ongoing atrial fibrillation. Rates are well-controlled during sleep, but with minimal activity, ventricular rates in the range of 100 to 133 bpm. Physical Exam Constitutional: WD/WN, vitals as above Eyes: PERRL, conjunctivae normal, anicteric sclerae Respiratory: normal respiratory effort, lungs clear to auscultation Cardiovascular: Rate/Rhythm: + irregularly irregular Heart Sounds: no murmur Extremities: no edema Gastrointestinal (Abdomen): normal bowel sounds, soft, nontender, no hepatosplenomegaly Skin: no rashes, warm and dry Neurologic: PERRL, EOMI, accommodation nl, no face palsy, no dysarthria Results & Data Vital Signs (Past 12 Hours) Vital Signs Temp Pulse Pulse Resp BP Pulse Ox O2 Del Method 11/03/23 07:29 36.7 C 60 20 102/57 L 95 Room Air 11/03/23 07:25 84 11/03/23 03:49 36.8 C 93 H 16 111/67 95 Room Air Laboratory Results CBC 11/03/23 Range/Units 05:31 WBC 7.57 (4.8-10.8) K/ul RBC 3.98 L (4.70-6.10) M/uL Hgb 12.8 L (14.0-18.0) g/dl Hct 38.0 L (42.0-52.0) % Plt Count 263 (130-400) K/uL Comprehensive Metabolic Panel 11/03/23 Range/Units 05:31 Sodium 139 (136-145) mmol/L Potassium 4.0 (3.5-5.1) mmol/L Chloride 107 (98-107) mmol/L Carbon Dioxide 26 (21-32) mmol/L BUN 13 (6-23) mg/dl Creatinine 1.01 (0.6-1.4) mg/dl Glucose 86 (70-99(Fasting)) mg/dl Calcium 8.6 (8.6-10.3) mg/dl Intake and Output 11/02/23 11/03/23 11/03/23 22:59 06:59 14:59 Intake Total 600 / 1600 Balance 600 / 1600 Intake: Oral 600 / 600 Other: Other Intake Source NPO # Unmeasured Voids 2 2 Weight 87.679 kg Weight Measurement Method Built in [facility] (1) Atrial fibrillation Atrial fibrillation type: persistent Qualified Code(s): I48.1 - Persistent atrial fibrillation
[2023-11-03] MEDS ORDERED: AMIODARONE / D5W 360 MG/200 ML BAG IV ONE (11:24)
--- NOTE | 2023-11-03 12:33 | Anesthesiology Consultation ---
Date of Service November 03, 2023 Assessment & Plan Chart Review Chart Review: Acceptable Risk for Surgery and Patient NOT seen in Pre Admission Testing Consults Requested none ASA ASA4 Proposed Anesthesia Anesthesia Type: General History Height/Weight Height: 5 ft 10 in Weight: 87.679 kg Allergies Allergy/AdvReac Type Severity Reaction Status Date / Time prednisone Allergy Intermediate Swelling Verified 12/24/22 07:03 cerivastatin Allergy Mild muscle pain Verified 12/24/22 07:03 niacin Allergy Mild RASH Verified 12/24/22 07:03 piroxicam Allergy Mild Rash Verified 12/24/22 07:03 simvastatin Allergy Mild rash Verified 12/24/22 07:03 albuterol [From DuoNeb] AdvReac Intermediate RAPID Verified 12/24/22 07:03 HEARTBEAT ipratropium [From DuoNeb] AdvReac Intermediate RAPID Verified 12/24/22 07:03 HEARTBEAT methylprednisolone AdvReac Intermediate RAPID Verified 12/24/22 07:03 HEARTBEAT pantoprazole AdvReac Unknown can't Verified 12/24/22 07:03 remember rabeprazole AdvReac Unknown Unknown Verified 12/24/22 07:03 Medications Home Medications Medication Instructions Recorded Confirmed Last Taken aspirin 81 mg chewable tablet 81 mg PO [facility] 11/14/18 11/02/23 11/01/23 multivitamin 1 tab PO [facility] 11/14/18 11/02/23 11/01/23 terazosin 5 mg capsule 5 mg PO 11/14/18 11/02/23 11/01/23 calcium carbonate 600 mg-vitamin 1 cap PO [facility] 05/19/19 11/02/23 11/01/23 D3 5 mcg (200 unit) capsule (Calcium 600 + D(3)) flaxseed oil 1,000 mg capsule 1,200 mg PO DAILY 04/11/21 11/02/23 11/01/23 atorvastatin 40 mg tablet 40 mg PO QPM 10/16/21 11/02/23 11/01/23 apixaban 5 mg tablet (Eliquis) 5 mg PO BID #180 tabs 10/30/21 11/02/23 11/01/23 metoprolol succinate 50 mg 25 mg PO 11/28/22 11/02/23 11/01/23 tablet,extended release 24 hr metoprolol succinate 50 mg 50 mg PO [facility] 11/28/22 11/02/23 11/02/23 tablet,extended release 24 hr cholecalciferol (vitamin D3) 25 25 mcg PO DAILY 12/18/22 11/02/23 11/01/23 mcg (1,000 unit) capsule (Vitamin D3) finasteride 5 mg tablet (Proscar) 5 mg PO QAM 12/18/22 11/02/23 11/01/23 folic acid 1 mg tablet 1 mg PO DAILY 12/18/22 11/02/23 11/01/23 amoxicillin 875 mg-potassium 1 tab PO BID 11/02/23 11/02/23 11/01/23 clavulanate 125 mg tablet Active Medications Generic Name Dose Route Start Last Admin Trade Name Freq PRN Reason Stop Dose Admin Amoxicillin/Clavulanate Potassium 1 tab 11/02/23 21:00 11/03/23 08:31 Amoxicillin/Clavulanate 875 Mg Tab PO 11/09/23 20:59 Not Given BID [facility] Protocol Apixaban 5 mg 11/02/23 11:30 11/03/23 08:31 Apixaban 5 Mg Tablet PO 12/02/23 11:29 5 mg BID AGUSTIN Administration Aspirin 81 mg 11/03/23 09:00 11/03/23 08:30 Aspirin 81 Mg Chew PO 12/03/23 08:59 81 mg QAM AGUSTIN Administration Atorvastatin Calcium 40 mg 11/02/23 21:00 11/02/23 20:15 Atorvastatin 40 Mg Tab PO 12/02/23 20:59 40 mg QPM AGUSTIN Administration Finasteride 5 mg 11/03/23 09:00 11/03/23 08:30 Finasteride 5 Mg Tab PO 12/03/23 08:59 5 mg QAM AGUSTIN Administration Folic Acid 1 mg 11/03/23 09:00 11/03/23 08:30 Folic Acid 1 Mg Tab PO 12/03/23 08:59 1 mg DAILY AGUSTIN Administration Amiodarone HCl/Dextrose 360 mg in 200 mls @ 33.333 mls/hr 11/03/23 11:24 11/03/23 12:03 Nexterone / D5w IV 11/03/23 17:23 1 mg/min ONE ONE 33.3 mls/hr Administration 1 MG/MIN Lactobacillus Acidophilus 2 cap 11/02/23 15:21 11/03/23 08:30 Advanced Probiotic 1250 Mg Capsule PO 12/02/23 15:20 2 cap DAILY AGUSTIN Administration Metoprolol Succinate 50 mg 11/03/23 09:00 11/03/23 08:30 Metoprolol Succ 50mg Ext Rel Tab PO 12/03/23 08:59 50 mg QAM AGUSTIN Administration Metoprolol Succinate 25 mg 11/02/23 21:00 11/02/23 20:15 Metoprolol Succ 25mg Ext Rel Tab PO 12/02/23 20:59 25 mg HS AGUSTIN Administration Terazosin HCl 5 mg 11/02/23 21:00 11/02/23 20:15 Terazosin Hcl 5 Mg Cap PO 12/02/23 20:59 5 mg HS AGUSTIN Administration Past Medical History Medical History Pulmonary hypertension PASP 40 mmHg Mild pulmonary hypertension Tricuspid regurgitation moderate Hypertension History of COVID-19 11/10/22>RESOLVED Lumbar spondylosis Chronic left hip pain PVD (peripheral vascular disease) s/p bilat common iliac stenting 08/2019 Atrial fibrillation FOLLOWS WITH KOJAKY Carotid artery disease s/p left CEA, < 50% stenosis ICAs bilat on most recent carotid doppler GERD (gastroesophageal reflux disease) Hearing deficit On anticoagulant therapy on eliquis daily Hyperlipidemia Benign prostatic hyperplasia (01/05/12) Exercise / Class Metabolic Activity III < 4 Walking/Shop/Light housework Past Family History Family History Other No family history of adverse response to anesthesia Past Surgical History Surgical History History of left-sided carotid endarterectomy History of tonsillectomy History of appendectomy 06/25/1919 Grade 1 view, Villa 2, ETT 7.5. History of tooth extraction upper teeth History of open reduction and internal fixation (ORIF) procedure LEFT HIP History of right inguinal hernia repair History of left inguinal hernia repair History of esophagogastroduodenoscopy (EGD) History of colonoscopy Past Anesthesia History No Hx of Anesthesia Complications and No Family Hx of Anesthesia Complications History of PONV No Hx of PONV and No Hx of Motion Sickness Social History Smoking Status: Former smoker tobacco type: cigarettes Smoking cigarettes per day: 20 Do You Dip or Chew Tobacco: No Hx Alcohol Use: Yes Alcohol type: beer alcohol intake frequency: 0-2 drinks per day Hx Substance Use: No substance use type: does not use Physical Exam Vital Signs Last Vital Signs Temp 36.3 C L 11/03/23 11:24 Pulse 81 11/03/23 11:24 Resp 20 11/03/23 11:24 BP 95/59 L 11/03/23 11:24 Pulse Ox 97 11/03/23 11:24 O2 Del Method Room Air 11/03/23 11:24 Testing Laboratory Results 11/03/23 05:31 11/03/23 05:31 PT 10.9 Seconds (9.0-12.0) 11/02/23 10:08 INR 1.0 (0.9-1.1) 11/02/23 10:08 Urine Color Yellow 11/02/23 11:02 Urine Appearance Clear (Clear) 11/02/23 11:02 Urine pH 7.5 (4.5-7.5) 11/02/23 11:02 Ur Specific [place] 1.005 (1.000-1.030) 11/02/23 11:02 Urine Protein Negative (Negative) 11/02/23 11:02 Urine Glucose (UA) Negative (Negative) 11/02/23 11:02 Urine Ketones Negative (Negative) 11/02/23 11:02 Urine Nitrite Negative (Negative) 11/02/23 11:02 Ur Leukocyte Esterase Negative (Negative) 11/02/23 11:02 Electrocardiogram Date: 11/03/23 Findings: + AFIB @ (@ 82) Chest X-Ray Date: 11/02/23 Findings: + cardiomegaly and + pulmonary vascular congestion Echocardiogram Date: 11/02/23 EF: 65% LV Function: normal RWMA: + none Other Findings: + atrial enlargement (LA moderately dilated) mild TR Other Testing Carotid U/S-08/14/2022-B/L ICA's < 50%
--- NOTE | 2023-11-03 14:34 | Hospitalist Progress Note ---
Date of Service November 03, 2023 Assessment & Plan (1) Atrial fibrillation: Plan: Patient is 78-year-old male with PMH paroxysmal atrial fibrillation anticoagulated on Eliquis, dyslipidemia, carotid stenosis, BPH presented to ER with c/o palpitations, dizziness started yesterday. He was found to have atrial fibrillation with RVR. EKG personally reviewed atrial fibrillation, Chest x-ray personally reviewed; mild pulmonary vascular congestion Echocardiogram shows a EF of 65 to 70% with left atrium moderately dilated. Discussed with cardiology; patient is started on amiodarone for possible chemical cardioversion. He is n.p.o. from midnight for possible electrical cardioversion if he does not convert. Continue on Eliquis and metoprolol Continue on telemonitoring (2) Dark stools: Plan: Reported dark-colored stool today H&H stable Hemoccult negative Continue to monitor H&H daily (3) Carotid artery disease: (4) PVD (peripheral vascular disease): Plan: S/P left carotid endarterectomy. S/P bilateral iliac stenting 201808/14/2022 carotid Doppler: Right carotid duplex: Less than 50% stenosis internal carotid artery. Left carotid duplex: Less than 50% stenosis of internal carotid artery Continue atorvastatin, aspirin (5) Hyperlipidemia: Plan: Continue atorvastatin (6) Benign prostatic hyperplasia: Plan: Continue finasteride, terazosin DVT Prophylaxis On Eliquis Full Code as per discussion with pt Follows with Dr Ami Woodson in [place] for routine care Time spent evaluating patient, direct bedside care, chart review, placing orders, interpretation of diagnostic studies, discussion with consultants, patient, and family members, as well as other required patient management activities is 50 minutes Please note the above document was generated using voice recognition software. It may contain grammatical, syntax or spelling errors. Any formal questions or concerns about the content, text or information contained within the body of thi s dictation should be directly addressed to the provider for clarification Admission and Anticipated Discharge Date Admission Date: November 02, 2023 Subjective Patient seen and examined at bedside. Comfortable; not in distress. Denies palpitation, fever, chills, chest pain, shortness of breath, abdominal pain or urinary symptoms. No significant overnight events Telemetry shows atrial fibrillation with ventricular rate of 80s to 90s at night; 110s to 120s in AM. Review of Systems Review of Systems: All systems reviewed & are unremarkable except as noted in Subjective Physical Exam Physical Exam: General: no acute distress, WDWN Lungs: clear, no respiratory distress, no wheezing/rhonchi/rales CV: Irregularly irregular, rate 92, no pretibial edema Abd: normal BS, soft, non-tender Ext: no cyanosis, no calf tenderness Neuro: A&O x 3, no focal deficits noted, normal affect Skin: warm, dry Results & Data Results & Data Vital Signs (Past 12 Hours) Vital Signs Temp Pulse Pulse Resp BP Pulse Ox O2 Del Method 11/03/23 11:24 36.3 C L 81 20 95/59 L 97 Room Air 11/03/23 07:29 36.7 C 60 20 102/57 L 95 Room Air 11/03/23 07:25 84 11/03/23 03:49 36.8 C 93 H 16 111/67 95 Room Air (1) Atrial fibrillation Atrial fibrillation type: persistent Qualified Code(s): I48.1 - Persistent atrial fibrillation (3) Carotid artery disease Carotid artery disease type: unspecified (5) Hyperlipidemia Hyperlipidemia type: unspecified Qualified Code(s): E78.5 - Hyperlipidemia, unspecified (6) Benign prostatic hyperplasia Lower urinary tract symptom presence: symptoms absent Qualified Code(s): N40.0 - Benign prostatic hyperplasia without lower urinary tract symptoms
[2023-11-03] MEDS: AMIODARONE / D5W 360 MG/200 ML BAG IV SCH (17:14)
[2023-11-03] MEDS: METOPROLOL SUCC 25MG EXT REL TAB PO SCH (20:31)
[2023-11-03] MEDS: ATORVASTATIN 40 MG TAB PO SCH (20:31)
[2023-11-03] MEDS: TERAZOSIN HCL 5 MG CAP PO SCH (20:31)
--- NOTE | 2023-11-03 22:36 | Electrocardiogram Report ---
Test Reason : Blood Pressure : / mmHG Vent. Rate : 100 BPM Atrial Rate : 000 BPM P-R Int : 000 ms QRS Dur : 074 ms QT Int : 352 ms P-R-T Axes : 000 -07 024 degrees QTc Int : 454 ms Atrial fibrillation Abnormal ECG When compared with ECG of 28-NOV-2022 11:35, Atrial fibrillation has replaced Sinus rhythm Vent. rate has increased BY 43 BPM Confirmed by Brent Salas ([id number]) on 11/03/2023 10:36:29 PM Referred By: REFERRED SELF Confirmed By:Brent Salas
--- NOTE | 2023-11-04 00:18 | Electrocardiogram Report ---
Test Reason : Blood Pressure : / mmHG Vent. Rate : 082 BPM Atrial Rate : 166 BPM P-R Int : 000 ms QRS Dur : 080 ms QT Int : 398 ms P-R-T Axes : 000 012 032 degrees QTc Int : 464 ms Atrial fibrillation Abnormal ECG When compared with ECG of 02-NOV-2023 10:07, No significant change was found Confirmed by Brent Salas ([id number]) on 11/04/2023 12:18:04 AM Referred By: REFERRED SELF Confirmed By:Brent Salas
[2023-11-04] MEDS: AMIODARONE / D5W 360 MG/200 ML BAG IV SCH (05:19)
[2023-11-04 06:32] LABS: Basophils # (auto) 0.03 K/uL (0.00-0.20); Basophils % (auto) 0.4 %; Eosinophils # (auto) 0.11 K/uL (0.00-0.50); Eosinophils % (auto) 1.5 %; Hematocrit (blood only) 36.7 % (42.0-52.0); Hemoglobin 12.5 g/dl (14.0-18.0); Immature Granulocytes # (auto) 0.03 K/uL (0.01-0.20); Immature Granulocytes % (auto) 0.4 %; Lymphocytes # (auto) 1.93 K/uL (1.20-3.40); Lymphocytes % (auto) 26.3 %; Mean Corpuscular Hemoglobin 32.5 pg (25.0-34.0); Mean Corpuscular Hgb Conc 34.1 g/dL (32.0-36.0); Mean Corpuscular Volume 95.3 fL (80.0-100.0); Mean Platelet Volume 9.3 fL (9.4-12.4); Monocytes # (auto) 0.63 K/uL (0.11-0.59); Monocytes % (auto) 8.6 %; Neutrophils # (auto) 4.62 K/uL (1.40-6.50); Neutrophils % (auto) 62.8 %; Platelet Count 271 K/uL (130-400); RDW Coefficient of Variation 12.2 % (11.5-14.5); RDW Standard Deviation 42.5 fL (36.4-46.3); Red Blood Count 3.85 M/uL (4.70-6.10); White Blood Count 7.35 K/ul (4.8-10.8)
[2023-11-04] MEDS ORDERED: LIDOCAINE 2% 2 ML VIAL/AMP(20MG/ML) INFIL ONE (06:50)
[2023-11-04] MEDS ORDERED: PROPOFOL IV EMULSION 10 MG/ML 20 ML VIAL IV ONE (06:50)
[2023-11-04 06:54] LABS: BUN Creatinine Ratio 13.4 (10-20); Calcium 8.3 mg/dl (8.6-10.3); Creatinine Clr Calc Pharmacy 55.2 ml/min; Est GFR (Non-African American) 62.1 ml/min; Potassium 3.9 mmol/L (3.5-5.1)
--- NOTE | 2023-11-04 07:08 | History & Physical Bridge Note ---
Date of Service November 04, 2023 History & Physical Bridge Note I have examined the patient, reviewed the History & Physical and in the interval since the performance of the History & Physical I have noted the following changes of clinical significance: no changes noted
--- NOTE | 2023-11-04 07:17 | Anesthesiology Consultation ---
Date of Service November 04, 2023 Assessment & Plan Chart Review Chart Review: Acceptable Risk for Surgery and Patient NOT seen in Pre Admission Testing Consults Requested none ASA ASA3 Proposed Anesthesia Anesthesia Type: MAC Risk / Benefits Reviewed With: PT / POA / Parent / Guardian, Accepts Plan and Informed Consent Obtained History Surgery Operation Date: 11/04/23 07:15 Proposed Procedures p Cardioversion Behavioral Intervention Specialist w/Anesthesia - Femi Vazquez, Height/Weight Height: 5 ft 10 in Weight: 86.3 kg Allergies Allergy/AdvReac Type Severity Reaction Status Date / Time prednisone Allergy Intermediate Swelling Verified 12/24/22 07:03 cerivastatin Allergy Mild muscle pain Verified 12/24/22 07:03 niacin Allergy Mild RASH Verified 12/24/22 07:03 piroxicam Allergy Mild Rash Verified 12/24/22 07:03 simvastatin Allergy Mild rash Verified 12/24/22 07:03 albuterol [From DuoNeb] AdvReac Intermediate RAPID Verified 12/24/22 07:03 HEARTBEAT ipratropium [From DuoNeb] AdvReac Intermediate RAPID Verified 12/24/22 07:03 HEARTBEAT methylprednisolone AdvReac Intermediate RAPID Verified 12/24/22 07:03 HEARTBEAT pantoprazole AdvReac Unknown can't Verified 12/24/22 07:03 remember rabeprazole AdvReac Unknown Unknown Verified 12/24/22 07:03 Medications Home Medications Medication Instructions Recorded Confirmed Last Taken aspirin 81 mg chewable tablet 81 mg PO QA 11/14/18 11/02/23 11/01/23 multivitamin 1 tab PO QA 11/14/18 11/02/23 11/01/23 terazosin 5 mg capsule 5 mg PO 11/14/18 11/02/23 11/01/23 calcium carbonate 600 mg-vitamin 1 cap PO QAM 05/19/19 11/02/23 11/01/23 D3 5 mcg (200 unit) capsule (Calcium 600 + D(3)) flaxseed oil 1,000 mg capsule 1,200 mg PO DAILY 04/11/21 11/02/23 11/01/23 atorvastatin 40 mg tablet 40 mg PO QPM 10/16/21 11/02/23 11/01/23 apixaban 5 mg tablet (Eliquis) 5 mg PO BID #180 tabs 10/30/21 11/02/23 11/01/23 metoprolol succinate 50 mg 25 mg PO HS 11/28/22 11/02/23 11/01/23 tablet,extended release 24 hr metoprolol succinate 50 mg 50 mg PO QAM 11/28/22 11/02/23 11/02/23 tablet,extended release 24 hr cholecalciferol (vitamin D3) 25 25 mcg PO DAILY 12/18/22 11/02/23 11/01/23 mcg (1,000 unit) capsule (Vitamin D3) finasteride 5 mg tablet (Proscar) 5 mg PO QAM 12/18/22 11/02/23 11/01/23 folic acid 1 mg tablet 1 mg PO DAILY 12/18/22 11/02/23 11/01/23 amoxicillin 875 mg-potassium 1 tab PO BID 11/02/23 11/02/23 11/01/23 clavulanate 125 mg tablet Active Medications Generic Name Dose Route Start Last Admin Trade Name Freq PRN Reason Stop Dose Admin Apixaban 5 mg 11/02/23 11:30 11/03/23 20:31 Apixaban 5 Mg Tablet PO 12/02/23 11:29 5 mg BID AGUSTIN Administration Aspirin 81 mg 11/03/23 09:00 11/03/23 08:30 Aspirin 81 Mg Chew PO 12/03/23 08:59 81 mg QAM AGUSTIN Administration Atorvastatin Calcium 40 mg 11/02/23 21:00 11/03/23 20:31 Atorvastatin 40 Mg Tab PO 12/02/23 20:59 40 mg QPM AGUSTIN Administration Finasteride 5 mg 11/03/23 09:00 11/03/23 08:30 Finasteride 5 Mg Tab PO 12/03/23 08:59 5 mg QAM AGUSTIN Administration Folic Acid 1 mg 11/03/23 09:00 11/03/23 08:30 Folic Acid 1 Mg Tab PO 12/03/23 08:59 1 mg DAILY AGUSTIN Administration Amiodarone HCl/Dextrose 360 mg in 200 mls @ 16.667 mls/hr 11/03/23 17:15 11/04/23 05:19 Nexterone / D5w IV 12/03/23 17:14 Not Given .Q12H AGUSTIN 0.5 MG/MIN Lactobacillus Acidophilus 2 cap 11/02/23 15:21 11/03/23 08:30 Advanced Probiotic 1250 Mg Capsule PO 12/02/23 15:20 2 cap DAILY AGUSTIN Administration Metoprolol Succinate 50 mg 11/03/23 09:00 11/03/23 08:30 Metoprolol Succ 50mg Ext Rel Tab PO 12/03/23 08:59 50 mg QAM AGUSTIN Administration Metoprolol Succinate 25 mg 11/02/23 21:00 11/03/23 20:31 Metoprolol Succ 25mg Ext Rel Tab PO 12/02/23 20:59 25 mg HS AGUSTIN Administration Terazosin HCl 5 mg 11/02/23 21:00 11/03/23 20:31 Terazosin Hcl 5 Mg Cap PO 12/02/23 20:59 5 mg HS AGUSTIN Administration NPO Date Last Intake of Fluids: 11/02/23 Time Last Intake of Fluids: 23:55 Past Medical History Medical History Pulmonary hypertension PASP 40 mmHg Mild pulmonary hypertension Tricuspid regurgitation moderate Hypertension History of COVID-19 11/10/22>RESOLVED Lumbar spondylosis Chronic left hip pain PVD (peripheral vascular disease) s/p bilat common iliac stenting 08/2019 Atrial fibrillation FOLLOWS WITH KOPINSKI Carotid artery disease s/p left CEA, < 50% stenosis ICAs bilat on most recent carotid doppler GERD (gastroesophageal reflux disease) Hearing deficit On anticoagulant therapy on eliquis daily Hyperlipidemia Benign prostatic hyperplasia (01/05/12) Exercise / Class Metabolic Activity II 4-5 Yardwork/Stairs/Walk up hill Past Family History Family History Other No family history of adverse response to anesthesia Past Surgical History Surgical History History of left-sided carotid endarterectomy History of tonsillectomy History of appendectomy 06/25/1919 Grade 1 view, Villa 2, ETT 7.5. History of tooth extraction upper teeth History of open reduction and internal fixation (ORIF) procedure LEFT HIP History of right inguinal hernia repair History of left inguinal hernia repair History of esophagogastroduodenoscopy (EGD) History of colonoscopy Past Anesthesia History No Hx of Anesthesia Complications and No Family Hx of Anesthesia Complications History of PONV No Hx of PONV and No Hx of Motion Sickness Social History Smoking Status: Former smoker tobacco type: cigarettes Smoking cigarettes per day: 20 Do You Dip or Chew Tobacco: No Hx Alcohol Use: Yes Alcohol type: beer alcohol intake frequency: 0-2 drinks per day Hx Substance Use: No substance use type: does not use Physical Exam Vital Signs Last Vital Signs Temp 36.6 C 11/04/23 03:30 Pulse 73 11/04/23 03:30 Resp 18 11/04/23 03:30 BP 111/72 11/04/23 03:30 Pulse Ox 98 11/04/23 03:30 O2 Del Method Room Air 11/04/23 03:30 ENMT Mouth: no dentition abnormality Thyromental Distance: > or= 3.5 Finger Breadths Mallampati Class: II Neck normal visual inspection Respiratory normal respiratory effort Auscultation: lungs clear to auscultation bilaterally Cardiovascular Rate/Rhythm: regular rate; + abnormal rhythm (AFIB on monitor) Psychiatric Orientation: alert Testing Laboratory Results 11/04/23 05:36 11/04/23 05:36 PT 10.9 Seconds (9.0-12.0) 11/02/23 10:08 INR 1.0 (0.9-1.1) 11/02/23 10:08 Urine Color Yellow 11/02/23 11:02 Urine Appearance Clear (Clear) 11/02/23 11:02 Urine pH 7.5 (4.5-7.5) 11/02/23 11:02 Ur Specific [place] 1.005 (1.000-1.030) 11/02/23 11:02 Urine Protein Negative (Negative) 11/02/23 11:02 Urine Glucose (UA) Negative (Negative) 11/02/23 11:02 Urine Ketones Negative (Negative) 11/02/23 11:02 Urine Nitrite Negative (Negative) 11/02/23 11:02 Ur Leukocyte Esterase Negative (Negative) 11/02/23 11:02 Electrocardiogram Date: 11/03/23 Findings: + AFIB @ (@ 82) Chest X-Ray Date: 11/02/23 Findings: + cardiomegaly and + pulmonary vascular congestion Echocardiogram Date: 11/02/23 EF: 65% LV Function: normal RWMA: + none Other Findings: + atrial enlargement (LA moderately dilated) mild TR Other Testing Carotid U/S-08/14/2022-B/L ICA's < 50%
--- NOTE | 2023-11-04 07:35 | Cardioversion ---
Date of Service November 04, 2023 Electrical Cardioversion Rpt Electrical Cardioversion Report Procedure Preprocedure diagnosis: Symptomatic atrial fibrillation Post procedure diagnosis: Successful conversion to sinus rhythm Direct-current cardioversion procedure: After informed consent was obtained and timeout was performed the patient was sedated with the assistance of the anesthesia service receiving a total of 60 mg of IV propofol and 40 mg of IV lidocaine. The patient underwent direct-current cardioversion receiving a single dose of 150 J of synchronized biphasic energy with successful conversion to sinus rhythm. Fire Extinguisher Repairer Inspector Femi Vazquez DO Electronic Warfare Linguist none Estimated Blood Loss 0 Findings Consistent with Post-Op Diagnosis Anesthesia Type MAC Complications none
--- NOTE | 2023-11-04 07:37 | Cardiology Progress Note ---
Date of Service November 04, 2023 Assessment & Plan (1) Atrial fibrillation with rapid ventricular response: Plan: * Patient underwent successful direct-current cardioversion. Post EKG reveals sinus rhythm without significant repolarization abnormalities * Continue prior to hospital treatment with Eliquis 5 mg twice daily. He will be due for his next dose at 8 AM. * Continue prior to hospital treatment with metoprolol succinate 50 mg a.m., 25 mg at bedtime. * Patient will be reassessed after he completes the post sedation recovery interval and returned to the floor for possible discharge today. Admission and Anticipated Discharge Date Admission Date: November 02, 2023 Subjective Patient seen prior to, during, and post direct-current cardioversion procedure. Patient remained in atrial fibrillation overnight last night. Amiodarone held for ventricular rates in the 50s to 60s. Physical Exam Constitutional: WD/WN, vitals as above Eyes: PERRL, conjunctivae normal, anicteric sclerae Respiratory: normal respiratory effort, lungs clear to auscultation Cardiovascular: Rate/Rhythm: + irregularly irregular Heart Sounds: no murmur Extremities: no edema Gastrointestinal (Abdomen): normal bowel sounds, soft, nontender, no hepatosplenomegaly Skin: no rashes, warm and dry Neurologic: PERRL, EOMI, accommodation nl, no face palsy, no dysarthria Results & Data Vital Signs (Past 12 Hours) Vital Signs Temp Pulse Pulse Resp BP BP Pulse Ox 11/04/23 07:20 87 20 130/84 97 11/04/23 03:30 36.6 C 73 18 111/72 98 11/03/23 23:31 36.8 C 72 18 105/67 94 11/03/23 22:50 73 11/03/23 20:29 36.8 C 86 18 122/70 96 O2 Del Method 11/04/23 07:20 Room Air 11/04/23 03:30 Room Air 11/03/23 23:31 Room Air 11/03/23 22:50 11/03/23 20:29 Room Air Laboratory Results CBC 11/04/23 Range/Units 05:36 WBC 7.35 (4.8-10.8) K/ul RBC 3.85 L (4.70-6.10) M/uL Hgb 12.5 L (14.0-18.0) g/dl Hct 36.7 L (42.0-52.0) % Plt Count 271 (130-400) K/uL Neut # (Auto) 4.62 (1.40-6.50) K/uL Lymph # (Auto) 1.93 (1.20-3.40) K/uL [place] # (Auto) 0.63 H (0.11-0.59) K/uL Eos # (Auto) 0.11 (0.00-0.50) K/uL Baso # (Auto) 0.03 (0.00-0.20) K/uL Comprehensive Metabolic Panel 11/04/23 Range/Units 05:36 Sodium 140 (136-145) mmol/L Potassium 3.9 (3.5-5.1) mmol/L Chloride 107 (98-107) mmol/L Carbon Dioxide 28 (21-32) mmol/L BUN 15 (6-23) mg/dl Creatinine 1.12 (0.6-1.4) mg/dl Glucose 88 (70-99(Fasting)) mg/dl Calcium 8.3 L (8.6-10.3) mg/dl Intake and Output 11/03/23 11/04/23 11/04/23 22:59 06:59 14:59 Intake Total 716.815 / 1037.590 220.775 / 1037.590 Balance 716.815 / 1037.590 220.775 / 1037.590 Intake: IV 216.815 / 487.590 170.775 / 487.590 Amiodarone / D5w 360 mg In 200 216.815 / 387.590 170.775 / 387.590 ml @ 0.5 MG/MIN 16.667 mls/hr IV .Q12H [facility] Rx#:[id number] Oral 500 / 550 50 / 550 Other: Other Intake Source NPO # Unmeasured Voids 1 2 Weight 86.3 kg 86.3 kg Weight Measurement Method Built in [facility] Patient Weight 11/05/23 06:59 Weight 86.3 kg
--- NOTE | 2023-11-04 07:49 | Anesthesiology Progress Note ---
Date of Service November 04, 2023 Anesthesia Post Procedure Vital Signs Vital Signs: Temp Pulse Pulse Resp BP BP Pulse Ox 11/04/23 07:31 65 18 114/84 93 11/04/23 07:20 87 20 130/84 97 11/04/23 03:30 36.6 C 73 18 111/72 98 11/03/23 23:31 36.8 C 72 18 105/67 94 11/03/23 22:50 73 11/03/23 20:29 36.8 C 86 18 122/70 96 11/03/23 16:36 75 110/68 11/03/23 15:53 36.7 C 90 20 168/90 H 97 11/03/23 15:31 73 11/03/23 11:24 36.3 C L 81 20 95/59 L 97 O2 Del Method 11/04/23 07:31 Room Air 11/04/23 07:20 Room Air 11/04/23 03:30 Room Air 11/03/23 23:31 Room Air 11/03/23 22:50 11/03/23 20:29 Room Air 11/03/23 16:36 11/03/23 15:53 Room Air 11/03/23 15:31 11/03/23 11:24 Room Air Transfer of Care Handoff Completed per policy Notes Mental Status: alert / awake / arousable Patient Amnestic to Procedure: Yes Nausea / Vomiting: adequately controlled Pain: adequately controlled Airway Patency, RR, SpO2: stable & adequate BP & HR: stable & adequate Hydration State: stable & adequate Anesthetic Complications: no major complications apparent
[2023-11-04] MEDS: APIXABAN 5 MG TABLET PO SCH (07:52)
[2023-11-04] MEDS: FINASTERIDE 5 MG TAB PO SCH (08:37)
[2023-11-04] MEDS: FOLIC ACID 1 MG TAB PO SCH (08:37)
[2023-11-04] MEDS: METOPROLOL SUCC 50MG EXT REL TAB PO SCH (08:37)
[2023-11-04] MEDS: ASPIRIN 81 MG CHEW PO SCH (08:38)
[2023-11-04] MEDS: ADVANCED PROBIOTIC 1250 MG CAPSULE PO SCH (08:39)
--- NOTE | 2023-11-04 09:22 | Electrocardiogram Report ---
Test Reason : Blood Pressure : / mmHG Vent. Rate : 064 BPM Atrial Rate : 064 BPM P-R Int : 246 ms QRS Dur : 086 ms QT Int : 450 ms P-R-T Axes : 034 -08 012 degrees QTc Int : 464 ms Sinus rhythm with 1st degree A-V block Otherwise normal ECG When compared with ECG of 03-NOV-2023 05:50, Sinus rhythm has replaced Atrial fibrillation Confirmed by Jesus Jones ([id number]) on 11/04/2023 9:22:11 AM Referred By: REFERRED SELF Confirmed By:Jesus Jones
--- NOTE | 2023-11-04 10:17 | Communication Note ---
Date of Service: November 04, 2023 Patient reassessed post cardioversion at 10:15 AM in room 454. Spouse, Angelica is at the bedside. He feels well. Sinus rhythm in the 70s present. Patient received his morning dose of Eliquis this morning at 752. Patient stable from a cardiac perspective for discharge. Continue his prior to hospital cardiac medications. Patient already has a cardiology follow-up visit in December, but this will likely need to be moved up. Paulina Vazquez, DO
--- NOTE | 2023-11-04 14:39 | Discharge Summary ---
Date of Service November 04, 2023 Admission HPI Per Admitting Provider Patient is 78-year-old male with PMH paroxysmal atrial fibrillation anticoagulated on Eliquis, dyslipidemia, carotid stenosis, BPH presented to ER with c/o palpitations started yesterday. History obtained from patient as well as inpatient and outpatient chart review. Patient states approximately 10 days ago started with nasal congestion, rhinorrhea, cough. Symptoms progressed and patient was seen by PCPs office 3 days ago and was started on Augmentin. Patient reports his congestion and a cough has decreased. States last night started having palpitations that continued throughout the night. Also reports dizziness and lightheadedness with standing. Feeling generally weak last night and today. Patient states this morning felt like he was going to pass out when he stood up so he took his blood pressures and were low on home monitor. Denies any chest pain or shortness of breath. Patient states for the past couple days has had loose stools. Patient states this morning stool was very dark in coloration. Reports taking his metoprolol this morning. Did not have other medications today. Otherwise reports no missed doses of Eliquis. Follows with [facility] cardiology. Denies fever/chills, diaphoresis, nausea, vomiting, constipation, FINNEGAN, vision changes, neck pain, hemoptysis, choking, abdominal pain, paresthesias, extremity edema, rashes, urinary symptoms. Admission Exam Per Admitting Provider General: no acute distress, WDWN Head: normocephalic, atraumatic Eyes: conjunctiva non-injected, anicteric ENT: normal inspection external ears, nose, mucous membranes moist Neck: supple, trachea midline Lungs: clear, no respiratory distress, no wheezing/rhonchi/rales CV: Irregularly irregular, rate 92, no pretibial edema Abd: normal BS, soft, non-tender Ext: no cyanosis, no calf tenderness Neuro: A&O x 3, no focal deficits noted, normal affect Skin: warm, dry Principal Diagnosis Atrial fibrillation with RVR status post cardioversion Discharge Exam General: no acute distress, WDWN Lungs: clear, no respiratory distress, no wheezing/rhonchi/rales CV: Irregularly irregular, rate 92, no pretibial edema Abd: normal BS, soft, non-tender Ext: no cyanosis, no calf tenderness Neuro: A&O x 3, no focal deficits noted, normal affect Skin: warm, dry Discharge Data Allergies Allergy/AdvReac Type Severity Reaction Status Date / Time prednisone Allergy Intermediate Swelling Verified 12/24/22 07:03 cerivastatin Allergy Mild muscle pain Verified 12/24/22 07:03 niacin Allergy Mild RASH Verified 12/24/22 07:03 piroxicam Allergy Mild Rash Verified 12/24/22 07:03 simvastatin Allergy Mild rash Verified 12/24/22 07:03 albuterol [From DuoNeb] AdvReac Intermediate RAPID Verified 12/24/22 07:03 HEARTBEAT ipratropium [From DuoNeb] AdvReac Intermediate RAPID Verified 12/24/22 07:03 HEARTBEAT methylprednisolone AdvReac Intermediate RAPID Verified 12/24/22 07:03 HEARTBEAT pantoprazole AdvReac Unknown can't Verified 12/24/22 07:03 remember rabeprazole AdvReac Unknown Unknown Verified 12/24/22 07:03 Consultations 11/02/23 12:24 Consult Cardiology Routine 11/02/23 12:40 ED Decision to Admit Stat 11/02/23 15:21 Consult Cardiology Routine 11/03/23 11:15 Consult Anesthesiology Routine Procedures Performed Operation Date: 11/04/23 07:15 Actual Procedures p Cardioversion - Femi Vazquez [facility] Course (1) Atrial fibrillation: Patient is 78-year-old male with PMH paroxysmal atrial fibrillation anticoagulated on Eliquis, dyslipidemia, carotid stenosis, BPH presented to ER with c/o palpitations, dizziness started yesterday. He was found to have atrial fibrillation with RVR. EKG personally reviewed atrial fibrillation, Chest x-ray personally reviewed; mild pulmonary vascular congestion Echocardiogram shows a EF of 65 to 70% with left atrium moderately dilated. He was admitted to PCU. Telemonitoring was done and cardiology was consulted. He was initially started on amiodarone which was stopped as it heart rate became lower. On November 04, 2023; patient was cardioverted to normal sinus rhythm by cardiology. Patient's home medications were resumed. Patient was discharged home. Please note the above document was generated using voice recognition software. It may contain grammatical, syntax or spelling errors. Any formal questions or concerns about the content, text or information contained within the body of this dictation should be directly addressed to the provider for clarification Total Time Total Time Spent Total Time Spent (In Minutes): 35 Total Time Includes: Examination of the Patient, Discharge Planning, Medication Reconciliation, Communication With Other Providers and Other Discharge Plan Discharge Items Patient Disposition: Home - Self-Care Reason For Visit: AFIB Discharge Diagnosis: Atrial Fibrillation with RVR Activity: Resume your previous activity Non-emergency contact: Primary Care Provider Call non-emergency contact if: you have any medication questions Follow-up/Referrals: Terence Smith DO [Institute Scientist] - (The Cardiology office will contact you for a hospital follow up appointment.) Ami Woodson DO [Primary Care Provider] - 11/08/23 12:15 pm (with [place]) Diet: Regular Addtl Attending Provider Instructions: You were admitted to hospital with Atrial fibrillation with RVR. You underwent cardioversion on November 03, 2023. Sam continue to take your medications as prescribed. No changes have been done to your medication regimen Pending Studies at Discharge: No Stand-Alone Forms: My [facility] [employer], Smoking Cessation Medications and DC Order Prescriptions: Continued Eliquis 5 mg tablet 5 mg PO BID Qty: 180 3RF atorvastatin 40 mg tablet 40 mg PO QPM multivitamin Tablet 1 tab PO QAM terazosin 5 mg Capsule 5 mg PO HS aspirin 81 mg Tablet,Chewable 81 mg PO QAM Calcium 600 + D(3) 600 mg calcium- 200 unit capsule 1 cap PO QAM Patient Comments: 1 tab PO DAILY; flaxseed oil 1,000 mg capsule 1,200 mg PO DAILY metoprolol succinate 50 mg tablet extended release 24 hr 50 mg PO QAM metoprolol succinate 50 mg tablet extended release 24 hr 25 mg PO HS folic acid 1 mg Tablet 1 mg PO DAILY finasteride [Proscar] 5 mg Tablet 5 mg PO QAM cholecalciferol (vitamin D3) [Vitamin D3] 25 mcg (1,000 unit) Capsule 25 mcg PO DAILY Discontinued amoxicillin-pot clavulanate 875-125 mg tablet 1 tab PO BID Rx Instructions: started on 10/30/23 Discharge Orders: Discharge Order (Routine); Ordered 11/04/23 Ordered By: Alo Kramer/Other Patient Handouts: AFib Dc, Cardioversion Dc, AFib Preventing Stroke, AFib Admission Data Admit Date/Time: 11/02/23 12:52 Attending Provider: Alo Domingo Admjalyn Provider: Estrellita Abernathy Primary Care Provider: Ami Woodson Other Providers: Femi Vazquez; Estrellita Abernathy; Osmar Clemons Other Interventions: Discharge Summary Assessment (RN) Last Done: 11/04/23 11:23
== END 2023-11-04 11:58 | disposition home or self-care (01) | DRG 310 ==
LOC: ED 10:00 → SUATTDRO 12:52 → EDINP 12:52 → 4W 15:22

== ENCOUNTER 2023-12-07 16:11 | Inpatient (IN) ==
--- NOTE | 2023-12-07 16:26 | ED Triage Note ---
Date of Service December 07, 2023 Provider in Triage Author: Foreign Richards. History of Present Illness This patient was briefly evaluated while in triage. An abbreviated physical exam was performed. This patient is a 78-year-old Male who presents to the ED for evaluation of diff use abdominal pain radiating to his right back. Reports nausea but no vomiting. No bowel movement since 2 days ago. No diarrhea. Was seen here 2 days ago for atypical chest pain. Chest pain now resolved, moved into abdomen. No urinary symptoms. Took oxycodone today without relief. Physical Exam CONSTITUTIONAL: appears to be uncomfortable SKIN: pink, warm, dry CARDIAC: regular rate RESPIRATORY: in no respiratory distress, lungs clear to auscultation ABDOMEN: diffuse tenderness Initial orders for labs and / or imaging were placed and patient was placed in the waiting area until a bed is available. Please see further documentation for the full ED course.
--- NOTE | 2023-12-07 16:44 | XRay Report ---
SINGLE VIEW CHEST CLINICAL HISTORY: Epigastric abdominal pain. FINDINGS: A PA chest radiograph is compared to study dated 12/05/2023. Correlation is made with chest C T dated 03/10/2021. The heart is enlarged and noting atherosclerotic calcification of the thoracic aor ta. The pulmonary vasculature is noncongested. There is bibasilar scarring/atelectasis. The lungs and pleural spaces are otherwise clear. No pneumothorax is seen. The skeletal structures are osteopenic. The bony thorax is grossly intact. IMPRESSION: Cardiomegaly with no active disease in the chest. ACT 112: Negative or not required by law. Electronically signed by: Blaze Monroy M.D. 12/07/2023 4:43 PM
[2023-12-07 17:13] LABS: Basophils # (auto) 0.03 K/uL (0.00-0.20); Basophils % (auto) 0.2 %; Hematocrit (blood only) 38.7 % (42.0-52.0); Hemoglobin 12.8 g/dl (14.0-18.0); Immature Granulocytes # (auto) 0.06 K/uL (0.01-0.20); Immature Granulocytes % (auto) 0.4 %; Lymphocytes # (auto) 0.64 K/uL (1.20-3.40); Lymphocytes % (auto) 4.7 %; Mean Corpuscular Hemoglobin 31.8 pg (25.0-34.0); Mean Corpuscular Hgb Conc 33.1 g/dL (32.0-36.0); Mean Corpuscular Volume 96.3 fL (80.0-100.0); Mean Platelet Volume 9.6 fL (9.4-12.4); Monocytes # (auto) 0.72 K/uL (0.11-0.59); Monocytes % (auto) 5.3 %; Neutrophils # (auto) 12.25 K/uL (1.40-6.50); Neutrophils % (auto) 89.4 %; Platelet Count 192 K/uL (130-400); RDW Coefficient of Variation 12.7 % (11.5-14.5); RDW Standard Deviation 45.3 fL (36.4-46.3); Red Blood Count 4.02 M/uL (4.70-6.10)
[2023-12-07 17:50] LABS: Albumin Globulin Ratio 1.2 (0.9-2); Albumin Level 3.8 gm/dl (3.4-5.0); BUN Creatinine Ratio 11.8 (10-20); Bilirubin,Total 1.4 mg/dl (0.2-1.0); Calcium 8.8 mg/dl (8.6-10.3); Est GFR (African American) 66.9 ml/min; Est GFR (Non-African American) 57.8 ml/min; Globulin 3.2 gm/dl (2.5-4.0); Potassium 3.7 mmol/L (3.5-5.1)
[2023-12-07 18:10] LABS: Appearance Urine Cloudy (Clear); Bacteria Urine Automated Negative (Negative); Bilirubin Urine Negative (Negative); Blood Urine 2+ (Negative); Color Urine Dark Yellow; Epithelial Cell Urine Auto >30 /lpf (0-5); Glucose Urine UA Negative (Negative); Ketones Urine 1+ (Negative); Leukocyte Esterase Urine Negative (Negative); Nitrite Urine Negative (Negative); Protein Urine 2+ (Negative); RBC Urine Automated 0-4 /hpf (0-4); Specific Gravity Urine 1.016 (1.000-1.030); Urobilinogen Urine Negative (Negative); pH Urine 5.5 (4.5-7.5)
[2023-12-07] MEDS: OPTIRAY 320 125ml IV ONE (18:17)
--- NOTE | 2023-12-07 18:44 | CT Scan Report ---
CT ANGIOGRAM OF THE CHEST; CT SCAN OF THE ABDOMEN AND PELVIS WITH IV CONTRAST CLINICAL HISTORY: Generalized abdominal pain. Epigastric pain. Right-sided chest pain. COMPARISON STUDY: Chest CT dated 03/10/2021. Chest x-ray dated 12/07/2023. Abdominal CT dated 11/28/2022 . TECHNIQUE: Following the IV administration of 118 of Optiray 320, CT angiogram of the chest is perfor med from the upper abdomen to the thoracic inlet utilizing the pulmonary embolus protocol. Images are reviewed in the axial, sagittal, coronal planes. 3-D MIPS images are created and assessed. Subsequen tly, CT scan of the abdomen and pelvis was performed from the lung bases to the proximal femora. Imag es are reviewed in the axial, sagittal, and coronal planes. IV contrast was administered without comp lication. A dose lowering technique was utilized adhering to the principles of ALARA. CT DOSE: 1852.47 mGy.cm FINDINGS: CHEST: Thyroid: Enlarged and heterogeneous consistent with goiter. This is similar to previous. Thoracic aorta: There is atherosclerotic calcification of the thoracic aorta, which is normal in enrike kim and demonstrates standard 3-vessel arch anatomy. No dissection is seen. Pulmonary vasculature: The pulmonary trunk is normal in caliber. There are no filling defects identif ied in the main, lobar, or segmental pulmonary arteries to indicate pulmonary embolus. Heart: The heart is enlarged including trace pericardial effusion. The coronary arteries are densely calcified. Lungs and pleural spaces: There is no airspace consolidation typical for pneumonia. Scarring/atelecta sis is noted at the lung bases. The trachea and central airways are clear. There are trace pleural ef fusions. A 6 mm right upper lobe pulmonary nodule on image #120 an physiologic nodularity along the r ight major fissure measuring up to 6 mm are unchanged. An 8 mm pleural-based nodule in the left lower lobe along the major fissure on image #130 is also unchanged. These are of low suspicion given long- term stability. No new or enlarging pulmonary lesion is seen. Mediastinum: There is no mediastinal lymphadenopathy. Melonie: Clear. Axillae: There is no axillary lymphadenopathy. Bony thorax: The skeletal structures are osteopenic. No lytic or blastic lesions are identified. Dege nerative change is noted in the shoulders and spine. ABDOMEN AND PELVIS: Liver: The contrast-enhanced liver is normal in size, contour, and attenuation. There is no intrahepa tic or ductal dilatation. The hepatic veins and portal veins are patent. Gallbladder: Unremarkable. Spleen: Normal in size and attenuation. Pancreas: Unremarkable. Adrenal glands: Left adrenal calcifications are unchanged. The right adrenal gland is normal in appea xi. Kidneys: The contrast enhanced kidneys are normal in size and without hydronephrosis. The kidneys enh ance symmetrically. There is a punctate nonobstructing right renal calculus. Abdominal vasculature: There is advanced atherosclerotic calcification and ectasia of the abdominal a bernard. There are bilateral iliac stents. Stomach and bowel: There is a small hiatal hernia. There is a duodenal diverticulum seen on image #14 5. This is thick walled with significant surrounding inflammation and fluid. There are foci of adjace nt free air, and this likely represents a perforated duodenal diverticulitis. There is phlegmonous ch best seen on image #135 adjacent to the diverticulum. No organized/drainable fluid collection is seen at this time to indicate abscess. Mild/moderate fecal retention is noted throughout the colon. No andreea wel obstruction is seen. The appendix is not identified and reported surgically absent. Peritoneum: No intraperitoneal free air seen below the diaphragm. There are small foci of retroperito viet free air adjacent to suspected perforated duodenal diverticulitis. There is free fluid in the re troperitoneum, as well as trace free fluid in the pelvis. Lymphadenopathy: None. Pelvic viscera: The prostate gland is enlarged and heterogeneous. The bladder wall is thickened/trabe culated indicating chronic outlet obstruction. Skeletal structures: The skeletal structures are osteopenic. There is mild to moderate lumbosacral sp ondylosis. No lytic or blastic lesions are seen. Postsurgical changes noted in the left proximal femu r. IMPRESSION: 1. There is no evidence of pulmonary embolus in the main, lobar, or segmental pulmonary arteries. 2. Cardiomegaly and trace pleural effusions. 3. There is no airspace consolidation typical for pneumonia. 4. An inflammatory process adjacent to the duodenum is consistent with a perforated duodenal divertic ulitis. 5. There are small foci of adjacent free air in the retroperitoneum as well as surrounding fluid/phle gmonous change. No organized/drainable fluid collection is seen to indicate abscess. 6. There is trace free fluid in the pelvis. 7. Additional findings as above. ACT 112: Negative or not required by law. Electronically signed by: Blaze Monroy M.D. 12/07/2023 6:41 PM
--- NOTE | 2023-12-07 19:01 | Emergency Department Note ---
Impression & Plan Perforated diverticulum of duodenum, Abdominal pain, Leukocytosis, Non-ST elevation DE (NSTEMI) ED Provider Note HISTORY OF PRESENT ILLNESS: Patient is a 78-year-old male presenting with abdominal pain. Patient reports that he has had "excruciating" abdominal pain for the last 3 days. The pain has been getting progressively worse over this past 3 days. Denies any fevers. Denies any nausea or vomiting. He has had poor oral intake for the last 72 hours. No dysuria or hematuria. He denies any chest pain or shortness of breath. He is on Eliquis for history of A-fib. His last dose was this morning. He describes the pain as a sharp and uncomfortable sensation. Reports the pain radiates diffusely across his abdomen and into his back. He states that pain is worse when he moves or takes a deep breath. ROS: as above PHYSICAL EXAM: Constitutional: Patient appears in no acute distress. HENT: Head: Normocephalic and atraumatic. Eyes: EOMI, PERRL Mouth/Throat: Mucous membranes moist. Neck: Trachea midline. Neck supple. Cardiovascular: RRR, No murmurs, rubs or gallops. Intact distal pulses. Pulmonary/Chest: No respiratory distress. Breath sounds clear and equal bilaterally. No wheezes or rales. Abdominal: Abdomen soft, no rebound or guarding. Diffuse tenderness to palpation. Musculoskeletal: No edema, tenderness or deformity noted. Skin: Warm and dry. No rash, erythema, pallor or cyanosis Psychiatric: Appropriate mood and affect for situation. Neurological: Alert and keenly responsive. CN II-XII grossly intact, moving all extremities equally and fully. MDM: - Vitals signs stable. - History obtained via patient. Patient presents with abdominal pain. Patient reports progressively worsening abdominal pain over the last 3 days. Denies any fevers, nausea or vomiting. He reports poor oral intake in the last 72 hours. He denies any chest pain or shortness of breath. He is on Eliquis for history of A-fib. He describes the pain as sharp in nature. - Chronic conditions affecting care: - Differential diagnoses include, but are not limited to: Diverticulitis; colitis; cholecystitis; appendicitis; ruptured intra-abdominal pathology - Order placed for continuous cardiac monitoring. At this time, monitor showed rate of 82 bpm with normal sinus rhythm rhythm, per my interpretation. - External medical records reviewed. Patient was seen in the emergency department 2 days ago for atypical chest pain. His workup was grossly unremarkable. - EKG interpreted by myself showed normal sinus rhythm. Rate 93 bpm. QT 352. No acute ischemic changes. - Laboratory workup interpreted by myself showed leukocytosis (WBC 13.70 - increased from 7.87 two days ago); stable electrolytes; elevated troponin (23.0); normal lipase - CXR negative for pneumonia, per my interpretation. - UA negative for infection - CT PE negative for PE. - CT chest with IV contrast showed inflammatory process adjacent to the duodenum concerning for perforated duodenal diverticulitis. Noted to have small foci of adjacent free air in the retroperitoneum. - Patient given 1L NS, 50 mcg IV fentanyl and IV zosyn for symptomatic management and antibiotic coverage. - Discussed case with surgeon on-call, Dr. Felix at 18:54. He reports patient does not need emergent surgery at this time but recommends admission to medicine for IV antibiotics and IV fluids. Will see as a consult. - Discussion was had with healthcare prof about patient's case and need for admission - Hospitalist consulted for admission [facility] ASSESSMENT AND PLAN: Diagnosis: Perforated duodenal diverticulitis; leukocytosis; abdominal pain; NSTEMI Plan: Admit Past Med/Surg History Medical History Generalized weakness Pulmonary hypertension PASP 40 mmHg Mild pulmonary hypertension Tricuspid regurgitation moderate Hypertension History of COVID-19 11/10/22>RESOLVED Lumbar spondylosis Chronic left hip pain PVD (peripheral vascular disease) s/p bilat common iliac stenting 08/2019 Atrial fibrillation FOLLOWS WITH KOPINSKI Carotid artery disease s/p left CEA, < 50% stenosis ICAs bilat on most recent carotid doppler GERD (gastroesophageal reflux disease) Hearing deficit On anticoagulant therapy on eliquis daily Hyperlipidemia Benign prostatic hyperplasia (01/05/12) Surgical History History of left-sided carotid endarterectomy History of tonsillectomy History of appendectomy 06/25/1919 Grade 1 view, [place] 2, ETT 7.5. History of tooth extraction upper teeth History of open reduction and internal fixation (ORIF) procedure LEFT HIP History of right inguinal hernia repair History of left inguinal hernia repair History of esophagogastroduodenoscopy (EGD) History of colonoscopy Family History Other No family history of adverse response to anesthesia Social History Smoking Status: Current every day smoker Tobacco Type: Cigarettes Cigarettes Per Day: 20; Second Hand Exposure: No; Do You Dip or Chew Tobacco: No; Hx Alcohol Use: Yes Alcohol type: beer Hx Substance Use: No Preferred Language: Swedish Communication Ability: Effective 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 Beliefs That Will Affect Care: None marital status: Current Living Situation: Spouse Feels Safe at Home: Yes Assistive Devices: None Allergies Allergies Allergy/AdvReac Type Severity Reaction Status Date / Time niacin Allergy Intermediate RASH Verified 12/05/23 19:55 piroxicam Allergy Intermediate Rash Verified 12/05/23 19:55 prednisone Allergy Intermediate Swelling Verified 12/05/23 19:55 simvastatin Allergy Intermediate rash Verified 12/05/23 19:55 albuterol [From DuoNeb] AdvReac Intermediate RAPID Verified 12/05/23 19:55 HEARTBEAT cerivastatin AdvReac Intermediate muscle pain Verified 12/05/23 19:55 ipratropium [From DuoNeb] AdvReac Intermediate RAPID Verified 12/05/23 19:55 HEARTBEAT methylprednisolone AdvReac Intermediate RAPID Verified 12/05/23 19:55 HEARTBEAT pantoprazole AdvReac Unknown can't Verified 12/05/23 19:55 remember rabeprazole AdvReac Unknown Unknown Verified 12/05/23 19:55 Home Meds Home Medications Medication Instructions Recorded Confirmed aspirin 81 mg chewable tablet 81 mg PO QAM 11/14/18 12/07/23 multivitamin 1 tab PO QAM 11/14/18 12/07/23 terazosin 5 mg capsule 5 mg PO 11/14/18 12/07/23 calcium carbonate 600 mg-vitamin 1 cap PO QAM 05/19/19 12/07/23 D3 5 mcg (200 unit) capsule (Calcium 600 + D(3)) flaxseed oil 1,000 mg capsule 1,200 mg PO DAILY 04/11/21 12/07/23 atorvastatin 40 mg tablet 40 mg PO QPM 10/16/21 12/07/23 metoprolol succinate 50 mg See Rx Instructions .Route .COMPLEX 11/28/22 12/07/23 tablet,extended release 24 hr cholecalciferol (vitamin D3) 25 25 mcg PO DAILY 12/18/22 12/07/23 mcg (1,000 unit) capsule (Vitamin D3) finasteride 5 mg tablet (Proscar) 5 mg PO QAM 12/18/22 12/07/23 cyanocobalamin (vitamin B-12) 500 250 mcg PO DAILY 12/05/23 12/07/23 mcg tablet (Vitamin B-12) folic acid 400 mcg tablet 0.4 mg PO DAILY 12/05/23 12/07/23 Previous Rx's Medication Instructions Recorded apixaban 5 mg tablet (Eliquis) 5 mg PO BID #180 tabs 10/30/21 Results & Data (ED) Vital Signs Vital Signs - 24 hr 12/07/23 16:15 12/07/23 17:44 12/07/23 17:44 Temperature 36.4 C L Temperature Source Oral Pulse Rate 92 H 77 85 Pulse Rate from SpO2 Sensor 87 Respiratory Rate 20 25 H Respiratory Effort / Characteristics Non-Labored Spontaneous Respiratory Depth Normal Blood Pressure 100/50 L Blood Pressure Mean 66 Pulse Oximetry 97 94 Oxygen Delivery Method Room Air Sepsis Recent Fever Within 48 Hours No Sepsis New/Unexplained Change in Mental Status No Sepsis Action Taken by Nursing No Action Required 12/07/23 17:45 12/07/23 17:46 12/07/23 17:46 Temperature Temperature Source Pulse Rate 82 83 Pulse Rate from SpO2 Sensor 82 83 Respiratory Rate 23 15 Respiratory Effort / Characteristics Respiratory Depth Blood Pressure 140/66 Blood Pressure Mean 83 Pulse Oximetry 94 94 Oxygen Delivery Method Room Air Sepsis Recent Fever Within 48 Hours Sepsis New/Unexplained Change in Mental Status Sepsis Action Taken by Nursing 12/07/23 18:00 12/07/23 18:01 12/07/23 18:01 Temperature Temperature Source Pulse Rate 85 89 Pulse Rate from SpO2 Sensor 88 Respiratory Rate 15 22 Respiratory Effort / Characteristics Respiratory Depth Blood Pressure 129/74 Blood Pressure Mean 102 Pulse Oximetry 93 Oxygen Delivery Method Sepsis Recent Fever Within 48 Hours Sepsis New/Unexplained Change in Mental Status Sepsis Action Taken by Nursing 12/07/23 18:30 12/07/23 18:30 12/07/23 19:00 Temperature Temperature Source Pulse Rate 82 Pulse Rate from SpO2 Sensor 81 Respiratory Rate 22 Respiratory Effort / Characteristics Respiratory Depth Blood Pressure 159/70 H 137/59 L Blood Pressure Mean 117 92 Pulse Oximetry 95 Oxygen Delivery Method Room Air Sepsis Recent Fever Within 48 Hours Sepsis New/Unexplained Change in Mental Status Sepsis Action Taken by Nursing 12/07/23 19:00 Temperature Temperature Source Pulse Rate 82 Pulse Rate from SpO2 Sensor 82 Respiratory Rate 17 Respiratory Effort / Characteristics Respiratory Depth Blood Pressure Blood Pressure Mean Pulse Oximetry 93 Oxygen Delivery Method Sepsis Recent Fever Within 48 Hours Sepsis New/Unexplained Change in Mental Status Sepsis Action Taken by Nursing Laboratory Data 12/07/23 16:52 12/07/23 16:52 Lab Results 12/07/23 12/07/23 12/07/23 Range/Units 16:52 17:14 17:54 WBC 13.70 H (4.8-10.8) K/ul RBC 4.02 L (4.70-6.10) M/uL Hgb 12.8 L (14.0-18.0) g/dl Hct 38.7 L (42.0-52.0) % MCV 96.3 (80.0-100.0) fL MCH 31.8 (25.0-34.0) pg MCHC 33.1 (32.0-36.0) g/dL RDW Std Deviation 45.3 (36.4-46.3) fL RDW Coeff of Billy 12.7 (11.5-14.5) % Plt Count 192 (130-400) K/uL MPV 9.6 (9.4-12.4) fL Immature Gran % (Auto) 0.4 % Neut % (Auto) 89.4 % Lymph % (Auto) 4.7 % [facility] % (Auto) 5.3 % Eos % (Auto) 0.0 % Baso % (Auto) 0.2 % Neut # (Auto) 12.25 H (1.40-6.50) K/uL Lymph # (Auto) 0.64 L (1.20-3.40) K/uL [facility] # (Auto) 0.72 H (0.11-0.59) K/uL Eos # (Auto) 0.00 (0.00-0.50) K/uL Baso # (Auto) 0.03 (0.00-0.20) K/uL Immature Gran # (Auto) 0.06 (0.01-0.20) K/uL Sodium 132 L (136-145) mmol/L Potassium 3.7 (3.5-5.1) mmol/L Chloride 99 (98-107) mmol/L Carbon Dioxide 26 (21-32) mmol/L Anion Gap 7 (3-11) BUN 14 (6-23) mg/dl Creatinine 1.19 (0.6-1.4) mg/dl Est Cr Clr Drug Dosing 52.0 ml/min Est GFR ( Amer) 66.9 ml/min Est GFR (Non-Af Amer) 57.8 ml/min BUN/Creatinine Ratio 11.8 (10-20) Glucose 133 H (70-99(Fasting)) mg/dl Lactate 1.0 (0.4-2.0) mmol/L Calcium 8.8 (8.6-10.3) mg/dl Total Bilirubin 1.4 H (0.2-1.0) mg/dl AST 20 (13-39) U/L ALT 12 (7-52) U/L Alkaline Phosphatase 56 (34-104) U/L Troponin I High Sens 23.0 H D (0-20) pg/ml Total Protein 7.0 (6.0-8.3) gm/dl Albumin 3.8 (3.4-5.0) gm/dl Globulin 3.2 (2.5-4.0) gm/dl Albumin/Globulin Ratio 1.2 (0.9-2) Lipase 24 (11-82) U/L Urine Color Dark Yellow Urine Appearance Cloudy A (Clear) Urine pH 5.5 (4.5-7.5) Ur Specific [place] 1.016 (1.000-1.030) Urine Protein 2+ H (Negative) Urine Glucose (UA) Negative (Negative) Urine Ketones 1+ H (Negative) Urine Blood 2+ H (Negative) Urine Nitrite Negative (Negative) Urine Bilirubin Negative (Negative) Urine Urobilinogen Negative (Negative) Ur Leukocyte Esterase Negative (Negative) Urine WBC (Auto) 5-10 H (0-5) /hpf Urine RBC (Auto) 0-4 (0-4) /hpf U Hyaline Cast (Auto) 10-30 H (0-5) /lpf U Epithel Cells (Auto) >30 H (0-5) /lpf Urine Bacteria (Auto) Negative (Negative) Administered Medications Piperacillin Sod/Tazobactam Sod (Zosyn) 4.5 gm in 100 mls @ 200 mls/hr IV NOW ONE Stop: 12/07/23 19:15 Last Admin: 12/07/23 19:04 Dose: 200 mls/hr Documented By: RADHA Sodium Chloride (Nss) 1,000 mls @ 999 mls/hr IV .Q1H1M ONE Stop: 12/07/23 19:55 Last Admin: 12/07/23 19:03 Dose: 999 mls/hr Documented By: RADHA Discontinued Medications Fentanyl Citrate (Fentanyl Citrate Pf 100 Mcg/2 Ml Vial) 50 mcg IV NOW STA Stop: 12/07/23 18:56 Last Admin: 12/07/23 19:03 Dose: 50 mcg Documented By: RADHA Ioversol (Optiray 320 125ml) 118 ml IV ONCE ONE Stop: 12/07/23 18:15 Last Admin: 12/07/23 18:17 Dose: 118 ml Documented By: LO Imaging Data Radiologist's Impression: Abdomen/Pelvis CT 12/07/23 16:18 CT ANGIOGRAM OF THE CHEST; CT SCAN OF THE ABDOMEN AND PELVIS WITH IV CONTRAST CLINICAL HISTORY: Generalized abdominal pain. Epigastric pain. Right-sided chest pain. COMPARISON STUDY: Chest CT dated 03/10/2021. Chest x-ray dated 12/07/2023. Abdominal CT dated 11/28/2022. TECHNIQUE: Following the IV administration of 118 of Optiray 320, CT angiogram of the chest is performed from the upper abdomen to the thoracic inlet utilizing the pulmonary embolus protocol. Images are reviewed in the axial, sagittal, coronal planes. 3-D MIPS images are created and assessed. Subsequently, CT scan of the abdomen and pelvis was performed from the lung bases to the proximal femora. Images are reviewed in the axial, sagittal, and coronal planes. IV contrast was administered without complication. A dose lowering technique was utilized adhering to the principles of ALARA. CT DOSE: 1852.47 mGy.cm FINDINGS: CHEST: Thyroid: Enlarged and heterogeneous consistent with goiter. This is similar to previous. Thoracic aorta: There is atherosclerotic calcification of the thoracic aorta, which is normal in caliber and demonstrates standard 3-vessel arch anatomy. No dissection is seen. Pulmonary vasculature: The pulmonary trunk is normal in caliber. There are no filling defects identified in the main, lobar, or segmental pulmonary arteries to indicate pulmonary embolus. Heart: The heart is enlarged including trace pericardial effusion. The coronary arteries are densely calcified. Lungs and pleural spaces: There is no airspace consolidation typical for pneumonia. Scarring/atelectasis is noted at the lung bases. The trachea and central airways are clear. There are trace pleural effusions. A 6 mm right upper lobe pulmonary nodule on image #120 an physiologic nodularity along the right major fissure measuring up to 6 mm are unchanged. An 8 mm pleural-based nodule in the left lower lobe along the major fissure on image #130 is also unchanged. These are of low suspicion given long-term stability. No new or enlarging pulmonary lesion is seen. Mediastinum: There is no mediastinal lymphadenopathy. Melonie: Clear. Axillae: There is no axillary lymphadenopathy. Bony thorax: The skeletal structures are osteopenic. No lytic or blastic lesions are identified. Degenerative change is noted in the shoulders and spine. ABDOMEN AND PELVIS: Liver: The contrast-enhanced liver is normal in size, contour, and attenuation. There is no intrahepatic or ductal dilatation. The hepatic veins and portal veins are patent. Gallbladder: Unremarkable. Spleen: Normal in size and attenuation. Pancreas: Unremarkable. Adrenal glands: Left adrenal calcifications are unchanged. The right adrenal gland is normal in appearance. Kidneys: The contrast enhanced kidneys are normal in size and without hydronephrosis. The kidneys enhance symmetrically. There is a punctate nonobstructing right renal calculus. Abdominal vasculature: There is advanced atherosclerotic calcification and ectasia of the abdominal aorta. There are bilateral iliac stents. Stomach and bowel: There is a small hiatal hernia. There is a duodenal diverticulum seen on image #145. This is thick walled with significant surrounding inflammation and fluid. There are foci of adjacent free air, and this likely represents a perforated duodenal diverticulitis. There is phlegmonous change seen on image #135 adjacent to the diverticulum. No organized/drainable fluid collection is seen at this time to indicate abscess. Mild/moderate fecal retention is noted throughout the colon. No bowel obstruction is seen. The appendix is not identified and reported surgically absent. Peritoneum: No intraperitoneal free air seen below the diaphragm. There are small foci of retroperitoneal free air adjacent to suspected perforated duodenal diverticulitis. There is free fluid in the retroperitoneum, as well as trace free fluid in the pelvis. Lymphadenopathy: None. Pelvic viscera: The prostate gland is enlarged and heterogeneous. The bladder wall is thickened/trabeculated indicating chronic outlet obstruction. Skeletal structures: The skeletal structures are osteopenic. There is mild to moderate lumbosacral spondylosis. No lytic or blastic lesions are seen. Postsurgical changes noted in the left proximal femur. IMPRESSION: 1. There is no evidence of pulmonary embolus in the main, lobar, or segmental pulmonary arteries. 2. Cardiomegaly and trace pleural effusions. 3. There is no airspace consolidation typical for pneumonia. 4. An inflammatory process adjacent to the duodenum is consistent with a perforated duodenal diverticulitis. 5. There are small foci of adjacent free air in the retroperitoneum as well as surrounding fluid/phlegmonous change. No organized/drainable fluid collection is seen to indicate abscess. 6. There is trace free fluid in the pelvis. 7. Additional findings as above. ACT 112: Negative or not required by law. Electronically signed by: Blaze Monroy M.D. 12/07/2023 6:41 PM Chest CTA 12/07/23 16:18 CT ANGIOGRAM OF THE CHEST; CT SCAN OF THE ABDOMEN AND PELVIS WITH IV CONTRAST CLINICAL HISTORY: Generalized abdominal pain. Epigastric pain. Right-sided chest pain. COMPARISON STUDY: Chest CT dated 03/10/2021. Chest x-ray dated 12/07/2023. Abdominal CT dated 11/28/2022. TECHNIQUE: Following the IV administration of 118 of Optiray 320, CT angiogram of the chest is performed from the upper abdomen to the thoracic inlet utilizing the pulmonary embolus protocol. Images are reviewed in the axial, sagittal, coronal planes. 3-D MIPS images are created and assessed. Subsequently, CT scan of the abdomen and pelvis was performed from the lung bases to the proximal femora. Images are reviewed in the axial, sagittal, and coronal planes. IV contrast was administered without complication. A dose lowering technique was utilized adhering to the principles of ALARA. CT DOSE: 1852.47 mGy.cm FINDINGS: CHEST: Thyroid: Enlarged and heterogeneous consistent with goiter. This is similar to previous. Thoracic aorta: There is atherosclerotic calcification of the thoracic aorta, which is normal in caliber and demonstrates standard 3-vessel arch anatomy. No dissection is seen. Pulmonary vasculature: The pulmonary trunk is normal in caliber. There are no filling defects identified in the main, lobar, or segmental pulmonary arteries to indicate pulmonary embolus. Heart: The heart is enlarged including trace pericardial effusion. The coronary arteries are densely calcified. Lungs and pleural spaces: There is no airspace consolidation typical for pneumonia. Scarring/atelectasis is noted at the lung bases. The trachea and central airways are clear. There are trace pleural effusions. A 6 mm right upper lobe pulmonary nodule on image #120 an physiologic nodularity along the right major fissure measuring up to 6 mm are unchanged. An 8 mm pleural-based nodule in the left lower lobe along the major fissure on image #130 is also unchanged. These are of low suspicion given long-term stability. No new or enlarging pulmonary lesion is seen. Mediastinum: There is no mediastinal lymphadenopathy. Melonie: Clear. Axillae: There is no axillary lymphadenopathy. Bony thorax: The skeletal structures are osteopenic. No lytic or blastic lesions are identified. Degenerative change is noted in the shoulders and spine. ABDOMEN AND PELVIS: Liver: The contrast-enhanced liver is normal in size, contour, and attenuation. There is no intrahepatic or ductal dilatation. The hepatic veins and portal veins are patent. Gallbladder: Unremarkable. Spleen: Normal in size and attenuation. Pancreas: Unremarkable. Adrenal glands: Left adrenal calcifications are unchanged. The right adrenal gland is normal in appearance. Kidneys: The contrast enhanced kidneys are normal in size and without hydronephrosis. The kidneys enhance symmetrically. There is a punctate nonobstructing right renal calculus. Abdominal vasculature: There is advanced atherosclerotic calcification and ectasia of the abdominal aorta. There are bilateral iliac stents. Stomach and bowel: There is a small hiatal hernia. There is a duodenal diverticulum seen on image #145. This is thick walled with significant surrounding inflammation and fluid. There are foci of adjacent free air, and this likely represents a perforated duodenal diverticulitis. There is phlegmonous change seen on image #135 adjacent to the diverticulum. No organized/drainable fluid collection is seen at this time to indicate abscess. Mild/moderate fecal retention is noted throughout the colon. No bowel obstruction is seen. The appendix is not identified and reported surgically absent. Peritoneum: No intraperitoneal free air seen below the diaphragm. There are small foci of retroperitoneal free air adjacent to suspected perforated duodenal diverticulitis. There is free fluid in the retroperitoneum, as well as trace free fluid in the pelvis. Lymphadenopathy: None. Pelvic viscera: The prostate gland is enlarged and heterogeneous. The bladder wall is thickened/trabeculated indicating chronic outlet obstruction. Skeletal structures: The skeletal structures are osteopenic. There is mild to moderate lumbosacral spondylosis. No lytic or blastic lesions are seen. Postsurgical changes noted in the left proximal femur. IMPRESSION: 1. There is no evidence of pulmonary embolus in the main, lobar, or segmental pulmonary arteries. 2. Cardiomegaly and trace pleural effusions. 3. There is no airspace consolidation typical for pneumonia. 4. An inflammatory process adjacent to the duodenum is consistent with a perforated duodenal diverticulitis. 5. There are small foci of adjacent free air in the retroperitoneum as well as surrounding fluid/phlegmonous change. No organized/drainable fluid collection is seen to indicate abscess. 6. There is trace free fluid in the pelvis. 7. Additional findings as above. ACT 112: Negative or not required by law. Electronically signed by: Blaze Monroy M.D. 12/07/2023 6:41 PM Chest X-Ray 12/07/23 16:18 SINGLE VIEW CHEST CLINICAL HISTORY: Epigastric abdominal pain. FINDINGS: A PA chest radiograph is compared to study dated 12/05/2023. Correlation is made with chest CT dated 03/10/2021. The heart is enlarged and noting atherosclerotic calcification of the thoracic aorta. The pulmonary vasculature is noncongested. There is bibasilar scarring/atelectasis. The lungs and pleural spaces are otherwise clear. No pneumothorax is seen. The skeletal structures are osteopenic. The bony thorax is grossly intact. IMPRESSION: Cardiomegaly with no active disease in the chest. ACT 112: Negative or not required by law. Electronically signed by: Blaze Monroy M.D. 12/07/2023 4:43 PM Discharge Plan Visit Data Chief Complaint: Abdominal Pain Stated Complaint: ABD AND CHEST PAIN ED Provider: Latanya Messina Discharge Problem: Perforated diverticulum of duodenum, Abdominal pain, Leukocytosis, Non-ST elevation DE (NSTEMI) Forms Stand Alone Forms: [facility] Prescriptions Prescriptions: No Action Eliquis 5 mg tablet 5 mg PO BID Qty: 180 3RF atorvastatin 40 mg tablet 40 mg PO QPM multivitamin Tablet 1 tab PO QAM terazosin 5 mg Capsule 5 mg PO HS aspirin 81 mg Tablet,Chewable 81 mg PO QAM Calcium 600 + D(3) 600 mg calcium- 200 unit capsule 1 cap PO QAM Patient Comments: 1 tab PO DAILY; flaxseed oil 1,000 mg capsule 1,200 mg PO DAILY metoprolol succinate 50 mg tablet extended release 24 hr See Rx Instructions .ROUTE .COMPLEX Rx Instructions: TAKES 50 MG QAM, THEN 25 MG QHS. finasteride [Proscar] 5 mg Tablet 5 mg PO QAM cholecalciferol (vitamin D3) [Vitamin D3] 25 mcg (1,000 unit) Capsule 25 mcg PO DAILY folic acid 400 mcg Tablet 0.4 mg PO DAILY cyanocobalamin (vitamin B-12) [Vitamin B-12] 500 mcg Tablet 250 mcg PO DAILY Referrals Referrals: Ami Woodson DO [Primary Care Provider] -
[2023-12-07] MEDS: SODIUM CHLORIDE 0.9% 1,000 ML IV ONE (19:03)
[2023-12-07] MEDS: fentaNYL citrate PF 100 MCG/2 ML VIAL IV STA (19:03)
[2023-12-07] MEDS: PIPERACILLIN/TAZOBACTAM 4.5 GM/100 ML BAG IV ONE (19:04)
[2023-12-07] MEDS ORDERED: PROMETHAZINE HCL 6.25 MG in SODIUM CHLORIDE 0.9% 50 ML IV PRN (19:53)
[2023-12-07 20:25] LABS: Partial Thromboplastin Ratio 1.3; Partial Thromboplastin Time 37 Seconds (21-31)
[2023-12-07 20:37] LABS: Magnesium 1.8 mg/dl (1.7-2.4)
[2023-12-07 20:58] LABS: Estimated Average Glucose 111 mg/dl; Hemoglobin A1C 5.5 % (4.5-5.6)
--- NOTE | 2023-12-07 21:08 | History & Physical Report ---
Date of Service December 07, 2023 Assessment & Plan (1) Perforated diverticulum of duodenum: Plan: History PUD, PPI intolerance no overt sepsis for now Hypertension, slight elevated secondary to discomfort Troponin elevation secondary to illness PAF, status post cardioversion on Eliquis hx PVD hyperlipidemia, statin intolerance chronic anemia, hemoglobin at baseline Hyperglycemia rule out DM past tobacco abuse Medical telemetry given troponin elevation and need for IV beta-susan while strictly n.p.o. Zosyn General surgery consult Re: Perforated duodenal diverticulitis (ER provider already in touch with Dr. Felix.) Appropriate to hold Eliquis for now given possible surgery and propensity for GI bleed Pepcid for PUD in light of PPI intolerance Outpatient follow-up with [facility] specialist. Check hemoglobin A1c DVT prophylaxis. SCDs Re: Possible surgery Full code Patient requesting updates providers. Ms. Angelica Gauthier, contact numbers [phone]. Text document was generated using [employer] voice recognition software. It may contain grammatical or spelling errors. Kindly contact undersigned for clarification of any documentation item in question. History of Present Illness Chief Complaint: Abdominal pain Primary Care Provider: Ami Woodson, History obtained from patient, family, and records. Medical history significant for A-fib on Eliquis, PVD status post surgery, mild TR, hypertension, hyperlipidemia, PUD as per records, chronic anemia (baseline hemoglobin 12-13), BPH, past tobacco abuse. Recent confinement last month for A-fib with RVR status post cardioversion. 3 days ago, patient noted chest/epigastric discomfort with constipation symptoms. No unusual shortness of breath. Patient consulted ER 2 days ago but was sent home after negative workup. Worsening discomfort more pronounced in the abdomen. Some nausea, no emesis. No bowel movement. No fever, no chills. No hematemesis/bilious emesis/black/bloody stools prior to illness. Patient intolerant of PPI prescription for PUD. Rashes from medication as per . Patient returned to ER. IV Zosyn administered at the ER with CT findings of perforated duodenal diverticulitis. Medical History as above Surgical History : Appendectomy, left carotid endarterectomy, tonsillectomy, dental surgery, left hip surgery, hernia repair Family History : Heart disease, DM Personal/Social history : Past tobacco abuse, occasional EtOH intake Allergies Allergy/AdvReac Type Severity Reaction Status Date / Time niacin Allergy Intermediate RASH Verified 12/05/23 19:55 pantoprazole Allergy Intermediate Rash Verified 12/08/23 07:18 piroxicam Allergy Intermediate Rash Verified 12/05/23 19:55 prednisone Allergy Intermediate Swelling Verified 12/05/23 19:55 rabeprazole Allergy Intermediate rash Verified 12/08/23 07:18 simvastatin Allergy Intermediate rash Verified 12/05/23 19:55 albuterol [From DuoNeb] AdvReac Intermediate RAPID Verified 12/05/23 19:55 HEARTBEAT cerivastatin AdvReac Intermediate muscle pain Verified 12/05/23 19:55 ipratropium [From DuoNeb] AdvReac Intermediate RAPID Verified 12/05/23 19:55 HEARTBEAT methylprednisolone AdvReac Intermediate RAPID Verified 12/05/23 19:55 HEARTBEAT Home Medications Medication Instructions Recorded Confirmed Type aspirin 81 mg chewable tablet 81 mg PO QAM 11/14/18 12/07/23 History multivitamin 1 tab PO QAM 11/14/18 12/07/23 History terazosin 5 mg capsule 5 mg PO HS 11/14/18 12/07/23 History calcium carbonate 600 mg-vitamin 1 cap PO QAM 05/19/19 12/07/23 History D3 5 mcg (200 unit) capsule (Calcium 600 + D(3)) flaxseed oil 1,000 mg capsule 1,200 mg PO DAILY 04/11/21 12/07/23 History atorvastatin 40 mg tablet 40 mg PO QPM 10/16/21 12/07/23 History apixaban 5 mg tablet (Eliquis) 5 mg PO BID #180 tabs 10/30/21 12/07/23 Rx metoprolol succinate 50 mg See Rx Instructions .Route .COMPLEX 11/28/22 12/07/23 History tablet,extended release 24 hr cholecalciferol (vitamin D3) 25 25 mcg PO DAILY 12/18/22 12/07/23 History mcg (1,000 unit) capsule (Vitamin D3) finasteride 5 mg tablet (Proscar) 5 mg PO QAM 12/18/22 12/07/23 History cyanocobalamin (vitamin B-12) 500 250 mcg PO DAILY 12/05/23 12/07/23 History mcg tablet (Vitamin B-12) folic acid 400 mcg tablet 0.4 mg PO DAILY 12/05/23 12/07/23 History Past Med/Surg History Medical History Generalized weakness Pulmonary hypertension PASP 40 mmHg Mild pulmonary hypertension Tricuspid regurgitation moderate Hypertension History of COVID-19 11/10/22>RESOLVED Lumbar spondylosis Chronic left hip pain PVD (peripheral vascular disease) s/p bilat common iliac stenting 08/2019 Atrial fibrillation FOLLOWS WITH KOPINSKI Carotid artery disease s/p left CEA, < 50% stenosis ICAs bilat on most recent carotid doppler GERD (gastroesophageal reflux disease) Hearing deficit On anticoagulant therapy on eliquis daily Hyperlipidemia Benign prostatic hyperplasia (01/05/12) Surgical History History of left-sided carotid endarterectomy History of tonsillectomy History of appendectomy 06/25/1919 Grade 1 view, [place] 2, ETT 7.5. History of tooth extraction upper teeth History of open reduction and internal fixation (ORIF) procedure LEFT HIP History of right inguinal hernia repair History of left inguinal hernia repair History of esophagogastroduodenoscopy (EGD) History of colonoscopy Family History Other No family history of adverse response to anesthesia Social History Smoking Status: Former smoker Tobacco Type: Cigarettes Cigarettes Per Day: 20; Second Hand Exposure: No; Do You Dip or Chew Tobacco: No; Hx Alcohol Use: Yes Alcohol type: beer Hx Substance Use: No Preferred Language: Chinese Communication Ability: Effective Controller Mechanic Required: No Beliefs That Will Affect Care: None marital status: Current Living Situation: Spouse Other Information That Helps Us Care for You: No Feels Safe at Home: Yes Safety Concerns: Feels Safe At This Time Assistive Devices: Cane, Denture - Upper and Walker Assistive Devices Comment: uses intermittently Review of Systems Review of Systems: As per HPI, all other systems reviewed and negative Physical Exam Physical Exam: GENERAL: uncomfortable, no respiratory distress SKIN: Normal color, warm HEENT: [place] palpebral conjunctivae, no ptosis, dry buccal mucosa NECK : Supple, no tenderness CHEST : Decreased breath sounds, no tenderness HEART : RRR, no obvious murmurs ABDOMEN: distention, epigastric tenderness EXTREMITIES : No LE swelling/tenderness, no other conspicuous deformities noted NEUROLOGIC : Coherent, no facial asymmetry, slightly hard of hearing, no other gross focality Results & Data Results & Data Vital Signs (Past 12 Hours) Vital Signs Temp Pulse Resp BP Pulse Ox O2 Del Method 12/07/23 20:00 81 23 94 Room Air 12/07/23 20:00 149/77 H 12/07/23 19:30 72 23 12/07/23 19:30 132/58 L 12/07/23 19:00 82 17 93 12/07/23 19:00 137/59 L 12/07/23 18:30 159/70 H 12/07/23 18:30 82 22 95 Room Air 12/07/23 18:01 89 22 93 12/07/23 18:01 129/74 12/07/23 18:00 85 15 12/07/23 17:46 83 15 94 12/07/23 17:46 140/66 12/07/23 17:45 82 23 94 Room Air 12/07/23 17:44 85 25 H 94 12/07/23 17:44 77 12/07/23 16:15 36.4 C L 92 H 20 100/50 L 97 Room Air Laboratory Results Laboratory Results WBC 13.70 K/ul (4.8-10.8) H 12/07/23 16:52 RBC 4.02 M/uL (4.70-6.10) L 12/07/23 16:52 Hgb 12.8 g/dl (14.0-18.0) L 12/07/23 16:52 Hct 38.7 % (42.0-52.0) L 12/07/23 16:52 MCV 96.3 fL (80.0-100.0) 12/07/23 16:52 MCH 31.8 pg (25.0-34.0) 12/07/23 16:52 MCHC 33.1 g/dL (32.0-36.0) 12/07/23 16:52 RDW Std Deviation 45.3 fL (36.4-46.3) 12/07/23 16:52 RDW Coeff of Billy 12.7 % (11.5-14.5) 12/07/23 16:52 Plt Count 192 K/uL (130-400) 12/07/23 16:52 MPV 9.6 fL (9.4-12.4) 12/07/23 16:52 Immature Gran % (Auto) 0.4 % 12/07/23 16:52 Neut % (Auto) 89.4 % 12/07/23 16:52 Lymph % (Auto) 4.7 % 12/07/23 16:52 [place] % (Auto) 5.3 % 12/07/23 16:52 Eos % (Auto) 0.0 % 12/07/23 16:52 Baso % (Auto) 0.2 % 12/07/23 16:52 Neut # (Auto) 12.25 K/uL (1.40-6.50) H 12/07/23 16:52 Lymph # (Auto) 0.64 K/uL (1.20-3.40) L 12/07/23 16:52 [place] # (Auto) 0.72 K/uL (0.11-0.59) H 12/07/23 16:52 Eos # (Auto) 0.00 K/uL (0.00-0.50) 12/07/23 16:52 Baso # (Auto) 0.03 K/uL (0.00-0.20) 12/07/23 16:52 Immature Gran # (Auto) 0.06 K/uL (0.01-0.20) 12/07/23 16:52 APTT 37 Seconds (21-31) H 12/07/23 16:52 PTT Ratio 1.3 12/07/23 16:52 Sodium 132 mmol/L (136-145) L 12/07/23 16:52 Potassium 3.7 mmol/L (3.5-5.1) 12/07/23 16:52 Chloride 99 mmol/L (98-107) 12/07/23 16:52 Carbon Dioxide 26 mmol/L (21-32) 12/07/23 16:52 Anion Gap 7 (3-11) 12/07/23 16:52 BUN 14 mg/dl (6-23) 12/07/23 16:52 Creatinine 1.19 mg/dl (0.6-1.4) 12/07/23 16:52 Est Cr Clr Drug Dosing 52.0 ml/min 12/07/23 16:52 Est GFR ( Amer) 66.9 ml/min 12/07/23 16:52 Est GFR (Non-Af Amer) 57.8 ml/min 12/07/23 16:52 BUN/Creatinine Ratio 11.8 (10-20) 12/07/23 16:52 Glucose 133 mg/dl (70-99(Fasting)) H 12/07/23 16:52 Estimat Average Glucose 111 mg/dl 12/07/23 16:52 Hemoglobin A1c 5.5 % (4.5-5.6) 12/07/23 16:52 Lactate 1.0 mmol/L (0.4-2.0) 12/07/23 17:54 Calcium 8.8 mg/dl (8.6-10.3) 12/07/23 16:52 Magnesium 1.8 mg/dl (1.7-2.4) 12/07/23 16:52 Total Bilirubin 1.4 mg/dl (0.2-1.0) H 12/07/23 16:52 AST 20 U/L (13-39) 12/07/23 16:52 ALT 12 U/L (7-52) 12/07/23 16:52 Alkaline Phosphatase 56 U/L (34-104) 12/07/23 16:52 Troponin I High Sens 21.7 pg/ml (0-20) H 12/07/23 18:53 Total Protein 7.0 gm/dl (6.0-8.3) 12/07/23 16:52 Albumin 3.8 gm/dl (3.4-5.0) 12/07/23 16:52 Globulin 3.2 gm/dl (2.5-4.0) 12/07/23 16:52 Albumin/Globulin Ratio 1.2 (0.9-2) 12/07/23 16:52 Lipase 24 U/L (11-82) 12/07/23 16:52 Urine Color Dark Yellow 12/07/23 17:14 Urine Appearance Cloudy (Clear) A 12/07/23 17:14 Urine pH 5.5 (4.5-7.5) 12/07/23 17:14 Ur Specific [place] 1.016 (1.000-1.030) 12/07/23 17:14 Urine Protein 2+ (Negative) H 12/07/23 17:14 Urine Glucose (UA) Negative (Negative) 12/07/23 17:14 Urine Ketones 1+ (Negative) H 12/07/23 17:14 Urine Blood 2+ (Negative) H 12/07/23 17:14 Urine Nitrite Negative (Negative) 12/07/23 17:14 Urine Bilirubin Negative (Negative) 12/07/23 17:14 Urine Urobilinogen Negative (Negative) 12/07/23 17:14 Ur Leukocyte Esterase Negative (Negative) 12/07/23 17:14 Urine WBC (Auto) 5-10 /hpf (0-5) H 12/07/23 17:14 Urine RBC (Auto) 0-4 /hpf (0-4) 12/07/23 17:14 U Hyaline Cast (Auto) 10-30 /lpf (0-5) H 12/07/23 17:14 U Epithel Cells (Auto) >30 /lpf (0-5) H 12/07/23 17:14 Urine Bacteria (Auto) Negative (Negative) 12/07/23 17:14 Impressions Abdomen/Pelvis CT 12/07/23 16:18 CT ANGIOGRAM OF THE CHEST; CT SCAN OF THE ABDOMEN AND PELVIS WITH IV CONTRAST CLINICAL HISTORY: Generalized abdominal pain. Epigastric pain. Right-sided chest pain. COMPARISON STUDY: Chest CT dated 03/10/2021. Chest x-ray dated 12/07/2023. Abdominal CT dated 11/28/2022. TECHNIQUE: Following the IV administration of 118 of Optiray 320, CT angiogram of the chest is performed from the upper abdomen to the thoracic inlet utilizing the pulmonary embolus protocol. Images are reviewed in the axial, sagittal, coronal planes. 3-D MIPS images are created and assessed. Subsequently, CT scan of the abdomen and pelvis was performed from the lung bases to the proximal femora. Images are reviewed in the axial, sagittal, and coronal planes. IV contrast was administered without complication. A dose lowering technique was utilized adhering to the principles of ALARA. CT DOSE: 1852.47 mGy.cm FINDINGS: CHEST: Thyroid: Enlarged and heterogeneous consistent with goiter. This is similar to previous. Thoracic aorta: There is atherosclerotic calcification of the thoracic aorta, which is normal in caliber and demonstrates standard 3-vessel arch anatomy. No dissection is seen. Pulmonary vasculature: The pulmonary trunk is normal in caliber. There are no filling defects identified in the main, lobar, or segmental pulmonary arteries to indicate pulmonary embolus. Heart: The heart is enlarged including trace pericardial effusion. The coronary arteries are densely calcified. Lungs and pleural spaces: There is no airspace consolidation typical for pneumonia. Scarring/atelectasis is noted at the lung bases. The trachea and central airways are clear. There are trace pleural effusions. A 6 mm right upper lobe pulmonary nodule on image #120 an physiologic nodularity along the right major fissure measuring up to 6 mm are unchanged. An 8 mm pleural-based nodule in the left lower lobe along the major fissure on image #130 is also unchanged. These are of low suspicion given long-term stability. No new or enlarging pulmonary lesion is seen. Mediastinum: There is no mediastinal lymphadenopathy. Melonie: Clear. Axillae: There is no axillary lymphadenopathy. Bony thorax: The skeletal structures are osteopenic. No lytic or blastic lesions are identified. Degenerative change is noted in the shoulders and spine. ABDOMEN AND PELVIS: Liver: The contrast-enhanced liver is normal in size, contour, and attenuation. There is no intrahepatic or ductal dilatation. The hepatic veins and portal veins are patent. Gallbladder: Unremarkable. Spleen: Normal in size and attenuation. Pancreas: Unremarkable. Adrenal glands: Left adrenal calcifications are unchanged. The right adrenal gland is normal in appearance. Kidneys: The contrast enhanced kidneys are normal in size and without hydronephrosis. The kidneys enhance symmetrically. There is a punctate nonobstructing right renal calculus. Abdominal vasculature: There is advanced atherosclerotic calcification and ectasia of the abdominal aorta. There are bilateral iliac stents. Stomach and bowel: There is a small hiatal hernia. There is a duodenal diverticulum seen on image #145. This is thick walled with significant surrounding inflammation and fluid. There are foci of adjacent free air, and this likely represents a perforated duodenal diverticulitis. There is phlegmonous change seen on image #135 adjacent to the diverticulum. No organized/drainable fluid collection is seen at this time to indicate abscess. Mild/moderate fecal retention is noted throughout the colon. No bowel obstruction is seen. The appendix is not identified and reported surgically absent. Peritoneum: No intraperitoneal free air seen below the diaphragm. There are small foci of retroperitoneal free air adjacent to suspected perforated duodenal diverticulitis. There is free fluid in the retroperitoneum, as well as trace free fluid in the pelvis. Lymphadenopathy: None. Pelvic viscera: The prostate gland is enlarged and heterogeneous. The bladder wall is thickened/trabeculated indicating chronic outlet obstruction. Skeletal structures: The skeletal structures are osteopenic. There is mild to moderate lumbosacral spondylosis. No lytic or blastic lesions are seen. Postsurgical changes noted in the left proximal femur. IMPRESSION: 1. There is no evidence of pulmonary embolus in the main, lobar, or segmental pulmonary arteries. 2. Cardiomegaly and trace pleural effusions. 3. There is no airspace consolidation typical for pneumonia. 4. An inflammatory process adjacent to the duodenum is consistent with a perforated duodenal diverticulitis. 5. There are small foci of adjacent free air in the retroperitoneum as well as surrounding fluid/phlegmonous change. No organized/drainable fluid collection is seen to indicate abscess. 6. There is trace free fluid in the pelvis. 7. Additional findings as above. ACT 112: Negative or not required by law. Electronically signed by: Blaze Monroy M.D. 12/07/2023 6:41 PM Chest CTA 12/07/23 16:18 CT ANGIOGRAM OF THE CHEST; CT SCAN OF THE ABDOMEN AND PELVIS WITH IV CONTRAST CLINICAL HISTORY: Generalized abdominal pain. Epigastric pain. Right-sided chest pain. COMPARISON STUDY: Chest CT dated 03/10/2021. Chest x-ray dated 12/07/2023. Abd ominal CT dated 11/28/2022. TECHNIQUE: Following the IV administration of 118 of Optiray 320, CT angiogram of the chest is performed from the upper abdomen to the thoracic inlet utilizing the pulmonary embolus protocol. Images are reviewed in the axial, sagittal, coronal planes. 3-D MIPS images are created and assessed. Subsequently, CT scan of the abdomen and pelvis was performed from the lung bases to the proximal femora. Images are reviewed in the axial, sagittal, and coronal planes. IV contrast was administered without complication. A dose lowering technique was utilized adhering to the principles of ALARA. CT DOSE: 1852.47 mGy.cm FINDINGS: CHEST: Thyroid: Enlarged and heterogeneous consistent with goiter. This is similar to previous. Thoracic aorta: There is atherosclerotic calcification of the thoracic aorta, which is normal in caliber and demonstrates standard 3-vessel arch anatomy. No dissection is seen. Pulmonary vasculature: The pulmonary trunk is normal in caliber. There are no filling defects identified in the main, lobar, or segmental pulmonary arteries to indicate pulmonary embolus. Heart: The heart is enlarged including trace pericardial effusion. The coronary arteries are densely calcified. Lungs and pleural spaces: There is no airspace consolidation typical for pneumonia. Scarring/atelectasis is noted at the lung bases. The trachea and central airways are clear. There are trace pleural effusions. A 6 mm right upper lobe pulmonary nodule on image #120 an physiologic nodularity along the right major fissure measuring up to 6 mm are unchanged. An 8 mm pleural-based nodule in the left lower lobe along the major fissure on image #130 is also unchanged. These are of low suspicion given long-term stability. No new or enlarging pulmonary lesion is seen. Mediastinum: There is no mediastinal lymphadenopathy. Melonie: Clear. Axillae: There is no axillary lymphadenopathy. Bony thorax: The skeletal structures are osteopenic. No lytic or blastic lesions are identified. Degenerative change is noted in the shoulders and spine. ABDOMEN AND PELVIS: Liver: The contrast-enhanced liver is normal in size, contour, and attenuation. There is no intrahepatic or ductal dilatation. The hepatic veins and portal veins are patent. Gallbladder: Unremarkable. Spleen: Normal in size and attenuation. Pancreas: Unremarkable. Adrenal glands: Left adrenal calcifications are unchanged. The right adrenal gland is normal in appearance. Kidneys: The contrast enhanced kidneys are normal in size and without hydronephrosis. The kidneys enhance symmetrically. There is a punctate nonobstructing right renal calculus. Abdominal vasculature: There is advanced atherosclerotic calcification and ectasia of the abdominal aorta. There are bilateral iliac stents. Stomach and bowel: There is a small hiatal hernia. There is a duodenal diverticulum seen on image #145. This is thick walled with significant surrounding inflammation and fluid. There are foci of adjacent free air, and this likely represents a perforated duodenal diverticulitis. There is phlegmonous change seen on image #135 adjacent to the diverticulum. No organized/drainable fluid collection is seen at this time to indicate abscess. Mild/moderate fecal retention is noted throughout the colon. No bowel obstruction is seen. The appendix is not identified and reported surgically absent. Peritoneum: No intraperitoneal free air seen below the diaphragm. There are small foci of retroperitoneal free air adjacent to suspected perforated duodenal diverticulitis. There is free fluid in the retroperitoneum, as well as trace free fluid in the pelvis. Lymphadenopathy: None. Pelvic viscera: The prostate gland is enlarged and heterogeneous. The bladder wall is thickened/trabeculated indicating chronic outlet obstruction. Skeletal structures: The skeletal structures are osteopenic. There is mild to moderate lumbosacral spondylosis. No lytic or blastic lesions are seen. Postsurgical changes noted in the left proximal femur. IMPRESSION: 1. There is no evidence of pulmonary embolus in the main, lobar, or segmental pulmonary arteries. 2. Cardiomegaly and trace pleural effusions. 3. There is no airspace consolidation typical for pneumonia. 4. An inflammatory process adjacent to the duodenum is consistent with a perforated duodenal diverticulitis. 5. There are small foci of adjacent free air in the retroperitoneum as well as surrounding fluid/phlegmonous change. No organized/drainable fluid collection is seen to indicate abscess. 6. There is trace free fluid in the pelvis. 7. Additional findings as above. ACT 112: Negative or not required by law. Electronically signed by: Blaze Monroy M.D. 12/07/2023 6:41 PM Chest X-Ray 12/07/23 16:18 SINGLE VIEW CHEST CLINICAL HISTORY: Epigastric abdominal pain. FINDINGS: A PA chest radiograph is compared to study dated 12/05/2023. Correlation is made with chest CT dated 03/10/2021. The heart is enlarged and noting atherosclerotic calcification of the thoracic aorta. The pulmonary vasculature is noncongested. There is bibasilar scarring/atelectasis. The lungs and pleural spaces are otherwise clear. No pneumothorax is seen. The skeletal structures are osteopenic. The bony thorax is grossly intact. IMPRESSION: Cardiomegaly with no active disease in the chest. ACT 112: Negative or not required by law. Electronically signed by: Blaze Monroy M.D. 12/07/2023 4:43 PM Diagnostic Findings EKG as per my interpretation : Rate 95, NSR, LAD, LAFB, incomplete RBBB, no ischemia
[2023-12-07] MEDS ORDERED: LORazepam 0.25 MG in SYRINGE 0.25 ML IV PRN (21:12)
[2023-12-07] MEDS: MoRPHine SULFATE 2 MG/ML CARP IV PRN (21:39)
[2023-12-07] MEDS: METOPROLOL TARTRATE 1 MG/ML VIAL IV STA (21:39)
[2023-12-07] MEDS: bisacodyL 10 MG SUPP PR STA (21:40)
[2023-12-07] MEDS: NSS + 20MEQ KCL 20 MEQ/1,000 ML BAG IV STA (21:40)
[2023-12-07] MEDS: FAMOTIDINE 20MG IV PUSH 20 MG/5 ML SYR IV STA (22:12)
[2023-12-07] MEDS: ACETAMINOPHEN 1,000 MG/100 ML VIAL IV PRN (22:52)
[2023-12-08] MEDS: PIPERACILLIN/TAZOBACTAM 4.5 GM in DEXTROSE 5% MINI-B 100 ML IV SCH (01:25)
[2023-12-08 06:05] LABS: Basophils # (auto) 0.02 K/uL (0.00-0.20); Basophils % (auto) 0.1 %; Hematocrit (blood only) 33.6 % (42.0-52.0); Hemoglobin 11.6 g/dl (14.0-18.0); Immature Granulocytes # (auto) 0.23 K/uL (0.01-0.20); Immature Granulocytes % (auto) 1.5 %; Lymphocytes # (auto) 0.77 K/uL (1.20-3.40); Lymphocytes % (auto) 5.1 %; Mean Corpuscular Hemoglobin 32.2 pg (25.0-34.0); Mean Corpuscular Hgb Conc 34.5 g/dL (32.0-36.0); Mean Corpuscular Volume 93.3 fL (80.0-100.0); Mean Platelet Volume 10.2 fL (9.4-12.4); Monocytes # (auto) 0.87 K/uL (0.11-0.59); Monocytes % (auto) 5.7 %; Neutrophils % (auto) 87.6 %; Platelet Count 153 K/uL (130-400); RDW Standard Deviation 44.9 fL (36.4-46.3); White Blood Count 15.19 K/ul (4.8-10.8)
[2023-12-08] MEDS ORDERED: METOPROLOL TARTRATE 1 MG/ML VIAL IV SCH (06:10)
[2023-12-08] MEDS: METOPROLOL TARTRATE 1 MG/ML VIAL IV SCH (06:20)
[2023-12-08 06:30] LABS: BUN Creatinine Ratio 12.9 (10-20); Calcium 8.1 mg/dl (8.6-10.3); Creatinine Clr Calc Pharmacy 61.2 ml/min; Est GFR (African American) 81.6 ml/min; Est GFR (Non-African American) 70.4 ml/min; Potassium 3.4 mmol/L (3.5-5.1)
--- NOTE | 2023-12-08 07:09 | Electrocardiogram Report ---
Test Reason : Blood Pressure : / mmHG Vent. Rate : 093 BPM Atrial Rate : 093 BPM P-R Int : 194 ms QRS Dur : 086 ms QT Int : 352 ms P-R-T Axes : 042 -17 036 degrees QTc Int : 437 ms Normal sinus rhythm Normal ECG When compared with ECG of 05-DEC-2023 14:32, Premature supraventricular complexes are no longer Present DE interval has decreased Vent. rate has increased BY 35 BPM Confirmed by Richmond Venegas ([id number]) on 12/08/2023 7:09:04 AM Referred By: REFERRED SELF Confirmed By:Salvador Venegas
[2023-12-08] MEDS: FAMOTIDINE 20 MG in SYRINGE 3 ML IV SCH (08:45)
--- NOTE | 2023-12-08 11:24 | Surgery Consultation ---
Date of Consultation December 08, 2023 Assessment & Plan (1) Leukocytosis: hemodynamically stable keep NPO IV antibiotics on H2 blockers. apparent allergy to PPI will add liquid carafate no urgent indication for surgery. will follow along closely. (2) Abdominal pain: (3) Perforated diverticulum of duodenum: History of Present Illness Attending Physician: Estrellita Abernathy MD History of Present Illness Sony is a pleasant 78-year-old male who began having pain last Saturday or . He was seen in the emergency room for primarily chest pain. Workup was essentially negative and he was sent home. He continued to get escalating symptoms and return to the hospital yesterday. Workup this time revealed what appears to be duodenal diverticulitis with microperforation. To have pain although he does admit to the pain medication helping. Allergies Allergy/AdvReac Type Severity Reaction Status Date / Time niacin Allergy Intermediate RASH Verified 12/05/23 19:55 pantoprazole Allergy Intermediate Rash Verified 12/08/23 07:18 piroxicam Allergy Intermediate Rash Verified 12/05/23 19:55 prednisone Allergy Intermediate Swelling Verified 12/05/23 19:55 rabeprazole Allergy Intermediate rash Verified 12/08/23 07:18 simvastatin Allergy Intermediate rash Verified 12/05/23 19:55 albuterol [From DuoNeb] AdvReac Intermediate RAPID Verified 12/05/23 19:55 HEARTBEAT cerivastatin AdvReac Intermediate muscle pain Verified 12/05/23 19:55 ipratropium [From DuoNeb] AdvReac Intermediate RAPID Verified 12/05/23 19:55 HEARTBEAT methylprednisolone AdvReac Intermediate RAPID Verified 12/05/23 19:55 HEARTBEAT Home Medications Medication Instructions Recorded Confirmed Type aspirin 81 mg chewable tablet 81 mg PO QAM 11/14/18 12/07/23 History multivitamin 1 tab PO QAM 11/14/18 12/07/23 History terazosin 5 mg capsule 5 mg PO HS 11/14/18 12/07/23 History calcium carbonate 600 mg-vitamin 1 cap PO QAM 05/19/19 12/07/23 History D3 5 mcg (200 unit) capsule (Calcium 600 + D(3)) flaxseed oil 1,000 mg capsule 1,200 mg PO DAILY 04/11/21 12/07/23 History atorvastatin 40 mg tablet 40 mg PO QPM 10/16/21 12/07/23 History apixaban 5 mg tablet (Eliquis) 5 mg PO BID #180 tabs 10/30/21 12/07/23 Rx metoprolol succinate 50 mg See Rx Instructions .Route .COMPLEX 11/28/22 12/07/23 History tablet,extended release 24 hr cholecalciferol (vitamin D3) 25 25 mcg PO DAILY 12/18/22 12/07/23 History mcg (1,000 unit) capsule (Vitamin D3) finasteride 5 mg tablet (Proscar) 5 mg PO QAM 12/18/22 12/07/23 History cyanocobalamin (vitamin B-12) 500 250 mcg PO DAILY 12/05/23 12/07/23 History mcg tablet (Vitamin B-12) folic acid 400 mcg tablet 0.4 mg PO DAILY 12/05/23 12/07/23 History Patient History Medical History Generalized weakness Pulmonary hypertension PASP 40 mmHg Mild pulmonary hypertension Tricuspid regurgitation moderate Hypertension History of COVID-19 11/10/22>RESOLVED Lumbar spondylosis Chronic left hip pain PVD (peripheral vascular disease) s/p bilat common iliac stenting 08/2019 Atrial fibrillation FOLLOWS WITH KOPINSKI Carotid artery disease s/p left CEA, < 50% stenosis ICAs bilat on most recent carotid doppler GERD (gastroesophageal reflux disease) Hearing deficit On anticoagulant therapy on eliquis daily Hyperlipidemia Benign prostatic hyperplasia (01/05/12) Surgical History History of left-sided carotid endarterectomy History of tonsillectomy History of appendectomy 06/25/1919 Grade 1 view, [place] 2, ETT 7.5. History of tooth extraction upper teeth History of open reduction and internal fixation (ORIF) procedure LEFT HIP History of right inguinal hernia repair History of left inguinal hernia repair History of esophagogastroduodenoscopy (EGD) History of colonoscopy Family History Other No family history of adverse response to anesthesia Social History Smoking Status: Former smoker Tobacco Type: Cigarettes Cigarettes Per Day: 20; Second Hand Exposure: No; Do You Dip or Chew Tobacco: No; Hx Alcohol Use: Yes Alcohol type: beer Hx Substance Use: No Preferred Language: Vietnamese Communication Ability: Effective [employer] Required: No Beliefs That Will Affect Care: None marital status: Current Living Situation: Spouse Other Information That Helps Us Care for You: No Feels Safe at Home: Yes Safety Concerns: Feels Safe At This Time Assistive Devices: Cane, Denture - Upper and Walker Assistive Devices Comment: uses intermittently Review of Systems Review of Systems: All systems reviewed & are unremarkable except as noted in HPI & below Physical Exam Constitutional: WD/WN, vitals as above no acute distress and not ill appearing Eyes: PERRL, conjunctivae normal, anicteric sclerae EOM intact bilaterally ENMT: external ear and nose normal, oropharynx normal Ears: no hearing impairment Neck: trachea midline, no thyromegaly Respiratory: normal respiratory effort; no respiratory distress and does not use accessory muscles Cardiovascular: Rate/Rhythm: regular rate and regular rhythm Gastrointestinal (Abdomen): soft. +difuse ttp. worse in upper abdomen. +guarding. Skin: no rashes, warm and dry Psychiatric: Orientation: alert, oriented x 3 and cooperative Results & Data Vital Signs (Past 12 Hours) Vital Signs Temp Pulse Pulse Resp BP BP BP 12/08/23 11:11 36.9 C 99 H 19 137/73 12/08/23 07:18 74 12/08/23 06:40 36.7 C 18 12/08/23 06:40 74 126/54 L 12/08/23 06:20 79 128/60 12/08/23 05:38 37.1 C 76 18 128/60 12/08/23 01:21 37.0 C 72 22 135/62 12/07/23 23:40 102/55 L 12/07/23 23:22 Pulse Ox O2 Del Method 12/08/23 11:11 91 Room Air 12/08/23 07:18 12/08/23 06:40 94 Room Air 12/08/23 06:40 12/08/23 06:20 12/08/23 05:38 94 Room Air 12/08/23 01:21 94 Room Air 12/07/23 23:40 12/07/23 23:22 Room Air PG Care Time/CCT Total # of Minutes Spent Total Time Spent with Patient: Total time spent is greater than 50% in coordination of care (as documented) at patient's floor/unit and/or counseling patient: Coding Level of Care Code 96513 INT INP/OBS CARE 3/75MIN Diagnoses Leukocytosis D72.829 Abdominal pain R10.9 Perforated diverticulum of duodenum K57.00
[2023-12-08] MEDS: SUCRALFATE 1 GM/10 ML UDC PO SCH (15:00)
--- NOTE | 2023-12-08 16:35 | Hospitalist Progress Note ---
Date of Service December 08, 2023 Assessment & Plan (1) Perforated diverticulum of duodenum: (2) Abdominal pain: Plan Pt is a 78yoM with PMHx significant for A-fib on Eliquis, PVD status post surgery, hypertension, hyperlipidemia, PUD, chronic anemia (baseline hemoglobin 12-13), BPH, past tobacco abuse who presented with abdominal pain. Perforated diverticulum of duodenum PUD Sepsis History PUD, PPI intolerance, follows with [facility] Febrile with noted leukocytosis, abdomen source of infection Lactate wnl on admission CT abd/pelvis with noted perforated duodenal diverticulitis, some free air, no appreciable abscess General Surgery consulted, appreciate recs -recommending conservative management at this time -cont IV abx (Zosyn), NPO status, IV fluids -continue with IV famotidine (due to ppi intolerance) and carafate Continue IV Pain control Continue to monitor Hypertension slight elevated secondary to discomfort On metoprolol Troponin elevation hs-trop elevated to 23, downtrended to 21.7 EKG NSR likely elevated secondary to illness Doubt ACS PAF status post cardioversion, on Eliquis currently on hold in case surgery needed Continue metoprolol hx PVD status post surgery hyperlipidemia statin intolerance chronic anemia hemoglobin at baseline Hyperglycemia Noted on admission Hgba1c wnl at 5.5 BPH Holding home po Proscar and finasteride Diet: strict NPO DVT prophylaxis. SCDs Re: Possible surgery, holding home Eliquis perioop Full code Dispo: PT/OT Admission and Anticipated Discharge Date Admission Date: December 07, 2023 Subjective Pt was seen multiple times. In the AM, stated that his abdominal pain was improving. Some Nausea though slowly getting better. Later, updated at bedside. with lots of questions. Review of Systems Review of Systems: All systems reviewed & are unremarkable except as noted in Subjective Physical Exam Physical Exam: General: Alert, oriented. No acute distress Skin: No noted rashes or bruises Psych: Appropriate mood and affect Neuro: No gross deficits HEENT: NC/AT Chest: Nontender to palpation. CV: RRR, Normal s1, s2. No murmurs appreciated Resp: Breath sounds clear bilaterally, no increased effort of breathing. Abdomen:Soft, tender in upper abd bilaterally, nondistended. Extremities: No edema in lower extremities bilaterally. Results & Data Results & Data Vital Signs (Past 12 Hours) Vital Signs Temp Pulse Pulse Resp BP BP Pulse Ox 12/08/23 11:11 36.9 C 99 H 19 137/73 91 12/08/23 08:00 12/08/23 07:18 74 12/08/23 06:40 36.7 C 18 94 12/08/23 06:40 74 126/54 L 12/08/23 06:20 79 128/60 12/08/23 05:38 37.1 C 76 18 128/60 94 12/08/23 01:21 37.0 C 72 22 135/62 94 O2 Del Method 12/08/23 11:11 Room Air 12/08/23 08:00 Room Air 12/08/23 07:18 12/08/23 06:40 Room Air 12/08/23 06:40 12/08/23 06:20 12/08/23 05:38 Room Air 12/08/23 01:21 Room Air Diagnostic Findings Abdomen/Pelvis CT 12/07/23 16:18 CT ANGIOGRAM OF THE CHEST; CT SCAN OF THE ABDOMEN AND PELVIS WITH IV CONTRAST CLINICAL HISTORY: Generalized abdominal pain. Epigastric pain. Right-sided chest pain. COMPARISON STUDY: Chest CT dated 03/10/2021. Chest x-ray dated 12/07/2023. Abdominal CT dated 11/28/2022. TECHNIQUE: Following the IV administration of 118 of Optiray 320, CT angiogram of the chest is performed from the upper abdomen to the thoracic inlet utilizing the pulmonary embolus protocol. Images are reviewed in the axial, sagittal, coronal planes. 3-D MIPS images are created and assessed. Subsequently, CT scan of the abdomen and pelvis was performed from the lung bases to the proximal femora. Images are reviewed in the axial, sagittal, and coronal planes. IV contrast was administered without complication. A dose lowering technique was utilized adhering to the principles of ALARA. CT DOSE: 1852.47 mGy.cm FINDINGS: CHEST: Thyroid: Enlarged and heterogeneous consistent with goiter. This is similar to previous. Thoracic aorta: There is atherosclerotic calcification of the thoracic aorta, which is normal in caliber and demonstrates standard 3-vessel arch anatomy. No dissection is seen. Pulmonary vasculature: The pulmonary trunk is normal in caliber. There are no f illing defects identified in the main, lobar, or segmental pulmonary arteries to indicate pulmonary embolus. Heart: The heart is enlarged including trace pericardial effusion. The coronary arteries are densely calcified. Lungs and pleural spaces: There is no airspace consolidation typical for pneumonia. Scarring/atelectasis is noted at the lung bases. The trachea and central airways are clear. There are trace pleural effusions. A 6 mm right upper lobe pulmonary nodule on image #120 an physiologic nodularity along the right major fissure measuring up to 6 mm are unchanged. An 8 mm pleural-based nodule in the left lower lobe along the major fissure on image #130 is also unchanged. These are of low suspicion given long-term stability. No new or enlarging pulmonary lesion is seen. Mediastinum: There is no mediastinal lymphadenopathy. Melonie: Clear. Axillae: There is no axillary lymphadenopathy. Bony thorax: The skeletal structures are osteopenic. No lytic or blastic lesions are identified. Degenerative change is noted in the shoulders and spine. ABDOMEN AND PELVIS: Liver: The contrast-enhanced liver is normal in size, contour, and attenuation. There is no intrahepatic or ductal dilatation. The hepatic veins and portal veins are patent. Gallbladder: Unremarkable. Spleen: Normal in size and attenuation. Pancreas: Unremarkable. Adrenal glands: Left adrenal calcifications are unchanged. The right adrenal gland is normal in appearance. Kidneys: The contrast enhanced kidneys are normal in size and without hydronephrosis. The kidneys enhance symmetrically. There is a punctate nonobstructing right renal calculus. Abdominal vasculature: There is advanced atherosclerotic calcification and ectasia of the abdominal aorta. There are bilateral iliac stents. Stomach and bowel: There is a small hiatal hernia. There is a duodenal diverticulum seen on image #145. This is thick walled with significant surrounding inflammation and fluid. There are foci of adjacent free air, and this likely represents a perforated duodenal diverticulitis. There is phlegmonous change seen on image #135 adjacent to the diverticulum. No organized/drainable fluid collection is seen at this time to indicate abscess. Mild/moderate fecal retention is noted throughout the colon. No bowel obstruction is seen. The appendix is not identified and reported surgically absent. Peritoneum: No intraperitoneal free air seen below the diaphragm. There are small foci of retroperitoneal free air adjacent to suspected perforated duodenal diverticulitis. There is free fluid in the retroperitoneum, as well as trace free fluid in the pelvis. Lymphadenopathy: None. Pelvic viscera: The prostate gland is enlarged and heterogeneous. The bladder wall is thickened/trabeculated indicating chronic outlet obstruction. Skeletal structures: The skeletal structures are osteopenic. There is mild to moderate lumbosacral spondylosis. No lytic or blastic lesions are seen. Postsurgical changes noted in the left proximal femur. IMPRESSION: 1. There is no evidence of pulmonary embolus in the main, lobar, or segmental pulmonary arteries. 2. Cardiomegaly and trace pleural effusions. 3. There is no airspace consolidation typical for pneumonia. 4. An inflammatory process adjacent to the duodenum is consistent with a perforated duodenal diverticulitis. 5. There are small foci of adjacent free air in the retroperitoneum as well as surrounding fluid/phlegmonous change. No organized/drainable fluid collection is seen to indicate abscess. 6. There is trace free fluid in the pelvis. 7. Additional findings as above. ACT 112: Negative or not required by law. Electronically signed by: Blaze Monroy M.D. 12/07/2023 6:41 PM Chest CTA 12/07/23 16:18 CT ANGIOGRAM OF THE CHEST; CT SCAN OF THE ABDOMEN AND PELVIS WITH IV CONTRAST CLINICAL HISTORY: Generalized abdominal pain. Epigastric pain. Right-sided chest pain. COMPARISON STUDY: Chest CT dated 03/10/2021. Chest x-ray dated 12/07/2023. Abdominal CT dated 11/28/2022. TECHNIQUE: Following the IV administration of 118 of Optiray 320, CT angiogram of the chest is performed from the upper abdomen to the thoracic inlet utilizing the pulmonary embolus protocol. Images are reviewed in the axial, sagittal, coronal planes. 3-D MIPS images are created and assessed. Subsequently, CT scan of the abdomen and pelvis was performed from the lung bases to the proximal femora. Images are reviewed in the axial, sagittal, and coronal planes. IV contrast was administered without complication. A dose lowering technique was utilized adhering to the principles of ALARA. CT DOSE: 1852.47 mGy.cm FINDINGS: CHEST: Thyroid: Enlarged and heterogeneous consistent with goiter. This is similar to previous. Thoracic aorta: There is atherosclerotic calcification of the thoracic aorta, which is normal in caliber and demonstrates standard 3-vessel arch anatomy. No dissection is seen. Pulmonary vasculature: The pulmonary trunk is normal in caliber. There are no filling defects identified in the main, lobar, or segmental pulmonary arteries to indicate pulmonary embolus. Heart: The heart is enlarged including trace pericardial effusion. The coronary arteries are densely calcified. Lungs and pleural spaces: There is no airspace consolidation typical for pneumonia. Scarring/atelectasis is noted at the lung bases. The trachea and central airways are clear. There are trace pleural effusions. A 6 mm right upper lobe pulmonary nodule on image #120 an physiologic nodularity along the right major fissure measuring up to 6 mm are unchanged. An 8 mm pleural-based nodule in the left lower lobe along the major fissure on image #130 is also unchanged. These are of low suspicion given long-term stability. No new or enlarging pulmonary lesion is seen. Mediastinum: There is no mediastinal lymphadenopathy. Melonie: Clear. Axillae: There is no axillary lymphadenopathy. Bony thorax: The skeletal structures are osteopenic. No lytic or blastic lesions are identified. Degenerative change is noted in the shoulders and spine. ABDOMEN AND PELVIS: Liver: The contrast-enhanced liver is normal in size, contour, and attenuation. There is no intrahepatic or ductal dilatation. The hepatic veins and portal veins are patent. Gallbladder: Unremarkable. Spleen: Normal in size and attenuation. Pancreas: Unremarkable. Adrenal glands: Left adrenal calcifications are unchanged. The right adrenal gland is normal in appearance. Kidneys: The contrast enhanced kidneys are normal in size and without hydronephrosis. The kidneys enhance symmetrically. There is a punctate nonobstructing right renal calculus. Abdominal vasculature: There is advanced atherosclerotic calcification and ectasia of the abdominal aorta. There are bilateral iliac stents. Stomach and bowel: There is a small hiatal hernia. There is a duodenal diverticulum seen on image #145. This is thick walled with significant surrounding inflammation and fluid. There are foci of adjacent free air, and this likely represents a perforated duodenal diverticulitis. There is phlegmonous change seen on image #135 adjacent to the diverticulum. No organized/drainable fluid collection is seen at this time to indicate abscess. Mild/moderate fecal retention is noted throughout the colon. No bowel obstruction is seen. The appendix is not identified and reported surgically absent. Peritoneum: No intraperitoneal free air seen below the diaphragm. There are small foci of retroperitoneal free air adjacent to suspected perforated duodenal diverticulitis. There is free fluid in the retroperitoneum, as well as trace free fluid in the pelvis. Lymphadenopathy: None. Pelvic viscera: The prostate gland is enlarged and heterogeneous. The bladder wall is thickened/trabeculated indicating chronic outlet obstruction. Skeletal structures: The skeletal structures are osteopenic. There is mild to moderate lumbosacral spondylosis. No lytic or blastic lesions are seen. Postsurgical changes noted in the left proximal femur. IMPRESSION: 1. There is no evidence of pulmonary embolus in the main, lobar, or segmental pulmonary arteries. 2. Cardiomegaly and trace pleural effusions. 3. There is no airspace consolidation typical for pneumonia. 4. An inflammatory process adjacent to the duodenum is consistent with a perforated duodenal diverticulitis. 5. There are small foci of adjacent free air in the retroperitoneum as well as surrounding fluid/phlegmonous change. No organized/drainable fluid collection is seen to indicate abscess. 6. There is trace free fluid in the pelvis. 7. Additional findings as above. ACT 112: Negative or not required by law. Electronically signed by: Blaze Monroy M.D. 12/07/2023 6:41 PM Chest X-Ray 12/07/23 16:18 SINGLE VIEW CHEST CLINICAL HISTORY: Epigastric abdominal pain. FINDINGS: A PA chest radiograph is compared to study dated 12/05/2023. Correlation is made with chest CT dated 03/10/2021. The heart is enlarged and noting atherosclerotic calcification of the thoracic aorta. The pulmonary vasculature i s noncongested. There is bibasilar scarring/atelectasis. The lungs and pleural spaces are otherwise clear. No pneumothorax is seen. The skeletal structures are osteopenic. The bony thorax is grossly intact. IMPRESSION: Cardiomegaly with no active disease in the chest. ACT 112: Negative or not required by law. Electronically signed by: Blaze Monroy M.D. 12/07/2023 4:43 PM
[2023-12-08] MEDS: POTASSIUM CHLORIDE / WTR 10 MEQ/100 ML PLCT IV ONE (17:12)
[2023-12-08] MEDS: NSS + 20MEQ KCL 20 MEQ/1,000 ML BAG IV SCH (17:53)
[2023-12-09] MEDS ORDERED: METOPROLOL TARTRATE 1 MG/ML VIAL IV SCH (06:00)
[2023-12-09 07:00] LABS: Basophils # (auto) 0.02 K/uL (0.00-0.20); Basophils % (auto) 0.2 %; Eosinophils # (auto) 0.02 K/uL (0.00-0.50); Eosinophils % (auto) 0.2 %; Hemoglobin 11.1 g/dl (14.0-18.0); Immature Granulocytes # (auto) 0.05 K/uL (0.01-0.20); Immature Granulocytes % (auto) 0.4 %; Lymphocytes # (auto) 0.78 K/uL (1.20-3.40); Lymphocytes % (auto) 6.6 %; Mean Corpuscular Hemoglobin 32.1 pg (25.0-34.0); Mean Corpuscular Hgb Conc 33.6 g/dL (32.0-36.0); Mean Corpuscular Volume 95.4 fL (80.0-100.0); Mean Platelet Volume 10.5 fL (9.4-12.4); Monocytes # (auto) 0.87 K/uL (0.11-0.59); Monocytes % (auto) 7.4 %; Neutrophils # (auto) 10.09 K/uL (1.40-6.50); Neutrophils % (auto) 85.2 %; Platelet Count 183 K/uL (130-400); RDW Coefficient of Variation 12.9 % (11.5-14.5); RDW Standard Deviation 45.1 fL (36.4-46.3); Red Blood Count 3.46 M/uL (4.70-6.10); White Blood Count 11.83 K/ul (4.8-10.8)
[2023-12-09 07:19] LABS: BUN Creatinine Ratio 14.4 (10-20); Calcium 8.2 mg/dl (8.6-10.3); Creatinine Clr Calc Pharmacy 63.8 ml/min; Est GFR (African American) 85.7 ml/min; Est GFR (Non-African American) 73.9 ml/min; Potassium 3.5 mmol/L (3.5-5.1)
[2023-12-09 07:26] LABS: Albumin Globulin Ratio 1.1 (0.9-2); Albumin Level 3.2 gm/dl (3.4-5.0); Phosphorus 1.3 mg/dl (2.5-4.9); Total Protein 6.2 gm/dl (6.0-8.3)
[2023-12-09] MEDS ORDERED: POTASSIUM PHOS 3 MMOL/1 ML INFUSION IV STA (09:08)
[2023-12-09] MEDS: POTASSIUM PHOSPHATE 24 MMOL in SODIUM CHLORIDE 0.9% 500 ML IV ONE (10:03)
--- NOTE | 2023-12-09 10:16 | Surgery Progress Note ---
Date of Service December 09, 2023 Assessment & Plan (1) Perforated diverticulum of duodenum: Plan: Clinically feels little bit he is quite concerned about how he feels. I am going to repeat the CT scan today to ensure there is no evidence of a perforation expanding with worsening intra-abdominal air. If it looks the same or better I will order clear liquids today for him. His white blood cell count did drop from 15,000-11,000 which is obviously a good sign. Admission and Anticipated Discharge Date Admission Date: December 07, 2023 Subjective Patient seen with at bedside. He states that he continues to have primarily back pain. He states today. He does have baseline back issues as well as the current duodenal diverticulitis. Physical Exam Constitutional: WD/WN, vitals as above no acute distress and not ill appearing Eyes: PERRL, conjunctivae normal, anicteric sclerae EOM intact bilaterally ENMT: external ear and nose normal, oropharynx normal Ears: no hearing impairment Neck: trachea midline, no thyromegaly Respiratory: normal respiratory effort; no respiratory distress and does not use accessory muscles Cardiovascular: Rate/Rhythm: regular rate and regular rhythm Gastrointestinal (Abdomen): soft. +epigastric ttp. mild guarding. slightly improved from yesterday. Skin: no rashes, warm and dry Psychiatric: Orientation: alert, oriented x 3 and cooperative Results & Data Vital Signs (Past 12 Hours) Vital Signs Temp Pulse Pulse Resp BP Pulse Ox O2 Del Method 12/09/23 07:56 36.2 C L 81 16 175/73 H 95 Room Air 12/09/23 06:51 100 H 12/09/23 05:26 78 12/09/23 05:03 80 12/09/23 04:38 36.4 C L 79 18 140/70 95 Room Air 12/08/23 23:57 85 12/08/23 23:49 36.3 C L 65 20 115/71 93 Room Air 12/08/23 23:11 88 12/08/23 22:37 83 PG Care Time/CCT Total # of Minutes Spent Total Time Spent with Patient: Total time spent is greater than 50% in coordination of care (as documented) at patient's floor/unit and/or counseling patient: Coding Level of Care Code 85991 SUB INP/OBS CARE 2/35MIN Diagnoses Perforated diverticulum of duodenum K57.00
[2023-12-09] MEDS: OPTIRAY 320 500ml IV ONE (16:03)
--- NOTE | 2023-12-09 16:29 | CT Scan Report ---
CT SCAN OF THE ABDOMEN WITH IV CONTRAST CLINICAL HISTORY: Follow-up perforated duodenal diverticulitis. COMPARISON STUDY: Abdominal CT dated 12/07/2023. TECHNIQUE: Following the IV administration of 84 cc of Optiray 320, CT scan of the abdomen is perfor med from the lung bases to the pelvic inlet. Images are reviewed in the axial, sagittal, and coronal planes. IV contrast was administered without complication. A dose lowering technique was utilized adh ering to the principles of ALARA. CT DOSE: 710.32 mGy.cm FINDINGS: Lung bases: The heart is normal in size and without pericardial effusion. There are trace pleural eff usions with dependent consolidation. Liver: The contrast-enhanced liver is normal in size, contour, and attenuation. There is no intrahepa tic biliary ductal dilatation. The hepatic veins and portal veins are patent. Gallbladder: Mildly distended but otherwise normal appearance. Spleen: Normal in size and attenuation. Pancreas: Unremarkable. Adrenal glands: Left adrenal calcifications are unchanged. The right adrenal gland is normal in appea xi. Kidneys: The contrast enhanced kidneys are normal in size and without hydronephrosis. The kidneys enh ance symmetrically. There are punctate bilateral nonobstructing renal calculi. Abdominal vasculature: There is advanced atherosclerotic calcification and ectasia of the abdominal a bernard. Iliac stents are partially visualized. Inflammatory change mildly narrows the adjacent IVC. Stomach and bowel: A small hiatal hernia is noted. Again seen is a duodenal diverticulum seen on imag e #136. This is thick walled with significant surrounding inflammation and fluid/phlegmonous change. There are foci of adjacent retroperitoneal free air, and this likely represents a perforated duodenal diverticulitis. No organized/drainable fluid collection is clearly seen to indicate abscess. Imaged portions of the bowel show no evidence of obstruction. Peritoneum: No intraperitoneal free air seen below the diaphragm. There are small foci of retroperito viet free air adjacent to suspected perforated duodenal diverticulitis. There is free fluid in the re troperitoneum, as well as trace free fluid in the pelvis. Lymphadenopathy: None. Skeletal structures: The skeletal structures are osteopenic. Lumbar sacral spondylosis is observed. N o lytic or blastic lesions are seen. IMPRESSION: 1. Again seen is evidence of perforated duodenal diverticulitis. Surrounding inflammation and fluid h as modestly increased as compared to 12/07/2023. 2. Foci of free air are again seen in the adjacent retroperitoneum with surrounding phlegmonous nicholas e. No organized/drainable fluid collection is clearly seen to indicate abscess. 3. Cardiomegaly and trace pleural effusions. 4. Bilateral nephrolithiasis. 5. Additional findings as above. ACT 112: Negative or not required by law. Electronically signed by: Blaze Monroy M.D. 12/09/2023 4:27 PM
--- NOTE | 2023-12-09 20:40 | Hospitalist Progress Note ---
Date of Service December 09, 2023 Assessment & Plan (1) Perforated diverticulum of duodenum: (2) Abdominal pain: Plan Pt is a 78yoM with PMHx significant for A-fib on Eliquis, PVD status post surgery, hypertension, hyperlipidemia, PUD, chronic anemia (baseline hemoglobin 12-13), BPH, past tobacco abuse who presented with abdominal pain. Perforated diverticulum of duodenum PUD Sepsis History PUD, PPI intolerance, follows with [facility] Febrile with noted leukocytosis, abdomen source of infection Lactate wnl on admission CT abd/pelvis with noted perforated duodenal diverticulitis, some free air, no appreciable abscess General Surgery consulted, appreciate recs -recommending conservative management at this time -cont IV abx (Zosyn), NPO status, IV fluids -continue with IV famotidine (due to ppi intolerance) and carafate -repeat CT abd/pelvis on 12/09 Continue IV Pain control Continue to monitor Hypertension slight elevated secondary to discomfort On metoprolol Troponin elevation hs-trop elevated to 23, downtrended to 21.7 EKG NSR likely elevated secondary to illness Doubt ACS PAF status post cardioversion, on Eliquis currently on hold in case surgery needed Continue metoprolol hx PVD status post surgery hyperlipidemia statin intolerance chronic anemia hemoglobin at baseline Hyperglycemia Noted on admission Hgba1c wnl at 5.5 BPH Holding home po Proscar and finasteride Diet: strict NPO DVT prophylaxis. SCDs Re: Possible surgery, holding home Eliquis perioop Full code Dispo: PT/OT Admission and Anticipated Discharge Date Admission Date: December 07, 2023 Subjective Pt was seen with at bedside. Denied acute concerns. States that the pain was well controlled, not in discomfort. Review of Systems Review of Systems: All systems reviewed & are unremarkable except as noted in Subjective Physical Exam Physical Exam: General: Alert, oriented. No acute distress Skin: No noted rashes or bruises Psych: Appropriate mood and affect Neuro: No gross deficits HEENT: NC/AT Chest: Nontender to palpation. CV: RRR, Normal s1, s2. No murmurs appreciated Resp: Breath sounds clear bilaterally, no increased effort of breathing. Abdomen:Soft, mildly tender in upper abd bilaterally, nondistended. Extremities: No edema in lower extremities bilaterally. Results & Data Results & Data Vital Signs (Past 12 Hours) Vital Signs Temp Pulse Pulse Resp BP BP Pulse Ox 12/09/23 15:56 86 120/67 12/09/23 15:26 99 H 12/09/23 11:23 36.7 C 81 16 114/65 97 12/09/23 07:56 36.2 C L 81 16 175/73 H 95 12/09/23 06:51 100 H 12/09/23 05:26 78 12/09/23 05:03 80 12/09/23 04:38 36.4 C L 79 18 140/70 95 O2 Del Method 12/09/23 15:56 12/09/23 15:26 12/09/23 11:23 Room Air 12/09/23 07:56 Room Air 12/09/23 06:51 12/09/23 05:26 12/09/23 05:03 12/09/23 04:38 Room Air
[2023-12-10] MEDS ORDERED: OLANZapine 10 MG/2.1 ML SDV IM PRN (01:10)
[2023-12-10] MEDS: METOPROLOL TARTRATE 1 MG/ML VIAL IV STA ×3 (01:20→03:58)
[2023-12-10] MEDS: DIGOXIN 250 MCG in SYRINGE 9 ML IV STA ×2 (01:57→04:13)
[2023-12-10] MEDS: OLANZapine 10 MG/2.1 ML SDV IM STA (01:58)
[2023-12-10] MEDS: SODIUM CHLORIDE 0.9% 1,000 ML IV SCH (02:03)
[2023-12-10] MEDS: POTASSIUM CHLORIDE / WTR 10 MEQ/100 ML PLCT IV SCH (02:03)
[2023-12-10] MEDS: MAGNESIUM SULFATE / D5W 1 GM/100 ML BAG IV ONE (02:47)
--- NOTE | 2023-12-10 04:06 | Communication Note ---
Date of Service: December 10, 2023 Patient with rapid A-fib unresponsive to multiple doses of IV beta-susan and digoxin. AP PCU transfer to facilitate IV Cardizem bolus Cardizem infusion if no response.
[2023-12-10] MEDS: dilTIAZem HCl 5 MG/ML 5 ML VIAL IV STA (05:52)
[2023-12-10 06:32] LABS: Basophils # (auto) 0.03 K/uL (0.00-0.20); Basophils % (auto) 0.2 %; Eosinophils # (auto) 0.04 K/uL (0.00-0.50); Eosinophils % (auto) 0.3 %; Hematocrit (blood only) 34.1 % (42.0-52.0); Hemoglobin 10.9 g/dl (14.0-18.0); Immature Granulocytes # (auto) 0.06 K/uL (0.01-0.20); Immature Granulocytes % (auto) 0.5 %; Lymphocytes # (auto) 0.84 K/uL (1.20-3.40); Lymphocytes % (auto) 6.9 %; Mean Corpuscular Hemoglobin 31.6 pg (25.0-34.0); Mean Corpuscular Volume 98.8 fL (80.0-100.0); Monocytes # (auto) 0.95 K/uL (0.11-0.59); Monocytes % (auto) 7.8 %; Neutrophils # (auto) 10.19 K/uL (1.40-6.50); Neutrophils % (auto) 84.3 %; Platelet Count 225 K/uL (130-400); RDW Coefficient of Variation 13.4 % (11.5-14.5); RDW Standard Deviation 48.6 fL (36.4-46.3); Red Blood Count 3.45 M/uL (4.70-6.10); White Blood Count 12.11 K/ul (4.8-10.8)
[2023-12-10 06:41] LABS: Albumin Level 3.2 gm/dl (3.4-5.0); BUN Creatinine Ratio 15.8 (10-20); Bilirubin,Total 0.9 mg/dl (0.2-1.0); Calcium 8.3 mg/dl (8.6-10.3); Creatinine Clr Calc Pharmacy 65.1 ml/min; Est GFR (African American) 87.9 ml/min; Est GFR (Non-African American) 75.8 ml/min; Globulin 3.1 gm/dl (2.5-4.0); Phosphorus 1.8 mg/dl (2.5-4.9); Total Protein 6.3 gm/dl (6.0-8.3)
--- NOTE | 2023-12-10 09:26 | Surgery Progress Note ---
Date of Service December 10, 2023 Assessment & Plan (1) Perforated diverticulum of duodenum: Plan: Patient reports he was having some hallucinations over night thought maybe he was dreaming Did not sleep well, requesting medication at HS to help with this has Zyprexa ordered for agitation Alert and oriented to person place and year Denies fever chills, nausea, vomiting, abdominal pain Went into afib last night moved to tele Will advance diet to full liquid and see how he fares Continue famotidine and carafate Wbc 12 (11) , Continue IV Zosyn VSS , having BMs Will continue to monitor as above. will continue to monitor closely. Admission and Anticipated Discharge Date Admission Date: December 07, 2023 Subjective Patient reports he was having some hallucinations over night thought maybe he was dreaming Did not sleep well, requesting medication at HS to help with this Alert and oriented to person place and year Denies fever chills, nausea, vomiting, abdominal pain Went into afib last night moved to tele Review of Systems Constitutional: no fever and no chills Ear, Nose, Mouth, Throat: no hearing loss Respiratory: no dyspnea Cardiovascular: no chest pain Gastrointestinal: no abdominal pain, no nausea and no vomiting Musculoskeletal: no muscle weakness Neurologic: no memory loss Psychiatric: + hallucinations (last night ) Physical Exam Physical Exam: alert oriented asking appropriate questions Constitutional: well developed, cooperative and comfortable; no acute distress Respiratory: normal respiratory effort and able to speak in complete sentences; no respiratory distress Cardiovascular: Rate/Rhythm: regular rate (84) Gastrointestinal (Abdomen): Inspection/Auscultation: abdomen not distended Percussion/Palpation: abdomen soft; no guarding and abdomen not firm Musculoskeletal: no cyanosis or clubbing, extremities motor strength 5/5 Psychiatric: A+Ox3, euthymic affect Results & Data Vital Signs (Past 12 Hours) Vital Signs Temp Pulse Pulse Resp BP BP BP 12/10/23 07:38 98.4 F 84 18 135/67 12/10/23 06:20 87 128/71 12/10/23 06:20 86 128/81 12/10/23 06:17 126 H 12/10/23 06:09 84 106/64 12/10/23 06:00 91 H 105/62 12/10/23 05:49 97.7 F 120 H 22 122/74 12/10/23 05:14 156 H 114/77 12/10/23 04:13 122 H 12/10/23 03:58 133 H 131/78 12/10/23 03:40 98.8 F 133 H 18 131/78 12/10/23 03:25 133 H 131/78 12/10/23 02:47 125 H 156/84 H 12/10/23 02:39 136 H 156/84 H 12/10/23 02:03 122 H 127/66 12/10/23 01:57 134 H 12/10/23 01:54 119 H 127/66 12/10/23 01:38 146 H 160/64 H 12/10/23 01:29 125 H 18 125/96 12/10/23 01:20 160 H 160/64 H 12/10/23 01:18 129 H 101/62 12/09/23 23:18 99.5 F 88 18 158/63 H Pulse Ox O2 Del Method 12/10/23 07:38 96 Room Air 12/10/23 06:20 12/10/23 06:20 12/10/23 06:17 12/10/23 06:09 12/10/23 06:00 12/10/23 05:49 94 Room Air 12/10/23 05:14 12/10/23 04:13 12/10/23 03:58 12/10/23 03:40 95 Room Air 12/10/23 03:25 12/10/23 02:47 93 Room Air 12/10/23 02:39 12/10/23 02:03 12/10/23 01:57 12/10/23 01:54 94 Room Air 12/10/23 01:38 12/10/23 01:29 96 Room Air 12/10/23 01:20 12/10/23 01:18 94 Room Air 12/09/23 23:18 93 Room Air PG Care Time/CCT Total # of Minutes Spent Total Time Spent with Patient: Total time spent is greater than 50% in coordination of care (as documented) at patient's floor/unit and/or counseling patient: Coding Level of Care Code 65112 SUB INP/OBS CARE 11/21MIN Diagnoses Perforated diverticulum of duodenum K57.00
[2023-12-10] MEDS ORDERED: POTASSIUM PHOS 3 MMOL/1 ML INFUSION IV STA (11:32)
[2023-12-10] MEDS: POTASSIUM PHOSPHATE 24 MMOL in SODIUM CHLORIDE 0.9% 500 ML IV ONE (12:02)
[2023-12-10] MEDS: METOPROLOL TARTRATE 1 MG/ML VIAL IV SCH (12:02)
--- NOTE | 2023-12-10 14:59 | Hospitalist Progress Note ---
Date of Service December 10, 2023 Assessment & Plan (1) Perforated diverticulum of duodenum: (2) Abdominal pain: Plan Pt is a 78yoM with PMHx significant for A-fib on Eliquis, PVD status post surgery, hypertension, hyperlipidemia, PUD, chronic anemia (baseline hemoglobin 12-13), BPH, past tobacco abuse who presented with abdominal pain. Perforated diverticulum of duodenum PUD Sepsis History PUD, PPI intolerance, follows with [facility] Febrile with noted leukocytosis, abdomen source of infection Lactate wnl on admission CT abd/pelvis with noted perforated duodenal diverticulitis, some free air, no appreciable abscess General Surgery consulted, appreciate recs -recommending conservative management at this time -cont IV abx (Zosyn), NPO status, IV fluids -continue with IV famotidine (due to ppi intolerance) and carafate -repeat CT abd/pelvis on 12/09 Continue IV Pain control Continue to monitor 12/10- pt transitioned to clears by General surgery PAF status post cardioversion, on Eliquis currently on hold in case surgery needed On metoprolol for rate control 12/10- pt had episode of a fib with rvr overnight. Received Lopressor and Digoxin, initially unresponsive. Responded to Cardizem bolus. Currently in sinu s. Continue IV metoprolol 5mg q6h. Anticoagulation still on hold perioperatively in case there is need for urgent surgical treatment as above. Hypertension slight elevated secondary to discomfort On metoprolol Troponin elevation hs-trop elevated to 23, downtrended to 21.7 EKG NSR likely elevated secondary to illness Doubt ACS hx PVD status post surgery hyperlipidemia statin intolerance chronic anemia hemoglobin at baseline Hyperglycemia Noted on admission Hgba1c wnl at 5.5 BPH Holding home po Proscar and finasteride Diet: on clears currently DVT prophylaxis. SCDs Re: Possible surgery, holding home Eliquis perioop Full code Dispo: PT/OT Admission and Anticipated Discharge Date Admission Date: December 07, 2023 Subjective Pt flipped into atrial fibrillation overnight. Was treated and currently back into sinus. States he is stable. Denies SOB, SOB, palps. Review of Systems Review of Systems: All systems reviewed & are unremarkable except as noted in Subjective Physical Exam Physical Exam: General: Alert, oriented. No acute distress Skin: No noted rashes or bruises Psych: Appropriate mood and affect Neuro: No gross deficits HEENT: NC/AT Chest: Nontender to palpation. CV: RRR, Normal s1, s2. No murmurs appreciated Resp: Breath sounds clear bilaterally, no increased effort of breathing. Abdomen:Soft, mildly tender in upper abd bilaterally, nondistended. Extremities: No edema in lower extremities bilaterally. Results & Data Results & Data Vital Signs (Past 12 Hours) Vital Signs Temp Pulse Pulse Resp BP BP Pulse Ox 12/10/23 12:17 69 12/10/23 12:02 87 12/10/23 11:52 36.6 C 74 18 118/62 74 L 12/10/23 07:38 36.9 C 84 18 135/67 96 12/10/23 06:20 87 128/71 12/10/23 06:20 86 128/81 12/10/23 06:17 126 H 12/10/23 06:09 84 106/64 12/10/23 06:00 91 H 105/62 12/10/23 05:49 36.5 C 120 H 22 122/74 94 12/10/23 05:14 156 H 114/77 12/10/23 04:13 122 H 12/10/23 03:58 133 H 131/78 12/10/23 03:40 37.1 C 133 H 18 131/78 95 12/10/23 03:25 133 H 131/78 O2 Del Method 12/10/23 12:17 12/10/23 12:02 12/10/23 11:52 Room Air 12/10/23 07:38 Room Air 12/10/23 06:20 12/10/23 06:20 12/10/23 06:17 12/10/23 06:09 12/10/23 06:00 12/10/23 05:49 Room Air 12/10/23 05:14 12/10/23 04:13 12/10/23 03:58 12/10/23 03:40 Room Air 12/10/23 03:25
[2023-12-10] MEDS: traZODone HCL 50 MG TAB PO PRN (23:17)
[2023-12-10] MEDS: MELATONIN 3 MG TAB PO PRN (23:17)
--- NOTE | 2023-12-11 06:04 | Electrocardiogram Report ---
Test Reason : Blood Pressure : / mmHG Vent. Rate : 081 BPM Atrial Rate : 081 BPM P-R Int : 230 ms QRS Dur : 086 ms QT Int : 366 ms P-R-T Axes : 058 045 035 degrees QTc Int : 425 ms Sinus rhythm with 1st degree A-V block Otherwise normal ECG When compared with ECG of 07-DEC-2023 16:46, VA interval has increased Confirmed by Brent Salas ([id number]) on 12/11/2023 6:04:13 AM Referred By: REFERRED SELF Confirmed By:Brent Salas
[2023-12-11 06:27] LABS: Basophils # (auto) 0.03 K/uL (0.00-0.20); Basophils % (auto) 0.3 %; Eosinophils # (auto) 0.07 K/uL (0.00-0.50); Eosinophils % (auto) 0.6 %; Hematocrit (blood only) 31.1 % (42.0-52.0); Hemoglobin 10.2 g/dl (14.0-18.0); Immature Granulocytes # (auto) 0.08 K/uL (0.01-0.20); Immature Granulocytes % (auto) 0.7 %; Lymphocytes # (auto) 0.89 K/uL (1.20-3.40); Lymphocytes % (auto) 7.6 %; Mean Corpuscular Hemoglobin 31.8 pg (25.0-34.0); Mean Corpuscular Hgb Conc 32.8 g/dL (32.0-36.0); Mean Corpuscular Volume 96.9 fL (80.0-100.0); Monocytes # (auto) 1.15 K/uL (0.11-0.59); Monocytes % (auto) 9.9 %; Neutrophils # (auto) 9.42 K/uL (1.40-6.50); Neutrophils % (auto) 80.9 %; Platelet Count 205 K/uL (130-400); RDW Coefficient of Variation 13.8 % (11.5-14.5); RDW Standard Deviation 49.1 fL (36.4-46.3); Red Blood Count 3.21 M/uL (4.70-6.10); White Blood Count 11.64 K/ul (4.8-10.8)
[2023-12-11 06:33] LABS: Albumin Level 2.9 gm/dl (3.4-5.0); BUN Creatinine Ratio 13.9 (10-20); Bilirubin,Total 0.8 mg/dl (0.2-1.0); Calcium 7.6 mg/dl (8.6-10.3); Creatinine Clr Calc Pharmacy 78.3 ml/min; Est GFR (Non-African American) 85.4 ml/min; Globulin 2.8 gm/dl (2.5-4.0); Phosphorus 2.1 mg/dl (2.5-4.9); Potassium 3.6 mmol/L (3.5-5.1); Total Protein 5.7 gm/dl (6.0-8.3)
--- NOTE | 2023-12-11 09:15 | Surgery Progress Note ---
Date of Service December 11, 2023 Assessment & Plan (1) Perforated diverticulum of duodenum: Plan: Patient feeling better WBC 11.6 (12), low grade temp 99F yesterday evening, but afebrile today Tolerating fulls. No abdominal complaints. Belly soft, non tender. + bowel function Will advance to low fiber today and see how he fairs Continue course of IV abx while in house as above. doing well. advance diet. if does ok can probably d/c home tomorrow on antibiotics, H2 blockers, and carafate. Admission and Anticipated Discharge Date Admission Date: December 07, 2023 Subjective Patient reports feeling better. Denies abdominal pain, nausea/vomiting. He is passing flatus and BMs. Tolerating full liquid diet without issues. Physical Exam Physical Exam: awake/alert, no distress Gastrointestinal (Abdomen): Inspection/Auscultation: + abdomen distended (mild) Percussion/Palpation: abdomen soft; abdomen nontender Results & Data Vital Signs (Past 12 Hours) Vital Signs Temp Pulse Pulse Resp BP BP BP 12/11/23 07:26 98.2 F 65 18 162/71 H 12/11/23 07:07 66 12/11/23 05:51 67 158/73 H 12/11/23 05:37 75 148/73 H 12/11/23 02:51 97.7 F 84 18 149/62 H 12/10/23 23:35 72 168/77 H 12/10/23 23:30 79 12/10/23 23:04 99.7 F H 82 18 167/74 H Pulse Ox O2 Del Method 12/11/23 07:26 94 Room Air 12/11/23 07:07 12/11/23 05:51 12/11/23 05:37 12/11/23 02:51 96 Room Air 12/10/23 23:35 12/10/23 23:30 12/10/23 23:04 96 Room Air PG Care Time/CCT Total # of Minutes Spent Total Time Spent with Patient: Total time spent is greater than 50% in coordination of care (as documented) at patient's floor/unit and/or counseling patient: Coding Level of Care Code 20725 SUB INP/OBS CARE 11/21MIN Diagnoses Perforated diverticulum of duodenum K57.00
--- NOTE | 2023-12-11 10:13 | Hospitalist Progress Note ---
Date of Service December 11, 2023 Assessment & Plan (1) Perforated diverticulum of duodenum: (2) Abdominal pain: Plan 78year old man with PMHx significant for A-fib on Eliquis, PVD status post surgery, hypertension, hyperlipidemia, PUD, chronic anemia (baseline hemoglobin 12-13), BPH, past tobacco abuse who presented with abdominal pain. Perforated diverticulum of duodenum PUD Sepsis History of PUD, PPI intolerance, follows with [facility] On admission, he was febrile with noted leukocytosis, abdomen source of infection Lactate was within normal limits on admission CT abd/pelvis with noted perforated duodenal diverticulitis, some free air, no appreciable abscess General Surgery evaluation and recommendations appreciated Being managed conservatively Currently on IV zosyn, IVF Tolerating liquids well Surgery advanced diet to low fiber today Will monitor tolerance Continue IV famotidine and carafate. Allergy to PPI PAF 12/10/23- pt had episode of a fib with rvr overnight. Received Lopressor and Digoxin, initially unresponsive. Responded to Cardizem bolus. Currently in sinus. Currently on IV metoprolol 5mg q6h. Switch IV back to home metoprolol succinate 50mg QAM and 25mg HS Home eliquis on hold in case surgery is needed. If continues to improve clinically/tolerating advanced diet, will resume in AM Hypertension Elevated Monitor with med changes Troponin elevation HS-trop elevated to 23, downtrended to 21.7 Likely elevated secondary to illness Doubt ACS Hx of PVD status post surgery Hyperlipidemia Statin intolerance Chronic anemia Hemoglobin stable No active bleeding Hyperglycemia Noted on admission HgbA1c wnl at 5.5 BPH Resume home po Proscar and finasteride Replete hypophosphatemia and monitor Diet: Advanced to Low fiber DVT prophylaxis. Hep sq for today while eliquis is still on hold. Ambulate Full code Dispo: PT/OT I spent a total of 50 minutes coordinating, documenting and providing care for this patient excluding time spent in performance of separately billed services Admission and Anticipated Discharge Date Admission Date: December 07, 2023 Subjective Patient seen and examined Reports feeling good today Denied any abd pain, nausea, vomiting. Reports loose brown stool this morning Denied cough, chest pain, SOB Denied fevers, chills Physical Exam Constitutional: + well hydrated; no acute distress Eyes: PERRL, conjunctivae normal, anicteric sclerae ENMT: external ear and nose normal, oropharynx normal Respiratory: normal respiratory effort, lungs clear to auscultation Cardiovascular: Rate/Rhythm: regular rate and regular rhythm S1 S2 Gastrointestinal (Abdomen): normal bowel sounds, soft, nontender, no hepatosplenomegaly Musculoskeletal: no cyanosis or clubbing, extremities motor strength 5/5 Neurologic: PERRL, EOMI, accommodation nl, no face palsy, no dysarthria Psychiatric: A+Ox3, euthymic affect Results & Data Results & Data Vital Signs (Past 12 Hours) Vital Signs Temp Pulse Pulse Resp BP BP BP 12/11/23 07:26 36.8 C 65 18 162/71 H 12/11/23 07:07 66 12/11/23 05:51 67 158/73 H 12/11/23 05:37 75 148/73 H 12/11/23 02:51 36.5 C 84 18 149/62 H 12/10/23 23:35 72 168/77 H 12/10/23 23:30 79 12/10/23 23:04 37.6 C H 82 18 167/74 H Pulse Ox O2 Del Method 12/11/23 07:26 94 Room Air 12/11/23 07:07 12/11/23 05:51 12/11/23 05:37 12/11/23 02:51 96 Room Air 12/10/23 23:35 12/10/23 23:30 12/10/23 23:04 96 Room Air Laboratory Results Abnormal lab results 12/11/23 Range/Units 05:25 WBC 11.64 H (4.8-10.8) K/ul RBC 3.21 L (4.70-6.10) M/uL Hgb 10.2 L (14.0-18.0) g/dl Hct 31.1 L (42.0-52.0) % RDW Std Deviation 49.1 H (36.4-46.3) fL Neut # (Auto) 9.42 H (1.40-6.50) K/uL Lymph # (Auto) 0.89 L (1.20-3.40) K/uL [place]ing # (Auto) 1.15 H (0.11-0.59) K/uL Chloride 112 H (98-107) mmol/L Glucose 109 H (70-99(Fasting)) mg/dl Calcium 7.6 L (8.6-10.3) mg/dl Phosphorus 2.1 L (2.5-4.9) mg/dl Total Protein 5.7 L (6.0-8.3) gm/dl Albumin 2.9 L (3.4-5.0) gm/dl
[2023-12-11] MEDS: FINASTERIDE 5 MG TAB PO SCH (11:15)
[2023-12-11] MEDS: METOPROLOL SUCC 50MG EXT REL TAB PO SCH (11:15)
[2023-12-11] MEDS: POT PHOSPHATE MONOBASIC W/ SOD TAB PO ONE (11:17)
[2023-12-11] MEDS: HEPARIN SOD 5,000 UNIT/0.5 ML VIAL SQ SCH (13:00)
[2023-12-11] MEDS: TERAZOSIN HCL 5 MG CAP PO SCH (21:28)
[2023-12-11] MEDS: METOPROLOL SUCC 25MG EXT REL TAB PO SCH (21:28)
[2023-12-12 07:01] LABS: Hematocrit (blood only) 30.9 % (42.0-52.0); Hemoglobin 10.1 g/dl (14.0-18.0); Mean Corpuscular Hemoglobin 31.5 pg (25.0-34.0); Mean Corpuscular Hgb Conc 32.7 g/dL (32.0-36.0); Mean Corpuscular Volume 96.3 fL (80.0-100.0); Mean Platelet Volume 9.6 fL (9.4-12.4); Platelet Count 224 K/uL (130-400); RDW Coefficient of Variation 13.5 % (11.5-14.5); RDW Standard Deviation 48.1 fL (36.4-46.3); Red Blood Count 3.21 M/uL (4.70-6.10)
[2023-12-12 07:28] LABS: BUN Creatinine Ratio 9.1 (10-20); Calcium 7.8 mg/dl (8.6-10.3); Creatinine Clr Calc Pharmacy 70.3 ml/min; Est GFR (African American) 94.7 ml/min; Est GFR (Non-African American) 81.7 ml/min; Magnesium 1.9 mg/dl (1.7-2.4); Phosphorus 2.5 mg/dl (2.5-4.9); Potassium 3.4 mmol/L (3.5-5.1)
--- NOTE | 2023-12-12 10:33 | Discharge Summary ---
Date of Service December 12, 2023 Admission HPI Per Admitting Provider History obtained from patient, family, and records. Medical history significant for A-fib on Eliquis, PVD status post surgery, mild TR, hypertension, hyperlipidemia, PUD as per records, chronic anemia (baseline hemoglobin 12-13), BPH, past tobacco abuse. Recent confinement last month for A-fib with RVR status post cardioversion. 3 days ago, patient noted chest/epigastric discomfort with constipation symptom s. No unusual shortness of breath. Patient consulted ER 2 days ago but was sent home after negative workup. Worsening discomfort more pronounced in the abdomen. Some nausea, no emesis. No bowel movement. No fever, no chills. No hematemesis/bilious emesis/black/bloody stools prior to illness. Patient intolerant of PPI prescription for PUD. Rashes from medication as per . Patient returned to ER. IV Zosyn administered at the ER with CT findings of perforated duodenal diverticulitis. Medical History as above Surgical History : Appendectomy, left carotid endarterectomy, tonsillectomy, dental surgery, left hip surgery, hernia repair Family History : Heart disease, DM Personal/Social history : Past tobacco abuse, occasional EtOH intake Admission Exam Per Admitting Provider GENERAL: uncomfortable, no respiratory distress SKIN: Normal color, warm HEENT: [place] palpebral conjunctivae, no ptosis, dry buccal mucosa NECK : Supple, no tenderness CHEST : Decreased breath sounds, no tenderness HEART : RRR, no obvious murmurs ABDOMEN: distention, epigastric tenderness EXTREMITIES : No LE swelling/tenderness, no other conspicuous deformities noted NEUROLOGIC : Coherent, no facial asymmetry, slightly hard of hearing, no other gross focality Principal Diagnosis Perforated diverticulum of duodenum Discharge Exam Constitutional + well hydrated; no acute distress Eyes PERRL, conjunctivae normal, anicteric sclerae ENMT external ear and nose normal, oropharynx normal Respiratory normal respiratory effort, lungs clear to auscultation Cardiovascular Rate/Rhythm: regular rate and regular rhythm S1 S2 Gastrointestinal (Abdomen) normal bowel sounds, soft, nontender, no hepatosplenomegaly Musculoskeletal no cyanosis or clubbing, extremities motor strength 5/5 Neurologic PERRL, EOMI, accommodation nl, no face palsy, no dysarthria Psychiatric A+Ox3, euthymic affect Discharge Data Allergies Allergy/AdvReac Type Severity Reaction Status Date / Time niacin Allergy Intermediate RASH Verified 12/05/23 19:55 pantoprazole Allergy Intermediate Rash Verified 12/08/23 07:18 piroxicam Allergy Intermediate Rash Verified 12/05/23 19:55 prednisone Allergy Intermediate Swelling Verified 12/05/23 19:55 rabeprazole Allergy Intermediate rash Verified 12/08/23 07:18 simvastatin Allergy Intermediate rash Verified 12/05/23 19:55 albuterol [From DuoNeb] AdvReac Intermediate RAPID Verified 12/05/23 19:55 HEARTBEAT cerivastatin AdvReac Intermediate muscle pain Verified 12/05/23 19:55 ipratropium [From DuoNeb] AdvReac Intermediate RAPID Verified 12/05/23 19:55 HEARTBEAT methylprednisolone AdvReac Intermediate RAPID Verified 12/05/23 19:55 HEARTBEAT Consultations 12/07/23 19:19 ED Decision to Admit Stat 12/07/23 19:21 Consult General Surgery Stat Ordered Studies 12/07/23 16:18 CT Abd and Pelvis [CT abd pelvis IV con only] Stat CT angio chest PE protocol Stat 12/09/23 10:09 CT abdomen w IV con Urgent Hospital Course (1) Perforated diverticulum of duodenum: (2) Abdominal pain: Plan 78year old man with PMHx significant for A-fib on Eliquis, PVD status post surgery, hypertension, hyperlipidemia, PUD, chronic anemia (baseline hemoglobin 12-13), BPH, past tobacco abuse who presented with abdominal pain. Perforated diverticulum of duodenum PUD Sepsis History of PUD, PPI intolerance, follows with [facility] On admission, he was febrile with noted leukocytosis, abdomen source of infection Lactate was within normal limits on admission CT abd/pelvis with noted perforated duodenal diverticulitis, some free air, no appreciable abscess General Surgery evaluated and recommended conservative management He was treated with IV zosyn, IV famotidine, carafate (Patient has allergy to PPI) With resolution of symptoms, diet was advanced with good tolerance Patient is tolerating low fiber diet today without any complaints Leukocytosis resolved No abdominal pain/tenderness today Discharged on Augmentin to complete antibiotics and PO Pepcid, Carafate Patient advised to return to ER if symptoms recur PAF 12/10/23- pt had episode of a fib with rvr overnight. Received Lopressor and Digoxin, initially unresponsive. Responded to Cardizem bolus. Currently in sinus. Continue home metoprolol and eliquis Hypertension Continue home meds Troponin elevation HS-trop elevated to 23, downtrended to 21.7 Likely elevated secondary to illness Doubt ACS Hx of PVD status post surgery Hyperlipidemia Statin intolerance Chronic anemia Hemoglobin stable No active bleeding Hyperglycemia Noted on admission HgbA1c wnl at 5.5 BPH Continue home po Proscar and finasteride Total Time Total Time Spent Total Time Spent (In Minutes): 40 Total Time Includes: Examination of the Patient, Discharge Planning, Medication Reconciliation and Other (Updated at bedside) Discharge Plan Discharge Items Patient Disposition: Home - Self-Care Reason For Visit: PERF BOWEL, NEED FOR IV METOPROLOL Discharge Diagnosis: Perforated diverticulum of duodenum Activity: Resume your previous activity Non-emergency contact: Primary Care Provider Call non-emergency contact if: you have any medication questions and your symptoms worsen Follow-up/Referrals: Ami Woodson DO [Primary Care Provider] - 12/16/23 2:40 pm Diet: Heart Healthy Addtl Attending Provider Instructions: Mr Abrahan Hernandez came to the hospital for abdominal pain. You were evaluated and found to have perforated diverticulum of the duodenum. This was managed conservatively and you did not require surgery. Your symptoms resolved and you clinically improved. You are being discharged home on a few more days of antibiotics. You were also started on famotidine and carafate. Please return to ER if symptoms recur or develop any of the symptoms we discussed. Please ensure follow up with your Family doctor. It was a pleasure taking care of you. Pending Studies at Discharge: No Stand-Alone Forms: My [facility], Smoking Cessation Medications and DC Order Prescriptions: New sucralfate [Carafate] 100 mg/mL suspension 1 g PO Q6H 28 Days Qty: 1120 0RF amoxicillin-pot clavulanate 875-125 mg tablet 1 tab PO BID 5 Days Qty: 10 0RF famotidine [Pepcid] 20 mg tablet 20 mg PO BID 56 Days Qty: 112 0RF Continued Eliquis 5 mg tablet 5 mg PO BID Qty: 180 3RF atorvastatin 40 mg tablet 40 mg PO QPM multivitamin Tablet 1 tab PO QAM terazosin 5 mg Capsule 5 mg PO HS aspirin 81 mg Tablet,Chewable 81 mg PO QAM Calcium 600 + D(3) 600 mg calcium- 200 unit capsule 1 cap PO QAM Patient Comments: 1 tab PO DAILY; flaxseed oil 1,000 mg capsule 1,200 mg PO DAILY metoprolol succinate 50 mg tablet extended release 24 hr See Rx Instructions .ROUTE .COMPLEX Rx Instructions: TAKES 50 MG QAM, THEN 25 MG QHS. finasteride [Proscar] 5 mg Tablet 5 mg PO QAM cholecalciferol (vitamin D3) [Vitamin D3] 25 mcg (1,000 unit) Capsule 25 mcg PO DAILY folic acid 400 mcg Tablet 0.4 mg PO DAILY cyanocobalamin (vitamin B-12) [Vitamin B-12] 500 mcg Tablet 250 mcg PO DAILY Discharge Orders: Discharge Order (Routine); Ordered 12/12/23 Ordered By: Sheila Jefferson Admission Data Admit Date/Time: 12/07/23 21:09 Attending Provider: Sheila Jefferson I. Admit Provider: Luis Ramirez Primary Care Provider: Ami Woodson Other Providers: Luis Ramirez; Juan Pablo Felix Other Interventions: Discharge Summary Assessment (RN) Last Done: 12/12/23 11:27
[2023-12-12] MEDS: APIXABAN 5 MG TABLET PO SCH (11:25)
== END 2023-12-12 12:25 | disposition home or self-care (01) | DRG 872 ==
LOC: ED 16:11 → 2N 21:09 → SUATTDRO 21:09 → 2N 23:22 → 2E 12-10 05:38

== ENCOUNTER 2025-05-29 21:01 | Observation (INO) ==
[2025-05-29 21:48] LABS: Anion Gap 5.0 (3-11); Blood Urea Nitrogen 19.0 mg/dl (6-23); Calcium 8.7 mg/dl (8.6-10.3); Carbon Dioxide 28.0 mmol/L (21-32); Chloride 103.0 mmol/L (98-107); Creatinine Clr Calc Pharmacy 52.9 ml/min; Glucose 102.0 mg/dl (70-99(Fasting)); Lipase 32.0 U/L (11-82); Magnesium 2.0 mg/dl (1.7-2.4); Potassium 4.4 mmol/L (3.5-5.1); Sodium 136.0 mmol/L (136-145)
--- NOTE | 2025-05-29 22:19 | Emergency Department Note ---
History of Present Illness General Chief Complaint: Arrhythmia/Palpitations Stated Complaint: A-FIB Time Seen by Provider: 05/29/25 21:10 History of Present Illness Provider Complaint: + palpitations and + atrial fibrillation Onset (ago): 2 day(s) Duration: + Constant Context: + occurred during rest Arrhythmia history: + atrial fibrillation and + on anti-coagulants (Eliquis. Patient reports not missing any doses) Associated symptoms: + shortness of breath and + other (Weakness); no chest pain, no syncope, no near-syncope, no nausea, no vomiting or no cough HPI narrative: Patient denies any falls or traumas. No abdominal pain. No melena or hematochezia. No hematuria or dysuria. Home Medications Medication Instructions Recorded Confirmed Type aspirin 81 mg chewable tablet 81 mg PO QAM 11/14/18 05/29/25 History multivitamin 1 tab PO QAM 11/14/18 05/29/25 History terazosin 5 mg capsule 5 mg PO HS 11/14/18 05/29/25 History atorvastatin 40 mg tablet 40 mg PO QPM 10/16/21 05/29/25 History apixaban 5 mg tablet (Eliquis) 5 mg PO BID #180 tabs 10/30/21 05/29/25 Rx finasteride 5 mg tablet (Proscar) 5 mg PO QAM 12/18/22 05/29/25 History cyanocobalamin (vitamin B-12) 500 500 mcg PO DAILY 12/05/23 05/29/25 History mcg tablet (Vitamin B-12) folic acid 400 mcg tablet 0.4 mg PO DAILY 12/05/23 05/29/25 History flaxseed oil 1,300 mg capsule 1,300 mg PO DAILY 05/29/25 05/29/25 History metoprolol succinate 25 mg 25 mg PO BID 05/29/25 05/29/25 History tablet,extended release 24 hr Allergies Allergy/AdvReac Type Severity Reaction Status Date / Time niacin Allergy Intermediate RASH Verified 05/29/25 21:39 pantoprazole Allergy Intermediate Rash Verified 05/29/25 21:39 piroxicam Allergy Intermediate Rash Verified 05/29/25 21:39 prednisone Allergy Intermediate Swelling Verified 05/29/25 21:39 rabeprazole Allergy Intermediate rash Verified 05/29/25 21:39 simvastatin Allergy Intermediate rash Verified 05/29/25 21:39 albuterol [From DuoNeb] AdvReac Intermediate Tachycardia Verified 05/29/25 21:39 cerivastatin AdvReac Intermediate muscle pain Verified 05/29/25 21:39 ipratropium [From DuoNeb] AdvReac Intermediate Tachycardia Verified 05/29/25 21:39 methylprednisolone AdvReac Intermediate Tachycardia Verified 05/29/25 21:39 Past Med/Surg History Problem List (Updated 05/29/25 @ 22:59 by Chente Lynn MD) Dyspnea (Acute) Non-ST elevation IN (NSTEMI) (Acute) Leukocytosis (Acute) Abdominal pain (Acute) Perforated diverticulum of duodenum (Acute) Paroxysmal A-fib (Acute) Atrial fibrillation with rapid ventricular response (Acute) Dark stools PVD (peripheral vascular disease) s/p bilat common iliac stenting 08/2019 Carotid artery disease s/p left CEA, < 50% stenosis ICAs bilat on most recent carotid doppler Calcific tendinitis of right shoulder (Acute) Pulmonary nodule Peptic ulcer disease Atrial fibrillation (Acute) HTN (hypertension), benign Hyperlipidemia Encounter for pre-operative examination Abdominal pain Abnormal weight loss Acute appendicitis (Acute) Abdominal pain (Acute) Abdominal bruit Arterial obstructive disease PAC (premature atrial contraction) PVC (premature ventricular contraction) Paroxysmal atrial fibrillation Hip bursitis, left Right knee pain COVID-19 (Acute) Lumbar spondylosis Chronic left hip pain Benign prostatic hyperplasia (Chronic 01/05/12) Medical History Generalized weakness Pulmonary hypertension PASP 40 mmHg Mild pulmonary hypertension Tricuspid regurgitation moderate Hypertension History of COVID-19 11/10/22>RESOLVED Atrial fibrillation FOLLOWS WITH KOPINSKI GERD (gastroesophageal reflux disease) Hearing deficit On anticoagulant therapy on eliquis daily Hyperlipidemia Surgical History History of left-sided carotid endarterectomy History of tonsillectomy History of appendectomy 06/25/1919 Grade 1 view, [place] 2, ETT 7.5. History of tooth extraction upper teeth History of open reduction and internal fixation (ORIF) procedure LEFT HIP History of right inguinal hernia repair History of left inguinal hernia repair History of esophagogastroduodenoscopy (EGD) History of colonoscopy Family History Other No family history of adverse response to anesthesia Social History Smoking Status: Never smoker Tobacco Type: Cigarettes Cigarettes Per Day: 20; Second Hand Exposure: No; Do You Dip or Chew Tobacco: No; Hx Alcohol Use: Yes Alcohol type: beer Hx Substance Use: No Preferred Language: Greek Communication Ability: Effective Veterinary Inspector Required: No Beliefs That Will Affect Care: None marital status: Current Living Situation: Spouse Feels Safe at Home: Yes Assistive Devices: None Physical Exam 2 Vital Signs: Vital Signs - 24 hr 05/29/25 21:03 05/29/25 21:15 05/29/25 21:20 Temperature 36.6 C Temperature Source Temporal Artery Sc an Pulse Rate 81 Pulse Rate [Apical ] 74 Pulse Rhythm Regular Pulse Rhythm [Apic al] Irregular Pulse Strength Normal Respiratory Rate 18 18 Respiratory Effort / Characteristics Non-Labored Sponta neous Respiratory Depth Normal Respiratory Patter n Regular Blood Pressure 105/81 Blood Pressure [Le ft Arm] 133/89 Blood Pressure Vi n 89 Blood Pressure Vi n [Left Arm] 103 Blood Pressure Pos ition Sitting Pulse Oximetry 98 97 97 Oxygen Delivery Me thod Room Air Room Air Room Air Sepsis Recent Feve r Within 48 Hours No Sepsis New/Unexpla ined Change in Men jayy Status N/A Sepsis Action Take n by Nursing No Action Required 05/29/25 21:21 05/29/25 21:30 05/29/25 22:00 Temperature Temperature Source Pulse Rate 87 Pulse Rate [Apical ] 75 76 Pulse Rhythm Pulse Rhythm [Apic al] Irregular Pulse Strength Respiratory Rate 16 16 Respiratory Effort / Characteristics Respiratory Depth Respiratory Patter n Blood Pressure Blood Pressure [Le ft Arm] 112/69 115/75 Blood Pressure Vi n Blood Pressure Vi n [Left Arm] 83 88 Blood Pressure Pos ition Pulse Oximetry 97 95 Oxygen Delivery Me thod Room Air Room Air Sepsis Recent Feve r Within 48 Hours Sepsis New/Unexpla ined Change in Men jayy Status Sepsis Action Take n by Nursing 05/29/25 22:30 Temperature Temperature Source Pulse Rate Pulse Rate [Apical ] 68 Pulse Rhythm Pulse Rhythm [Apic al] Pulse Strength Respiratory Rate 16 Respiratory Effort / Characteristics Respiratory Depth Respiratory Patter n Blood Pressure Blood Pressure [Le ft Arm] 107/69 Blood Pressure Vi n Blood Pressure Vi n [Left Arm] 81 Blood Pressure Pos ition Pulse Oximetry 97 Oxygen Delivery Me thod Room Air Sepsis Recent Feve r Within 48 Hours Sepsis New/Unexpla ined Change in Men jayy Status Sepsis Action Take n by Nursing Physical Exam: Physical Exam HENT: Exam performed. - Head: Normocephalic and atraumatic. EYES: Conjunctivae and EOM are normal. Right eye exhibits no discharge. Left eye exhibits no discharge. No scleral icterus. NECK: Normal range of motion. Neck supple. No JVD present. CV: Normal rate, irregular rhythm, normal heart sounds and intact distal pulses. There is no peripheral edema. Palpable radial pulses bue. PULM/CHEST: Effort normal and breath sounds normal. No respiratory distress. No stridor. no wheezes. no rales. ABD: The abdomen is soft. There is no tenderness. NEURO: Motor and sensation grossly intact. Course Course 2109: The patient was evaluated in room A9. A complete history and physical exam was performed Cardiac monitoring: An order was placed for continuous cardiac monitoring. The monitor shows a rate of 80 with atrial fibrilation rhythm interpreted by me 2257: Vital signs stable. Labs and imaging are unremarkable. Given the patient's weakness and dyspnea will be admitted for chest pain rule out ACS. Medical Decision Making Laboratory Data Attestation: I reviewed the patient's lab results. 05/29/25 21:15 05/29/25 21:15 Lab Results 05/29/25 05/29/25 Range/Units 21:15 21:49 WBC 8.45 (4.8-10.8) K/ul RBC 4.28 L (4.70-6.10) M/uL Hgb 14.0 (14.0-18.0) g/dl Hct 40.9 L (42.0-52.0) % MCV 95.6 (80.0-100.0) fL MCH 32.7 (25.0-34.0) pg MCHC 34.2 (32.0-36.0) g/dL RDW Std Deviation 44.5 (36.4-46.3) fL RDW Coeff of Billy 12.5 (11.5-14.5) % Plt Count 241 (130-400) K/uL MPV 9.9 (9.4-12.4) fL Immature Gran % (Auto) 0.2 % Neut % (Auto) 60.1 % Lymph % (Auto) 29.7 % Holt % (Auto) 8.4 % Eos % (Auto) 1.4 % Baso % (Auto) 0.2 % Neut # (Auto) 5.07 (1.40-6.50) K/uL Lymph # (Auto) 2.51 (1.20-3.40) K/uL Holt # (Auto) 0.71 H (0.11-0.59) K/uL Eos # (Auto) 0.12 (0.00-0.50) K/uL Baso # (Auto) 0.02 (0.00-0.20) K/uL Immature Gran # (Auto) 0.02 (0.01-0.20) K/uL PT 11.1 (9.0-12.0) Seconds INR 1.0 (0.9-1.1) APTT 32 H (21-31) Seconds PTT Ratio 1.2 Sodium 136 (136-145) mmol/L Potassium 4.4 (3.5-5.1) mmol/L Chloride 103 (98-107) mmol/L Carbon Dioxide 28 (21-32) mmol/L Anion Gap 5 (3-11) BUN 19 (6-23) mg/dl Creatinine 1.13 (0.6-1.4) mg/dl Est Cr Clr Drug Dosing 52.9 ml/min eGFR 65.30 BUN/Creatinine Ratio 16.8 (10-20) Glucose 102 H (70-99(Fasting)) mg/dl Calcium 8.7 (8.6-10.3) mg/dl Magnesium 2.0 (1.7-2.4) mg/dl Troponin I High Sens 7.4 (0-20) pg/ml Lipase 32 (11-82) U/L SARS-CoV-2 (PCR) NEGATIVE (Negative) Influenza Type A (PCR) Negative (Neg) Influenza Type B (PCR) Negative (Neg) RSV (RT-PCR) Negative (Neg) Imaging Data Attestation: I personally reviewed and interpreted this imaging study as follows: My Impression: Chest x-ray negative. Airway clear. No pneumothorax. No consolidation. No cardiomegaly or cephalization.. No free air under the diaphragm. No fractures of the skeletal structures. ECG Data Attestation: I personally reviewed and interpreted this ECG as follows: Rate (beats per minute): 82 Rhythm: atrial fibrillation Findings: no ST depression, no ST elevation or no prolonged QT [facility] Narrative 2109: The patient was evaluated in room A9. A complete history and physical exam was performed Cardiac monitoring: An order was placed for continuous cardiac monitoring. The monitor shows a rate of 80 with atrial fibrilation rhythm interpreted by me 2257: Vital signs stable. Labs and imaging are unremarkable. Given the patient's weakness and dyspnea will be admitted for chest pain rule out ACS. Impression & Plan Dyspnea, Atrial fibrillation Discharge Plan Visit Data Chief Complaint: Arrhythmia/Palpitations Stated Complaint: A-FIB ED Provider: Chente Lynn Discharge Problem: Dyspnea, Atrial fibrillation Patient Disposition: Admitted As Inpatient Condition: Fair Forms Stand Alone Forms: My [facility] Prescriptions Prescriptions: No Action Eliquis 5 mg tablet 5 mg PO BID Qty: 180 3RF atorvastatin 40 mg tablet 40 mg PO QPM multivitamin Tablet 1 tab PO QAM terazosin 5 mg Capsule 5 mg PO HS aspirin 81 mg Tablet,Chewable 81 mg PO QAM finasteride [Proscar] 5 mg Tablet 5 mg PO QAM metoprolol succinate 25 mg tablet extended release 24 hr 25 mg PO BID flaxseed oil 1,300 mg Capsule 1,300 mg PO DAILY folic acid 400 mcg Tablet 0.4 mg PO DAILY cyanocobalamin (vitamin B-12) [Vitamin B-12] 500 mcg Tablet 500 mcg PO DAILY Referrals Referrals: Joe Henriquez MD [Primary Care Provider] -
[2025-05-29 22:25] LABS: Hematocrit (blood only) 40.9 % (42.0-52.0); Hemoglobin 14.0 g/dl (14.0-18.0); Immature Granulocytes # (auto) 0.02 K/uL (0.01-0.20); Immature Granulocytes % (auto) 0.2 %; Mean Corpuscular Hemoglobin 32.7 pg (25.0-34.0); Mean Corpuscular Volume 95.6 fL (80.0-100.0); Platelet Count 241 K/uL (130-400); RDW Standard Deviation 44.5 fL (36.4-46.3); Red Blood Count 4.28 M/uL (4.70-6.10); White Blood Count 8.45 K/ul (4.8-10.8)
[2025-05-29 22:39] LABS: INR 1.0 (0.9-1.1); Partial Thromboplastin Time 32 Seconds (21-31); Prothrombin Time 11.1 Seconds (9.0-12.0)
[2025-05-29 22:46] LABS: Influenza A virus by PCR Negative (Neg); Influenza B virus by PCR Negative (Neg); SARS CoV2 RNA(COVID-19) Ceph NEGATIVE (Negative)
[2025-05-30] MEDS: METOPROLOL SUCC 25MG EXT REL TAB PO STA (00:59)
[2025-05-30] MEDS: APIXABAN 5 MG TABLET PO ONE (00:59)
--- NOTE | 2025-05-30 01:36 | History & Physical Report ---
Date of Service May 30, 2025 Assessment & Plan (1) Dyspnea: Plan: 80-year-old male with past med history significant for paroxysmal atrial fibrillation, peripheral vascular disease, aortic ectasia abdominal, PACs, ventricular ectopy, bilateral nonsymptomatic carotid stenosis, status post carotid endarterectomy, dyslipidemia, presents with palpitations and shortness of breath. Patient states since last 1 week having palpitations. Yesterday afternoon and last night the palpitation where severe that he could not stand them. Today morning when he woke up he was feeling very dizzy and blood pressure was somewhat soft.He was feeling weak. Was getting mild short of breath when having palpitations. Because of ongoing symptoms he came to the ER. In the ER his heart rates are under control. Denies any chest pain. No runny nose or sore throat. No cough. No fevers. No nausea. Appetite is okay. No sweating. No abdominal pain. Normal bowel and bladder movements. Current resting comfortably and hemodynamically stable. Dyspnea Palpitations Weakness A-fib Currently rates under control Continue home metoprolol and Eliquis Monitor on telemetry Serial cardiac enzymes and echo Consult cardiology in a.m. for further recommendations History of atrial fibrillation Continue home metoprolol and Eliquis Will monitor for now Hyperlipidemia On statin BPH On Proscar and terazosin Hypertension On metoprolol succinate and terazosin History of ventricular ectopy History of PACs On metoprolol succinate History of bilateral carotid stenosis Status post carotid endarterectomy On aspirin and statin DVT prophylaxis SCDs Disposition Observation telemetry Full code. History of Present Illness Chief Complaint: Palpitations and shortness of breath Primary Care Provider: Joe Henriquez MD 80-year-old male with past med history significant for paroxysmal atrial fibrillation, peripheral vascular disease, aortic ectasia abdominal, PACs, ventricular ectopy, bilateral nonsymptomatic carotid stenosis, status post carotid endarterectomy, dyslipidemia, presents with palpitations and shortness of breath. Patient states since last 1 week having palpitations. Yesterday afternoon and last night the palpitation where severe that he could not stand them. Today morning when he woke up he was feeling very dizzy and blood pressure was somewhat soft.He was feeling weak. Was getting mild short of breath when having palpitations. Because of ongoing symptoms he came to the ER. In the ER his heart rates are under control. Denies any chest pain. No runny nose or sore throat. No cough. No fevers. No nausea. Appetite is okay. No sweating. No abdominal pain. Normal bowel and bladder movements. Current resting comfortably and hemodynamically stable. Past medical history. As mentioned above. Past surgical history. Colonoscopy. EGD. Laparoscopic appendectomy. Open r epair of ventral and umbilical hernia. Social history. . Quit smoking 1999. Alcohol 1 beer in the evening. No drug use. Family history. No family history on file. Allergies Allergy/AdvReac Type Severity Reaction Status Date / Time niacin Allergy Intermediate RASH Verified 05/29/25 21:39 pantoprazole Allergy Intermediate Rash Verified 05/29/25 21:39 piroxicam Allergy Intermediate Rash Verified 05/29/25 21:39 prednisone Allergy Intermediate Swelling Verified 05/29/25 21:39 rabeprazole Allergy Intermediate rash Verified 05/29/25 21:39 simvastatin Allergy Intermediate rash Verified 05/29/25 21:39 albuterol [From DuoNeb] AdvReac Intermediate Tachycardia Verified 05/29/25 21:39 cerivastatin AdvReac Intermediate muscle pain Verified 05/29/25 21:39 ipratropium [From DuoNeb] AdvReac Intermediate Tachycardia Verified 05/29/25 21:39 methylprednisolone AdvReac Intermediate Tachycardia Verified 05/29/25 21:39 Home Medications Medication Instructions Recorded Confirmed Type aspirin 81 mg chewable tablet 81 mg PO QAM 11/14/18 05/29/25 History multivitamin 1 tab PO QAM 11/14/18 05/29/25 History terazosin 5 mg capsule 5 mg PO HS 11/14/18 05/29/25 History atorvastatin 40 mg tablet 40 mg PO QPM 10/16/21 05/29/25 History apixaban 5 mg tablet (Eliquis) 5 mg PO BID #180 tabs 10/30/21 05/29/25 Rx finasteride 5 mg tablet (Proscar) 5 mg PO QAM 12/18/22 05/29/25 History cyanocobalamin (vitamin B-12) 500 500 mcg PO DAILY 12/05/23 05/29/25 History mcg tablet (Vitamin B-12) folic acid 400 mcg tablet 0.4 mg PO DAILY 12/05/23 05/29/25 History flaxseed oil 1,300 mg capsule 1,300 mg PO DAILY 05/29/25 05/29/25 History metoprolol succinate 25 mg 25 mg PO BID 05/29/25 05/29/25 History tablet,extended release 24 hr Past Med/Surg History Problem List (Updated 05/29/25 @ 22:59 by Chente Lynn MD) Dyspnea (Acute) Non-ST elevation [place] (NSTEMI) (Acute) Leukocytosis (Acute) Abdominal pain (Acute) Perforated diverticulum of duodenum (Acute) Paroxysmal A-fib (Acute) Atrial fibrillation with rapid ventricular response (Acute) Dark stools PVD (peripheral vascular disease) s/p bilat common iliac stenting 08/2019 Carotid artery disease s/p left CEA, < 50% stenosis ICAs bilat on most recent carotid doppler Calcific tendinitis of right shoulder (Acute) Pulmonary nodule Peptic ulcer disease Atrial fibrillation (Acute) HTN (hypertension), benign Hyperlipidemia Encounter for pre-operative examination Abdominal pain Abnormal weight loss Acute appendicitis (Acute) Abdominal pain (Acute) Abdominal bruit Arterial obstructive disease PAC (premature atrial contraction) PVC (premature ventricular contraction) Paroxysmal atrial fibrillation Hip bursitis, left Right knee pain COVID-19 (Acute) Lumbar spondylosis Chronic left hip pain Benign prostatic hyperplasia (Chronic 01/05/12) Medical History Generalized weakness Pulmonary hypertension PASP 40 mmHg Mild pulmonary hypertension Tricuspid regurgitation moderate Hypertension History of COVID-19 11/10/22>RESOLVED Atrial fibrillation FOLLOWS WITH KOPINSKI GERD (gastroesophageal reflux disease) Hearing deficit On anticoagulant therapy on eliquis daily Hyperlipidemia Surgical History History of left-sided carotid endarterectomy History of tonsillectomy History of appendectomy 06/25/1919 Grade 1 view, Villa 2, ETT 7.5. History of tooth extraction upper teeth History of open reduction and internal fixation (ORIF) procedure LEFT HIP History of right inguinal hernia repair History of left inguinal hernia repair History of esophagogastroduodenoscopy (EGD) History of colonoscopy Family History Other No family history of adverse response to anesthesia Social History Smoking Status: Never smoker Tobacco Type: Cigarettes Cigarettes Per Day: 20; Second Hand Exposure: No; Do You Dip or Chew Tobacco: No; Hx Alcohol Use: No Hx Substance Use: No Preferred Language: Hong Konger Communication Ability: Effective [employer] Required: No Beliefs That Will Affect Care: None marital status: Current Living Situation: Spouse Other Information That Helps Us Care for You: No Feels Safe at Home: Yes Safety Concerns: Feels Safe At This Time Assistive Devices: None Review of Systems Review of Systems: All systems reviewed & are unremarkable except as noted in HPI & below Physical Exam Physical Exam: General- Not in distress Head- atraumatic Eyes- PERRL. ENT- oropharynx clear Neck- supple, no JVD. Lungs- clear to auscultation no wheezing or crackles. Heart- regular rhythm; no murmur, no gallop. Abdomen- normal bowel sounds, soft, nontender, no distension Extremities- no pretibial edema, no erythema seen Neuro- alert, oriented PERRL, no facial palsy; no dysarthria; moves extremities Results & Data Results & Data Vital Signs (Past 12 Hours) Vital Signs Temp Pulse Pulse Resp BP BP Pulse Ox 05/30/25 01:11 72 05/30/25 00:12 71 21 97 05/30/25 00:03 73 18 05/30/25 00:00 122/72 05/30/25 00:00 122/72 05/29/25 23:39 74 12 05/29/25 23:33 71 19 05/29/25 23:30 122/74 05/29/25 23:30 122/74 05/29/25 23:30 122/74 05/29/25 23:30 122/74 05/29/25 23:27 76 19 05/29/25 23:12 72 19 05/29/25 23:09 74 16 05/29/25 23:00 125/85 05/29/25 23:00 125/85 05/29/25 23:00 125/85 05/29/25 22:42 73 21 96 05/29/25 22:30 107/69 05/29/25 22:30 73 20 96 05/29/25 22:30 68 16 107/69 97 05/29/25 22:03 65 18 96 05/29/25 22:00 115/75 05/29/25 22:00 115/75 08/02/25 22:00 115/75 05/29/25 22:00 76 16 115/75 95 05/29/25 21:54 74 17 95 05/29/25 21:51 73 18 98 05/29/25 21:48 67 19 95 05/29/25 21:30 112/69 05/29/25 21:30 69 21 98 05/29/25 21:30 75 16 112/69 97 05/29/25 21:21 87 05/29/25 21:20 97 05/29/25 21:15 74 18 133/89 97 05/29/25 21:03 36.6 C 81 18 105/81 98 O2 Del Method 05/30/25 01:11 05/30/25 00:12 05/30/25 00:03 05/30/25 00:00 05/30/25 00:00 05/29/25 23:39 05/29/25 23:33 05/29/25 23:30 05/29/25 23:30 05/29/25 23:30 05/29/25 23:30 05/29/25 23:27 05/29/25 23:12 05/29/25 23:09 05/29/25 23:00 05/29/25 23:00 05/29/25 23:00 05/29/25 22:42 05/29/25 22:30 05/29/25 22:30 05/29/25 22:30 Room Air 05/29/25 22:03 05/29/25 22:00 05/29/25 22:00 05/29/25 22:00 05/29/25 22:00 Room Air 05/29/25 21:54 05/29/25 21:51 05/29/25 21:48 05/29/25 21:30 05/29/25 21:30 05/29/25 21:30 Room Air 05/29/25 21:21 05/29/25 21:20 Room Air 05/29/25 21:15 Room Air 05/29/25 21:03 Room Air Diagnostic Findings Laboratory Results WBC 8.45 K/ul (4.8-10.8) 05/29/25 21:15 RBC 4.28 M/uL (4.70-6.10) L 05/29/25 21:15 Hgb 14.0 g/dl (14.0-18.0) 05/29/25 21:15 Hct 40.9 % (42.0-52.0) L 05/29/25 21:15 MCV 95.6 fL (80.0-100.0) 05/29/25 21:15 MCH 32.7 pg (25.0-34.0) 05/29/25 21:15 MCHC 34.2 g/dL (32.0-36.0) 05/29/25 21:15 RDW Std Deviation 44.5 fL (36.4-46.3) 05/29/25 21:15 RDW Coeff of Billy 12.5 % (11.5-14.5) 05/29/25 21:15 Plt Count 241 K/uL (130-400) 05/29/25 21:15 MPV 9.9 fL (9.4-12.4) 05/29/25 21:15 Immature Gran % (Auto) 0.2 % 05/29/25 21:15 Neut % (Auto) 60.1 % 05/29/25 21:15 Lymph % (Auto) 29.7 % 05/29/25 21:15 [place] % (Auto) 8.4 % 05/29/25 21:15 Eos % (Auto) 1.4 % 05/29/25 21:15 Baso % (Auto) 0.2 % 05/29/25 21:15 Neut # (Auto) 5.07 K/uL (1.40-6.50) 05/29/25 21:15 Lymph # (Auto) 2.51 K/uL (1.20-3.40) 05/29/25 21:15 [place] # (Auto) 0.71 K/uL (0.11-0.59) H 05/29/25 21:15 Eos # (Auto) 0.12 K/uL (0.00-0.50) 05/29/25 21:15 Baso # (Auto) 0.02 K/uL (0.00-0.20) 05/29/25 21:15 Immature Gran # (Auto) 0.02 K/uL (0.01-0.20) 05/29/25 21:15 PT 11.1 Seconds (9.0-12.0) 05/29/25 21:15 INR 1.0 (0.9-1.1) 05/29/25 21:15 APTT 32 Seconds (21-31) H 05/29/25 21:15 PTT Ratio 1.2 05/29/25 21:15 Sodium 136 mmol/L (136-145) 05/29/25 21:15 Potassium 4.4 mmol/L (3.5-5.1) 05/29/25 21:15 Chloride 103 mmol/L (98-107) 05/29/25 21:15 Carbon Dioxide 28 mmol/L (21-32) 05/29/25 21:15 Anion Gap 5 (3-11) 05/29/25 21:15 BUN 19 mg/dl (6-23) 05/29/25 21:15 Creatinine 1.13 mg/dl (0.6-1.4) 05/29/25 21:15 Est Cr Clr Drug Dosing 52.9 ml/min 05/29/25 21:15 eGFR 65.30 05/29/25 21:15 BUN/Creatinine Ratio 16.8 (10-20) 05/29/25 21:15 Glucose 102 mg/dl (70-99(Fasting)) H 05/29/25 21:15 Calcium 8.7 mg/dl (8.6-10.3) 05/29/25 21:15 Magnesium 2.0 mg/dl (1.7-2.4) 05/29/25 21:15 Troponin I High Sens 7.4 pg/ml (0-20) 05/29/25 21:15 Lipase 32 U/L (11-82) 05/29/25 21:15 SARS-CoV-2 (PCR) NEGATIVE (Negative) 05/29/25 21:49 Influenza Type A (PCR) Negative (Neg) 05/29/25 21:49 Influenza Type B (PCR) Negative (Neg) 05/29/25 21:49 RSV (RT-PCR) Negative (Neg) 05/29/25 21:49 Code Status & VTE Plan VTE Prophylaxis Plan VTE Prophylaxis will be ordered: Yes
[2025-05-30] MEDS: TERAZOSIN HCL 5 MG CAP PO STA (01:41)
[2025-05-30] MEDS: ATORVASTATIN 40 MG TAB PO STA (01:41)
--- NOTE | 2025-05-30 02:06 | XRay Report ---
Exam(s): XR CXR 1 VIEW EXAM: XR Chest, 1 View CLINICAL HISTORY: Reason for exam: Chest pain, nonspecific. TECHNIQUE: Frontal view of the chest. COMPARISON: Prior chest x-ray from fiber test 2023. FINDINGS: Lungs: Mild to moderate peribronchial thickening of the central bronchi. No consolidation. Pleural space: Unremarkable. No pneumothorax. Heart: Unremarkable. No cardiomegaly. Mediastinum: Unremarkable. Normal mediastinal contour. Bones/joints: Unremarkable. No acute fracture. IMPRESSION: Bronchitis, which may be of infectious or inflammatory etiologies. No consolidation or pleural effusion. Electronically signed by: Fatna Hameed MD 05/30/25 02:04 AM
[2025-05-30] MEDS ORDERED: NITROGLYCERIN SL 0.4 MG/TAB TAB SL PRN (03:19)
[2025-05-30] MEDS ORDERED: ACETAMINOPHEN 325 MG TAB PO PRN (03:19)
[2025-05-30 05:11] LABS: Hematocrit (blood only) 43.1 % (42.0-52.0); Hemoglobin 14.1 g/dl (14.0-18.0); Immature Granulocytes # (auto) 0.02 K/uL (0.01-0.20); Immature Granulocytes % (auto) 0.3 %; Mean Corpuscular Hemoglobin 31.8 pg (25.0-34.0); Mean Corpuscular Volume 97.1 fL (80.0-100.0); Platelet Count 214 K/uL (130-400); RDW Standard Deviation 44.6 fL (36.4-46.3); Red Blood Count 4.44 M/uL (4.70-6.10); White Blood Count 7.63 K/ul (4.8-10.8)
[2025-05-30 05:29] LABS: Anion Gap 3.0 (3-11); Blood Urea Nitrogen 15.0 mg/dl (6-23); Calcium 8.9 mg/dl (8.6-10.3); Carbon Dioxide 30.0 mmol/L (21-32); Chloride 106.0 mmol/L (98-107); Creatinine Clr Calc Pharmacy 59.2 ml/min; Glucose 93.0 mg/dl (70-99(Fasting)); Magnesium 2.1 mg/dl (1.7-2.4); Potassium 4.1 mmol/L (3.5-5.1); Sodium 139.0 mmol/L (136-145)
[2025-05-30] MEDS: FOLIC ACID 400 MCG TAB PO SCH (08:48)
[2025-05-30] MEDS: METOPROLOL SUCC 25MG EXT REL TAB PO SCH (08:48)
[2025-05-30] MEDS: MULTIVITAMIN TAB PO SCH (08:48)
[2025-05-30] MEDS: CYANOCOBALAMIN (B-12) 500 MCG TABLET PO SCH (08:48)
[2025-05-30] MEDS: ASPIRIN 81 MG CHEW PO SCH (08:48)
[2025-05-30] MEDS: FINASTERIDE 5 MG TAB PO SCH (08:48)
[2025-05-30] MEDS: APIXABAN 5 MG TABLET PO SCH (08:48)
[2025-05-30 09:51] LABS: Alanine Aminotransferase 15.0 U/L (7-52); Alkaline Phosphatase 51.0 U/L (34-104); Bilirubin,Total 0.6 mg/dl (0.2-1.0); Total Protein 6.4 gm/dl (6.0-8.3)
[2025-05-30 10:06] LABS: Thyroid Stimulating Hormone 2.878 uIu/ml (0.300-4.500)
--- NOTE | 2025-05-30 11:56 | Cardiology Consultation ---
Date of Consultation May 30, 2025 Assessment & Plan (1) Paroxysmal A-fib: Patient presents with recurrent atrial fibrillation. Although the ventricular rate is well-controlled on his current regimen, he is highly symptomatic. He has been on anticoagulation with Eliquis on a chronic basis and has not missed any doses. Will continue Eliquis for stroke prevention. Continue home dose of metoprolol succinate 25 mg twice daily. Thyroid-stimulating hormone and liver function test within normal limits. Patient does not have any history of chronic lung disease. The radiology report of his chest x-ray on admission suggested a bronchitis, but patient does not clinically have any respiratory tract infection symptoms. Will cautiously add amiodarone 200 mg twice daily with first dose now. Will follow closely on telemetry given h/o single brief episode of Mobitz type I second-degree AV block noted on Zio patch monitor a month ago. Plan to advance diet today and will make NPO after midnight. Anticipate reassessment by Dr Smith tomorrow for consideration of repeat cardioversion after assessment. I spent a total of 60 minutes on the date of service in preparation, delivery, and documentation of the care provided to this patient, excluding any time spent in the performance of separately billed services. Gurdeep Vazquez DO History of Present Illness Attending Physician: Otilio Xiong MD History of Present Illness Sony Gauthier is an 80 year old male seen in cardiology consultation per the request of Dr Holman for the evaluation of subjective palpitations and findings of recurrent atrial fibrillation. Patient states that he had onset of feeling palpitations 2 nights ago on Saturday night, felt like his heart was racing and irregular with associated debilitating fatigue. He presented to the emergency department was found to be in a rate controlled atrial fibrillation. He states he had similar symptoms about a week ago that resolved on their own. 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 Smith of our practice. He was seen by the undersigned in hospital consultation in October, for an episode of atrial fibrillation that took place after a viral respiratory illness. He underwent direct-current cardioversion on 11/04/2023 and had been discharged on metoprolol and Eliquis at that time. Past Medical History: 1.Paroxysmal atrial fibrillation - S/P DCCV Oct 2023 -brief recurrent Afib noted during hospitalization November in the setting of bowel perforation. 2. Peripheral vascular disease status post bilateral common iliac stenting 2019 -denies claudication 3.Dyslipidemia 4. Carotid vascular disease status post left-sided carotid endarterectomy and Asymptomatic 70-99% right internal carotid artery stenosis, duplex, July[facility] 5. hypertension Allergies Allergy/AdvReac Type Severity Reaction Status Date / Time niacin Allergy Intermediate RASH Verified 05/29/25 21:39 pantoprazole Allergy Intermediate Rash Verified 05/29/25 21:39 piroxicam Allergy Intermediate Rash Verified 05/29/25 21:39 prednisone Allergy Intermediate Swelling Verified 05/29/25 21:39 rabeprazole Allergy Intermediate rash Verified 05/29/25 21:39 simvastatin Allergy Intermediate rash Verified 05/29/25 21:39 albuterol [From DuoNeb] AdvReac Intermediate Tachycardia Verified 05/29/25 21:39 cerivastatin AdvReac Intermediate muscle pain Verified 05/29/25 21:39 ipratropium [From DuoNeb] AdvReac Intermediate Tachycardia Verified 05/29/25 21:39 methylprednisolone AdvReac Intermediate Tachycardia Verified 05/29/25 21:39 Home Medications Medication Instructions Recorded Confirmed Type aspirin 81 mg chewable tablet 81 mg PO QAM 11/14/18 05/29/25 History multivitamin 1 tab PO QAM 11/14/18 05/29/25 History terazosin 5 mg capsule 5 mg PO HS 11/14/18 05/29/25 History atorvastatin 40 mg tablet 40 mg PO QPM 10/16/21 05/29/25 History apixaban 5 mg tablet (Eliquis) 5 mg PO BID #180 tabs 10/30/21 05/29/25 Rx finasteride 5 mg tablet (Proscar) 5 mg PO QAM 12/18/22 05/29/25 History cyanocobalamin (vitamin B-12) 500 500 mcg PO DAILY 12/05/23 05/29/25 History mcg tablet (Vitamin B-12) folic acid 400 mcg tablet 0.4 mg PO DAILY 12/05/23 05/29/25 History flaxseed oil 1,300 mg capsule 1,300 mg PO DAILY 05/29/25 05/29/25 History metoprolol succinate 25 mg 25 mg PO BID 05/29/25 05/29/25 History tablet,extended release 24 hr Patient History Medical History Generalized weakness Pulmonary hypertension PASP 40 mmHg Mild pulmonary hypertension Tricuspid regurgitation moderate Hypertension History of COVID-19 11/10/22>RESOLVED Atrial fibrillation FOLLOWS WITH KOPINSKI GERD (gastroesophageal reflux disease) Hearing deficit On anticoagulant therapy on eliquis daily Hyperlipidemia Surgical History History of left-sided carotid endarterectomy History of tonsillectomy History of appendectomy 06/25/1919 Grade 1 view, Villa 2, ETT 7.5. 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 Beliefs That Will Affect Care: None marital status: Current Living Situation: Spouse Other Information That Helps Us Care for You: No Feels Safe at Home: Yes Safety Concerns: Feels Safe At This Time Assistive Devices: Cane and Walker Review of Systems Review of Systems: All systems reviewed & are unremarkable except as noted in HPI & below Physical Exam Physical Exam: Temp Pulse Resp BP Pulse Ox O2 Del Method 36.6 C 76 18 100/62 96 Room Air 05/30/25 11:21 05/30/25 11:21 05/30/25 11:21 05/30/25 11:21 05/30/25 11:21 05/30/25 11:21 General: no acute distress and stated age Eyes: conjunctiva are pink and non-injected, sclera clear Neck: normal jugular venous pulse, no hepatojugular reflux Chest: normal shape and normal respiratory effort Lungs: clear to auscultation and percussion Cardiac Exam: - Irregular rhythm, 1/6 systolic murmur, no edema Abdomen: abdomen soft, non-tender, no abnormal masses and no hepatosplenomegaly Musculoskeletal: no gait disturbance, no weakness Extremities: no edema and no cyanosis Neuro:awake, conversant, follows commands, no focal motor deficits Psych: appropriate affect and insight. Results & Data Diagnostic Findings Summary of transthoracic echocardiogram performed today 06/26/2025: The study is technically adequate for the evaluation of the referral indication. Rate controlled atrial fibrillation was present during the study. Atrial fibrillation with mildly abated ventricular rate present during the echocardiogram. There is moderate concentric left ventricular hypertrophy. No regional wall motion abnormalities noted. Left ventricular systolic function is normal. The LV Ejection Fraction = 65-70%. The left atrium is moderately dilated. Aortic valve sclerosis moderate, without significant aortic valvular stenosis. There is moderate tricuspid regurgitation. Doppler findings do not suggest pulmonary hypertension. Compared to the previous tracing dated 11/02/2023, moderate tricuspid regurgitation is now noted. EKG performed 05/29/2025 at 2108 and interpreted independently: Atrial fibrillation 82 bpm, no significant repolarization abnormalities to suggest ischemia, compared to the previous dated 12/10/2023 atrial fibrillation has replaced sinus rhythm. Zio patch monitor worn for 14 days from 05/26/2025 until 05/13/2025: Predominant rhythm was sinus rhythm with average rate of 64 bpm, first-degree AV block, 3 episodes of wide-complex tachycardia observed, 56 episodes of supraventricular tachycardia which was associated with patient symptom events. Occasional PACs, rare ventricular ectopy. 1 episode of Mobitz type I second-degree AV block was observed on 04/29/2025 at 7:52 PM with a single dropped QRS complex and no prolonged bradycardia. Coding Level of Care Code 57824 IN/OBS CONSULT LVL 4,60M Diagnoses Paroxysmal A-fib I48.0
--- NOTE | 2025-05-30 12:10 | Electrocardiogram Report ---
Test Reason : Blood Pressure : */* mmHG Vent. Rate : 82 BPM Atrial Rate : * BPM P-R Int : * ms QRS Dur : 82 ms QT Int : 364 ms P-R-T Axes : * 4 30 degrees QTcB Int : 425 ms Atrial fibrillation Abnormal ECG When compared with ECG of 10-Dec-2023 06:43, Atrial fibrillation has replaced Sinus rhythm Confirmed by Richmond Venegas ([id number]) on 05/30/2025 12:10:07 PM Referred By: REFERRED SELF Confirmed By: Richmond Venegas
[2025-05-30] MEDS: AMIODARONE 200 MG TAB PO ONE (13:37)
[2025-05-30] MEDS: TERAZOSIN HCL 5 MG CAP PO SCH (21:41)
[2025-05-30] MEDS: ATORVASTATIN 40 MG TAB PO SCH (21:41)
[2025-05-31 06:11] LABS: Hematocrit (blood only) 37.5 % (42.0-52.0); Hemoglobin 13.0 g/dl (14.0-18.0); Mean Corpuscular Hemoglobin 32.7 pg (25.0-34.0); Mean Corpuscular Volume 94.5 fL (80.0-100.0); Platelet Count 200 K/uL (130-400); RDW Standard Deviation 43.6 fL (36.4-46.3); Red Blood Count 3.97 M/uL (4.70-6.10); White Blood Count 6.66 K/ul (4.8-10.8)
[2025-05-31 06:26] LABS: Anion Gap 5.0 (3-11); Blood Urea Nitrogen 19.0 mg/dl (6-23); Calcium 8.5 mg/dl (8.6-10.3); Carbon Dioxide 28.0 mmol/L (21-32); Chloride 107.0 mmol/L (98-107); Creatinine Clr Calc Pharmacy 53.9 ml/min; Glucose 86.0 mg/dl (70-99(Fasting)); Magnesium 2.0 mg/dl (1.7-2.4); Potassium 3.7 mmol/L (3.5-5.1); Sodium 140.0 mmol/L (136-145)
[2025-05-31] MEDS: AMIODARONE 200 MG TAB PO SCH (07:17)
--- NOTE | 2025-05-31 11:02 | Cardiology Progress Note ---
Date of Service May 31, 2025 Assessment & Plan (1) Paroxysmal A-fib: Plan: 80-year-old male presents with recurrent, symptomatic atrial fibrillation. Fair rate control noted, however, patient notes significant fatigue and exercise intolerance. Compliant with Eliquis without interruption. Amiodarone added 05/30/2025. Potential side effects reviewed. Continue 200 mg twice daily. Continue metoprolol succinate. Brief episode of second-degree AV block Mobitz type I recorded on ZIO monitor last month. No bradycardia recorded on telemetry. Risk, benefit, alternatives to external direct-current cardioversion discussed. Patient agreeable to proceed. Anesthesia consultation placed. Cardioversion will be scheduled today 05/31/25. Terence Smith DO, [facility] Admission and Anticipated Discharge Date Admission Date: May 30, 2025 Subjective 80-year-old male seen and examined at the bedside. Describes severe fatigue, palpitations, shortness of breath, and exercise intolerance beginning on May 22. Currently, minimally symptomatic at rest. Heart rates 70s to 80s on telemetry. Amiodarone initiated, however, patient has questions regarding possible photosensitivity and other potential side effects. Review of Systems Review of Systems: All systems reviewed & are unremarkable except as noted in Subjective Physical Exam Constitutional: well nourished; no acute distress Respiratory: no respiratory distress, no labored breathing and no retractions Auscultation: no crackles, no rales, no rhonchi and no wheezes Cardiovascular: Rate/Rhythm: + irregularly irregular Heart Sounds: normal S1 and normal S2; no murmur Vessels: no JVD Extremities: no edema Gastrointestinal (Abdomen): Inspection/Auscultation: abdomen normal to inspection and normal bowel sounds; abdomen not distended Neurologic: CN's II-XI intact bilaterally and moves all extremities; no focal motor deficits Results & Data Vital Signs (Past 12 Hours) Vital Signs Temp Pulse Resp BP BP Pulse Ox O2 Del Method 05/31/25 07:08 36.3 C L 76 18 98/62 L 95 Room Air 05/31/25 02:57 36.6 C 73 18 116/70 96 Room Air Laboratory Results Cardiac Enzymes 05/30/25 05/30/25 Range/Units 10:49 17:02 Troponin I High Sens 7.1 6.1 (0-20) pg/ml CBC 05/31/25 Range/Units 05:27 WBC 6.66 (4.8-10.8) K/ul RBC 3.97 L (4.70-6.10) M/uL Hgb 13.0 L (14.0-18.0) g/dl Hct 37.5 L (42.0-52.0) % Plt Count 200 (130-400) K/uL Comprehensive Metabolic Panel 05/31/25 Range/Units 05:27 Sodium 140 (136-145) mmol/L Potassium 3.7 (3.5-5.1) mmol/L Chloride 107 (98-107) mmol/L Carbon Dioxide 28 (21-32) mmol/L BUN 19 (6-23) mg/dl Creatinine 1.11 (0.6-1.4) mg/dl Glucose 86 (70-99(Fasting)) mg/dl Calcium 8.5 L (8.6-10.3) mg/dl Intake and Output 05/30/25 05/31/25 05/31/25 22:59 06:59 14:59 Intake Total 500 / 1250 Balance 500 / 1250 Intake: Oral 500 / 1250 Other: Other Intake Source NPO # Unmeasured Voids 1 1 Weight 82 kg Weight Measurement Method Standing Scale PG Care Time/CCT Total # of Minutes Spent Total Time Spent with Patient: Total time spent is greater than 50% in coordination of care (as documented) at patient's floor/unit and/or counseling patient: Coding Level of Care Code 41239 SUB INP/OBS CARE 3/50MIN Diagnoses Paroxysmal A-fib I48.0
--- NOTE | 2025-05-31 11:43 | Electrocardiogram Report ---
Test Reason : Blood Pressure : */* mmHG Vent. Rate : 69 BPM Atrial Rate : * BPM P-R Int : * ms QRS Dur : 84 ms QT Int : 400 ms P-R-T Axes : * -4 17 degrees QTcB Int : 428 ms Atrial fibrillation Abnormal ECG When compared with ECG of 29-May-2025 21:08, No significant change was found Confirmed by Richmond Venegas ([id number]) on 05/31/2025 11:43:08 AM Referred By: REFERRED SELF Confirmed By: Richmond Venegas
[2025-05-31] MEDS ORDERED: LIDOCAINE 2% 2 ML VIAL/AMP(20MG/ML) INFIL ONE (12:46)
[2025-05-31] MEDS ORDERED: PROPOFOL IV EMULSION 10 MG/ML 20 ML VIAL IV ONE (12:46)
--- NOTE | 2025-05-31 12:53 | Anesthesiology Consultation ---
Date of Service May 31, 2025 Assessment & Plan (1) Encounter for pre-operative examination: Chart Review Chart Review: Acceptable Risk for Surgery and Patient NOT seen in Pre Admission Testing Consults Requested none History Surgery Operation Date: 05/31/25 13:00 Proposed Procedures p Cardioversion w/Anesthesia Lincoln Smith DO Height/Weight Height: 5 ft 10 in Weight: 82 kg Allergies Allergy/AdvReac Type Severity Reaction Status Date / Time niacin Allergy Intermediate RASH Verified 05/29/25 21:39 pantoprazole Allergy Intermediate Rash Verified 05/29/25 21:39 piroxicam Allergy Intermediate Rash Verified 05/29/25 21:39 prednisone Allergy Intermediate Swelling Verified 05/29/25 21:39 rabeprazole Allergy Intermediate rash Verified 05/29/25 21:39 simvastatin Allergy Intermediate rash Verified 05/29/25 21:39 albuterol [From DuoNeb] AdvReac Intermediate Tachycardia Verified 05/29/25 21:39 cerivastatin AdvReac Intermediate muscle pain Verified 05/29/25 21:39 ipratropium [From DuoNeb] AdvReac Intermediate Tachycardia Verified 05/29/25 21:39 methylprednisolone AdvReac Intermediate Tachycardia Verified 05/29/25 21:39 Medications Home Medications Medication Instructions Recorded Confirmed Last Taken aspirin 81 mg chewable tablet 81 mg PO QAM 11/14/18 05/29/25 05/29/25 multivitamin 1 tab PO QAM 11/14/18 05/29/25 05/29/25 terazosin 5 mg capsule 5 mg PO HS 11/14/18 05/29/25 05/28/25 atorvastatin 40 mg tablet 40 mg PO QPM 10/16/21 05/29/25 05/28/25 apixaban 5 mg tablet (Eliquis) 5 mg PO BID #180 tabs 10/30/21 05/29/25 05/29/25 08:00 finasteride 5 mg tablet (Proscar) 5 mg PO QAM 12/18/22 05/29/25 05/29/25 cyanocobalamin (vitamin B-12) 500 500 mcg PO DAILY 12/05/23 05/29/25 05/29/25 mcg tablet (Vitamin B-12) folic acid 400 mcg tablet 0.4 mg PO DAILY 12/05/23 05/29/25 05/29/25 flaxseed oil 1,300 mg capsule 1,300 mg PO DAILY 05/29/25 05/29/25 05/29/25 metoprolol succinate 25 mg 25 mg PO BID 05/29/25 05/29/25 05/29/25 08:00 tablet,extended release 24 hr Active Medications Generic Name Dose Route Start Last Admin Trade Name Rafael PRN Reason Stop Dose Admin Amiodarone HCl 200 mg 05/31/25 07:00 05/31/25 08:35 Amiodarone 200 Mg Tab PO 06/30/25 06:59 Not Given BIDM AGUSTIN Apixaban 5 mg 05/30/25 09:00 05/31/25 08:37 Apixaban 5 Mg Tablet PO 06/29/25 08:59 5 mg BID AGUSTIN Administration Aspirin 81 mg 05/30/25 09:00 05/31/25 08:40 Aspirin 81 Mg Chew PO 06/29/25 08:59 81 mg QAM AGUSTIN Administration Atorvastatin Calcium 40 mg 05/30/25 21:00 05/30/25 21:41 Atorvastatin 40 Mg Tab PO 06/29/25 20:59 40 mg QPM AGUSTIN Administration Cyanocobalamin 500 mcg 05/30/25 09:00 05/31/25 08:37 Cyanocobalamin (B-12) 500 Mcg Tablet PO 06/29/25 08:59 500 mcg DAILY AGUSTIN Administration Finasteride 5 mg 05/30/25 09:00 05/31/25 08:36 Finasteride 5 Mg Tab PO 06/29/25 08:59 5 mg QAM AGUSTIN Administration Folic Acid 400 mcg 05/30/25 09:00 05/31/25 08:36 Folic Acid 400 Mcg Tab PO 06/29/25 08:59 400 mcg DAILY AGUSTIN Administration Metoprolol Succinate 25 mg 05/30/25 09:00 05/31/25 08:36 Metoprolol Succ 25mg Ext Rel Tab PO 06/29/25 08:59 25 mg BID AGUSTIN Administration Multivitamins 1 tab 05/30/25 09:00 05/31/25 08:36 Multivitamin Tab PO 06/29/25 08:59 1 tab QAM AGUSTIN Administration Terazosin HCl 5 mg 05/30/25 21:00 05/30/25 21:41 Terazosin Hcl 5 Mg Cap PO 06/29/25 20:59 5 mg HS AGUSTIN Administration Past Medical History Medical History Generalized weakness Pulmonary hypertension PASP 40 mmHg Mild pulmonary hypertension Tricuspid regurgitation moderate Hypertension History of COVID-19 11/10/22>RESOLVED Atrial fibrillation FOLLOWS WITH KOPINSKI GERD (gastroesophageal reflux disease) Hearing deficit On anticoagulant therapy on eliquis daily Hyperlipidemia Past Family History Family History Other No family history of adverse response to anesthesia Past Surgical History Surgical History History of left-sided carotid endarterectomy History of tonsillectomy History of appendectomy 06/25/1919 Grade 1 view, [place] 2, ETT 7.5. History of tooth extraction upper teeth History of open reduction and internal fixation (ORIF) procedure LEFT HIP History of right inguinal hernia repair History of left inguinal hernia repair History of esophagogastroduodenoscopy (EGD) History of colonoscopy Social History Smoking Status: Never smoker tobacco type: cigarettes Smoking cigarettes per day: 20 Do You Dip or Chew Tobacco: No Hx Alcohol Use: No Alcohol type: beer alcohol intake frequency: 0-2 drinks per day Hx Substance Use: No substance use type: does not use Physical Exam Vital Signs Last Vital Signs Temp 97.7 F 05/31/25 11:57 Pulse 69 05/31/25 11:57 Resp 18 05/31/25 11:57 BP 99/66 L 05/31/25 11:57 Pulse Ox 95 05/31/25 11:57 O2 Del Method Room Air 05/31/25 11:57 Testing Laboratory Results 05/31/25 05:27 05/31/25 05:27 PT 11.1 Seconds (9.0-12.0) 05/29/25 21:15 INR 1.0 (0.9-1.1) 05/29/25 21:15 APTT 32 Seconds (21-31) H 05/29/25 21:15 Electrocardiogram Date: 05/31/25 Findings: + AFIB @
--- NOTE | 2025-05-31 13:12 | Anesthesiology Progress Note ---
Date of Service May 31, 2025 Anesthesia Post Procedure Vital Signs Vital Signs: Temp Pulse Pulse Resp BP BP Pulse Ox 05/31/25 12:53 81 16 121/62 96 05/31/25 11:57 97.7 F 69 18 99/66 L 95 05/31/25 11:02 69 05/31/25 07:08 97.3 F L 76 18 98/62 L 95 05/31/25 02:57 97.9 F 73 18 116/70 96 05/30/25 22:41 97.7 F 79 18 99/68 L 95 05/30/25 22:00 74 05/30/25 19:19 98.2 F 68 16 109/68 96 05/30/25 14:49 97.9 F 70 18 101/62 98 O2 Del Method 05/31/25 12:53 Room Air 05/31/25 11:57 Room Air 05/31/25 11:02 05/31/25 07:08 Room Air 05/31/25 02:57 Room Air 05/30/25 22:41 Room Air 05/30/25 22:00 05/30/25 19:19 Room Air 05/30/25 14:49 Room Air Transfer of Care Handoff Completed per policy Notes Mental Status: alert / awake / arousable and participated in evaluation Patient Amnestic to Procedure: Yes Nausea / Vomiting: adequately controlled Pain: adequately controlled Airway Patency, RR, SpO2: stable & adequate BP & HR: stable & adequate Hydration State: stable & adequate Anesthetic Complications: no major complications apparent and Pt Satisfied with anesthetic care
[2025-05-31 13:16] VITALS: O2SAT 95
--- NOTE | 2025-05-31 13:57 | Cardioversion ---
Date of Service May 31, 2025 PG Electrical Cardioversion Rp Electrical Cardioversion Report Indication: Paroxysmal atrial fibrillation Complications: None Estimated blood loss: 0 cc Anesthesia: Conscious sedation provided by the anesthesia service with propofol and fentanyl. Please see separate report. Procedural summary: Patient was brought to the cardiac catheterization holding area in a fasting state. Atrial fibrillation confirmed on monitor. Defibrillator pads were placed in an anterior and posterior position. When adequate sedation achieved, the defibrillator was synced to the QRS complex. A single 150 J shock was delivered. Patient successfully converted from atrial fibrillation to normal sinus rhythm. No focal neurologic deficit post procedure. Conclusion: Successful external direct-current cardioversion from atrial fibrillation to normal sinus rhythm with 150 J. Terence Smith DO [facility] Coding Level of Care Code 97229 CARDIOVERSION, ELECTIVE Additional Codes Electrical Cardioversion Report ([id number])
[2025-05-31 15:18] VITALS: BP 95/58; PULSE 62; RESP 19; TEMP 97.7
--- NOTE | 2025-05-31 15:27 | Discharge Summary ---
Date of Service May 31, 2025 Admission HPI Per Admitting Provider 80-year-old male with past med history significant for paroxysmal atrial fibrillation, peripheral vascular disease, aortic ectasia abdominal, PACs, ventricular ectopy, bilateral nonsymptomatic carotid stenosis, status post carotid endarterectomy, dyslipidemia, presents with palpitations and shortness of breath. Patient states since last 1 week having palpitations. Yesterday afternoon and last night the palpitation where severe that he could not stand them. Today morning when he woke up he was feeling very dizzy and blood pressure was somewhat soft.He was feeling weak. Was getting mild short of breath when having palpitations. Because of ongoing symptoms he came to the ER. In the ER his heart rates are under control. Denies any chest pain. No runny nose or sore throat. No cough. No fevers. No nausea. Appetite is okay. No sweating. No abdominal pain. Normal bowel and bladder movements. Current resting comfortably and hemodynamically stable. Past medical history. As mentioned above. Past surgical history. Colonoscopy. EGD. Laparoscopic appendectomy. Open repair of ventral and umbilical hernia. Social history. . Quit smoking 1999. Alcohol 1 beer in the evening. No drug use. Family history. No family history on file. Admission Exam Per Admitting Provider General- Not in distress Head- atraumatic Eyes- PERRL. ENT- oropharynx clear Neck- supple, no JVD. Lungs- clear to auscultation no wheezing or crackles. Heart- regular rhythm; no murmur, no gallop. Abdomen- normal bowel sounds, soft, nontender, no distension Extremities- no pretibial edema, no erythema seen Neuro- alert, oriented PERRL, no facial palsy; no dysarthria; moves extremities Principal Diagnosis Atrial fibrillation, paroxysmal, symptomatic Discharge Exam General- WD/WN M in NAD Head- atraumatic Eyes- PERRL. Neck- supple, no JVD. Lungs- clear to auscultation no wheezing or crackles. Heart- regular rhythm; no murmur Abdomen- normal bowel sounds, soft, nontender, no distension Extremities- no pretibial edema, no erythema seen Neuro- alert, oriented PERRL, no facial palsy; no dysarthria; moves extremities Discharge Data Allergies Allergy/AdvReac Type Severity Reaction Status Date / Time niacin Allergy Intermediate RASH Verified 05/29/25 21:39 pantoprazole Allergy Intermediate Rash Verified 05/29/25 21:39 piroxicam Allergy Intermediate Rash Verified 05/29/25 21:39 prednisone Allergy Intermediate Swelling Verified 05/29/25 21:39 rabeprazole Allergy Intermediate rash Verified 05/29/25 21:39 simvastatin Allergy Intermediate rash Verified 05/29/25 21:39 albuterol [From DuoNeb] AdvReac Intermediate Tachycardia Verified 05/29/25 21:39 cerivastatin AdvReac Intermediate muscle pain Verified 05/29/25 21:39 ipratropium [From DuoNeb] AdvReac Intermediate Tachycardia Verified 05/29/25 21:39 methylprednisolone AdvReac Intermediate Tachycardia Verified 05/29/25 21:39 Consultations 05/29/25 22:40 ED Decision to Admit Stat 05/30/25 08:00 Consult Cardiology Routine Procedures Performed Operation Date: 05/31/25 13:00 Actual Procedures p Cardioversion - DO graciela Machado Cardioversion Hospital Course (1) Dyspnea: 80-year-old male with past med history significant for paroxysmal atrial fibrillation, peripheral vascular disease, aortic ectasia abdominal, PACs, ventricular ectopy, bilateral nonsymptomatic carotid stenosis, status post carotid endarterectomy, dyslipidemia, presents with palpitations and shortness of breath. Patient states since last 1 week having palpitations. Yesterday afternoon and last night the palpitation where severe that he could not stand them. Today morning when he woke up he was feeling very dizzy and blood pressure was somewhat soft.He was feeling weak. Was getting mild short of breath when having palpitations. Because of ongoing symptoms he came to the ER. In the ER his heart rates are under control. Denies any chest pain. No runny nose or sore throat. No cough. No fevers. No nausea. Appetite is okay. No sweating. No abdominal pain. Normal bowel and bladder movements. Current resting comfortably and hemodynamically stable. Dyspnea Palpitations Weakness A-fib, paroxysmal, symptomatic Currently rates under control Continue home metoprolol and Eliquis Monitor on telemetry Serial cardiac enzymes and echo Cardiology consulted - started on amiodarone 200 mg BID and s/p cardioversion Currently pt is feeling well and will be discharged home, cardiology outpt follow up History of atrial fibrillation Continue home metoprolol and Eliquis started amiodarone, s/p cardioversion, as above Hyperlipidemia On statin BPH On Proscar and terazosin Hypertension On metoprolol succinate and terazosin History of ventricular ectopy History of PACs On metoprolol succinate History of bilateral carotid stenosis Status post carotid endarterectomy On aspirin and statin Total Time Total Time Spent Total Time Spent (In Minutes): 40 Discharge Plan Discharge Items Patient Disposition: Home - Self-Care Reason For Visit: PALPATATIONS, SOB Discharge Diagnosis: Atrial fibrillation, paroxysmal, symptomatic Condition on Discharge: Fair Activity: Per Instructions section Non-emergency contact: Primary Care Provider and [employer] Call non-emergency contact if: you have any medication questions and your symptoms worsen Follow-up/Referrals: Joe Henriquez MD [Primary Care Provider] - Diet: Heart Healthy Addtl Attending Provider Instructions: Follow up with primary care physician and curtain 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 You should be seen by primary care physician within 1-2 weeks. Continue taking metoprolol succinate and eliquis, as prescribed. Take amiodarone 200 mg twice a day, as prescribed. Pending Studies at Discharge: No Stand-Alone Forms: My [facility] [employer], Smoking Cessation Medications and DC Order Prescriptions: New amiodarone 200 mg Tablet 200 mg PO BIDM Qty: 60 0RF Continued Eliquis 5 mg tablet 5 mg PO BID Qty: 180 3RF atorvastatin 40 mg tablet 40 mg PO QPM multivitamin Tablet 1 tab PO QAM terazosin 5 mg Capsule 5 mg PO HS aspirin 81 mg Tablet,Chewable 81 mg PO QAM finasteride [Proscar] 5 mg Tablet 5 mg PO QAM metoprolol succinate 25 mg tablet extended release 24 hr 25 mg PO BID flaxseed oil 1,300 mg Capsule 1,300 mg PO DAILY folic acid 400 mcg Tablet 0.4 mg PO DAILY cyanocobalamin (vitamin B-12) [Vitamin B-12] 500 mcg Tablet 500 mcg PO DAILY Discharge Orders: Discharge Order (Routine); Ordered 05/31/25 Ordered By: Otilio Xiong Admission Data Admit Date/Time: 05/30/25 01:26 Attending Provider: Otilio Xiong Admit Provider: Taiwo Holman Primary Care Provider: Joe Henriquez Other Providers: Taiwo Holman; Elen Stephens; Femi Vazquez; Scotty Colindres; Terence Smith; Dipesh De La Rosa; Issa Kapadia; Jocelyn Mathis; Yennifer Reese; Miracle Busch; Ame Bah; Elen Nolen; Edenilson Jose; Luis Armando Contreras; Corie Wan; Kath Cantu; Bebe Francisco; Alva Clayton; Moe Harvey; Concepcion Herrera; Delisa Moreno; Richmond Christensen Other Interventions: Discharge Summary Assessment (RN) Last Done: 05/31/25 15:43
--- NOTE | 2025-06-01 11:15 | Electrocardiogram Report ---
Test Reason : Blood Pressure : */* mmHG Vent. Rate : 63 BPM Atrial Rate : 63 BPM P-R Int : 236 ms QRS Dur : 88 ms QT Int : 426 ms P-R-T Axes : 30 0 26 degrees QTcB Int : 435 ms Sinus rhythm with 1st degree A-V block Otherwise normal ECG When compared with ECG of 31-May-2025 04:54, Sinus rhythm has replaced Atrial fibrillation Confirmed by Richmond Venegas ([id number]) on 06/01/2025 11:15:16 AM Referred By: REFERRED SELF Confirmed By: Richmond Venegas
== END 2025-05-31 16:13 | disposition home or self-care (01) ==
LOC: EDINP 21:01 → ED 21:01 → 2S 05-30 03:19